=== PATIENT | female | born 1960 | race Caucasian/White ===

== ENCOUNTER 2024-12-23 13:49 | Inpatient (IN) | payer MEDICAID, SELFPAY ==
[2024-12-23] VITALS (47 sets, daily range): BP systolic 79–133; BP diastolic 56–104; PULSE 79–131; RESP 18–39; TEMP 37.8–41.1; O2SAT 87–100; BMI 22.7
--- NOTE | 2024-12-23 14:05 | EKG_ITS ---
[facility] Test Date: 2024-12-23 Pat Name: JOSÉ MIGUEL ESCAMILLA Department: Room: - Gender: Female [employer] Consultant: : [id number] Requested By: Geovani Blanco Order Number: [id number] Reading MD: Geovani Blanco Measurements Intervals [place] Rate: 127 P: 20 AK: 162 QRS: -5 QRSD: 120 T: 48 QT: 399 QTc: 581 Interpretive Statements SINUS TACHYCARDIA POSSIBLE RIGHT VENTRICULAR CONDUCTION DELAY [RSR (QR) IN V1/V2] POSSIBLE INFERIOR MYOCARDIAL INFARCTION , OF INDETERMINATE AGE [30 ms Q WAVE IN II/aVF] POSSIBLE ANTEROLATERAL MYOCARDIAL INFARCTION , PROBABLY OLD [30 ms Q WAVE IN I/aVL/V3-V6] Compared to ECG 05/11/2023 16:30:20 Myocardial infarct finding now present Sinus bradycardia no longer present Intraventricular conduction delay no longer present /store/S0/[id number]/ecg/[id number].pdf
--- NOTE | 2024-12-23 14:05 | PC.NURSE ---
PT BROUGHT IN BY EMS WITH C/O ALTERED MENTAL STATUS WITH UNKNOWN LAST KNOWN WELL. PT ALERT AND RESPONDING TO PAIN BY MOANING BUT NOT SPEAKING WORDS AT THIS TIME. PT HOT TO TOUCH. PER EMS BOYFRIEND REPORTED THAT PT IS A HEAVY DRINKER. PT WAS FOUND DOWN ON FLOOR WHEN HE WENT TO CHECK ON HER. PT NOTED TO HAVE BRUISING TO MOUTH, UPPER ARMS AND LEGS. SMALL WOUNDS NOTED TO BILATERAL UPPER ARMS. R PUPIL NOTED TO BE LARGER THAN LEFT PUPIL. MARY VU INFORMED AND AT BEDSIDE
--- NOTE | 2024-12-23 14:06 | XR_ITS ---
Exam: AP view the chest INDICATION: Chest pain. COMPARISON: 04/05/2019. FINDINGS: Heart size appears normal. Ill-defined area of opacification in the right upper zone most prominent in the suprahilar region. Lungs otherwise clear. Pulmonary vascular pattern appears normal. No pneumothorax. No acute bony abnormality. IMPRESSION: Right upper zone/suprahilar infiltrate.
--- NOTE | 2024-12-23 14:08 | PD.EDAMS ---
Altered Mental Status RME/HPI General Chief Complaint: Altered Mental Status Stated Complaint: ALTERED Time Seen by Provider: 12/23/24 14:11 Arrival date/time: 12/23/24 13:49 RME / HPI RME / HPI narrative: 64-year-old female patient with significant history of seizure disorder, depression, chronic alcoholism, was brought in by EMS for altered mental status. Patient boyfriend went to the house to do welfare check, and was found to be on the ground and was noted to be covered with urine and feces all over. When the EMS arrived patient was noted to have a GCS of 9. On my initial evaluation patient was noted to be febrile tachycardic. There is also unequal pupil noted, patient is not following commands eyes is open. Nonverbal. Unknown well-known time. Sepsis alert and stroke alert was initiated right away. Related Data Home Medications ?Medication ?Instructions ?Recorded ?Confirmed gabapentin 300 mg capsule 300 mg PO BID 09/16/19 09/16/19 levetiracetam 500 mg tablet 50 mg PO BID 09/16/19 09/16/19 lorazepam 0.5 mg tablet 0.5 mg PO BID PRN Anxiety 09/16/19 09/16/19 sertraline 50 mg tablet 50 mg PO HS 09/16/19 09/16/19 Previous Rx's ?Medication ?Instructions ?Recorded chlordiazepoxide HCl 25 mg capsule 25 mg PO Q12H PRN alcohol 01/14/23 withdrawal #20 caps Allergies Allergy/AdvReac Type Severity Reaction Status Date / Time No Known Allergies Allergy Verified 12/23/24 14:03 Review of Systems Review of Systems ROS Unobtainable: unobtainable due to mental status and unobtainable due to medical condition ED Exam Narrative Physical exam: VITAL SIGNS: Reviewed. GENERAL APPEARANCE: Awake with eyes open, nonverbal, pupils noted, miosis noted, does not follows commands no acute distress, HEAD AND FACE: Multiple bruising noted on the face ENT: PERRL, pink conjunctivitis, eyelid no trauma, Mucous membrane moist. NECK: Supple, nontender, no nuchal rigidity. CHEST: No tenderness, no crepitus, no paradoxical movement, no retractions. LUNGS: Clear, well ventilated, symmetric, no rales, no wheezing, no ronchi, no stridor, good breath sounds bilaterally. HEART: Regular rate, regular rhythm, no murmur, no gallops. ABDOMEN: Soft, positive bowel sounds, nondistended, no guarding, nontender, no rebound, no masses, RECTAL: Deferred. GENITAL: Deferred. NEUROLOGICAL: Gross motor function intact on the right upper extremity, cannot fully assess at this time MUSCULOSKELETAL: low back nontender, full range of motion. EXTREMITIES: Able to hold resistance on the right and lower extremity minimal resistance of the left upper extremity, patient tends to drop to the left arm on lifting SKIN: Multiple bruising noted on the upper and lower extremity no deformity LYMPHATICS: Deferred. Course Quality Measures none Orders Category Date Time Status 24 HR Medical Restraints Q2HR Care 12/23/24 16:51 Active Bedside COVID-19 Antigen Test NOW Care 12/23/24 14:07 Active Bedside Influenza A&B Antigen Test NOW Care 12/23/24 14:07 Completed COVID-19 Screening Questionnaire NOW Care 12/23/24 16:51 Active Asset Accountant STAT Care 12/23/24 14:05 Active Continuous Pulse Oximetry STAT Care 12/23/24 14:05 Completed Cooling Measures NEEDED Care 12/23/24 14:07 Active Decision to Admit X1 Care 12/23/24 16:51 Completed EKG (ED ONLY) *Do not use* NOW Care 12/23/24 14:05 Completed Serna [Urinary Catheter] QS Care 12/23/24 14:07 Active Serna to [place] Routine Care 12/23/24 14:07 Ordered Insert IV NOW Care 12/23/24 14:05 Active Insert NG / OG tube NOW Care 12/23/24 16:50 Active Intubation NOW Care 12/23/24 17:01 Completed NIH Stroke Scale now Care 12/23/24 14:13 Active NPO NOW Care 12/23/24 14:13 Active NPO STAT Care 12/23/24 14:05 Active Nurse Swallow Screen x1 Care 12/23/24 14:13 Active Strict Intake and Output Routine Care 12/23/24 14:05 Ordered Consult to Neurology / Tele-Neurology Routine Cons 12/23/24 14:[address] angio stroke protocol Stat Exams 12/23/24 14:[address] stroke protocol Stat Exams 12/23/24 14:13 Completed EKG (ED Only) Stat Exams 12/23/24 14:05 Draft XR chest 1V SEPSIS PROTOCOL Stat Exams 12/23/24 14:06 Completed XR chest 1V post procedure Stat Exams 12/23/24 17:20 Completed Alcohol, Blood Medical Stat Lab 12/23/24 16:01 Completed Arterial Blood Gas Stat Lab 12/23/24 17:09 Completed B-Type Natriuretic Peptide Stat Lab 12/23/24 14:15 Completed Blood Culture (Lab) Stat Lab 12/23/24 14:15 Received CBC Stat Lab 12/23/24 16:01 Completed CK [Creatine Kinase] Stat Lab 12/23/24 16:01 Completed Comprehensive Metabolic Panel Stat Lab 12/23/24 16:01 Completed Drug Screen,Urine Stat Lab 12/23/24 14:30 Ordered LDH (Lactate Dehydrogenase) Stat Lab 12/23/24 16:01 Completed Lactate (Lactic Acid) Stat Lab 12/23/24 14:20 Completed Lactic Acid, 3 HR Stat Lab 12/23/24 16:44 Completed Lipase Stat Lab 12/23/24 16:01 Completed Magnesium Stat Lab 12/23/24 16:01 Completed Partial Thromboplastin Time Stat Lab 12/23/24 16:01 Completed Path Review Blood Smear Stat Lab 12/23/24 16:01 Completed Phosphorous Stat Lab 12/23/24 16:01 Completed Procalcitonin Stat Lab 12/23/24 16:01 Completed Prothrombin Time with INR Stat Lab 12/23/24 16:01 Completed Sputum Culture and Gram Stain Routine Lab 12/23/24 17:12 Received Troponin I Stat Lab 12/23/24 16:01 Completed Urinalysis, C/S if Indicated Stat Lab 12/23/24 14:30 Completed Acetaminophen Ivpb [Ofirmev Inj] Med 12/23/24 14:06 Discontinued 1,000 mg in 100 ml IV X1 Etomidate Inj [Amidate Inj] Med 12/23/24 16:45 Discontinued 15 mg IV X1 ONE Etomidate Inj [Amidate Inj] Med 12/23/24 16:39 Discontinued 20 mg .ROUTE .STK-MED ONE Etomidate Inj [Amidate Inj] Med 12/23/24 16:40 Discontinued 20 mg IVP X1 ONE Labetalol IV [Trandate IV] Med 12/23/24 14:13 Active 10 mg IVP Q15M PRN Magnesium Sulfate 2 GM Ivpb [Magnesium Sulfate Ivpb] Med 12/23/24 17:53 Discontinued 2 gm in 50 ml IV X1 Ondansetron Inj [Zofran Inj] Med 12/23/24 14:13 Active 4 mg IVP Q4HR PRN Piper/Tazo 3.375 gm Premix [Zosyn] Med 12/23/24 14:06 Discontinued 3.375 gm in 50 ml IV X1 Propofol 1,000 mg Ivpb [Diprivan Ivpb] Med 12/23/24 17:10 Discontinued 1,000 mg in 100 ml IV 5 mcg/kg/min Propofol Inj [Diprivan Inj] Med 12/23/24 17:09 Discontinued 80 mg IV X1 ONE Ringers Lactated 1000 ml [Lactated Ringers] 1,000 ml Med 12/23/24 14:08 Discontinued IV 999 mls/hr Ringers Lactated 1000 ml [Lactated Ringers] 1,000 ml Med 12/23/24 14:08 Discontinued IV 999 mls/hr Succinylcholine Inj [Anectine Inj] Med 12/23/24 16:40 Discontinued 100 mg IV X1 ONE Succinylcholine Inj [Anectine Inj] Med 12/23/24 16:40 Discontinued 200 mg .ROUTE .STK-MED ONE levETIRAcetam INJ [Keppra Inj] Med 12/23/24 17:00 Discontinued 1,000 mg IVP X1 ONE Oxygen Delivery NOW RT 12/23/24 14:05 Active Oxygen Delivery NOW RT 12/23/24 14:13 Active Volume Ventilator Stat RT 12/23/24 17:01 Active Vital Signs Vital signs: Vital Signs Temperature 105.9 F H 12/23/24 13:58 Pulse Rate 130 H 12/23/24 13:58 Respiratory Rate 18 12/23/24 13:58 Blood Pressure 107/79 12/23/24 13:58 Pulse Oximetry (%) 94 L 12/23/24 13:58 Oxygen Delivery Method Room Air 12/23/24 13:58 Altered Mental Status MDM Narrative MDM Narrative:: 64-year-old female patient with significant history of seizure disorder, depression, chronic alcoholism, was brought in by EMS for altered mental status. Patient boyfriend went to the house to do welfare check, and was found to be on the ground and was noted to be covered with urine and feces all over. When the EMS arrived patient was noted to have a GCS of 9. On my initial evaluation patient was noted to be febrile tachycardic. There is also unequal pupil noted, patient is not following commands eyes is open. Nonverbal. Unknown well-known time. Sepsis alert and stroke alert was initiated right away. Patient was given 2 L of IV fluids, IV Zosyn, IV Tylenol Patient CBC showed no leukocytosis, ABG showed pH of 7.28, PO244 potassium 2.9 anion gap 19 BUN 32, creatinine 1.3 lactic acid 8.8 magnesium 1.2 total bili 4.6, AST 340, ALT 85 alkaline phos of 118 total creatinine kinase 8185 troponin 0.316 BNP 328 Pro-Edilberto more than 50 urinalysis significant for UTI chest x-ray showed Right upper zone/suprahilar infiltrate. Patient went into cardiac arrest at 4:35 PM today Family was informed Patient was intubated by Dr. Luke. I spoke with ICU hospitalist, who admitted the patient. Patient data External records reviewed:: None Clinical information provided by:: EMS and family Social determinants that could affect healthcare access:: none Patient has the following chronic illnesses:: Chronic alcoholism seizure disorder How is presenting disease/condition affected by chronic disease/condition?: exacerbated by Evaluation data The following diagnostics were reviewed and interpreted by me:: lab results, radiology exam(s) and EKG tracing(s) Lab and/or radiology exams considered but not ordered:: None Interpretation Summary: EKG showed sinus tachycardia, ventricular rate of 127 bpm, ST segment elevation depression noted. Medications / Prescriptions Medications or Prescriptions considered but not ordered:: None Medication administrations:: Medication Administration History Acetaminophen (Acetaminophen 325 Mg Tablet) 650 mg PO Q4HR PRN PRN Reason: PAIN SCALE 1-3 (mild Stop: 01/22/25 18:21 Acetaminophen (Acetaminophen Supp 650 Mg Supp) 650 mg MI Q4HR PRN PRN Reason: PAIN SCALE 1-3 (mild Stop: 01/22/25 18:21 Potassium Chloride (Kcl Ivpb) 10 meq in 100 mls @ 100 mls/hr IV Q1H JASMINA Stop: 12/23/24 22:45 Last Admin: 12/23/24 19:20 Dose: 100 mls/hr Documented By: BASIL Magnesium Sulfate (Magnesium Sulfate Ivpb) 4 gm in 50 mls @ 12.5 mls/hr IV X1 ONE Stop: 12/23/24 22:46 Last Admin: 12/23/24 20:04 Dose: 12.5 mls/hr Documented By: BASIL Lactated Ringer's (Lactated Ringers) 1,000 mls @ 125 mls/hr IV .Q8H [facility] Stop: 01/22/25 19:18 Last Admin: 12/23/24 19:46 Dose: 125 mls/hr Documented By: BASIL Propofol (Diprivan Ivpb) 1,000 mg in 100 mls @ 1.973 mls/hr IV .Q24H PRN; Protocol PRN Reason: PER PROTOCOL Stop: 01/22/25 19:19 Last Admin: 12/23/24 19:48 Dose: 45 mcg/kg/min, 17.758 mls/hr Documented By: BASIL Co-signed By: SHARMAINE Ceftriaxone Sodium 2 gm/ (Sodium Chloride) 50 mls @ 100 mls/hr IV QDAY [facility] Stop: 12/31/24 08:59 Labetalol HCl (Labetalol Inj 5 Mg/Ml Vial 20 Ml) 10 mg IVP Q15M PRN PRN Reason: SBP >180, DBP >105 Ondansetron HCl (Ondansetron Inj 2 Mg/Ml Inj 2 Ml) 4 mg IVP Q4HR PRN PRN Reason: NAUSEA OR VOMITING Stop: 01/22/25 14:12 Discontinued Medications Enoxaparin Sodium (Enoxaparin Sod Inj 40 Mg/0.4 Ml Syringe) 40 mg SC QDAY [facility] Stop: 01/07/25 08:59 Etomidate (Etomidate Inj 2 Mg/Ml Vial 10 Ml) 20 mg IVP X1 ONE Stop: 12/23/24 16:41 Last Admin: 12/23/24 16:48 Dose: Not Given Documented By: DO Non-Admin Reason: Cancelled by Provider Etomidate (Etomidate Inj 2 Mg/Ml Vial 10 Ml) Confirm Administered Dose 20 mg .ROUTE .STK-MED ONE Stop: 12/23/24 16:40 Last Admin: 12/23/24 16:49 Dose: Not Given Documented By: DO Non-Admin Reason: Override Medication Etomidate (Etomidate Inj 2 Mg/Ml Vial 10 Ml) 15 mg IV X1 ONE Stop: 12/23/24 16:46 Last Admin: 12/23/24 16:42 Dose: 15 mg Documented By: DO Comments: 20 GUAGE R HAND Piperacillin/Tazobactam/Dextrose (Zosyn) 3.375 gm in 50 mls @ 100 mls/hr IV X1 ONE Stop: 12/23/24 14:35 Last Infusion: 12/23/24 14:54 Dose: Infused Documented By: Admin: 12/23/24 14:24 Dose: 100 mls/hr Documented By: DO Acetaminophen (Ofirmev Inj) 1,000 mg in 100 mls @ 250 mls/hr IV X1 ONE Stop: 12/23/24 14:29 Last Infusion: 12/23/24 14:39 Dose: Infused Documented By: Admin: 12/23/24 14:15 Dose: 250 mls/hr Documented By: DO Lactated Ringer's (Lactated Ringers) 1,000 mls @ 999 mls/hr IV .Q1H1M ONE Stop: 12/23/24 15:08 Last Infusion: 12/23/24 15:30 Dose: Infused Documented By: Admin: 12/23/24 14:16 Dose: 999 mls/hr Documented By: DO Lactated Ringer's (Lactated Ringers) 1,000 mls @ 999 mls/hr IV .Q1H1M ONE Stop: 12/23/24 15:08 Last Infusion: 12/23/24 15:30 Dose: Infused Documented By: Admin: 12/23/24 14:16 Dose: 999 mls/hr Documented By: DO Propofol (Diprivan Ivpb) 1,000 mg in 100 mls @ 1.973 mls/hr IV .Q24H PRN; Protocol PRN Reason: PER PROTOCOL Stop: 01/22/25 17:09 Last Titration: 12/23/24 18:25 Dose: 40 mcg/kg/min, 15.785 mls/hr Documented By: Titration: 12/23/24 18:20 Dose: 35 mcg/kg/min, 13.812 mls/hr Documented By: Titration: 12/23/24 18:15 Dose: 30 mcg/kg/min, 11.839 mls/hr Documented By: Titration: 12/23/24 18:10 Dose: 25 mcg/kg/min, 9.866 mls/hr Documented By: Titration: 12/23/24 18:05 Dose: 20 mcg/kg/min, 7.893 mls/hr Documented By: Titration: 12/23/24 18:00 Dose: 15 mcg/kg/min, 5.919 mls/hr Documented By: Titration: 12/23/24 17:55 Dose: 10 mcg/kg/min, 3.946 mls/hr Documented By: Admin: 12/23/24 17:28 Dose: 5 mcg/kg/min, 1.973 mls/hr Documented By: Co-signed By: RICH Magnesium Sulfate (Magnesium Sulfate Ivpb) 2 gm in 50 mls @ 25 mls/hr IV X1 ONE Stop: 12/23/24 19:52 Last Admin: 12/23/24 18:13 Dose: 25 mls/hr Documented By: Lactated Ringer's (Lactated Ringers) 1,000 mls @ 999 mls/hr IV .Q1H1M ONE Stop: 12/23/24 19:24 Last Admin: 12/23/24 18:28 Dose: 999 mls/hr Documented By: Ceftriaxone Sodium/Dextrose (Rocephin/D5w 1gm Iv Premix) 1 gm in 50 mls @ 100 mls/hr IV QDAY JASMINA Stop: 12/30/24 18:47 Last Infusion: 12/23/24 19:49 Dose: Infused Documented By: Admin: 12/23/24 19:19 Dose: 100 mls/hr Documented By: BASIL Dexmedetomidine/Sodium Chloride (Precedex Ivpb) 400 mcg in 100 mls @ 3.289 mls/hr IV .Q24H PRN; Protocol PRN Reason: Per PROTOCOL Stop: 01/22/25 18:50 Levetiracetam (Levetiracetam Inj 100 Mg/Ml Vial 5ml) 1,000 mg IVP X1 ONE Stop: 12/23/24 17:01 Last Admin: 12/23/24 17:27 Dose: 1,000 mg Documented By: Propofol (Propofol Inj 10 Mg/Ml Vial 20 Ml) 80 mg IV X1 ONE Stop: 12/23/24 17:10 Last Admin: 12/23/24 17:32 Dose: 80 mg Documented By: Comments: ADMINISTERED BY MD LUKE Succinylcholine Chloride (Succinylcholine Inj 20 Mg/Ml Vial 10 Ml) 100 mg IV X1 ONE Stop: 12/23/24 16:41 Last Admin: 12/23/24 16:43 Dose: 100 mg Documented By: DO Succinylcholine Chloride (Succinylcholine Inj 20 Mg/Ml Vial 10 Ml) Confirm Administered Dose 200 mg .ROUTE .STK-MED ONE Stop: 12/23/24 16:41 Last Admin: 12/23/24 16:48 Dose: Not Given Documented By: DO Non-Admin Reason: Override Medication See above Consultations Consultation(s) initiated? (list below): No Diagnosis Differential diagnosis altered mental status: alcoholic intoxication, altered mental status and sepsis Most likely diagnosis given after review of the tests above:: Sepsis, UTI, cardiopulmonary arrest, rhabdomyolysis, hypokalemia, seizure, alcohol withdrawal symptoms Admission Indicated Admission indicated?: indicated Admission Request Was there a request for admission?: Yes Admission Attestation Admission request attestation: Discussed case with [ICU Hospitalist service regarding admission. Discussed patients ED course, exam findings, labs, and radiology results. The Hospitalist [agrees,to accept the patient for admission. Disposition Plan Disposition Plan: Admit Critical Care Time Critical Care Time Critical Care Time: Yes Total Critical Care Time (min.): 45 Attestation: Critical Care Time The very real possibility of a deterioration of this patient's condition required the highest level of my preparedness for sudden, emergent intervention for the following systems: Cardiac and Metabolic. I provided critical care services, which included medication orders, frequent re-evaluations of the patient's condition and response to treatment, ordering and reviewing test results, and discussing the case with various consultants including: nursing staff, hospitalist, and more. The critical care time associated with the care of this patient was 45 minutes. Discharge Plan Plan Patient Disposition: Admit Acute Care w/in Hospital Problem List Clinical Impression: Altered mental status, Sepsis, Acute hypokalemia, Seizure, Cardiopulmonary arrest, Rhabdomyolysis, UTI (urinary tract infection)
--- NOTE | 2024-12-23 14:13 | XR_ITS ---
Examination: CT brain head without contrast. 2-D sagittal coronal reconstructions Date and time of exam:12/23/2024, 2:35 PM CTDI: vol (mGy):48.5 DLP: (mGycm):930 INDICATION: Stroke. COMPARISON: 05/11/2023 Technique: Multiple CT axial sections of the brain have been obtained, 5 mm slice thickness. Contrast has not been administered. 2-D sagittal, coronal reconstructions have been obtained Low dose protocols were performed. One or more of the following dose reduction techniques were used; automated exposure control, adjustment of the mA and/or KV according to patient size, use of iterative reconstruction technique. Findings: No significant ventricular enlargement. Intra-axial or extra-axial hemorrhage density is not seen. No mass effect or midline shift Basal cisterns are not remarkable. Fourth ventricle is midline. Cranial vault intact. Impression: Negative for acute hemorrhage, mass effect or midline shift
--- NOTE | 2024-12-23 14:13 | XR_ITS ---
Examination: CTA carotids with intravenous contrast CTA brain, head with intravenous contrast. 2-D sagittal, coronal reconstructions. 3-D reconstructions. Exam date and time: December 23, 2024, 1437 hrs. Indications: Stroke alert, onset focal neurologic deficit including altered mental status today CTDI: vol (mGy) 11.0 DLP: (mGycm) 415. Technique: Multiple CTA axial brain, head carotid images post intravenous contrast injection 100 cc, [id number]. 2-D sagittal, coronal reconstructions. 3-D reconstructions, 3-D post processing including vascular maximum intensity projection images. Low dose protocols were performed. One or more of the following dose reduction techniques were used; automated exposure control, adjustment of the mA and/or KV according to patient size, use of iterative reconstruction technique. Findings: No significant common carotid carotid bifurcation or internal carotid artery stenoses. Dominant right vertebral artery in the neck with no critical vertebral artery stenoses. No cerebral large vessel arterial occlusions or thrombus Impression: No significant neck arterial stenoses No cerebral large vessel arterial occlusions or thrombus
[2024-12-23] MEDS: ACETAMINOPHEN IVPB 1,000 MG/100 ML VIAL 250 MG IV (14:15)
[2024-12-23] MEDS: RINGERS LACTATED 1000 ML 1,000 ML 999 ML IV ×3 (14:16→18:28)
--- NOTE | 2024-12-23 14:17 | PC.NURSE ---
UNABLE TO COMPLETE NIH DUE TO PT NOT ABLE TO ANSWER QUESTIONS OR FOLLOW COMMANDS
[2024-12-23] MEDS: PIPER/TAZO 3.375 GM PREMIX 3.375 GM/50 ML BAG IV (14:24)
--- NOTE | 2024-12-23 14:26 | PC.NURSE ---
TELE NEURO DOCTOR ROEL SALGADO TO EVALUATE PT
--- NOTE | 2024-12-23 14:30 | PC.NURSE ---
pt to ct with rn at bedside
[2024-12-23 14:37] LABS: Lactate (Lactic Acid) 2.9 mMol/L (0.4-2.0)
--- NOTE | 2024-12-23 14:58 | PD.VCONSULT1 ---
Telemedicine visit statement This visit was conducted with the use of interactive audio and video telecommunications system that permits real time communication between the patient and the provider. Patient's verbal consent for virtual visit was obtained on 12/23/24 at 1458. History of Present Illness History of Present Illness History of present illness: [facility] Patient Name:???Eulalia Brady Date of :???1960 Identification Number:??? Date of Service:???12/23/2024 14:21:56 Diagnosis:?R41.0 - Disorientation, unspecified Impression: ?The patient is a 64 year old woman with a history of diabetes, alcohol abuse, seizure disorder who presents with AMS and right side gaze preference in setting of fever. Broad differential includes encephalopathy, seizure, or CVA. CTA ordered, will follow up results. Recommend further evaluation with MRI brain without contrast and EEG. Our recommendations are outlined below. Recommendations: ? Stroke/Telemetry Floor ? Neuro Checks ? Bedside Swallow Eval ? DVT Prophylaxis ? IV Fluids, Normal Saline ? Head of Bed 30 Degrees ? Euglycemia and Avoid Hyperthermia (PRN Acetaminophen) Sign Out: ? Discussed with Emergency Department Provider Advanced Imaging: Advanced imaging has been ordered. Results pending. Metrics: Last Known Well: Unknown Dispatch Time: 12/23/2024 14:21:56 Arrival Time: 12/23/2024 13:49:00 Initial Response Time: 12/23/2024 14:26:03Symptoms: AMS. Initial patient interaction: 12/23/2024 14:27:11 NIHSS Assessment Completed: 12/23/2024 14:33:13Patient is not a candidate for Thrombolytic. Thrombolytic Medical Decision: 12/23/2024 14:33:13Patient was not deemed candidate for Thrombolytic because of following reasons: LKW outside 4.[address] Head: I personally reviewed all the CT images that were available to me and it showed: no acute abnormality Primary Provider Notified of Diagnostic Impression and Management Plan on: 12/23/2024 14:53:25 History of Present Illness:Patient is a 64 year old Female. Patient was brought by EMS for symptoms of AMS. Patient brought in by EMS following welfare check by ex-. Unclear last normal. Found on ground covered in feces and urine, poorly responsive, with multiple bruises. In ER she is nonverbal, not following commands. Noted to have gave preference to the right. Past Medical History: ?Diabetes Mellitus ?Seizures ?There is no history of Hypertension ?There is no history of Hyperlipidemia Other PMH:? alcohol abuse Medications: No Anticoagulant use? No Antiplatelet use Reviewed EMR for current medications Allergies:? Reviewed Social History: Alcohol Use: Yes Family History: There is no family history of premature cerebrovascular disease pertinent to this consultation ROS : 14 Points Review of Systems was performed and was negative except mentioned in HPI. Past Surgical History: There Is No Surgical History Contributory To Today?s Visit Examination: BP(107/79),?Pulse(130), 1A: Level of Consciousness - Arouses to minor stimulation?+ 1 1B: Ask Month and Age - Aphasic?+ 2 1C: Blink Eyes & Squeeze Hands - Performs 0 Tasks?+ 2 2: Test Horizontal Extraocular Movements - Forced Gaze Palsy: Cannot Be Overcome?+ 2 3: Test Visual Hope - No Visual Loss?+ 0 4: Test Facial Palsy (Use Grimace if Obtunded) - Normal symmetry?+ 0 5A: Test Left Arm Motor Drift - Some Effort Against Beulah?+ 2 5B: Test Right Arm Motor Drift - Some Effort Against Beulah?+ 2 6A: Test Left Leg Motor Drift - No Effort Against Beulah?+ 3 6B: Test Right Leg Motor Drift - No Effort Against Beulah?+ 3 7: Test Limb Ataxia (FNF/Heel-Sow) - No Ataxia?+ 0 8: Test Sensation - Normal; No sensory loss?+ 0 9: Test Language/Aphasia - Mute/Global Aphasia: No Usable Speech/Auditory Comprehension?+ 3 10: Test Dysarthria - Mute/Anarthric?+ 2 11: Test Extinction/Inattention - Visual/tactile/auditory/spatial/personal inattention?+ 1 NIHSS Score:?23 Pre-Morbid Modified Ludlow Scale:0 Points = No symptoms at all Spoke with :?ED MD Dr. Blanco This consult was conducted in real time using interactive audio and video technology. Patient was informed of the technology being used for this visit and agreed to proceed. Patient located in hospital and provider located at home/office setting. Patient is being evaluated for possible acute neurologic impairment and high probability of imminent or life-threatening deterioration. I spent total of 30 minutes providing care to this patient, including time for face to face visit via telemedicine, review of medical records, imaging studies and discussion of findings with providers, the patient and/or family. Dr Nilay Bailey [facility] For Inpatient follow-up with [facility] physician please call [facility] at . As we are not an outpatient service for any post hospital discharge needs please contact the hospital for assistance. If you have any questions for the [facility] physicians or need to reconsult for clinical or diagnostic changes please contact us via [facility] at . Signature :?Nilay Bailey Meds Home Medications and Allergies Home Medications ?Medication ?Instructions ?Recorded ?Confirmed ?Type gabapentin 300 mg capsule 300 mg PO BID 09/16/19 09/16/19 History levetiracetam 500 mg tablet 50 mg PO BID 09/16/19 09/16/19 History lorazepam 0.5 mg tablet 0.5 mg PO BID PRN Anxiety 09/16/19 09/16/19 History sertraline 50 mg tablet 50 mg PO HS 09/16/19 09/16/19 History Allergies Allergy/AdvReac Type Severity Reaction Status Date / Time No Known Allergies Allergy Verified 12/23/24 14:03 Virtual exam Vital Signs Temp Pulse Resp BP Pulse Ox O2 Del Method 105.9 F H 130 H 18 107/79 94 L Room Air 12/23/24 13:58 12/23/24 13:58 12/23/24 13:58 12/23/24 13:58 12/23/24 13:58 12/23/24 13:58 Results Labs 12/23/24 14:20 12/23/24 14:20
[2024-12-23 15:03] LABS: Collection Type, Urine Clean Catch
[2024-12-23 15:48] LABS: Bilirubin,Urine 2+ (Negative); Blood,Urine 3+ (Negative); Clarity,Urine Clear (Clear/Hazy); Color,Urine Brown (Lt Yel-Yel); Glucose, Urine Negative (Negative); Ketones,Urine Negative (Negative); Leukocyte Esterase,Urine 2+ (Negative); Nitrite,Urine Negative (Negative); PH,Urine 6.0 (5.0-7.0); Protein,Urine 3+ (Neg - Trace); Specific Gravity,Urine >= 1.030 (1.001-1.035); Urobilinogen,Urine 1.0 mg/dL (0.0-1.0)
--- NOTE | 2024-12-23 15:49 | PC.NURSE ---
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
[2024-12-23 15:55] LABS: Bacteria,Urine 4+; Hyaline Casts,Urine 1 /hpf (0-1); RBC,Urine 32 /hpf (0-3); Squamous Epithelial Cell,Urine 18 /hpf (0-5); WBC,Urine 406 /hpf (0-5)
[2024-12-23 15:56] LABS: Culture Indicated,Urine Contaminated
[2024-12-23 16:14] LABS: Basophils # (Auto) 0.1 Thou/mm3 (0.0-0.2); Basophils % (Auto) 1 % (0-2.5); Eosinophils # (Auto) 0.1 Thou/mm3 (0.0-0.5); Eosinophils % (Auto) 2 % (0-10); Hematocrit 39.3 % (36.0-46.0); Hemoglobin 13.7 g/dL (12.0-16.0); Immature Granulocytes Auto 0.10 Thou/mm3 (0.00-0.00); Lymphocytes # (Auto) 0.5 Thou/mm3 (1.0-4.8); Lymphocytes % (Auto) 6 % (10-50); Mean Corpuscular HGB Conc 34.9 g/dl (31.0-37.0); Mean Corpuscular Hemoglobin 34.1 pg (25.0-35.0); Mean Corpuscular Volume 98 fL (80-100); Monocytes # (Auto) 0.3 Thou/mm3 (0.0-0.8); Monocytes % (Auto) 4 % (0-12); Neutrophils # (Auto) 7.3 Thou/mm3 (1.8-7.7); Neutrophils % (Auto) 87 % (37-80); Nucleated Red Blood Cell # 0.00 Thou/mm3 (0.00-0.00); Nucleated Red Blood Cell % 0 /100 WBC (0); RDW Standard Deviation 65.1 fL (36.4-46.3); Red Blood Count 4.02 Miln/mm3 (4.00-5.20); White Blood Count 8.4 Thou/mm3 (3.6-11.0)
[2024-12-23 16:29] LABS: INR 1.5 (0.9-1.3); Partial Thromboplastin Time 34.5 Seconds (22.0-36.0); Prothrombin Time 15.7 Seconds (9.0-12.2)
[2024-12-23 16:33] LABS: Alanine Aminotransferase 85 U/L (10-49); Albumin, Serum 3.4 gm/dL (3.4-4.8); Albumin/Globulin Ratio 1.3 (1.2-2.2); Alcohol, Blood Medical < 3.0 mg/dL (0-10.0); Alkaline Phosphatase 118 U/L (46-116); Anion Gap 19 (7-16); Aspartate Amino Transferase 340 U/L (0-34); BUN/Creatinine Ratio 25 Ratio (12-20); Bilirubin,Total 4.6 mg/dL (0.3-1.2); Blood Urea Nitrogen 32 mg/dL (9-23); Calcium 9.8 mg/dL (8.3-10.6); Calcium (Corrected) 10.3 mg/dL (8.5-10.1); Carbon Dioxide 23.2 mMol/L (20.0-31.0); Chloride 100 mMol/L (98-107); Creatine Kinase 8185 U/L (34-171); Creatinine (Component) 1.3 mg/dL (0.6-1.3); Estimated Creatinine Clearance 43.1 mL/min (>60); Globulin 2.7 gm/dL (2.3-3.5); Glucose 110 mg/dL (74-106); LDH (Lactate Dehydrogenase) 534 U/L (120-246); Lipase 24 U/L (12-53); Magnesium 1.2 mg/dL (1.6-2.6); Osmolality,Calculated 291 (275-295); Phosphorous 3.0 mg/dL (2.4-5.1); Potassium 2.9 mMol/L (3.4-5.1); Procalcitonin > 50.00 ng/ml (0.0-0.49); Sodium 142 mMol/L (136-145); Total Protein 6.1 gm/dL (5.7-8.2); eGFR 46 See Note
[2024-12-23 16:37] LABS: Troponin I 0.316 ng/mL (0.0-0.045)
--- NOTE | 2024-12-23 16:41 | PC.NURSE ---
AT APPROX 1632 I WAS CALLED TO ROOM 6 FOR THIS PT THAT WAS HAVING A TONIC CLONIC SEIZURE THAT LAST APPROX 1 MIN, PT THEN STATED TO HAVE AGONAL RESPIRATIONS WITH NO PULSE FELT ON CAROTID OR FEMORAL. MINA VOGEL WAS CALLED COMPRESSION STARTED AND PT WAS MOVE TO ROOM 3.
[2024-12-23] MEDS: ETOMIDATE INJ 2 MG/ML VIAL 10 ML 15 MG IV (16:42)
[2024-12-23] MEDS: SUCCINYLCHOLINE INJ 20 MG/ML VIAL 10 ML 100 MG IV (16:43)
[2024-12-23 16:44] LABS: Platelet Count 39 Thou/mm3 (140-440)
[2024-12-23 16:58] LABS: B-Type Natriuretic Peptide 328 pg/mL (0-100)
--- NOTE | 2024-12-23 17:07 | PD.EDCPR ---
ED CPR RME/HPI General Chief Complaint: Altered Mental Status Stated Complaint: ALTERED Time Seen by Provider: 12/23/24 14:11 Arrival date/time: 12/23/24 13:49 RME / HPI RME / HPI narrative: 64-year-old female patient with significant history of seizure disorder, depression, chronic alcoholism, was brought in by EMS for altered mental status. Patient boyfriend went to the house to do welfare check, and was found to be on the ground and was noted to be covered with urine and feces all over. When the EMS arrived patient was noted to have a GCS of 9. On my initial evaluation patient was noted to be febrile tachycardic. There is also unequal pupil noted, patient is not following commands eyes is open. Nonverbal. Unknown well-known time. Sepsis alert and stroke alert was initiated right away. DR. MACHADO MAIN ED EVALUATION: 64 year old female with history of alcohol abuse and alcohol withdrawal seizures, pancreatic mass (dx 2018) presented the ED BIBA for altered mental status today as noted above. At 16:32h the patient had a tonic clonic seizure lasting ~ 1 minutes where shortly thereafter became apneic and lost pulses. CPR initiated and a code blue was called overhead at 16:33h. Related Data Home Medications ?Medication ?Instructions ?Recorded ?Confirmed gabapentin 300 mg capsule 300 mg PO BID 09/16/19 12/23/24 levetiracetam 500 mg tablet 50 mg PO BID 09/16/19 12/23/24 lorazepam 0.5 mg tablet 0.5 mg PO BID PRN Anxiety 09/16/19 12/23/24 sertraline 50 mg tablet 50 mg PO HS 09/16/19 12/23/24 Previous Rx's ?Medication ?Instructions ?Recorded chlordiazepoxide HCl 25 mg capsule 25 mg PO Q12H PRN alcohol 01/14/23 withdrawal #20 caps Allergies Allergy/AdvReac Type Severity Reaction Status Date / Time No Known Allergies Allergy Verified 12/23/24 14:03 Review of Systems Review of Systems Narrative Review of Systems: ROS unobtainable due to acuity. Past Medical History Past Medical History NEUROLOGIC: Positive Seizures PSYCHO/SOCIAL: Positive Depression and Anxiety Surgical History SURGICAL: Positive Tubal Ligation Social History SMOKING STATUS: Unknown if ever smoked SUBSTANCE USE: marijuana ED Exam Narrative Physical exam: GEN. APPEARANCE: CPR in progress, unresponsive, actively being bagged by RT HEENT: Normocephalic, atraumatic. NECK: Supple, no JVD. CHEST: No deformity and no crepitus. LUNGS: Good lung sounds while being bagged with BVM. ABDOMEN: Soft, flat. EXTREMITIES: Flaccid. No edema. SKIN: Cool and dry, no rashes noted. NEURO: GCS is 3. Unable to evaluate secondary to unresponsive. Course Quality Measures none Orders Category Date Time Status 24 HR Medical Restraints Q2HR Care 12/23/24 16:51 Active Bedside COVID-19 Antigen Test NOW Care 12/23/24 14:07 Active Bedside Influenza A&B Antigen Test NOW Care 12/23/24 14:07 Completed COVID-19 Screening Questionnaire NOW Care 12/23/24 16:51 Active Tavern Keeper STAT Care 12/23/24 14:05 Active Continuous Pulse Oximetry STAT Care 12/23/24 14:05 Completed Cooling Measures NEEDED Care 12/23/24 14:07 Active Decision to Admit X1 Care 12/23/24 16:51 Completed EKG (ED ONLY) *Do not use* NOW Care 12/23/24 14:05 Completed Serna [Urinary Catheter] QS Care 12/23/24 14:07 Active Serna to [place] Routine Care 12/23/24 14:07 Ordered Insert IV NOW Care 12/23/24 14:05 Active Insert NG / OG tube NOW Care 12/23/24 16:50 Active Intubation NOW Care 12/23/24 17:01 Completed NIH Stroke Scale now Care 12/23/24 14:13 Active NPO NOW Care 12/23/24 14:13 Active NPO STAT Care 12/23/24 14:05 Active Nurse Swallow Screen x1 Care 12/23/24 14:13 Active Strict Intake and Output Routine Care 12/23/24 14:05 Ordered Consult to Neurology / Tele-Neurology Routine Cons 12/23/24 14:[address] angio stroke protocol Stat Exams 12/23/24 14:[address] stroke protocol Stat Exams 12/23/24 14:13 Completed EKG (ED Only) Stat Exams 12/23/24 14:05 Draft XR chest 1V SEPSIS PROTOCOL Stat Exams 12/23/24 14:06 Completed XR chest 1V post procedure Stat Exams 12/23/24 17:20 Completed Alcohol, Blood Medical Stat Lab 12/23/24 16:01 Completed Arterial Blood Gas Stat Lab 12/23/24 17:09 Completed B-Type Natriuretic Peptide Stat Lab 12/23/24 14:15 Completed Blood Culture (Lab) Stat Lab 12/23/24 14:20 Results CBC Stat Lab 12/23/24 16:01 Completed CK [Creatine Kinase] Stat Lab 12/23/24 16:01 Completed Comprehensive Metabolic Panel Stat Lab 12/23/24 16:01 Completed Drug Screen,Urine Stat Lab 12/23/24 18:47 Completed LDH (Lactate Dehydrogenase) Stat Lab 12/23/24 16:01 Completed Lactate (Lactic Acid) Stat Lab 12/23/24 14:20 Completed Lactic Acid, 3 HR Stat Lab 12/23/24 16:44 Completed Lipase Stat Lab 12/23/24 16:01 Completed Magnesium Stat Lab 12/23/24 16:01 Completed Partial Thromboplastin Time Stat Lab 12/23/24 16:01 Completed Path Review Blood Smear Stat Lab 12/23/24 16:01 Completed Phosphorous Stat Lab 12/23/24 16:01 Completed Procalcitonin Stat Lab 12/23/24 16:01 Completed Prothrombin Time with INR Stat Lab 12/23/24 16:01 Completed Sputum Culture and Gram Stain Routine Lab 12/23/24 17:12 Results Troponin I Stat Lab 12/23/24 16:01 Completed Urinalysis, C/S if Indicated Stat Lab 12/23/24 14:30 Completed Acetaminophen Ivpb [Ofirmev Inj] Med 12/23/24 14:06 Discontinued 1,000 mg in 100 ml IV X1 Etomidate Inj [Amidate Inj] Med 12/23/24 16:45 Discontinued 15 mg IV X1 ONE Etomidate Inj [Amidate Inj] Med 12/23/24 16:39 Discontinued 20 mg .ROUTE .STK-MED ONE Etomidate Inj [Amidate Inj] Med 12/23/24 16:40 Discontinued 20 mg IVP X1 ONE Labetalol IV [Trandate IV] Med 12/23/24 14:13 Active 10 mg IVP Q15M PRN Magnesium Sulfate 2 GM Ivpb [Magnesium Sulfate Ivpb] Med 12/23/24 17:53 Discontinued 2 gm in 50 ml IV X1 Ondansetron Inj [Zofran Inj] Med 12/23/24 14:13 Active 4 mg IVP Q4HR PRN Piper/Tazo 3.375 gm Premix [Zosyn] Med 12/23/24 14:06 Discontinued 3.375 gm in 50 ml IV X1 Propofol 1,000 mg Ivpb [Diprivan Ivpb] Med 12/23/24 17:10 Discontinued 1,000 mg in 100 ml IV 5 mcg/kg/min Propofol Inj [Diprivan Inj] Med 12/23/24 17:09 Discontinued 80 mg IV X1 ONE Ringers Lactated 1000 ml [Lactated Ringers] 1,000 ml Med 12/23/24 14:08 Discontinued IV 999 mls/hr Ringers Lactated 1000 ml [Lactated Ringers] 1,000 ml Med 12/23/24 14:08 Discontinued IV 999 mls/hr Succinylcholine Inj [Anectine Inj] Med 12/23/24 16:40 Discontinued 100 mg IV X1 ONE Succinylcholine Inj [Anectine Inj] Med 12/23/24 16:40 Discontinued 200 mg .ROUTE .STK-MED ONE levETIRAcetam INJ [Keppra Inj] Med 12/23/24 17:00 Discontinued 1,000 mg IVP X1 ONE Oxygen Delivery NOW RT 12/23/24 14:05 Active Oxygen Delivery NOW RT 12/23/24 14:13 Active Volume Ventilator Stat RT 12/23/24 17:01 Active Vital Signs Vital signs: Vital Signs Temperature 105.9 F H 12/23/24 13:58 Pulse Rate 130 H 12/23/24 13:58 Respiratory Rate 18 12/23/24 13:58 Blood Pressure 107/79 12/23/24 13:58 Pulse Oximetry (%) 94 L 12/23/24 13:58 Oxygen Delivery Method Room Air 12/23/24 13:58 PROCEDURES: Intubation Time out performed: No (Performed emergently ) sedative: Etomidate Mg Given: 15 paralytic: Succinylcholine Mg Given: 100 Laryngoscope: fiber optic video scope Assist Device Used: fiber optic device ET Tube Size: 7.5 ET Tube Uncuffed: No Tube Secured Depth (cm): 23 Tube Secured Location: other (gum) Tube Placement Confirmation: visualized tube passing through cords, equal breath sounds bilaterally, no breath sounds over epigastrium and confirmation by capnometry Patient Tolerated Procedure: well and no complications Intubation Complications: none Cardiac Arrest / CPR MDM Narrative MDM Narrative:: Nahed Worrell am scribing for and in the presence of Dr. Machado. 64 year old female with history of alcohol abuse and alcohol withdrawal seizures, pancreatic mass (dx 2018) presented the ED BIBA for altered mental status today as noted above. At 16:32h the patient had a tonic clonic seizure lasting ~ 1 minutes where shortly thereafter became apneic and lost pulses. CPR initiated and a code blue was called overhead at 16:33h. Patient was transferred from room 6 to room 3 while CPR was in process. Good compressions were initiated at the beginning of the code. Patient had [id number] with 100% O2. Patient was placed on the monitor and CPR was continued. Patient had no spontaneous respirations at first and no pulse. After approximately 1 to 2 minutes pulse weakly returned and spontaneous respirations began but the patient was still obtunded and had no gag. Decision was made to intubate and a 7.5 ETT tube was placed after giving succinylcholine 100 mg IV push and etomidate 15 mg IV push. A Mac 4 blade was used and the ET tube was placed without difficulty. Color change on the CO2 test changed to yellow and breath sounds were auscultated bilateral chest. Chest rise also was observed. Blood pressure stabilized and pulse also stabilized. ET tube with ventilator settings was initiated as above. Propofol 80 mg IV push x 1 and propofol drip to maintain sedation restarted. Complications none. EBL was none. Patient was admitted to ICU. Patient data External records reviewed:: [facility] previous records Clinical information provided by:: other (specify) (Geovani Blanco, HORACE ) Social determinants that could affect healthcare access:: alcohol use Patient has the following chronic illnesses:: alcohol abuse and alcohol withdrawal seizures, pancreatic mass (dx 2018) How is presenting disease/condition affected by chronic disease/condition?: exacerbated by Evaluation data The following diagnostics were reviewed and interpreted by me:: lab results and radiology exam(s) Lab and/or radiology exams considered but not ordered:: None Interpretation Summary: Ordering Physician: Geovani Blanco Date of Service: 12/23/24 Procedure(s): XR chest 1V SEPSIS PROTOCOL Accession Number(s): [id number] cc: Geovani Blanco; Franklin Paulino MD~ Exam: AP view the chest INDICATION: Chest pain. COMPARISON: 04/05/2019. FINDINGS: Heart size appears normal. Ill-defined area of opacification in the right upper zone most prominent in the suprahilar region. Lungs otherwise clear. Pulmonary vascular pattern appears normal. No pneumothorax. No acute bony abnormality. IMPRESSION: Right upper zone/suprahilar infiltrate. Dictated By: Franklin Paulino MD Signed By: <Electronically signed by Franklin Paulino MD in [place]> 12/23/24 1525 Ordering Physician: Geovani Blanco Date of Service: 12/23/24 Procedure(s): CT stroke protocol Accession Number(s): [id number] cc: Geovani Blanco; Franklin Paulino MD~ Examination: CT brain head without contrast. 2-D sagittal coronal reconstructions Date and time of exam:12/23/2024, 2:35 PM CTDI: vol (mGy):48.5 DLP: (mGycm):930 INDICATION: Stroke. COMPARISON: 05/11/2023 Technique: Multiple CT axial sections of the brain have been obtained, 5 mm slice thickness. Contrast has not been administered. 2-D sagittal, coronal reconstructions have been obtained Low dose protocols were performed. One or more of the following dose reduction techniques were used; automated exposure control, adjustment of the mA and/or KV according to patient size, use of iterative reconstruction technique. Findings: No significant ventricular enlargement. Intra-axial or extra-axial hemorrhage density is not seen. No mass effect or midline shift Basal cisterns are not remarkable. Fourth ventricle is midline. Cranial vault intact. Impression: Negative for acute hemorrhage, mass effect or midline shift Dictated By: Franklin Paulino MD Signed By: <Electronically signed by Franklin Paulino MD in [place]> 12/23/24 1443 Ordering Physician: Geovani Blanco Date of Service: 12/23/24 Procedure(s): CT angio stroke protocol Accession Number(s): [id number] cc: Geovani Blanco; Clarence Aguirre MD; Justo Orozco MD~ Examination: CTA carotids with intravenous contrast CTA brain, head with intravenous contrast. 2-D sagittal, coronal reconstructions. 3-D reconstructions. Exam date and time: December 23, 2024, 1437 hrs. Indications: Stroke alert, onset focal neurologic deficit including altered mental status today CTDI: vol (mGy) 11.0 DLP: (mGycm) 415. Technique: Multiple CTA axial brain, head carotid images post intravenous contrast injection 100 cc, [id number]. 2-D sagittal, coronal reconstructions. 3-D reconstructions, 3-D post processing including vascular maximum intensity projection images. Low dose protocols were performed. One or more of the following dose reduction techniques were used; automated exposure control, adjustment of the mA and/or KV according to patient size, use of iterative reconstruction technique. Findings: No significant common carotid carotid bifurcation or internal carotid artery stenoses. Dominant right vertebral artery in the neck with no critical vertebral artery stenoses. No cerebral large vessel arterial occlusions or thrombus Impression: No significant neck arterial stenoses No cerebral large vessel arterial occlusions or thrombus Dictated By: Clarence Aguirre MD Signed By: <Electronically signed by Clarence Aguirre MD in [place]> 12/23/24 2166 Medications / Prescriptions Medications or Prescriptions considered but not ordered:: None Medication administrations:: Medication Administration History Acetaminophen (Acetaminophen 325 Mg Tablet) 650 mg PO Q4HR PRN PRN Reason: PAIN SCALE 1-3 (mild Stop: 01/22/25 18:21 Last Admin: 12/23/24 21:18 Dose: 650 mg Documented By: Acetaminophen (Acetaminophen Supp 650 Mg Supp) 650 mg LA Q4HR PRN PRN Reason: PAIN SCALE 1-3 (mild Stop: 01/22/25 18:21 Acetaminophen (Acetaminophen 500 Mg Tablet) 500 mg PO Q6HR PRN PRN Reason: temp > 100.4 Stop: 01/22/25 20:58 Albuterol/Ipratropium (Albuterol/Ipratropium (Duoneb) Rt Radha 3 Ml Nebu) 3 ml INH Q6HRRT JASMINA Stop: 01/23/25 00:59 Last Admin: 12/24/24 06:36 Dose: 3 ml Documented By: Admin: 12/24/24 01:21 Dose: 3 ml Documented By: IRVIN Chlordiazepoxide HCl (Chlordiazepoxide Hcl 25 Mg Capsule) 25 mg PO Q8HR JASMINA Stop: 12/29/24 05:59 Last Admin: 12/24/24 05:28 Dose: 25 mg Documented By: GERRY Folic Acid (Folic Acid 1 Mg Tablet) 1 mg PO QDAY [facility] Stop: 01/23/25 08:59 Lactated Ringer's (Lactated Ringers) 1,000 mls @ 125 mls/hr IV .Q8H JASMINA Stop: 01/22/25 19:18 Last Admin: 12/24/24 04:52 Dose: 125 mls/hr Documented By: Infusion: 12/24/24 03:46 Dose: Infused Documented By: Infusion: 12/23/24 23:00 Dose: 125 mls/hr Documented By: Infusion: 12/23/24 22:00 Dose: 125 mls/hr Documented By: Admin: 12/23/24 19:46 Dose: 125 mls/hr Documented By: [email or web address] Propofol (Diprivan Ivpb) 1,000 mg in 100 mls @ 1.973 mls/hr IV .Q24H PRN; Protocol PRN Reason: PER PROTOCOL Stop: 01/22/25 19:19 Last Titration: 12/24/24 06:00 Dose: 30 mcg/kg/min, 11.839 mls/hr Documented By: Admin: 12/24/24 05:28 Dose: 35 mcg/kg/min, 13.812 mls/hr Documented By: GERRY Co-signed By: JAMSHID Titration: 12/24/24 05:12 Dose: Infused Documented By: GERRY Co-signed By: JAMSHID Titration: 12/24/24 05:00 Dose: 35 mcg/kg/min, 13.812 mls/hr Documented By: GERRY Co-signed By: JAMSHID Titration: 12/24/24 04:00 Dose: 40 mcg/kg/min, 15.785 mls/hr Documented By: Titration: 12/24/24 03:00 Dose: 35 mcg/kg/min, 13.812 mls/hr Documented By: Titration: 12/24/24 02:00 Dose: 35 mcg/kg/min, 13.812 mls/hr Documented By: Titration: 12/24/24 01:00 Dose: 35 mcg/kg/min, 13.812 mls/hr Documented By: Titration: 12/24/24 00:34 Dose: 35 mcg/kg/min, 13.812 mls/hr Documented By: Titration: 12/24/24 00:00 Dose: 40 mcg/kg/min, 15.785 mls/hr Documented By: Titration: 12/23/24 23:20 Dose: 45 mcg/kg/min, 17.758 mls/hr Documented By: Titration: 12/23/24 23:15 Dose: 40 mcg/kg/min, 15.785 mls/hr Documented By: Titration: 12/23/24 23:00 Dose: 35 mcg/kg/min, 13.812 mls/hr Documented By: Admin: 12/23/24 22:24 Dose: 35 mcg/kg/min, 13.812 mls/hr Documented By: Co-signed By: JAMSHID Titration: 12/23/24 22:24 Dose: Infused Documented By: Co-signed By: JAMSHID Titration: 12/23/24 22:00 Dose: 40 mcg/kg/min, 15.785 mls/hr Documented By: Titration: 12/23/24 21:00 Dose: 45 mcg/kg/min, 17.758 mls/hr Documented By: Admin: 12/23/24 19:48 Dose: 45 mcg/kg/min, 17.758 mls/hr Documented By: [email or web address] Co-signed By: SHARMAINE Piperacillin Sod/Tazobactam (Sod 4.5 gm/ Sodium Chloride) 100 mls @ 200 mls/hr IV Q8HR JASMINA Stop: 12/31/24 00:00 Last Admin: 12/24/24 05:31 Dose: 200 mls/hr Documented By: Infusion: 12/24/24 01:04 Dose: Infused Documented By: Admin: 12/24/24 00:34 Dose: 200 mls/hr Documented By: Labetalol HCl (Labetalol Inj 5 Mg/Ml Vial 20 Ml) 10 mg IVP Q15M PRN PRN Reason: SBP >180, DBP >105 Lactulose (Lactulose Syrup 20 Gm/30 Ml Udc) 20 gm NG TID JASMINA; Protocol Stop: 01/22/25 23:44 Last Admin: 12/24/24 05:28 Dose: 20 gm Documented By: Admin: 12/24/24 01:04 Dose: 20 gm Documented By: Lorazepam (Lorazepam 2 Mg/Ml Vial (Ctc)) 2 mg IVP X1 PRN PRN Reason: seizure Stop: 12/29/24 00:10 Midazolam HCl (Midazolam Inj 1 Mg/Ml Vial 2 Ml) 2 mg IVP X1 ONE Stop: 12/24/24 07:51 Multivitamins (Multivitamins Tablet) 1 tab PO QDAY [facility] Stop: 01/23/25 08:59 Ondansetron HCl (Ondansetron Inj 2 Mg/Ml Inj 2 Ml) 4 mg IVP Q4HR PRN PRN Reason: NAUSEA OR VOMITING Stop: 01/22/25 14:12 Pantoprazole Sodium (Pantoprazole Inj 40 Mg Vial) 40 mg IVP QDAY [facility] Stop: 01/23/25 08:59 Thiamine HCl (Thiamine 100 Mg Tablet) 100 mg NG QDAY [facility] Stop: 01/23/25 08:59 Discontinued Medications Enoxaparin Sodium (Enoxaparin Sod Inj 40 Mg/0.4 Ml Syringe) 40 mg SC QDAY [facility] Stop: 01/07/25 08:59 Etomidate (Etomidate Inj 2 Mg/Ml Vial 10 Ml) 20 mg IVP X1 ONE Stop: 12/23/24 16:41 Last Admin: 12/23/24 16:48 Dose: Not Given Documented By: DO Non-Admin Reason: Cancelled by Provider Etomidate (Etomidate Inj 2 Mg/Ml Vial 10 Ml) Confirm Administered Dose 20 mg .ROUTE .STK-MED ONE Stop: 12/23/24 16:40 Last Admin: 12/23/24 16:49 Dose: Not Given Documented By: DO Non-Admin Reason: Override Medication Etomidate (Etomidate Inj 2 Mg/Ml Vial 10 Ml) 15 mg IV X1 ONE Stop: 12/23/24 16:46 Last Admin: 12/23/24 16:42 Dose: 15 mg Documented By: Comments: 20 GUAGE R HAND Piperacillin/Tazobactam/Dextrose (Zosyn) 3.375 gm in 50 mls @ 100 mls/hr IV X1 ONE Stop: 12/23/24 14:35 Last Infusion: 12/23/24 14:54 Dose: Infused Documented By: Admin: 12/23/24 14:24 Dose: 100 mls/hr Documented By: DO Acetaminophen (Ofirmev Inj) 1,000 mg in 100 mls @ 250 mls/hr IV X1 ONE Stop: 12/23/24 14:29 Last Infusion: 12/23/24 14:39 Dose: Infused Documented By: Admin: 12/23/24 14:15 Dose: 250 mls/hr Documented By: DO Lactated Ringer's (Lactated Ringers) 1,000 mls @ 999 mls/hr IV .Q1H1M ONE Stop: 12/23/24 15:08 Last Infusion: 12/23/24 15:30 Dose: Infused Documented By: Admin: 12/23/24 14:16 Dose: 999 mls/hr Documented By: DO Lactated Ringer's (Lactated Ringers) 1,000 mls @ 999 mls/hr IV .Q1H1M ONE Stop: 12/23/24 15:08 Last Infusion: 12/23/24 15:30 Dose: Infused Documented By: Admin: 12/23/24 14:16 Dose: 999 mls/hr Documented By: DO Propofol (Diprivan Ivpb) 1,000 mg in 100 mls @ 1.973 mls/hr IV .Q24H PRN; Protocol PRN Reason: PER PROTOCOL Stop: 01/22/25 17:09 Last Titration: 12/23/24 18:25 Dose: 40 mcg/kg/min, 15.785 mls/hr Documented By: Titration: 12/23/24 18:20 Dose: 35 mcg/kg/min, 13.812 mls/hr Documented By: Titration: 12/23/24 18:15 Dose: 30 mcg/kg/min, 11.839 mls/hr Documented By: Titration: 12/23/24 18:10 Dose: 25 mcg/kg/min, 9.866 mls/hr Documented By: Titration: 12/23/24 18:05 Dose: 20 mcg/kg/min, 7.893 mls/hr Documented By: Titration: 12/23/24 18:00 Dose: 15 mcg/kg/min, 5.919 mls/hr Documented By: Titration: 12/23/24 17:55 Dose: 10 mcg/kg/min, 3.946 mls/hr Documented By: Admin: 12/23/24 17:28 Dose: 5 mcg/kg/min, 1.973 mls/hr Documented By: Co-signed By: RICH Magnesium Sulfate (Magnesium Sulfate Ivpb) 2 gm in 50 mls @ 25 mls/hr IV X1 ONE Stop: 12/23/24 19:52 Last Infusion: 12/23/24 21:31 Dose: Infused Documented By: Admin: 12/23/24 18:13 Dose: 25 mls/hr Documented By: Lactated Ringer's (Lactated Ringers) 1,000 mls @ 999 mls/hr IV .Q1H1M ONE Stop: 12/23/24 19:24 Last Infusion: 12/23/24 21:31 Dose: Infused Documented By: Admin: 12/23/24 18:28 Dose: 999 mls/hr Documented By: Potassium Chloride (Kcl Ivpb) 10 meq in 100 mls @ 100 mls/hr IV Q1H JASMINA Stop: 12/23/24 22:45 Last Admin: 12/23/24 23:39 Dose: 100 mls/hr Documented By: Infusion: 12/23/24 23:21 Dose: Infused Documented By: Admin: 12/23/24 22:21 Dose: 100 mls/hr Documented By: Infusion: 12/23/24 22:17 Dose: Infused Documented By: Admin: 12/23/24 21:17 Dose: 100 mls/hr Documented By: Infusion: 12/23/24 20:20 Dose: Infused Documented By: Admin: 12/23/24 19:20 Dose: 100 mls/hr Documented By: BASIL Magnesium Sulfate (Magnesium Sulfate Ivpb) 4 gm in 50 mls @ 12.5 mls/hr IV X1 ONE Stop: 12/23/24 22:46 Last Infusion: 12/23/24 20:13 Dose: Infused Documented By: Admin: 12/23/24 20:04 Dose: 12.5 mls/hr Documented By: BASIL Ceftriaxone Sodium/Dextrose (Rocephin/D5w 1gm Iv Premix) 1 gm in 50 mls @ 100 mls/hr IV QDAY [facility] Stop: 12/30/24 18:47 Last Infusion: 12/23/24 19:49 Dose: Infused Documented By: Admin: 12/23/24 19:19 Dose: 100 mls/hr Documented By: BASIL Dexmedetomidine/Sodium Chloride (Precedex Ivpb) 400 mcg in 100 mls @ 3.289 mls/hr IV .Q24H PRN; Protocol PRN Reason: Per PROTOCOL Stop: 01/22/25 18:50 Ceftriaxone Sodium 2 gm/ (Sodium Chloride) 50 mls @ 100 mls/hr IV QDAY [facility] Stop: 12/31/24 08:59 Thiamine HCl 100 mg/ Sodium (Chloride) 101 mls @ 202 mls/hr IV X1 ONE Stop: 12/23/24 23:46 Last Admin: 12/24/24 00:00 Dose: 202 mls/hr Documented By: Levetiracetam (Levetiracetam Inj 100 Mg/Ml Vial 5ml) 1,000 mg IVP X1 ONE Stop: 12/23/24 17:01 Last Admin: 12/23/24 17:27 Dose: 1,000 mg Documented By: Levetiracetam (Levetiracetam 250 Mg Tablet) 500 mg NG BID [facility] Stop: 01/22/25 23:14 Midazolam HCl (Midazolam Inj 1 Mg/Ml Vial 2 Ml) Confirm Administered Dose 2 mg .ROUTE .STK-MED ONE Stop: 12/24/24 07:52 Pantoprazole Sodium (Pantoprazole Inj 40 Mg Vial) 40 mg IVP X1 ONE Stop: 12/24/24 00:05 Last Admin: 12/24/24 00:32 Dose: 40 mg Documented By: Potassium Chloride (Potassium Chloride 10% 20 Meq/15 Ml Udc) 40 meq NG X1 ONE Stop: 12/24/24 02:39 Last Admin: 12/24/24 03:11 Dose: 40 meq Documented By: Propofol (Propofol Inj 10 Mg/Ml Vial 20 Ml) 80 mg IV X1 ONE Stop: 12/23/24 17:10 Last Admin: 12/23/24 17:32 Dose: 80 mg Documented By: Comments: ADMINISTERED BY MD MACHADO Succinylcholine Chloride (Succinylcholine Inj 20 Mg/Ml Vial 10 Ml) 100 mg IV X1 ONE Stop: 12/23/24 16:41 Last Admin: 12/23/24 16:43 Dose: 100 mg Documented By: Succinylcholine Chloride (Succinylcholine Inj 20 Mg/Ml Vial 10 Ml) Confirm Administered Dose 200 mg .ROUTE .STK-MED ONE Stop: 12/23/24 16:41 Last Admin: 12/23/24 16:48 Dose: Not Given Documented By: DO Non-Admin Reason: Override Medication See above Consultations Consultation(s) initiated? (list below): No Diagnosis Cardiac arrest differential diagnosis: acute massive pulmonary embolism, acute respiratory failure, acute myocardial infarction, cardiac arrest and other (Seizure) Most likely diagnosis given after review of the tests above:: Please refer to HORACE Blanco note for diagnosis. Admission Indicated Admission indicated?: indicated Admission Request Was there a request for admission?: Yes Admission Attestation Admission request attestation: Discussed case with [] from Hospitalist service regarding admission. Discussed patients ED course, exam findings, labs, and radiology results. The Hospitalist [agrees,declines] to accept the patient for admission. Disposition Plan Disposition Plan: Admit (to ICU) Critical Care Time Critical Care Time Critical Care Time: Yes Total Critical Care Time (min.): 60 Attestation: The high probability of sudden, clinically significant deterioration in the patient's condition required the highest level of my preparedness to intervene urgently. The services I provided to this patient were to treat and/or prevent clinically significant deterioration. Services included the following: chart data review, reviewing nursing notes and/or old charts, documentation time, eligibility consultant collaboration regarding findings and treatment options, medication orders and management, direct patient care, vital sign assessments and ordering, interpreting and reviewing diagnostic studies and lab tests. Aggregate critical care time includes only time during which I was engaged in work directly related to the patient's care, as described above, whether at bedside or elsewhere in the Emergency Department. It did not include time spent performing other reported procedures or the services of residents, students, nurses or physician assistants. Discharge Plan Plan Patient Disposition: Admit Acute Care w/in Hospital Problem List Clinical Impression: Altered mental status, Sepsis, Acute hypokalemia, Seizure, Cardiopulmonary arrest, Rhabdomyolysis, UTI (urinary tract infection)
[2024-12-23 17:16] LABS: Base Excess -5 (-3-3); HCO3 21 mEq/L (20-26); Inspired Oxygen, FIO2 100 %; O2 Saturation 68 % (91-98); PCO2 46 mmHg (32.0-48.0); pH, Arterial 7.28 (7.35-7.45)
[2024-12-23 17:18] LABS: Allen Test Not Performed; PO2 44 mmHg (83-108); Puncture Site Left Radial
--- NOTE | 2024-12-23 17:20 | XR_ITS ---
Examination: AP chest single view. Technique: AP portable supine chest single view. Date and time: December 23, 2024, 1747 hrs., Comparison December 23, 2024. Indications: Hypoxic respiratory failure today post intubation. Findings: Diffuse left lung pneumonia with atelectasis Endotracheal tube tip is in the right mainstem bronchus Subsegmental atelectasis in the right lung. Mild enlargement cardiac contour. Orogastric tube tip in the stomach. Impression: Retract the endotracheal tube 4 cm
[2024-12-23] MEDS: levETIRAcetam INJ 100 MG/ML VIAL 5ML 1000 MG IVP (17:27)
[2024-12-23] MEDS: PROPOFOL 1,000 MG IVPB 1,000 MG/100 ML VIAL 1.973 MG IV (17:28)
[2024-12-23] MEDS: PROPOFOL INJ 10 MG/ML VIAL 20 ML 80 MG IV (17:32)
[2024-12-23 17:35] LABS: Reflex Lactate? Y
[2024-12-23 18:04] LABS: Lactic Acid, 3 HR 8.8 mMol/L (0.4-2.0)
[2024-12-23] MEDS: Magnesium Sulfate 2 GM Ivpb 2 GM/50 ML BAG IV (18:13)
[2024-12-23 18:22] LABS: Path Review Blood Smear Sent to Pathologist; Slide Review Platelets confirmed
--- NOTE | 2024-12-23 18:32 | PC.RT ---
ETT withdrawn from 23CM to 21CM to the teeth/gum. Per
--- NOTE | 2024-12-23 18:49 | XR_ITS ---
Examination: CT abdomen and pelvis without contrast. Coronal 3-D reconstructions. Sagittal 2-D reconstructions. Date and time of exam:December 23, 2024, 2023 hrs. Indications: Elevated liver function tests on laboratory examination today. CTDI: vol (mGy): 11.8. DLP: (mGycm): 769. Technique: Axial images of the abdomen have been obtained, 3 mm slice thickness Intravenous contrast material has not been administered. Low dose protocols were performed. One or more of the following dose reduction techniques were used; automated exposure control, adjustment of the mA and/or KV according to patient size, use of iterative reconstruction technique. Findings: Retrocardiac gastric hernia. Severe fatty infiltration throughout the liver. Hyperdense gallbladder Spleen is not enlarged. No pancreatic mass. Contrast in the kidneys from the patient's CTA study Perinephric stranding Aorta normal size No CT findings of appendicitis or bowel obstruction No diverticulitis. Atrophic uterus Urinary bladder contracted around a Serna catheter Impression: Hepatomegaly, 21 cm with severe diffuse fatty infiltration throughout the liver Recommend hepatobiliary sonography to assess for gallbladder sludge versus stones
[2024-12-23] MEDS: cefTRIAXone/D5w 1gm IV premix 1 GM/50 ML BAG IV (19:19)
[2024-12-23] MEDS: POTASSIUM CHL 10 mEq IVPB 10 MEQ/100 ML BAG 100 MEQ IV ×4 (19:20→23:39)
--- NOTE | 2024-12-23 19:21 | ESHP_ITS ---
Documentation for date of: 12/23/24 [facility] History of Present Illness Chief complaint: Altered sensorium History of present illness: Patient is intubated at the time of examination. Most of history is taken from the chart review. 64-year-old female with significant past medical history of alcohol use disorder, seizures likely alcohol withdrawal, previous episode of hospitalization for alcohol pancreatitis, pancreatic mass [2018] depression was brought to the hospital by EMS with chief complaints of altered sensorium. Patient's boyfriend went to her house to check on her following which she was found to be unconscious on the ground covered with urine and feces and later EMS found her with a GCS of 9 was brought to the hospital. In the ED, sepsis and stroke alert was called on the patient. Teleneurology was consulted and they recommended CTA, MRI brain without contrast EEG. NIHSS score is 23. 4:30 PM, patient found to had a tonic-clonic seizure lasting for 1 minute following which she became apneic and lost pulses for which CPR was initiated and CODE BLUE was called around 4:33 PM. Patient attained ROSC within 30 seconds and did not receive any epinephrine. Patient was intubated at that time and ICU was consulted for further management. ED course: - Vitals at the time of admission was significant for pulse rate 132 bpm, temperature 105.9 ?F, SpO2 94% with room air - Labs at the time of admission were significant for platelet count 39,000, INR 1.5, potassium 2.9, anion gap 19, BUN 32, creatinine 1.3, glucose 110, lactic 2.9, corrected calcium 10.3, magnesium 1.2, total bilirubin 4.6, AST 340, ALT 85, LDH 534, total creatinine kinase 8185, procalcitonin greater than 50 - Urinalysis showed 3+ proteinuria, 3+ blood, 2+ bilirubin, 2+ leukocyte esterase, 32 RBC, 406 WBC, 4+ bacteria. - Tested negative for urine toxicology - Chest x-ray at the time of admission showed opacification in the right upper [place] - Head CT is negative for acute hemorrhage, mass effect or midline shift. Head/neck CT showed no significant neck arterial stenosis, cerebral large vessel occlusion or thrombus. - EKG showed sinus tachycardia with heart rate 127 bpm, prolonged QTc 581, no ST and T wave changes. - Patient is given total 3 L bolus in the ED. Past medical history: Alcohol use disorder, seizures likely from alcohol withdrawal, pancreatitis, pancreatic mass, depression Past surgical history: Not known Social history: Chronic alcohol abuse Review of Systems Review of Systems ROS Unobtainable: unobtainable due to mental status, unobtainable due to medical condition and due to endotracheal tube Exam Vital Signs Temp Pulse Resp BP Pulse Ox O2 Del Method FiO2 101.8 F H 101 H 24 H 98/73 100 Mechanical Ventilation 85 12/23/24 18:35 12/23/24 18:35 12/23/24 18:35 12/23/24 18:35 12/23/24 18:35 12/23/24 18:35 12/23/24 18:28 Narrative Exam General: Sedated and mechanically ventilated HEENT: Normocephalic, atraumatic, mucous membranes moist. scleral icterus Heart: Tachycardic, Regular rhythm, no murmurs. Lungs: Clear to auscultation with no wheezing or crackles. Abdomen: Soft, nondistended, nontender, positive bowel sounds. ?No guarding or rebound tenderness. Neurologic: Sedated and mechanically ventilated, no gross neurological deficit, and patient able to move all 4 extremities. Extremities: No edema. noted multiple ecchymotic patches in the extremities Skin: No rash and noted echymoses on bilateral knees and face Results: Labs 01/02/25 05:26 01/02/25 05:26 Labs: Short CBC 12/23/24 Range/Units 16:01 WBC 8.4 (3.6-11.0) Thou/mm3 Hgb 13.7 (12.0-16.0) g/dL Hct 39.3 (36.0-46.0) % Plt Count 39 L (140-440) Thou/mm3 BMP 12/23/24 16:01 Sodium 142 Potassium 2.9 L Chloride 100 Carbon Dioxide 23.2 BUN 32 H Creatinine 1.3 Glucose 110 H Calcium 9.8 Cardiac Enzymes 12/23/24 Range/Units 16:01 Total Creatine Kinase 8185 H (34-171) U/L Troponin I 0.316 H* (0.0-0.045) ng/mL Liver Function 12/23/24 Range/Units 16:01 Total Bilirubin 4.6 H (0.3-1.2) mg/dL AST 340 H (0-34) U/L ALT 85 H (10-49) U/L Alkaline Phosphatase 118 H (46-116) U/L Albumin 3.4 (3.4-4.8) gm/dL Urine 12/23/24 Range/Units 14:30 Urine Color Brown A (Lt Yel-Yel) Urine Clarity Clear (Clear/Hazy) Urine pH 6.0 (5.0-7.0) Ur Specific Cecil >= 1.030 (1.001-1.035) Urine Protein 3+ A (Neg - Trace) Urine Glucose (UA) Negative (Negative) ABG Interpretation ABG results: 12/23/24 17:09 ABG pH 7.28 L ABG pCO2 46 ABG pO2 44 L* ABG HCO3 21 ABG O2 Saturation 68 L ABG Base Excess -5 L Quality Measures Quality Measures none Medications Home Medications and Allergies Allergies Allergy/AdvReac Type Severity Reaction Status Date / Time No Known Allergies Allergy Verified 12/23/24 14:03 Visit Medications Acetaminophen (Acetaminophen 325 Mg Tablet) 650 mg PO Q4HR PRN PRN Reason: PAIN SCALE 1-3 (mild Stop: 01/22/25 18:21 Acetaminophen (Acetaminophen Supp 650 Mg Supp) [address] Q4HR PRN PRN Reason: PAIN SCALE 1-3 (mild Stop: 01/22/25 18:21 Magnesium Sulfate (Magnesium Sulfate Ivpb) 2 gm in 50 mls @ 25 mls/hr IV X1 ONE Stop: 12/23/24 19:52 Last Admin: 12/23/24 18:13 Dose: 25 mls/hr Lactated Ringer's (Lactated Ringers) 1,000 mls @ 999 mls/hr IV .Q1H1M ONE Stop: 12/23/24 19:24 Last Admin: 12/23/24 18:28 Dose: 999 mls/hr Potassium Chloride (Kcl Ivpb) 10 meq in 100 mls @ 100 mls/hr IV Q1H JASMINA Stop: 12/23/24 22:45 Magnesium Sulfate (Magnesium Sulfate Ivpb) 4 gm in 50 mls @ 12.5 mls/hr IV X1 ONE Stop: 12/23/24 22:46 Lactated Ringer's (Lactated Ringers) 1,000 mls @ 125 mls/hr IV .Q8H JASMINA Stop: 01/22/25 19:18 Propofol (Diprivan Ivpb) 1,000 mg in 100 mls @ 1.973 mls/hr IV .Q24H PRN; Protocol PRN Reason: PER PROTOCOL Stop: 01/22/25 19:19 Ceftriaxone Sodium 2 gm/ (Sodium Chloride) 50 mls @ 100 mls/hr IV QDAY JASMINA Stop: 12/30/24 19:20 Labetalol HCl (Labetalol Inj 5 Mg/Ml Vial 20 Ml) 10 mg IVP Q15M PRN PRN Reason: SBP >180, DBP >105 Ondansetron HCl (Ondansetron Inj 2 Mg/Ml Inj 2 Ml) 4 mg IVP Q4HR PRN PRN Reason: NAUSEA OR VOMITING Stop: 01/22/25 14:12 Discontinued Medications Enoxaparin Sodium (Enoxaparin Sod Inj 40 Mg/0.4 Ml Syringe) 40 mg SC QDAY [facility] Stop: 01/07/25 08:59 Etomidate (Etomidate Inj 2 Mg/Ml Vial 10 Ml) 20 mg IVP X1 ONE Stop: 12/23/24 16:41 Last Admin: 12/23/24 16:48 Dose: Not Given Etomidate (Etomidate Inj 2 Mg/Ml Vial 10 Ml) 15 mg IV X1 ONE Stop: 12/23/24 16:46 Last Admin: 12/23/24 16:42 Dose: 15 mg Piperacillin/Tazobactam/Dextrose (Zosyn) 3.375 gm in 50 mls @ 100 mls/hr IV X1 ONE Stop: 12/23/24 14:35 Last Infusion: 12/23/24 14:54 Dose: Infused Acetaminophen (Ofirmev Inj) 1,000 mg in 100 mls @ 250 mls/hr IV X1 ONE Stop: 12/23/24 14:29 Last Infusion: 12/23/24 14:39 Dose: Infused Lactated Ringer's (Lactated Ringers) 1,000 mls @ 999 mls/hr IV .Q1H1M ONE Stop: 12/23/24 15:08 Last Infusion: 12/23/24 15:30 Dose: Infused Lactated Ringer's (Lactated Ringers) 1,000 mls @ 999 mls/hr IV .Q1H1M ONE Stop: 12/23/24 15:08 Last Infusion: 12/23/24 15:30 Dose: Infused Propofol (Diprivan Ivpb) 1,000 mg in 100 mls @ 1.973 mls/hr IV .Q24H PRN; Protocol PRN Reason: PER PROTOCOL Stop: 01/22/25 17:09 Last Titration: 12/23/24 18:25 Dose: 40 mcg/kg/min, 15.785 mls/hr Ceftriaxone Sodium/Dextrose (Rocephin/D5w 1gm Iv Premix) 1 gm in 50 mls @ 100 mls/hr IV QDAY JASMINA Stop: 12/30/24 18:47 Last Admin: 12/23/24 19:19 Dose: 100 mls/hr Dexmedetomidine/Sodium Chloride (Precedex Ivpb) 400 mcg in 100 mls @ 3.289 mls/hr IV .Q24H PRN; Protocol PRN Reason: Per PROTOCOL Stop: 01/22/25 18:50 Levetiracetam (Levetiracetam Inj 100 Mg/Ml Vial 5ml) 1,000 mg IVP X1 ONE Stop: 12/23/24 17:01 Last Admin: 12/23/24 17:27 Dose: 1,000 mg Propofol (Propofol Inj 10 Mg/Ml Vial 20 Ml) 80 mg IV X1 ONE Stop: 12/23/24 17:10 Last Admin: 12/23/24 17:32 Dose: 80 mg Succinylcholine Chloride (Succinylcholine Inj 20 Mg/Ml Vial 10 Ml) 100 mg IV X1 ONE Stop: 12/23/24 16:41 Last Admin: 12/23/24 16:43 Dose: 100 mg Assessment & Plan Plan 64-year-old female with significant past medical history of alcohol use disorder, seizures likely alcohol withdrawal, previous episode of hospitalization for alcohol pancreatitis, pancreatic mass [2018] depression was brought to the hospital by EMS with chief complaints of 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 # Acute encephalopathy DDx: Alcohol withdrawal seizures versus sepsis versus metabolic versus hepatic encephalopathy versus rhabdomyolysis versus stroke, less likely versus multifactorial - Alcohol withdrawal seizures: Patient had history of chronic alcohol disorder and noted to drink 1 bottle of vodka every day and patient had previous history of seizures, which could be likely alcohol withdrawal seizures and not sure if she is taking any medications if patient is taking any medication for seizure disorder - Sepsis: Noted to have temperature of 105.9 ?F at the time of admission, likely had aspiration pneumonia versus UTI which could be causing sepsis resulting in encephalopathy versus provoking seizures - Metabolic: Patient noted to have high anion gap metabolic acidosis at the time of admission which could be contributing to the altered sensorium - Hepatic encephalopathy: Patient was noted to have elevated liver enzymes including total bilirubin and transaminase levels at the time of admission. There is a possibility of hepatic encephalopathy secondary to liver failure or it could be just acute alcohol hepatitis - Stroke: Stroke alert was called and patient and the of altered sensorium at the time of presentation with stroke workup was done including teleneuro consult, head CT, CT angio of head and neck which came back negative. Patient is able to move all 4 extremities but not able to do complete neurological examination in view of sedation. Dx: - Lactate 2.9, anion gap 19, BUN 32, creatinine 1.3, total bilirubin 4.6, AST 340, ALT 85, CT 8185 - CT head and CTA head/neck did not show any significant abnormality Rx: - Patient was given loading dose of Keppra in the ED - Started on Librium 25 mg 3 times daily through NG tube - Will treat underlying sepsis and metabolic component - A dose of IV thiamine 100 mg is given followed by 100 mg once daily through NG tube Pulmonary # On mechanical ventilator in view of cardiac arrest - Sedated and on MV - At 4:30 PM while in ED, patient was found to have a tonic-clonic seizure lasting for 1 minute following which she became apneic and lost pulses for which CPR was initiated and CODE BLUE was called around 4:33 PM. - Patient attained ROSC within 30 seconds and did not receive any epinephrine. - Started on propofol with RAAS of -2 - Will try to wean off the ventilator tomorrow # Suspicion of possible aspiration pneumonia Patient is noted to be covered in feces and vomit when seen by the EMS and in the setting of alcohol abuse, likely to have possible aspiration CXR showed possible right sided infiltrate. Patient was additionally found down for unspecified amount of time. -Continue Zosyn 4.5 mg q8h -Sputum culture is pending -MRSA culture pending [facility] #?Cardiac arrest Patient had reported seizure activity in the ED, because apneic and lost pulses, Code Blue was activated and attained ROSC in 30 sec, did not receive epinephrine. -Continuous telemetry -Treat underlying alcohol withdrawal and sepsis GI #Hyperbilirubinemia #Transaminitis #Alcohol-related fatty liver disease Likely in the setting of alcohol hepatitis INR is 1.5, total bilirubin 4.3, AST 270, ALT 75. Mild scleral icterus on exam. -Supportive care -Continue to trend liver panel - Hepatitis panel, Ct abdomen/ pelvis is ordered #Coagulopathy Likely in the setting of alcohol hepatitis Inr is 1.5 #H/o pancreatic mass - Noted to have pancreatic mass in 2018 on MRCP Renal #MONIKA likely prerenal 2/2 sepsis vs Rhabdomyolysis Baseline creat is 0.7, at the time of admission is 1.3 Urine output has been brown tinged and dark Received 3L bolus in the ED, started on 125 ml/hr since admission -Continue on maintenance fluids 125 ml/hr -Avoid nephrotoxins -Monitor renal panel #Rhabdomyolysis 8185 at admission Started on IVF 125cc/hr -Record strict I&Os -Continue Serna for urine measurement #HAGMA #Lactic acidosis - on fluids - will follow with renal panel every 4th hrly #hypokalemia #hypomagnesemia -40meq of kcl is given and 6g of mgso4 is given ID #sepsis likely 2/2 uti vs aspiration pneumonia -Started on zosyn -Blood cultures sent -Urine culture pending -Sputum culture pending (poor quality) Hemat #Thrombocytopenia 65211 at the time of presentation, sepsis vs liver disease vs combined - Held anticoagulation for now Hospital Maintenance: Dispo: ICU DVT ppx:SCD GI ppx: protonix Diet: npo for now IV lines: peripheral Code status: Full Patient plan of care was discussed with the Edi Consultant, Dr. Nehal Magana, PGY2 Attending Provider Attestation/Addendum Patient not seen on date of service. However I was contacted by above resident, Jarad Magana MD. I agree with the findings, assessment, and plan of care as documented. Patient with cardiac arrest likely secondary to respiratory event. Patient placed on mechanical ventilation with ROSC achieved briskly. Will assess tomorrow morning for neurologic status without any plan for targeted temperature management. Will prevent hypothermia as this is associated with worsening outcomes from a neurologic standpoint post cardiac arrest. Patient placed on appropriate antibiotics for aspiration and potential precipitant UTI. Sedation with propofol will be adequate for coverage for potential alcohol withdrawal. Aggressive volume resuscitation for treatment of rhabdomyolysis and prevention of further renal dysfunction. Monitor urine output closely. I remain available overnight for any further questions. I will see patient formally tomorrow during rounds with housestaff.
[2024-12-23] MEDS: RINGERS LACTATED 1000 ML 1,000 ML 125 ML IV (19:46)
[2024-12-23] MEDS: PROPOFOL 1,000 MG IVPB 1,000 MG/100 ML VIAL 17.758 MG IV (19:48)
[2024-12-23] MEDS: Magnesium Sulfate 4 GM Ivpb 4 GM/50 ML BAG IV (20:04)
[2024-12-23 20:06] LABS: Beta Hydroxybutyrate 0.9 mmol/L (<0.6)
--- NOTE | 2024-12-23 20:40 | PC.NURSE ---
Pt transferred to ICU with RT and monitor in place, hand off to Jameson, RN
[2024-12-23 20:49] LABS: Acetaminophen 8.4 mcg/mL (10.0-20.0)
[2024-12-23 21:03] LABS: Base Excess 2 (-3-3); HCO3 25 mEq/L (20-26); Inspired Oxygen, FIO2 85 %; O2 Saturation 101 % (91-98); PCO2 32 mmHg (32.0-48.0); PO2 350 mmHg (83-108); pH, Arterial 7.51 (7.35-7.45)
[2024-12-23 21:05] LABS: Allen Test Not Performed; Puncture Site Right Radial
[2024-12-23] MEDS: ACETAMINOPHEN 325 MG TABLET 650 MG PO (21:18)
[2024-12-23 21:39] LABS: Amphetamine/Methamp Scrn,U Negative (Negative); Barbiturate Screen,Urine Negative (Negative); Benzodiazepines Screen,Urine Negative (Negative); Benzoylecgonine Screen, Ur Negative (Negative); Fentanyl Screen,Urine Negative (Negative); Opiate Screen,Urine Negative (Negative); THC Screen,Urine Negative (Negative)
[2024-12-23 22:12] LABS: Base Excess 3 (-3-3); HCO3 25 mEq/L (20-26); Inspired Oxygen, FIO2 21 %; O2 Saturation 100 % (91-98); PCO2 31 mmHg (32.0-48.0); PO2 231 mmHg (83-108); pH, Arterial 7.52 (7.35-7.45)
[2024-12-23 22:13] LABS: Allen Test Performed/OK; Puncture Site Right Radial
[2024-12-23] MEDS: PROPOFOL 1,000 MG IVPB 1,000 MG/100 ML VIAL 13.812 MG IV (22:24)
--- NOTE | 2024-12-23 23:06 | XR_ITS ---
Examination: AP chest single view Technique: AP portable semiupright chest single view Date and time: December 24, 2024, 0038 hrs., Comparison December 23, 2024 Indications: Reposition tracheal tube. Findings: Tracheal tube tip 3.5 cm above mary kay Reduced inspiratory effort. Mild enlargement cardiac contour. Moderate vascular congestion. No lobar pneumonia. Orogastric tube in the stomach, the tip is below the level of the film Impression: Endotracheal tube tip now 3.5 cm above mary kay
[2024-12-24] VITALS (76 sets, daily range): BP systolic 74–244; BP diastolic 42–208; PULSE 69–820; RESP 15–34; TEMP 36.1–38.7; O2SAT 87–100; BMI 25.4
[2024-12-24] MEDS: THIAMINE INJ 100 MG in SODIUM CHLORIDE 0.9% 100 ML 202 MG IV
[2024-12-24 00:01] LABS: Lactate (Lactic Acid) 3.8 mMol/L (0.4-2.0)
--- NOTE | 2024-12-24 00:02 | ECHO_ITS ---
Transthoracic Echo Report Ht (in): 67 Wt (lb): 145 Exam Location: Echo Lab Status: Inpatient Credit Risk Specialist: Chantale Montgomery Indications: Procedure Performed: BP: 119 / 82 HR: 85 MEASUREMENTS (Male / Female) Normal Values 2D ECHO LV Diastolic Diameter PLAX 4.1 cm 4.2 - 5.9 / 3.9 - 5.3 cm LV Systolic Diameter PLAX 2.5 cm IVS Diastolic Thickness 1.0 cm 0.6 - 1.0 / 0.6 - 0.9 cm LVPW Diastolic Thickness 1.0 cm 0.6 - 1.0 / 0.6 - 0.9 cm LV Relative Wall Thickness 0.5 LVOT Diameter 1.8 cm LA Volume Index 33.8 cm?/m? 16 - 28 cm?/m? Ascending Aorta Diameter 3.4 cm M-MODE AV Cusp Separation MM 1.9 cm DOPPLER AV Peak Velocity 163.0 cm/s AV Peak Gradient 10.6 mmHg AV Mean Gradient 6.0 mmHg AV Velocity Time Integral 28.8 cm LVOT Peak Velocity 53.0 cm/s LVOT Peak Gradient 1.1 mmHg LVOT Velocity Time Integral 22.0 cm LVOT Cardiac Index 2694.2 cm?/min?m? AV Area Cont Eq vti 1.9 cm? AV Area Cont Eq pk 0.8 cm? MV Area PHT 8.8 cm? Mitral E Point Velocity 66.0 cm/s Mitral A Point Velocity 102.0 cm/s Mitral E to A Ratio 0.6 LV E' Lateral Velocity 6.3 cm/s Mitral E to LV E' Lateral Ratio 10.5 LV E' Septal Velocity 9.7 cm/s Mitral E to LV E' Septal Ratio 6.8 TR Peak Velocity 200.7 cm/s TR Peak Gradient 16.1 mmHg PV Peak Velocity 86.0 cm/s PV Peak Gradient 3.0 mmHg FINDINGS Left Ventricle Normal left ventricular size, wall thickness, systolic function with no obvious regional wall motion abnormalities.There is grade I diastolic dysfunction of the left ventricle (impaired relaxation pattern). . The ejection fraction is visually estimated at 55-60 %. Right Ventricle The right ventricle is normal in size and systolic function. Left Atrium The left atrial cavity size is mildly increased. Right Atrium The right atrium is normal by two-dimensional imaging, color flow and Doppler imaging with no structural abnormalities, no thrombus formation present. Atrial Septum The interatrial septum appears normal with no evidence of a shunt. Aorta The aortic root, ascending aorta, aortic arch and descending thoracic aorta are normal to two-dimensional, color flow and Doppler interrogation. Mitral Valve The mitral valve is normal by two-dimensional, color flow and Doppler interrogation. Mild mitral regurgitation. Aortic Valve Mild aortic valve sclerosis without stenosis. Trace aortic valve regurgitation. Tricuspid Valve The tricuspid valve is normal by two-dimensional, color flow and Doppler interrogation. There is mild tricuspid valve regurgitation. Pulmonic Valve The pulmonic valve is not well visualized. There is no significant pulmonic valve regurgitation. Vessels The pulmonary artery appears normal. The inferior vena cava pulmonary and hepatic veins appear normal. Pericardium The pericardium is normal by two-dimensional imaging. There is no significant pericardial effusion. CONCLUSIONS Indication: Alcohol abuse Normal left ventricular size and function. Grade I diastolic dysfunction. Estimated EF 55-60% RV normal size and function Mild MR, and TR LA mildly dilated. No pericardial effusion Jw Reyesumanrozinaa (Electronically Signed) Final Date: 27 December 2024 00:20
[2024-12-24 00:22] LABS: Ammonia < 10 uMol/L (11-32)
[2024-12-24] MEDS: PIPER/TAZO INJ 4.5 GM in SODIUM CHLORIDE 0.9% (POP) 100 ML IV ×4 (00:34→21:15)
[2024-12-24 00:52] LABS: Albumin, Serum 3.0 gm/dL (3.4-4.8); Anion Gap 13 (7-16); BUN/Creatinine Ratio 26 Ratio (12-20); Blood Urea Nitrogen 26 mg/dL (9-23); Calcium 8.8 mg/dL (8.3-10.6); Calcium (Corrected) 9.6 mg/dL (8.5-10.1); Carbon Dioxide 22.8 mMol/L (20.0-31.0); Chloride 101 mMol/L (98-107); Creatinine (Component) 1.0 mg/dL (0.6-1.3); Estimated Creatinine Clearance 56.0 mL/min (>60); Glucose 118 mg/dL (74-106); Osmolality,Calculated 279 (275-295); Phosphorous 2.6 mg/dL (2.4-5.1); Potassium 5.7 mMol/L (3.4-5.1); Sodium 137 mMol/L (136-145); eGFR > 60 See Note
[2024-12-24 01:04] LABS: Creatine Kinase 7178 U/L (34-171)
[2024-12-24] MEDS: LACTULOSE SYRUP 20 GM/30 ML UDC NG ×4 (01:04→21:21)
[2024-12-24] MEDS: ALBUTEROL/IPRATROPIUM (Duoneb) RT SOL 3 ML NEBU INH ×2 (01:21→06:36)
[2024-12-24 02:28] LABS: Albumin, Serum 3.2 gm/dL (3.4-4.8); Anion Gap 12 (7-16); BUN/Creatinine Ratio 29 Ratio (12-20); Blood Urea Nitrogen 29 mg/dL (9-23); Calcium 9.0 mg/dL (8.3-10.6); Calcium (Corrected) 9.6 mg/dL (8.5-10.1); Carbon Dioxide 27.2 mMol/L (20.0-31.0); Chloride 103 mMol/L (98-107); Creatinine (Component) 1.0 mg/dL (0.6-1.3); Estimated Creatinine Clearance 56.0 mL/min (>60); Glucose 136 mg/dL (74-106); Osmolality,Calculated 290 (275-295); Phosphorous 2.5 mg/dL (2.4-5.1); Potassium 3.3 mMol/L (3.4-5.1); Sodium 142 mMol/L (136-145); eGFR > 60 See Note
[2024-12-24 02:58] LABS: Reflex Lactate? Y
[2024-12-24] MEDS: POTASSIUM CHLORIDE 10% 20 MEQ/15 ML UDC 40 MEQ NG (03:11)
[2024-12-24 04:49] LABS: Basophils # (Auto) 0.0 Thou/mm3 (0.0-0.2); Basophils % (Auto) 0 % (0-2.5); Eosinophils # (Auto) 0.0 Thou/mm3 (0.0-0.5); Eosinophils % (Auto) 0 % (0-10); Hematocrit 37.0 % (36.0-46.0); Hemoglobin 12.8 g/dL (12.0-16.0); Immature Granulocytes Auto 0.92 Thou/mm3 (0.00-0.00); Lymphocytes # (Auto) 0.8 Thou/mm3 (1.0-4.8); Lymphocytes % (Auto) 6 % (10-50); Mean Corpuscular HGB Conc 34.6 g/dl (31.0-37.0); Mean Corpuscular Hemoglobin 34.2 pg (25.0-35.0); Mean Corpuscular Volume 99 fL (80-100); Monocytes # (Auto) 1.6 Thou/mm3 (0.0-0.8); Monocytes % (Auto) 12 % (0-12); Neutrophils # (Auto) 9.8 Thou/mm3 (1.8-7.7); Neutrophils % (Auto) 75 % (37-80); Nucleated Red Blood Cell # 0.00 Thou/mm3 (0.00-0.00); Nucleated Red Blood Cell % 0 /100 WBC (0); RDW Standard Deviation 68.0 fL (36.4-46.3); Red Blood Count 3.74 Miln/mm3 (4.00-5.20); White Blood Count 13.1 Thou/mm3 (3.6-11.0)
[2024-12-24] MEDS: RINGERS LACTATED 1000 ML 1,000 ML 125 ML IV ×3 (04:52→21:15)
[2024-12-24 04:53] LABS: Lactic Acid, 3 HR 4.5 mMol/L (0.4-2.0)
[2024-12-24 04:57] LABS: Platelet Count 26 Thou/mm3 (140-440)
[2024-12-24 05:21] LABS: Base Excess 1 (-3-3); HCO3 25 mEq/L (20-26); Inspired Oxygen, FIO2 21 %; O2 Saturation 99 % (91-98); PCO2 37 mmHg (32.0-48.0); PO2 134 mmHg (83-108); pH, Arterial 7.44 (7.35-7.45)
[2024-12-24 05:22] LABS: Allen Test Performed/OK; Puncture Site Right Radial
[2024-12-24] MEDS: PROPOFOL 1,000 MG IVPB 1,000 MG/100 ML VIAL 13.812 MG IV (05:28)
[2024-12-24 05:43] LABS: Slide Review Platelets confirmed
--- NOTE | 2024-12-24 05:49 | PRELIM_ITS ---
Radiograph of the chest (single view). December 24, 2024 0034 hours Clinical History: Post intubation Technique: Single AP view of the chest is obtained Comparison: None Findings: Cardiac silhouette is top normal in size. There is no airspace consolidation, pleural effusion or pneumothorax. Endotracheal tube is in satisfactory position with distal tip approximately 3.3 cm above the mary kay. Nasogastric tube is noted entering the stomach with distal tip below the confines of the radiograph. Visualized osseous structures are intact. Impression: No acute cardiopulmonary abnormality. Report Electronically Signed By: Bryce Leahy 12/24/2024 5:48:47 AM [EST]
[2024-12-24] MEDS: MIDAZOLAM INJ 1 MG/ML VIAL 2 ML 2 MG IVP (07:56)
[2024-12-24] MEDS: FOLIC ACID 1 MG TABLET PO (08:50)
[2024-12-24] MEDS: MULTIVITAMINS TABLET 1 TAB PO (08:50)
[2024-12-24] MEDS: THIAMINE 100 MG TABLET NG (08:50)
[2024-12-24 09:07] LABS: INR 1.2 (0.9-1.3); Prothrombin Time 13.2 Seconds (9.0-12.2)
[2024-12-24 09:13] LABS: Alanine Aminotransferase 75 U/L (10-49); Albumin, Serum 2.8 gm/dL (3.4-4.8); Albumin/Globulin Ratio 1.3 (1.2-2.2); Alkaline Phosphatase 100 U/L (46-116); Anion Gap 13 (7-16); Aspartate Amino Transferase 270 U/L (0-34); BUN/Creatinine Ratio 30 Ratio (12-20); Bilirubin,Total 4.3 mg/dL (0.3-1.2); Blood Urea Nitrogen 27 mg/dL (9-23); Calcium 8.7 mg/dL (8.3-10.6); Calcium (Corrected) 9.7 mg/dL (8.5-10.1); Carbon Dioxide 23.3 mMol/L (20.0-31.0); Chloride 107 mMol/L (98-107); Creatinine (Component) 0.9 mg/dL (0.6-1.3); Estimated Creatinine Clearance 62.2 mL/min (>60); Globulin 2.2 gm/dL (2.3-3.5); Glucose 136 mg/dL (74-106); Magnesium 2.4 mg/dL (1.6-2.6); Osmolality,Calculated 292 (275-295); Phosphorous 2.1 mg/dL (2.4-5.1); Potassium 3.1 mMol/L (3.4-5.1); Sodium 143 mMol/L (136-145); Thyroid Stimulating Hormone 1.46 uIU/mL (0.55-4.78); Total Protein 5.0 gm/dL (5.7-8.2); eGFR > 60 See Note
[2024-12-24] MEDS: ACETAMINOPHEN SUPP 650 MG SUPP PR ×2 (12:47→19:38)
--- NOTE | 2024-12-24 13:40 | PC.SS ---
Ends Breakage Clerk (NATHALIE) Loren, along with MYNOR Ham, attempted to complete an assessment with the patient at the bedside; however, the patient is intubated. The patient was BIBA with c/o AMS; the Patient was found on the ground, covered with urine and feces all over. NATHALIE filed a [facility] APS for self-neglect. SOC 341 was faxed to [phone], and a verbal report was provided to DORA Corrales. The SOC 341 physical form was left on the patient's physical chart. NATHALIE contacted via phone call, next of kin, daughter, Moriah Kapoor, , and completed assessment with her. Per Moriah, the patient lives alone at home, [address] [place] [address]. The patient at baseline is independent and has no DME. The patient is receiving Social Security disability and has a rental place. Patient's PCP is from [facility]. Per Moriah, she is open to SNF vs. AOD inpatient rehab. Per Moriah, the patient is always highly intoxicated with multiple falls and bruises. youth services librarian will continue to follow up on the discharge plan needs a PT evaluation for SNF vs. AOD inpatient rehab?social insurance specialist to follow up to provide substance abuse resources. Next of Kin: Moriah Garcia, Discharge plan: inconclusive
--- NOTE | 2024-12-24 14:15 | PD.RESPRO ---
Documentation for date of: 12/24/24 Subjective Subjective Interval history: 64-year-old female with past medical history of alcohol use disorder, alcohol withdrawal seizures, pancreatitis, and depression was brought to the hospital on 12/23/2024 for altered mental status. Patient's boyfriend went to her house to check on her following which she was found to be unconscious on the ground covered with urine and feces, with bruising to mouth, upper arms, and legs and small wounds to bilateral upper arms. EMS found her with a GCS of 9 and patient was brought to the hospital. In the ED, sepsis and stroke alert was called on the patient. Teleneurology was consulted and they recommended CTA, MRI brain without contrast, and EEG. NIHSS score was 23. At 4:30 PM while in ED, patient was found to have a tonic-clonic seizure lasting for 1 minute following which she became apneic and lost pulses for which CPR was initiated and CODE BLUE was called around 4:33 PM. Patient attained ROSC within 30 seconds and did not receive any epinephrine. Patient was intubated at that time and ICU was consulted for further management of alcohol withdrawal, sepsis secondary to UTI, MONIKA, and rhabdomyolysis. 12/24/2024: Patient examined at bedside, intubated and sedated on propofol. No reported seizure events overnight. In the morning patient was noted to have trembling movements of mainly the upper extremities. Given dose of midazolam 2 mg IV x1, tremors were resolved. Discussed with 2 daughters at bedside including point of contact, [place]. Per daughters, patient is an alcoholic who drinks a fifth of vodka every day. Patient apparently has refused help in the past and has said she wants to . Per daughters they last checked in on the patient on . Patient passed SAT and SBT, and was successfully extubated 10:38 am. Patient passed a bedside swallow screen and had some water and ice, but remained sleepy rest of the day. Will plan for speech evaluation tomorrow. MAP is soft around 59-64, additional bolus of 500 ml was given alongside 125 ml/hr of the maintenance fluid. Attempted to give midodrine but patient was too sleepy and unsuccessful. Patient has about 35 ml/hr urine output. Potassium 3.1 this morning, repleting with 40 mEq IV. Will continue with CIWA protocol with chlordiazepoxide 50 mg q8h and as needed IV diazepam according to scale. Exam Vital Signs Temp Pulse Resp BP Pulse Ox O2 Del Method O2 Flow Rate 101.7 F H 92 22 H 123/54 L 99 Mechanical Ventilation 6 12/24/24 12:47 12/24/24 10:44 12/24/24 10:44 12/24/24 10:00 12/24/24 10:44 12/24/24 08:00 12/24/24 10:44 FiO2 28 12/24/24 10:44 Narrative Exam General: Lethargic but responsive to voice, able to follow commands. HEENT: Normocephalic, atraumatic, mucous membranes moist. Right lower corner of mouth with abrasion. Tongue-biting lesions. Mild scleral icterus. Heart: Tachycardic, regular rhythm, no murmurs. Lungs: Clear to auscultation with no wheezing or crackles. Abdomen: Soft, nondistended, nontender, positive bowel sounds. ?No guarding or rebound tenderness. Neurologic: Awake and oriented x2, no gross neurological deficit, and patient able to move all 4 extremities. Follows commands when awakened. Extremities: No edema. Skin: No rash and noted echymoses on bilateral knees, arms, and face. Objective Labs 01/01/25 04:33 01/01/25 04:33 Labs: Laboratory Results - last 24 hr 12/23/24 12/23/24 12/23/24 14:15 14:20 14:30 WBC RBC Hgb Hct MCV MCH MCHC RDW Std Deviation Plt Count Neut % (Auto) Lymph % (Auto) [place] % (Auto) Eos % (Auto) Baso % (Auto) Neut # (Auto) Lymph # (Auto) [place] # (Auto) Eos # (Auto) Baso # (Auto) Immature Gran # (Auto) Absolute Nucleated RBC Immature Gran % Nucleated RBC % Smear Path Review PT INR APTT Puncture Site ABG pH ABG pCO2 ABG pO2 ABG HCO3 ABG O2 Saturation ABG Base Excess FiO2 Sodium Potassium Chloride Carbon Dioxide Anion Gap BUN Creatinine Estim Creat Clear Calc eGFR BUN/Creatinine Ratio Glucose Calculated Osmolality Lactic Acid 2.9 H Calcium Corrected Calcium Phosphorus Magnesium Total Bilirubin AST ALT Alkaline Phosphatase Ammonia Lactate Dehydrogenase Total Creatine Kinase Troponin I B-Natriuretic Peptide 328 H Total Protein Albumin Globulin Albumin/Globulin Ratio Lipase Beta-Hydroxybutyrate/Acetoacetate Procalcitonin TSH Ur Collection Type Clean Catch Urine Color Brown A Urine Clarity Clear Urine pH 6.0 Ur Specific [place] >= 1.030 Urine Protein 3+ A Urine Glucose (UA) Negative Urine Ketones Negative Urine Blood 3+ A Urine Nitrite Negative Urine Bilirubin 2+ A Urine Urobilinogen (Auto) 1.0 Ur Leukocyte Esterase 2+ A Urine RBC 32 H Urine WBC 406 H Ur Squamous Epith Cells 18 H Urine Bacteria 4+ A Hyaline Casts 1 Ur Culture Indicated? Contaminated Urine Opiates Screen Urine Fentanyl Screen Acetaminophen Ur Barbiturates Screen U Amphetamin/Meth Scrn U Benzodiazepines Scrn U Cocaine Metab Screen U Marijuana (THC) Screen Ethyl Alcohol Misc Test Result 12/23/24 12/23/24 12/23/24 16:01 16:44 17:09 WBC 8.4 RBC 4.02 Hgb 13.7 Hct 39.3 MCV 98 MCH 34.1 MCHC 34.9 RDW Std Deviation 65.1 H Plt Count 39 L Neut % (Auto) 87 H Lymph % (Auto) 6 L [place] % (Auto) 4 Eos % (Auto) 2 Baso % (Auto) 1 Neut # (Auto) 7.3 Lymph # (Auto) 0.5 L [place] # (Auto) 0.3 Eos # (Auto) 0.1 Baso # (Auto) 0.1 Immature Gran # (Auto) 0.10 H Absolute Nucleated RBC 0.00 Immature Gran % 1 H Nucleated RBC % 0 Smear Path Review Sent to Pathologist PT 15.7 H INR 1.5 H APTT 34.5 Puncture Site Left Radial ABG pH 7.28 L ABG pCO2 46 ABG pO2 44 L* ABG HCO3 21 ABG O2 Saturation 68 L ABG Base Excess -5 L FiO2 100 Sodium 142 Potassium 2.9 L Chloride 100 Carbon Dioxide 23.2 Anion Gap 19 H BUN 32 H Creatinine 1.3 Estim Creat Clear Calc 43.1 L eGFR 46 L BUN/Creatinine Ratio 25 H Glucose 110 H Calculated Osmolality 291 Lactic Acid 8.8 H* Calcium 9.8 Corrected Calcium 10.3 H Phosphorus 3.0 Magnesium 1.2 L Total Bilirubin 4.6 H AST 340 H ALT 85 H Alkaline Phosphatase 118 H Ammonia Lactate Dehydrogenase 534 H Total Creatine Kinase 8185 H Troponin I 0.316 H* B-Natriuretic Peptide Total Protein 6.1 Albumin 3.4 Globulin 2.7 Albumin/Globulin Ratio 1.3 Lipase 24 Beta-Hydroxybutyrate/Acetoacetate Procalcitonin > 50.00 H TSH Ur Collection Type Urine Color Urine Clarity Urine pH Ur Specific [place] Urine Protein Urine Glucose (UA) Urine Ketones Urine Blood Urine Nitrite Urine Bilirubin Urine Urobilinogen (Auto) Ur Leukocyte Esterase Urine RBC Urine WBC Ur Squamous Epith Cells Urine Bacteria Hyaline Casts Ur Culture Indicated? Urine Opiates Screen Urine Fentanyl Screen Acetaminophen Ur Barbiturates Screen U Amphetamin/Meth Scrn U Benzodiazepines Scrn U Cocaine Metab Screen U Marijuana (THC) Screen Ethyl Alcohol < 3.0 Misc Test Result Platelets confirmed 12/23/24 12/23/24 12/23/24 18:47 19:43 20:45 WBC RBC Hgb Hct MCV MCH MCHC RDW Std Deviation Plt Count Neut % (Auto) Lymph % (Auto) [place] % (Auto) Eos % (Auto) Baso % (Auto) Neut # (Auto) Lymph # (Auto) [place] # (Auto) Eos # (Auto) Baso # (Auto) Immature Gran # (Auto) Absolute Nucleated RBC Immature Gran % Nucleated RBC % Smear Path Review PT INR APTT Puncture Site Right Radial ABG pH 7.51 H D ABG pCO2 32 D ABG pO2 350 H D ABG HCO3 25 ABG O2 Saturation 101 H ABG Base Excess 2 FiO2 85 Sodium Potassium Chloride Carbon Dioxide Anion Gap BUN Creatinine Estim Creat Clear Calc eGFR BUN/Creatinine Ratio Glucose Calculated Osmolality Lactic Acid Calcium Corrected Calcium Phosphorus Magnesium Total Bilirubin AST ALT Alkaline Phosphatase Ammonia Lactate Dehydrogenase Total Creatine Kinase Troponin I B-Natriuretic Peptide Total Protein Albumin Globulin Albumin/Globulin Ratio Lipase Beta-Hydroxybutyrate/Acetoacetate 0.9 H Procalcitonin TSH Ur Collection Type Urine Color Urine Clarity Urine pH Ur Specific [place] Urine Protein Urine Glucose (UA) Urine Ketones Urine Blood Urine Nitrite Urine Bilirubin Urine Urobilinogen (Auto) Ur Leukocyte Esterase Urine RBC Urine WBC Ur Squamous Epith Cells Urine Bacteria Hyaline Casts Ur Culture Indicated? Urine Opiates Screen Negative Urine Fentanyl Screen Negative Acetaminophen 8.4 L Ur Barbiturates Screen Negative U Amphetamin/Meth Scrn Negative U Benzodiazepines Scrn Negative U Cocaine Metab Screen Negative U Marijuana (THC) Screen Negative Ethyl Alcohol Misc Test Result 12/23/24 12/23/24 12/24/24 22:04 23:30 01:47 WBC RBC Hgb Hct MCV MCH MCHC RDW Std Deviation Plt Count Neut % (Auto) Lymph % (Auto) [place] % (Auto) Eos % (Auto) Baso % (Auto) Neut # (Auto) Lymph # (Auto) [place] # (Auto) Eos # (Auto) Baso # (Auto) Immature Gran # (Auto) Absolute Nucleated RBC Immature Gran % Nucleated RBC % Smear Path Review PT INR APTT Puncture Site Right Radial ABG pH 7.52 H ABG pCO2 31 L ABG pO2 231 H D ABG HCO3 25 ABG O2 Saturation 100 H ABG Base Excess 3 FiO2 21 Sodium 137 142 Potassium 5.7 H D 3.3 L D Chloride 101 103 Carbon Dioxide 22.8 27.2 Anion Gap 13 12 BUN 26 H 29 H Creatinine 1.0 1.0 Estim Creat Clear Calc 56.0 L 56.0 L eGFR > 60 > 60 BUN/Creatinine Ratio 26 H 29 H Glucose 118 H 136 H Calculated Osmolality 279 290 Lactic Acid 3.8 H Calcium 8.8 9.0 Corrected Calcium 9.6 9.6 Phosphorus 2.6 2.5 Magnesium Total Bilirubin AST ALT Alkaline Phosphatase Ammonia < 10 L Lactate Dehydrogenase Total Creatine Kinase 7178 H D Troponin I B-Natriuretic Peptide Total Protein Albumin 3.0 L 3.2 L Globulin Albumin/Globulin Ratio Lipase Beta-Hydroxybutyrate/Acetoacetate Procalcitonin TSH Ur Collection Type Urine Color Urine Clarity Urine pH Ur Specific [place] Urine Protein Urine Glucose (UA) Urine Ketones Urine Blood Urine Nitrite Urine Bilirubin Urine Urobilinogen (Auto) Ur Leukocyte Esterase Urine RBC Urine WBC Ur Squamous Epith Cells Urine Bacteria Hyaline Casts Ur Culture Indicated? Urine Opiates Screen Urine Fentanyl Screen Acetaminophen Ur Barbiturates Screen U Amphetamin/Meth Scrn U Benzodiazepines Scrn U Cocaine Metab Screen U Marijuana (THC) Screen Ethyl Alcohol Misc Test Result 12/24/24 12/24/24 12/24/24 02:58 04:30 05:09 WBC 13.1 H D RBC 3.74 L Hgb 12.8 Hct 37.0 MCV 99 MCH 34.2 MCHC 34.6 RDW Std Deviation 68.0 H Plt Count 26 L* D Neut % (Auto) 75 Lymph % (Auto) 6 L [place] % (Auto) 12 Eos % (Auto) 0 Baso % (Auto) 0 Neut # (Auto) 9.8 H Lymph # (Auto) 0.8 L [place] # (Auto) 1.6 H Eos # (Auto) 0.0 Baso # (Auto) 0.0 Immature Gran # (Auto) 0.92 H Absolute Nucleated RBC 0.00 Immature Gran % 7 H Nucleated RBC % 0 Smear Path Review PT INR APTT Puncture Site Right Radial ABG pH 7.44 ABG pCO2 37 ABG pO2 134 H D ABG HCO3 25 ABG O2 Saturation 99 H ABG Base Excess 1 FiO2 21 Sodium Potassium Chloride Carbon Dioxide Anion Gap BUN Creatinine Estim Creat Clear Calc eGFR BUN/Creatinine Ratio Glucose Calculated Osmolality Lactic Acid 4.5 H* Calcium Corrected Calcium Phosphorus Magnesium Total Bilirubin AST ALT Alkaline Phosphatase Ammonia Lactate Dehydrogenase Total Creatine Kinase Troponin I B-Natriuretic Peptide Total Protein Albumin Globulin Albumin/Globulin Ratio Lipase Beta-Hydroxybutyrate/Acetoacetate Procalcitonin TSH Ur Collection Type Urine Color Urine Clarity Urine pH Ur Specific [place] Urine Protein Urine Glucose (UA) Urine Ketones Urine Blood Urine Nitrite Urine Bilirubin Urine Urobilinogen (Auto) Ur Leukocyte Esterase Urine RBC Urine WBC Ur Squamous Epith Cells Urine Bacteria Hyaline Casts Ur Culture Indicated? Urine Opiates Screen Urine Fentanyl Screen Acetaminophen Ur Barbiturates Screen U Amphetamin/Meth Scrn U Benzodiazepines Scrn U Cocaine Metab Screen U Marijuana (THC) Screen Ethyl Alcohol Misc Test Result Platelets confirmed 12/24/24 12/24/24 08:35 08:45 WBC RBC Hgb Hct MCV MCH MCHC RDW Std Deviation Plt Count Neut % (Auto) Lymph % (Auto) [place] % (Auto) Eos % (Auto) Baso % (Auto) Neut # (Auto) Lymph # (Auto) [place] # (Auto) Eos # (Auto) Baso # (Auto) Immature Gran # (Auto) Absolute Nucleated RBC Immature Gran % Nucleated RBC % Smear Path Review PT 13.2 H INR 1.2 APTT Puncture Site ABG pH ABG pCO2 ABG pO2 ABG HCO3 ABG O2 Saturation ABG Base Excess FiO2 Sodium 143 Potassium 3.1 L Chloride 107 Carbon Dioxide 23.3 Anion Gap 13 BUN 27 H Creatinine 0.9 Estim Creat Clear Calc 62.2 eGFR > 60 BUN/Creatinine Ratio 30 H Glucose 136 H Calculated Osmolality 292 Lactic Acid Calcium 8.7 Corrected Calcium 9.7 Phosphorus 2.1 L Magnesium 2.4 Total Bilirubin 4.3 H AST 270 H ALT 75 H Alkaline Phosphatase 100 Ammonia Lactate Dehydrogenase Total Creatine Kinase Troponin I B-Natriuretic Peptide Total Protein 5.0 L Albumin 2.8 L Globulin 2.2 L Albumin/Globulin Ratio 1.3 Lipase Beta-Hydroxybutyrate/Acetoacetate Procalcitonin TSH 1.46 Ur Collection Type Urine Color Urine Clarity Urine pH Ur Specific [place] Urine Protein Urine Glucose (UA) Urine Ketones Urine Blood Urine Nitrite Urine Bilirubin Urine Urobilinogen (Auto) Ur Leukocyte Esterase Urine RBC Urine WBC Ur Squamous Epith Cells Urine Bacteria Hyaline Casts Ur Culture Indicated? Urine Opiates Screen Urine Fentanyl Screen Acetaminophen Ur Barbiturates Screen U Amphetamin/Meth Scrn U Benzodiazepines Scrn U Cocaine Metab Screen U Marijuana (THC) Screen Ethyl Alcohol Misc Test Result ABG Interpretation ABG results: 12/23/24 12/23/24 12/23/24 17:09 20:45 22:04 ABG pH 7.28 L 7.51 H D 7.52 H ABG pCO2 46 32 D 31 L ABG pO2 44 L* 350 H D 231 H D ABG HCO3 21 25 25 ABG O2 Saturation 68 L 101 H 100 H ABG Base Excess -5 L 2 3 12/24/24 05:09 ABG pH 7.44 ABG pCO2 37 ABG pO2 134 H D ABG HCO3 25 ABG O2 Saturation 99 H ABG Base Excess 1 Quality Measures Quality Measures none Assessment & Plan Assessment Current Active Medications: Generic Name Dose Route Start Last Admin Trade Name Freq PRN Reason Stop Dose Admin Acetaminophen 650 mg 12/23/24 18:22 12/23/24 21:18 Acetaminophen 325 Mg Tablet PO 01/22/25 18:21 650 mg Q4HR PRN Administration PAIN SCALE 1-3 (mild Acetaminophen 650 mg 12/23/24 18:22 12/24/24 12:47 Acetaminophen Supp 650 Mg Supp SD 01/22/25 18:21 650 mg Q4HR PRN Administration PAIN SCALE 1-3 (mild Acetaminophen 500 mg 12/23/24 20:59 Acetaminophen 500 Mg Tablet PO 01/22/25 20:58 Q6HR PRN temp > 100.4 Albuterol/Ipratropium 3 ml 12/24/24 01:00 12/24/24 06:36 Albuterol/Ipratropium (Duoneb) Rt Radha 3 Ml Nebu INH 01/23/25 00:59 3 ml Q6HRRT JASMINA Administration Chlordiazepoxide HCl 50 mg 12/24/24 14:00 Chlordiazepoxide Hcl 25 Mg Capsule PO 12/29/24 13:59 Q8HR JASMINA Diazepam 2.5 mg 12/24/24 09:49 Diazepam Inj 5 Mg/Ml Vial 2 Ml IVP 12/29/24 09:48 Q2HR PRN CIWA SCORE 8-13 Diazepam 5 mg 12/24/24 09:49 Diazepam Inj 5 Mg/Ml Vial 2 Ml IVP 12/29/24 09:48 Q2HR PRN CIWA SCORE 14-19 Diazepam 10 mg 12/24/24 09:49 Diazepam Inj 5 Mg/Ml Vial 2 Ml IVP 12/29/24 09:48 Q2HR PRN CIWA SCORE 20-25 Diazepam 10 mg 12/24/24 09:49 Diazepam Inj 5 Mg/Ml Vial 2 Ml IVP X1 PRN Breakthrough Agitation Folic Acid 1 mg 12/24/24 09:00 12/24/24 08:50 Folic Acid 1 Mg Tablet PO 01/23/25 08:59 1 mg QDAY JASMINA Administration Lactated Ringer's 1,000 mls @ 125 mls/hr 12/23/24 19:19 12/24/24 12:48 Lactated Ringers IV 01/22/25 19:18 125 mls/hr .Q8H JASMINA Administration Propofol 1,000 mg in 100 mls @ 1.973 mls/hr 12/23/24 19:20 12/24/24 08:05 Diprivan Ivpb IV 01/22/25 19:19 0 mcg/kg/min .Q24H PRN 0 mls/hr PER PROTOCOL Titration Protocol 5 MCG/KG/MIN Piperacillin Sod/Tazobactam 100 mls @ 200 mls/hr 12/24/24 00:00 12/24/24 05:31 Sod 4.5 gm/ Sodium Chloride IV 12/31/24 00:00 200 mls/hr Q8HR JASMINA Administration Labetalol HCl 10 mg 12/23/24 14:13 Labetalol Inj 5 Mg/Ml Vial 20 Ml IVP Q15M PRN SBP >180, DBP >105 Lactulose 20 gm 12/23/24 23:45 12/24/24 05:28 Lactulose Syrup 20 Gm/30 Ml Udc NG 01/22/25 23:44 20 gm TID JASMINA Administration Protocol Multivitamins 1 tab 12/24/24 09:00 12/24/24 08:50 Multivitamins Tablet PO 01/23/25 08:59 1 tab QDAY JASMINA Administration Ondansetron HCl 4 mg 12/23/24 14:13 Ondansetron Inj 2 Mg/Ml Inj 2 Ml IVP 01/22/25 14:12 Q4HR PRN NAUSEA OR VOMITING Pantoprazole Sodium 40 mg 12/24/24 09:00 12/24/24 08:50 Pantoprazole Inj 40 Mg Vial IVP 01/23/25 08:59 40 mg QDAY JASMINA Administration Thiamine HCl 100 mg 12/24/24 09:00 12/24/24 08:50 Thiamine 100 Mg Tablet NG 01/23/25 08:59 100 mg QDAY JASMINA Administration Plan 64-year-old female with past medical history of alcohol use disorder, alcohol withdrawal seizures, pancreatitis, and depression who was brought to the hospital by EMS on 12/23/2024 for altered mental status, found to have seizure in the ED and required CPR in the ED for 30 seconds for apnea and lost pulses, subsequently admitted to the ICU. Neuro #Acute encephalopathy DDx: Alcohol withdrawal seizures, sepsis, metabolic, hepatic encephalopathy, rhabdomyolysis, stroke less likely, multifactorial - Alcohol withdrawal seizures: Patient had history of chronic alcohol use disorder and noted to drink a fifth of vodka every day. Patient has previous history of seizures, which are alcohol withdrawal seizures. - Sepsis: Noted to have temperature of 105.9 ?F at the time of admission, likely had aspiration pneumonia versus UTI which could be causing sepsis resulting in encephalopathy versus provoking seizures. - Metabolic: Patient noted to have high anion gap metabolic acidosis at the time of admission which could be contributing to the altered sensorium - Hepatic encephalopathy: Patient was noted to have elevated liver enzymes including total bilirubin and transaminase levels at the time of admission. There is a possibility of hepatic encephalopathy secondary to liver failure or it could be just acute alcohol hepatitis - Stroke: Stroke alert was called and patient and the of altered sensorium at the time of presentation with stroke workup was done including teleneuro consult, head CT, CT angio of head and neck which came back negative. Patient is able to move all 4 extremities but not able to do complete neurological examination in view of sedation. Dx: - Lactate 2.9, anion gap 19, BUN 32, creatinine 1.3, total bilirubin 4.6, AST 340, ALT 85, CT 8185 - CT head and CTA head/neck did not show any significant abnormality Rx: -Continue on CIWA for alcohol withdrawal -Will treat underlying sepsis and metabolic component as below #Alcohol withdrawal seizures #Delirium tremens Patient is known to have history of alcohol withdrawal seizures. She presented with high fevers up to 105, tachycardia, and altered mental status. Seizure witnessed in ED and severe tremors while intubated. Patient has had waxing and waning consciousness since extubation. Down town unknown but admission time 12/23 afternoon - for last possible drink. -Considered EEG/MRI, however canceled given obvious etiology of seizure -Continue CIWA protocol -IV diazepam as needed with CIWA scale -Continue on Librium 50 mg 3 times daily -Thiamine 100 mg qday -Folic acid 1 mg qday -Multivitamin once qday Pulm #Extubated s/p intubation following seizure and ?cardiac arrest At 4:30 PM while in ED, patient was found to have a tonic-clonic seizure lasting for 1 minute following which she became apneic and lost pulses for which CPR was initiated and CODE BLUE was called around 4:33 PM. Patient attained ROSC within 30 seconds and did not receive any epinephrine. 12/24/2024: Completed SAT and SBT. -Nurse swallow screen -Speech evaluation -Aspiration precautions #?Aspiration pneumonia CXR showed possible right sided infiltrate. Patient was additionally found down for unspecified amount of time. -Continue Zosyn 4.5 mg q8h -Sputum culture is pending -MRSA culture pending Cardio #Sepsis due to GNR bacteremia Most likely source is urine, urinalysis showed 3+ proteinuria, 3+ blood, 2+ bilirubin, 2+ leukocyte esterase, 32 RBC, 406 WBC, 4+ bacteria. Procalcitonin was >50.00. Blood cultures growing GNR in 2/. Total fluids: 3L prior to admission 12/24/2024: 3L via maintenance @ 125 ml/hr plus x1 500 ml bolus -Continue IV fluids at 125 ml/hr -Continue Zosyn 4.5 gm q8h #?Cardiac arrest Patient had reported seizure activity in the ED, because apneic and lost pulses, Code Blue was activated and attained ROSC in 30 sec, did not receive epinephrine. -Continuous telemetry -Treat underlying alcohol withdrawal and sepsis GI #Hyperbilirubinemia #Elevated LFTs #Alcohol-related fatty liver disease INR is 1.5, total bilirubin 4.3, AST 270, ALT 75. Mild scleral icterus on exam. Likely in the setting of alcohol hepatitis, alcohol-related fatty liver disease Hepatitis panel - Negative CT abdomen/pelvis - Hepatomegaly, 21 cm with severe diffuse fatty infiltration throughout the liver. No pancreatic mass. -Supportive care -Continue to trend liver panel Renal #MONIKA - improved Ddx: Likely prerenal secondary to sepsis vs rhabdomyolysis Baseline creatinine is 0.7, at the time of admission is 1.3 Urine output has been brown tinged and dark Received 3L bolus in the ED, started on 125 ml/hr since admission -Continue on maintenance fluids 125 ml/hr -Avoid nephrotoxins -Monitor renal panel #Rhabdomyolysis 8185 creatine kinase on admission, downtrended to 7178 after initial resuscitation. Patient with unknown down time. -Continue the IVF at 125 cc/hr -Record strict I&Os -Continue Serna for urine measurement #Hypokalemia #Hypomagnesemia Electrolytes being repleted. -Patient given 40 mEq potassium IV today for K 3.1 #High anion gap metabolic acidosis - resolved #Lactic acidosis - downtrended Likely secondary to the underlying lactic acidosis. Lactic acid peaked at 8.8, has downtrended. Likely spiked in the setting of seizure/apneic event. -Continue treating underlying sepsis, rhabdo, alcohol withdrawal ID #Sepsis due to GNR bacteremia likely secondary to UTI vs aspiration pneumonia -Continue Zosyn 4.5 gm q8h -Blood cultures preliminary GNR, pending final ID -Urine culture pending -Sputum culture pending (poor quality) -MRSA screen pending Heme #Thrombocytopenia #Coagulopathy 39k at the time of presentation, INR was 1.5, sepsis vs liver disease vs combined. Dropped to 26k. -Chemical prophylaxis is held for now -[facility] Hospital Maintenance: Dispo: ICU DVT ppx: SCD GI ppx: Protonix Diet: NPO for now IV lines: Peripheral Code status: Full Patient plan of care was discussed with the attending farm supervisor, Dr. Calvert. Ema Hooks, PGY-3 Attending Provider Attestation/Addendum Patient seen and examined with above resident, Ema Hooks DO. I agree with the findings, assessment, and plan of care as document except for any differences below. Patient with significant improvement in mentation this morning. Able to follow commands and tolerated SBT well. Extubated. Patient with significant underlying psychiatric illness including severe alcohol abuse history. Patient being monitored closely for alcohol withdrawal with transition after ability to pass swallow evaluation to chlordiazepoxide for slow Librium taper. Diazepam remains available via IV in case she does fail or has intermittent worsening of her CIWA score. Patient's daughters did express at bedside that the patient did not want to be on prolonged mechanical ventilation and this should be discussed with the patient in the future once she stabilizes from a medical standpoint. Psychiatric input would likely be very helpful as she probably is self treating for underlying depression. On MRI she does have evidence of frontal lobe infarct which will also play into her personality which hopefully will improve with time. Anticipate initiation of patient with gram-negative bacteremia and possible pulmonary source secondary to aspiration. Her sepsis is starting to resolve with notable changes in blood work including thrombocytopenia and LFT elevation secondary to alcohol abuse. Thiamine/folate supplementation should remain on board. Patient receiving IV fluids secondary to rhabdomyolysis with preserved renal function now. Replace electrolytes as needed as she also has a significant risk for refeeding syndrome. Lactic acid has cleared and is likely more reflective of seizure activity than from hypoperfusion. Patient and daughters updated at bedside on plan of care and remained agreeable. Total critical care time: I personally spent 45 minutes for review of physiologic parameters, directing plan of care throughout the day, coordination of care with other subspecialist, and counseling patient and her family at bedside. This is exclusive of time spent teaching established performance of billable procedures. Patient remained at significant risk for further morbidity and mortality warranting close monitoring and care only available in the ICU. Critical care services required for acute encephalopathy, cerebral infarct, delirium tremens, [id number] cardiac arrest/respiratory arrest, acute hypoxic respiratory failure, gram-negative bacteremia.
[2024-12-24] MEDS: RINGERS LACTATED 500 ML 500 ML 999 ML IV ×2 (16:15→21:53)
[2024-12-24] MEDS: POTASSIUM CHL 10 mEq IVPB 10 MEQ/100 ML BAG 100 MEQ IV ×4 (16:17→20:01)
[2024-12-24] MEDS: Norepinephrine/D5W 8mg/250ml 8 MG/250 ML BAG 6.516 MG IV (16:44)
[2024-12-24 21:12] LABS: Hepatitis A Antibody IgM Non Reactive (Non React); Hepatitis B Core Antibody IgM Non Reactive (Non React); Hepatitis B Surface Antigen Non Reactive (Non React); Hepatitis C Antibody Non Reactive (Non React)
--- NOTE | 2024-12-24 21:30 | PC.NURSE ---
Unable to insert NGT, multiple nurses attempted, MD made aware, pt passed nurse swallow screen.
[2024-12-24 22:21] LABS: Lactate (Lactic Acid) 2.2 mMol/L (0.4-2.0)
[2024-12-25] VITALS (25 sets, daily range): BP systolic 89–135; BP diastolic 63–88; PULSE 80–103; RESP 18–95; TEMP 36.2–37.8; O2SAT 87–100; BMI 25.2
[2024-12-25 01:21] LABS: Reflex Lactate? Y
[2024-12-25] MEDS: RINGERS LACTATED 1000 ML 1,000 ML 125 ML IV (04:11)
[2024-12-25] MEDS: PIPER/TAZO INJ 4.5 GM in SODIUM CHLORIDE 0.9% (POP) 100 ML IV ×3 (05:04→21:11)
[2024-12-25] MEDS: LACTULOSE SYRUP 20 GM/30 ML UDC NG (05:09)
[2024-12-25 07:21] LABS: Lactic Acid, 3 HR 2.6 mMol/L (0.4-2.0)
[2024-12-25 07:57] LABS: Basophils # (Auto) 0.0 Thou/mm3 (0.0-0.2); Basophils % (Auto) 0 % (0-2.5); Eosinophils # (Auto) 0.0 Thou/mm3 (0.0-0.5); Eosinophils % (Auto) 0 % (0-10); Hematocrit 35.9 % (36.0-46.0); Hemoglobin 12.2 g/dL (12.0-16.0); Immature Granulocytes Auto 0.12 Thou/mm3 (0.00-0.00); Lymphocytes # (Auto) 0.8 Thou/mm3 (1.0-4.8); Lymphocytes % (Auto) 9 % (10-50); Mean Corpuscular HGB Conc 34.0 g/dl (31.0-37.0); Mean Corpuscular Hemoglobin 34.5 pg (25.0-35.0); Mean Corpuscular Volume 101 fL (80-100); Monocytes # (Auto) 1.4 Thou/mm3 (0.0-0.8); Monocytes % (Auto) 16 % (0-12); Neutrophils # (Auto) 6.5 Thou/mm3 (1.8-7.7); Neutrophils % (Auto) 74 % (37-80); Nucleated Red Blood Cell # 0.00 Thou/mm3 (0.00-0.00); Nucleated Red Blood Cell % 0 /100 WBC (0); RDW Standard Deviation 71.5 fL (36.4-46.3); Red Blood Count 3.54 Miln/mm3 (4.00-5.20); White Blood Count 8.9 Thou/mm3 (3.6-11.0)
[2024-12-25 08:03] LABS: Platelet Count 37 Thou/mm3 (140-440)
[2024-12-25 08:23] LABS: Alanine Aminotransferase 78 U/L (10-49); Albumin, Serum 2.8 gm/dL (3.4-4.8); Albumin/Globulin Ratio 1.2 (1.2-2.2); Alkaline Phosphatase 112 U/L (46-116); Anion Gap 14 (7-16); Aspartate Amino Transferase 250 U/L (0-34); BUN/Creatinine Ratio 24 Ratio (12-20); Bilirubin,Total 4.0 mg/dL (0.3-1.2); Blood Urea Nitrogen 19 mg/dL (9-23); Calcium 9.1 mg/dL (8.3-10.6); Calcium (Corrected) 10.1 mg/dL (8.5-10.1); Carbon Dioxide 24.5 mMol/L (20.0-31.0); Chloride 109 mMol/L (98-107); Creatinine (Component) 0.8 mg/dL (0.6-1.3); Estimated Creatinine Clearance 70.1 mL/min (>60); Globulin 2.4 gm/dL (2.3-3.5); Glucose 85 mg/dL (74-106); Osmolality,Calculated 293 (275-295); Potassium 3.1 mMol/L (3.4-5.1); Sodium 147 mMol/L (136-145); Total Protein 5.2 gm/dL (5.7-8.2); eGFR > 60 See Note
[2024-12-25] MEDS: RINGERS LACTATED 1000 ML 1,000 ML 999 ML IV (08:29)
[2024-12-25] MEDS: THIAMINE 100 MG TABLET NG (08:30)
[2024-12-25] MEDS: FOLIC ACID 1 MG TABLET PO (08:30)
[2024-12-25] MEDS: MULTIVITAMINS TABLET 1 TAB PO (08:30)
[2024-12-25 08:31] LABS: Creatine Kinase 2210 U/L (34-171)
--- NOTE | 2024-12-25 09:10 | PCS.ST ---
Swallow Evaluation completed. See report for details. Recommend Dysphagia 2 diet d/t lack of dental appliance.
[2024-12-25] MEDS: POT PHOS 15 mMol in NS 250 ML 15 MMOL/250 ML BAG 62.5 MMOL IV (09:19)
[2024-12-25 09:23] LABS: Phosphorous 1.5 mg/dL (2.4-5.1)
--- NOTE | 2024-12-25 10:18 | XR_ITS ---
Examination: CT brain head without contrast. 2-D sagittal coronal reconstructions Date and time of exam:December 9992024, 10:55 AM, comparison December 23, 2024 Indications: Left-sided body weakness post cardiopulmonary arrest today, CT stroke alert brain scan December 23, 2024 CTDI: vol (mGy):46.1 DLP: (mGycm):890 Technique: Multiple CT axial sections of the brain have been obtained, 5 mm slice thickness. Contrast has not been administered. 2-D sagittal, coronal reconstructions have been obtained Low dose protocols were performed. One or more of the following dose reduction techniques were used; automated exposure control, adjustment of the mA and/or KV according to patient size, use of iterative reconstruction technique. Findings: No significant ventricular enlargement. Intra-axial or extra-axial hemorrhage density is not seen. No mass effect or midline shift Basal cisterns are not remarkable. Fourth ventricle is midline. Cranial vault intact. Impression: Negative for acute hemorrhage, mass effect or midline shift As clinically warranted, brain MRI MRA without contrast, stroke protocol, would best assess for anoxic/ischemic change
[2024-12-25 10:59] LABS: Slide Review Platelets confirmed
[2024-12-25] MEDS: MUPIROCIN OINT 2% 15 GM TUBE TOP (11:32)
--- NOTE | 2024-12-25 13:33 | ESPR_ITS ---
<Statement entered by Buddy Greer MD - 12/25/24 17:10> ICU downgrade for 64-year-old female past medical history of alcohol use disorder, alcohol withdrawal seizures presenting after found down and having cardiac arrest without any epi and only requiring 1 round of chest compressions for ROSC to be achieved. Patient will need to go through V-fib secondary to QTc being 580 but no rhythm strip apparently was present in the ED. Patient was intubated and upgraded to ICU and treated for alcohol withdrawal seizures with Librium and diazepam. Patient's management MELD score were not significantly elevated. Patient was also found to have rhabdomyolysis and was treated with IV fluid resuscitation along with IV antibiotics for UTI aspiration pneumonia and gram-negative bacteremia, pending speciation. Patient was downgraded after being extubated and is currently alert oriented x 1 (to person). Will continue to treat with IV fluid resuscitation, antibiotics and monitor for any breakthrough seizures. I have personally seen and examined the patient. I agree with the resident's assessment and plan as documented below. Buddy Greer DO PGY-2 Internal Medicine - [facility] Documentation for date of: 12/25/24 Subjective Subjective Interval history: Overnight events: No acute events overnight. Patient was seen and examined at bedside. AM vitals and labs reviewed. Patient was not responsive to verbal or physical stimulation. Patient did wince to pain and have jerking motion, but overall appears to be very sedated. Eyes do appear icteric. Patient downgraded from ICU today. ICU course: In summary, this is a 64-year-old female with history of alcohol use disorder, alcohol withdrawal seizures, pancreatitis, and depression who was brought to [facility] ED on 12/23 for altered mental status. Patient was found unconscious on ground-level covered in urine and feces bruises throughout her body. In ED, patient was found to have tach/seizure for 1 minute, for which she became apneic and lost her pulse, resulting in CPR around 1633 with ROSC achieved within 30 seconds. Patient was intubated. In the ICU, the patient was given one-time dose of midazolam 2 mg for tremors of the upper extremities. Per family members, patient was noted that she wants to . Patient was extubated on 12/14 1038 and passed bedside swallow screen. Patient was downgraded to medical floors on 12/25 given continued stability and passing speech therapy swallow study. EKG ordered to recheck QTc interval. Continue CIWA protocol. Continue Librium 50 mg every 8 hours. Continue Zosyn 4.5 mg every 8 hours for 7 day course (12/23-12/30). Review of systems otherwise negative except for what is mentioned above. Exam Vital Signs Temp Pulse Resp BP Pulse Ox O2 Del Method O2 Flow Rate 97.2 F 95 29 H 135/81 H 87 L Nasal Cannula 2 12/25/24 12:12/25/24 12:12/25/24 12:12/25/24 12:12/25/24 12:12/25/24 04:00 12/25/24 04:00 FiO2 28 12/24/24 10:44 Narrative Exam Physical Exam: General: Lethargic, uncooperative, no acute distress. Skin: Warm, dry, intact. Small scabs noted sparsely throughout body. Dark bruise in right upper arm, medially. Wound vac on left arm. Head: Normocephalic, atraumatic. Eye: Icteric conjunctiva, PERRL. Cardiovascular: Regular rate and rhythm, no murmur, +S1/S2. Respiratory: Lungs are clear to auscultation, respirations unlabored, no crackles, no wheezing. Gastrointestinal: Soft, nontender, non-distended. No guarding or rebound tenderness. Extremities: No edema, no cyanosis, no clubbing. 2+ radial pulse bilaterally, 2+ pedal pulse bilaterally. Objective Labs 12/27/24 05:08 12/27/24 05:08 Labs: Laboratory Results - last 24 hr 12/23/24 12/24/24 12/25/24 19:43 22:13 07:04 WBC 8.9 RBC 3.54 L Hgb 12.2 Hct 35.9 L MCV 101 H MCH 34.5 MCHC 34.0 RDW Std Deviation 71.5 H Plt Count 37 L D Neut % (Auto) 74 Lymph % (Auto) 9 L [place] % (Auto) 16 H Eos % (Auto) 0 Baso % (Auto) 0 Neut # (Auto) 6.5 Lymph # (Auto) 0.8 L [place] # (Auto) 1.4 H Eos # (Auto) 0.0 Baso # (Auto) 0.0 Immature Gran # (Auto) 0.12 H Absolute Nucleated RBC 0.00 Immature Gran % 1 H Nucleated RBC % 0 Sodium 147 H Potassium 3.1 L Chloride 109 H Carbon Dioxide 24.5 Anion Gap 14 BUN 19 Creatinine 0.8 Estim Creat Clear Calc 70.1 eGFR > 60 BUN/Creatinine Ratio 24 H Glucose 85 D Calculated Osmolality 293 Lactic Acid 2.2 H 2.6 H Calcium 9.1 Corrected Calcium 10.1 Phosphorus 1.5 L Total Bilirubin 4.0 H AST 250 H ALT 78 H Alkaline Phosphatase 112 Total Creatine Kinase 2210 H D Total Protein 5.2 L Albumin 2.8 L Globulin 2.4 Albumin/Globulin Ratio 1.2 Hepatitis A IgM Ab Non Reactive Hep Bs Antigen Non Reactive Hep B Core IgM Ab Non Reactive Hepatitis C Antibody Non Reactive Misc Test Result Platelets confirmed ABG Interpretation ABG results: 12/23/24 12/23/24 12/23/24 17:09 20:45 22:04 ABG pH 7.28 L 7.51 H D 7.52 H ABG pCO2 46 32 D 31 L ABG pO2 44 L* 350 H D 231 H D ABG HCO3 21 25 25 ABG O2 Saturation 68 L 101 H 100 H ABG Base Excess -5 L 2 3 12/24/24 05:09 ABG pH 7.44 ABG pCO2 37 ABG pO2 134 H D ABG HCO3 25 ABG O2 Saturation 99 H ABG Base Excess 1 Quality Measures Quality Measures VTE prophylaxis Assessment & Plan Assessment Current Active Medications: Generic Name Dose Route Start Last Admin Trade Name Freq PRN Reason Stop Dose Admin Acetaminophen 650 mg 12/25/24 12:16 Acetaminophen Supp 650 Mg Supp RI 01/22/25 18:21 Q4HR PRN Pain 1-3 and/or Fever >100.1 Chlordiazepoxide HCl 50 mg 12/24/24 14:00 12/25/24 05:04 Chlordiazepoxide Hcl 25 Mg Capsule PO 12/29/24 13:59 50 mg Q8HR JASMINA Administration Diazepam 2.5 mg 12/24/24 09:49 Diazepam Inj 5 Mg/Ml Vial 2 Ml IVP 12/29/24 09:48 Q2HR PRN CIWA SCORE 8-13 Diazepam 5 mg 12/24/24 09:49 Diazepam Inj 5 Mg/Ml Vial 2 Ml IVP 12/29/24 09:48 Q2HR PRN CIWA SCORE 14-19 Diazepam 10 mg 12/24/24 09:49 Diazepam Inj 5 Mg/Ml Vial 2 Ml IVP 12/29/24 09:48 Q2HR PRN CIWA SCORE 20-25 Diazepam 10 mg 12/24/24 09:49 Diazepam Inj 5 Mg/Ml Vial 2 Ml IVP X1 PRN Breakthrough Agitation Folic Acid 1 mg 12/24/24 09:00 12/25/24 08:30 Folic Acid 1 Mg Tablet PO 01/23/25 08:59 1 mg QDAY JASMINA Administration Piperacillin Sod/Tazobactam 100 mls @ 200 mls/hr 12/24/24 00:00 12/25/24 05:04 Sod 4.5 gm/ Sodium Chloride IV 12/31/24 00:00 200 mls/hr Q8HR JASMINA Administration Labetalol HCl 10 mg 12/23/24 14:13 Labetalol Inj 5 Mg/Ml Vial 20 Ml IVP Q15M PRN SBP >180, DBP >105 Multivitamins 1 tab 12/24/24 09:00 12/25/24 08:30 Multivitamins Tablet PO 01/23/25 08:59 1 tab QDAY JASMINA Administration Ondansetron HCl 4 mg 12/23/24 14:13 Ondansetron Inj 2 Mg/Ml Inj 2 Ml IVP 01/22/25 14:12 Q4HR PRN NAUSEA OR VOMITING Thiamine HCl 200 mg 12/25/24 14:00 Thiamine Inj 100 Mg/Ml Vial 2 Ml IVP 01/26/25 11:28 TID JASMINA Plan Mrs. Brady is a 64 year old female with a history of alcohol use disorder, alcohol withdrawal seizures, pancreatitis, and depression who was brought to [facility] ED on 12/23 for altered mental status. Patient was admitted to ICU for alcohol withdrawal seizures, and then downgraded to medical floors on 12/25. #Alcohol withdrawal seizures #Delirium tremens #Altered mental status #Alcohol use disorder Patient has a long history of alcohol use disorder, which leads to seizures when she withdraws. The patient has been consuming alcohol since she was 15 years old and has been noted to drink about a fifth of vodka daily per the patient's daughters. In the ED, patient's blood alcohol levels were noted to be <3.0, but previous admissions have noted significantly elevated blood alcohol levels. Patient most likely quit abruptly and had an alcohol withdrawal seizure(s) starting at home, resulting in stroke-like symptoms and febrile tachycardia, with an additional seizure in the ED. Patient was admitted to ICU, where bilateral tremulous activity that improved with midazolam was noted. 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 WBC initially in the ED was 8.4, however it did increase to 13.1 while in the ICU on 12/24. The likely source is urinary tract infection given that the patient's urinalysis showed urine WBC of 406, with 4+ bacteria, however this may be due to contamination. No signs of pneumonia on chest x-ray were identified, however the patient was laying down unconscious in her urine and feces, which brings up concern for possible aspiration pneumonia. SIRS score 3 - Blood cultures collected 12/23, shows gram negative rods in from both bottles - Urine culture collected 12/23, pending - Sputum culture collected 12/23, gram stain shows 2+ gram positive cocci, pending culture - MRSA nares swabbed 12/23, positive - Zosyn 4.5 gm every 8 hours (12/23-12/30) #Alcohol-related fatty liver disease #Hyperbilirubinemia #Elevated LFTs #Thrombocytopenia Patient has a long history of alcohol consumption. CT abdomen pelvis showed hepatomegaly with severe diffuse fatty infiltration throughout the liver, likely secondary to her extensive alcohol consumption. The patient's bilirubin in the ED was noted to be 4.6 and the patient's LFTs are elevated in a 2:1 ratio of AST to ALT, further suggesting alcoholism to be the cause. The patient's platelets have been noted to be significantly decreased, reaching 39 in the ED and 26 in the ICU. The thrombocytopenia is an additional sign of alcohol-related fatty liver disease. - Continue to monitor bilirubin, LFTs, and thrombocytopenia - Transfuse platelets if less than 20 per protocol #Rhabdomyolysis, resolving #MONIKA, likely prerenal, resolving Patient noted to have creatine kinase of 8185 in the ED, likely secondary to muscle damage from alcohol withdrawal seizures. Cr was noted to be 1.3 in ED, which is increased from her baseline of 0.7, likely as a result of her rhabdomyolysis. - LR at 75 cc/h - Will continue to monitor - Avoid nephrotoxic medications - Renally dose medications #Lactic acidosis, resolving #High anion gap metabolic acidosis, resolved Patient noted to have lactic acidosis in ED. Lactic acid peaked at 8.8 and has since been downtrending. This is most likely secondary to alcohol withdrawal seizure and episode of cardiac arrest. - Will continue to monitor - Repeat lactic acid at 1700 #Electrolyte abnormalities #Hypokalemia #Hypophosphatemia Patient noted to have hypokalemia of 2.9 in ED and hypophosphatemia of 1.5 on 12/25. - Will continue to monitor with daily labs, replenish as necessary DVT Prophylaxis: SCDs GI Prophylaxis: N/A Bowel: N/A Diet: Dysphagia 2 mech altered, carbohydrate consistent Serna: Yes Lines: Peripheral IV Antibiotics: Zosyn (12/23-12/30) Code Status: FULL Reason for Hospitalization: Alcohol withdrawal induced seizures Other Barriers to Discharge: CIWA, altered mental status Patient plan of care was discussed with the senior resident Dr. Greer (PGY- 2) and attending physician Dr. Isabella Miguel, PGY1 Attending Provider Attestation/Addendum Anaid, Cheyanne Mason DO, attest that I was physically present for the del real portions of the service and evaluated the patient with the resident and I reviewed and discussed the case with the resident and agree with the resident's findings and plans of care as documented above Patient is a 64-year-old female with past medical history of alcoholic use disorder, seizures secondary to alcohol withdrawal, pancreatitis, depression who was brought to the hospital due to altered mental status. Been found unconscious on the floor covered in bodily fluids. Upon evaluation in the ED, patient had an NIHSS score of 23 and a stroke alert had initially been called. In ED, patient had a tonic-clonic seizure lasting about 1 minute and became apneic and had loss pulse. A CODE BLUE was subsequently called and ROSC was obtained after 1 round of chest compressions. Patient was intubated during that time and was subsequently admitted to the ICU for further workup and medical management of acute respiratory arrest, seizures likely secondary to alcohol withdrawal and aspiration pneumonia. Patient did have a temperature of 105.9 and tachycardia on presentation. She is noted to have thrombocytopenia likely secondary to her chronic alcohol use and elevated bilirubin of 4.6. She was also found to be in rhabdomyolysis with a CK of 8185. Patient has been treated with IV Zosyn due to concern for aspiration pneumonia. She is also noted to have gram-negative lynda bacteremia. She is currently under [facility] protocol due to alcohol withdrawal with seizures. Patient was extubated this morning and has now being downgraded to hospitalist service. We will continue with IV antibiotics at this time and continue to monitor patient under [facility] protocol. She has been started on Librium 50 mg every 8 hours. Per history provided by family, patient drinks 1/5 of vodka every day. Patient remains quite lethargic, but states that she is feeling fine. She is able to follow commands, although slow to respond and requiring frequent prompting. Patient has scattered ecchymosis all over her body due to fall at home. Will monitor for any signs of active bleeding.
--- NOTE | 2024-12-25 13:37 | EKG_ITS ---
[facility] Test Date: 2024-12-25 Pat Name: JOSÉ MIGUEL ESCAMILLA Department: Room: S256A Gender: Female Mortarman: EFRAIN : 1960 Requested By: Ranjit Miguel Order Number: [id number] Reading MD: Ranjit Miguel Measurements Intervals [place] Rate: 94 P: 19 IA: 182 QRS: 4 QRSD: 112 T: 29 QT: 349 QTc: 436 Interpretive Statements SINUS RHYTHM WITH SINUS ARRHYTHMIA MODERATE INTRAVENTRICULAR CONDUCTION DELAY Compared to ECG 12/23/2024 14:20:08 Intraventricular conduction delay now present Sinus tachycardia no longer present Myocardial infarct finding no longer present /store/S0/[id number]
--- NOTE | 2024-12-25 13:44 | ESPR_ITS ---
<Statement entered by Mike Briseno MD - 12/26/24 07:04> I personally supervised the PGY1 resident, Dr Singh, and examined the patient separately as well. I agree with the documentation with the exceptions listed below. Patient is a 64-year-old female with a history of chronic alcohol dependence, alcohol withdrawal seizures and? Pancreatic mass who was brought in by her boyfriend after being found obtunded in a pool of her own feces and urine. In the ED patient had a witnessed tonic-clonic seizure, went into V-fib and subsequently cardiac arrest. After 20 seconds of CPR she obtained ROSC. Her initial EKG showed a QTc of 581. Subsequently she was intubated, mechanically ventilated and admitted to the ICU for further management. Yesterday around 10 AM, patient was extubated and propofol infusion was discontinued. She passed evaluation by [facility] and a mechanically altered diet was recommended. With regards to her alcohol withdrawal, patient is currently on chlordiazepoxide 50 mg p.o. every 8 hourly along with diazepam 5 mg IV as needed for breakthrough agitation. There is also concern for possible Wernicke encephalopathy, unable to fully assess due to patient being found obtunded. Prophylactically we will treat with thiamine 500 mg IV 3 times daily for 2 days followed by thiamine 200 mg IV daily for a further 5 days. Patient also was found to have rhabdomyolysis with CK >8000 on admission. She was treated with lactated Ringer's maintenance IVF at 125 cc/h and also received an additional 1L IVF bolus of lactated Ringer's this a.m. Her CK is now down trended to 2210. IVF were discontinued and the patient is now tolerating p.o. Currently patient is alert and oriented x 2 [person and place], tolerating orally and no further episodes of seizures since admission. Patient will be downgraded to the floor today. Plan of care discussed with Attending Dr. Nehal Briseno MD PGY 2 Disclaimer: This note was dictated by speech recognition. Minor errors in manager environmental affairs may be present due to voice recognition software. Documentation for date of: 12/25/24 Subjective Subjective Interval history: 64-year-old female with past medical history of alcohol use disorder, alcohol withdrawal seizures, pancreatitis, and depression was brought to the hospital on 12/23/2024 for altered mental status. Patient's boyfriend went to her house to check on her following which she was found to be unconscious on the ground covered with urine and feces, with bruising to mouth, upper arms, and legs and small wounds to bilateral upper arms. EMS found her with a GCS of 9 and patient was brought to the hospital. In the ED, sepsis and stroke alert was called on the patient. Teleneurology was consulted and they recommended CTA, MRI brain without contrast, and EEG. NIHSS score was 23. At 4:30 PM while in ED, patient was found to have a tonic-clonic seizure lasting for 1 minute following which she became apneic and lost pulses for which CPR was initiated and CODE BLUE was called around 4:33 PM. Patient attained ROSC within 30 seconds and did not receive any epinephrine. Patient was intubated at that time and ICU was consulted for further management of alcohol withdrawal, sepsis secondary to UTI, MONIKA, and rhabdomyolysis. Interval History 12/24/2024: Patient examined at bedside, intubated and sedated on propofol. No reported seizure events overnight. In the morning patient was noted to have trembling movements of mainly the upper extremities. Given dose of midazolam 2 mg IV x1, tremors were resolved. Discussed with 2 daughters at bedside including point of contact, [place]. Per daughters, patient is an alcoholic who drinks a fifth of vodka every day. Patient apparently has refused help in the past and has said she wants to . Per daughters they last checked in on the patient on . Patient passed SAT and SBT, and was successfully extubated 10:38 am. Patient passed a bedside swallow screen and had some water and ice, but remained sleepy rest of the day. Will plan for speech evaluation tomorrow. MAP is soft around 59-64, additional bolus of 500 ml was given alongside 125 ml/hr of the maintenance fluid. Attempted to give midodrine but patient was too sleepy and unsuccessful. Patient has about 35 ml/hr urine output. Potassium 3.1 this morning, repleting with 40 mEq IV. Will continue with CIWA protocol with chlordiazepoxide 50 mg q8h and as needed IV diazepam according to scale. 12/25/2024: No overnight events. Patient seen and examined at bedside; they are no longer intubated, alert and oriented x 2 [person and place], tolerating oral intake, and not exhibiting further episodes of seizures since admission. Patient will be downgraded to the floor today. Exam Vital Signs Temp Pulse Resp BP Pulse Ox O2 Del Method O2 Flow Rate 97.2 F 95 29 H 135/81 H 87 L Nasal Cannula 2 12/25/24 12:01 12/25/24 12:01 12/25/24 12:01 12/25/24 12:01 12/25/24 12:01 12/25/24 04:00 12/25/24 04:00 FiO2 28 12/24/24 10:44 Narrative Exam General: Lethargic but responsive to voice, able to follow commands. HEENT: Normocephalic, atraumatic, mucous membranes moist. Right lower corner of mouth with abrasion. Tongue-biting lesions. Mild scleral icterus. Heart: Tachycardic, regular rhythm, no murmurs. Lungs: Clear to auscultation with no wheezing or crackles. Abdomen: Soft, nondistended, nontender, positive bowel sounds. ?No guarding or rebound tenderness. Neurologic: Awake and oriented x2, no gross neurological deficit, and patient able to move all 4 extremities. Follows commands when awakened. Extremities: No edema. Skin: No rash and noted echymoses on bilateral knees, arms, and face. Objective Labs 01/01/25 04:33 01/01/25 04:33 Labs: Laboratory Results - last 24 hr 12/23/24 12/24/24 12/25/24 19:43 22:13 07:04 WBC 8.9 RBC 3.54 L Hgb 12.2 Hct 35.9 L MCV 101 H MCH 34.5 MCHC 34.0 RDW Std Deviation 71.5 H Plt Count 37 L D Neut % (Auto) 74 Lymph % (Auto) 9 L [place] % (Auto) 16 H Eos % (Auto) 0 Baso % (Auto) 0 Neut # (Auto) 6.5 Lymph # (Auto) 0.8 L [place] # (Auto) 1.4 H Eos # (Auto) 0.0 Baso # (Auto) 0.0 Immature Gran # (Auto) 0.12 H Absolute Nucleated RBC 0.00 Immature Gran % 1 H Nucleated RBC % 0 Sodium 147 H Potassium 3.1 L Chloride 109 H Carbon Dioxide 24.5 Anion Gap 14 BUN 19 Creatinine 0.8 Estim Creat Clear Calc 70.1 eGFR > 60 BUN/Creatinine Ratio 24 H Glucose 85 D Calculated Osmolality 293 Lactic Acid 2.2 H 2.6 H Calcium 9.1 Corrected Calcium 10.1 Phosphorus 1.5 L Total Bilirubin 4.0 H AST 250 H ALT 78 H Alkaline Phosphatase 112 Total Creatine Kinase 2210 H D Total Protein 5.2 L Albumin 2.8 L Globulin 2.4 Albumin/Globulin Ratio 1.2 Hepatitis A IgM Ab Non Reactive Hep Bs Antigen Non Reactive Hep B Core IgM Ab Non Reactive Hepatitis C Antibody Non Reactive Misc Test Result Platelets confirmed ABG Interpretation ABG results: 12/23/24 12/23/24 12/23/24 17:09 20:45 22:04 ABG pH 7.28 L 7.51 H D 7.52 H ABG pCO2 46 32 D 31 L ABG pO2 44 L* 350 H D 231 H D ABG HCO3 21 25 25 ABG O2 Saturation 68 L 101 H 100 H ABG Base Excess -5 L 2 3 12/24/24 05:09 ABG pH 7.44 ABG pCO2 37 ABG pO2 134 H D ABG HCO3 25 ABG O2 Saturation 99 H ABG Base Excess 1 Quality Measures Quality Measures none Assessment & Plan Assessment Current Active Medications: Generic Name Dose Route Start Last Admin Trade Name Freq PRN Reason Stop Dose Admin Acetaminophen 650 mg 12/25/24 12:16 Acetaminophen Supp 650 Mg Supp [place] 01/22/25 18:21 Q4HR PRN Pain 1-3 and/or Fever >100.1 Chlordiazepoxide HCl 50 mg 12/24/24 14:00 12/25/24 05:04 Chlordiazepoxide Hcl 25 Mg Capsule PO 12/29/24 13:59 50 mg Q8HR JASMINA Administration Diazepam 2.5 mg 12/24/24 09:49 Diazepam Inj 5 Mg/Ml Vial 2 Ml IVP 12/29/24 09:48 Q2HR PRN CIWA SCORE 8-13 Diazepam 5 mg 12/24/24 09:49 Diazepam Inj 5 Mg/Ml Vial 2 Ml IVP 12/29/24 09:48 Q2HR PRN CIWA SCORE 14-19 Diazepam 10 mg 12/24/24 09:49 Diazepam Inj 5 Mg/Ml Vial 2 Ml IVP 12/29/24 09:48 Q2HR PRN CIWA SCORE 20-25 Diazepam 10 mg 12/24/24 09:49 Diazepam Inj 5 Mg/Ml Vial 2 Ml IVP X1 PRN Breakthrough Agitation Folic Acid 1 mg 12/24/24 09:00 12/25/24 08:30 Folic Acid 1 Mg Tablet PO 01/23/25 08:59 1 mg QDAY JASMINA Administration Piperacillin Sod/Tazobactam 100 mls @ 200 mls/hr 12/24/24 00:00 12/25/24 05:04 Sod 4.5 gm/ Sodium Chloride IV 12/31/24 00:00 200 mls/hr Q8HR JASMINA Administration Labetalol HCl 10 mg 12/23/24 14:13 Labetalol Inj 5 Mg/Ml Vial 20 Ml IVP Q15M PRN SBP >180, DBP >105 Multivitamins 1 tab 12/24/24 09:00 12/25/24 08:30 Multivitamins Tablet PO 01/23/25 08:59 1 tab QDAY JASMINA Administration Ondansetron HCl 4 mg 12/23/24 14:13 Ondansetron Inj 2 Mg/Ml Inj 2 Ml IVP 01/22/25 14:12 Q4HR PRN NAUSEA OR VOMITING Thiamine HCl 200 mg 12/25/24 14:00 Thiamine Inj 100 Mg/Ml Vial 2 Ml IVP 01/26/25 11:28 TID JASMINA Plan 64-year-old female with significant past medical history of alcohol use disorder, seizures likely alcohol withdrawal, previous episode of hospitalization for alcohol pancreatitis, pancreatic mass [2018] depression was brought to the hospital by EMS with chief complaints of altered sensorium. Patient seen and examined at bedside; they are no longer intubated, alert and oriented x 2 [person and place], tolerating oral intake, and not exhibiting further episodes of seizures since admission. Patient will be downgraded to the floor today. 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 #Acute encephalopathy (resolving) DDx: Alcohol withdrawal seizures versus sepsis versus metabolic versus hepatic encephalopathy versus rhabdomyolysis versus stroke, less likely versus multifactorial - Alcohol withdrawal seizures: Patient had history of chronic alcohol disorder and noted to drink 1 bottle of vodka every day and patient had previous history of seizures, which could be likely alcohol withdrawal seizures and not sure if she is taking any medications if patient is taking any medication for seizure disorder - Sepsis: Noted to have temperature of 105.9 ?F at the time of admission, likely had aspiration pneumonia versus UTI which could be causing sepsis resulting in encephalopathy versus provoking seizures - Metabolic: Patient noted to have high anion gap metabolic acidosis at the time of admission which could be contributing to the altered sensorium - Hepatic encephalopathy: Patient was noted to have elevated liver enzymes including total bilirubin and transaminase levels at the time of admission. There is a possibility of hepatic encephalopathy secondary to liver failure or it could be just acute alcohol hepatitis - Stroke: Stroke alert was called and patient and the of altered sensorium at the time of presentation with stroke workup was done including teleneuro consult, head CT, CT angio of head and neck which came back negative. Patient is able to move all 4 extremities but not able to do complete neurological examination in view of sedation. Dx: - Lactate 2.9, anion gap 19, BUN 32, creatinine 1.3, total bilirubin 4.6, AST 340, ALT 85, CT 8185 - CT head and CTA head/neck did not show any significant abnormality Rx: - PO Librium 50 mg q8HR - PO diazepam 5 mg prn for breakthrough agitation - IV thiamine 500 mg TID for 2 days followed by IV thiamine 200 mg qD for a further 5 days (WE prophylaxis) Pulmonary # Suspicion of possible aspiration pneumonia To be followed up on by floor team CVS #s/p cardiac arrest Had a cardiac arrest after 1 minute episode of tonic-clonic seizures but Code Blue was called and ROSC was achieved in 30 sec without use of pressors Likely etiology was alcoholic withdrawal seizures leading to lactic acidosis, subsequent hypokalemia, QTc prolongation (581), [place] Point[place] (ventricular fibrillation), and then cardiac arrest GI #Hyperbilirubinemia #Transaminitis Likely in the setting of alcohol hepatitis Hepatitis panel, Ct abdomen/ pelvis is ordered #Coagulopathy Inr is 1.5 #H/o pancreatic mass - Noted to have pancreatic mass in 2018 on MRCP Renal #MONIKA (resolved) likely prerenal 2/2 sepsis vs Rhabdomyolysis Baseline creat is 0.7, at the time of admission is 1.3, now back to baseline Received 3l bolus in the ED Treated with maintenance fluids 125ml/hr, now d/c'd #Rhabdomyolysis (resolving) 8185 at admission, now down-trended to 2210 Previously receiving IV LR maintenance fluid @ 125 ml/hr and received 1 L IV LR bolus this morning, now fluids have been d/c'd as patient is tolerating PO intake ID #Sepsis likely 2/2 uti vs aspiration pneumonia - Continue Zosyn Heme #Thrombocytopenia [id number] at the time of presentation, sepsis vs liver disease vs combined - Held anticoagulation for now Hospital Maintenance: Dispo: downgraded to floors today DVT ppx: SCD GI ppx: Protonix Diet: Dysphagia 2 IV lines: peripheral Code status: Full Patient plan of care was discussed with the Women'S Activities Adviser, Dr. Calvert. Dionisio Singh DO Internal Medicine, PGY-1 Attending Provider Attestation/Addendum Patient seen and examined with above resident, Dionisio Singh DO. I agree with the findings, assessment, and plan of care as document except for any differences below. Patient doing well postextubation for the last 24 hours. Patient able to pass swallow evaluation and will try to transition over to oral regimen with determination of IV fluid. Renal function continues to improve despite rhabdomyolysis. Mentation continues to also improve back towards her baseline. Patient's family appreciative of all care though the patient does have underlying psych issues including alcohol abuse. Continue taper of chlordiazepoxide. Ongoing IV thiamine and as needed dosing of diazepam made available. Patient with good neurologic status postcardiac arrest which was very brief and likely a secondary to respiratory decompensation. Patient with liver transaminitis is improving though we will exclude other intra-abdominal pathology with CT of the abdomen/pelvis. Patient stable for transition to medicine [place] for ongoing management prior to discharge. Total critical care time: I personally spent 35 minutes for review of physiologic parameters, directing plan of care throughout today, coordination of care with other specialist, and counseling patient/family at bedside. This is exclusive of time spent teaching on staff and performing a separate billable procedures.
[2024-12-25] MEDS: THIAMINE INJ 100 MG/ML VIAL 2 ML 200 MG IVP ×2 (15:45→21:11)
[2024-12-25] MEDS: RINGERS LACTATED 1000 ML 1,000 ML 75 ML IV (17:41)
[2024-12-25 17:52] LABS: Lactate (Lactic Acid) 1.6 mMol/L (0.4-2.0)
--- NOTE | 2024-12-25 22:38 | PD.NEUROPROG ---
Documentation for date of: 12/25/24 Subjective Subjective Interval history: Patient was seen in telemetry at the bedside. No change/events noted overnight, slowly improving. Exam - Neurology Vital Signs Temp Pulse Resp BP Pulse Ox O2 Del Method O2 Flow Rate 97.1 F 82 20 122/81 97 Room Air 2 12/25/24 20:00 12/25/24 20:00 12/25/24 20:00 12/25/24 20:00 12/25/24 20:00 12/25/24 20:00 12/25/24 04:00 FiO2 28 12/24/24 10:44 Narrative Exam GENERAL APPEARANCE: Well hydrated, well-nourished in no acute distress. HEENT: Normocephalic, atraumatic, extraocular movements intact. Pupils: Equal reacting to light and accommodation NECK: Supple, no JVD or bruits. CARDIOVASULAR: Heart: S1, S2 heard, regular without S3-S4 or murmur no rubs or gallops. LUNGS/CHEST: Clear to auscultation bilaterally. No rails, rhonchi, or wheezing. Normal inspection. ABDOMEN: Soft, nontender, with normal bowel sounds. No pulsatile masses. No rebound, rigidity, or guarding. Normal inspection and palpation. EXTREMITIES: Normal inspection and palpation. No edema, clubbing or cyanosis. SKIN: Warm and dry without rashes. Normal inspection. MUSCULOSKELETAL: No cervical, thoracic, lumbar or midline bony tenderness. Normal inspection. NEURO: resting under the effect of meds, but arousable and answering questions, Cranial nerves: II through XII grossly intact. Speech and language: Normal with no dysarthria or dysphasia. Motor system: Tone and bulk: Normal: Strength: 5 out of 5 in all 4 extremities; No pronator drift noted. Deep tendon reflexes: 2+ bilaterally symmetrical. Plantar reflex: Downgoing bilaterally. Sensory system: Intact to all modalities of sensation bilaterally. Coordination: Intact to [id number] and [id number]-rgaf-[id number] test bilaterally. No ataxia, no dysmetria, or dysdiadochokinesia noted. No intention tremors noted. Gait: not tested. No signs of meningeal irritation noted. PSYCHIATRIC: limited. Objective Labs 12/25/24 07:04 12/25/24 07:04 Labs: Laboratory Results - last 24 hr 12/25/24 12/25/24 07:04 17:37 WBC 8.9 RBC 3.54 L Hgb 12.2 Hct 35.9 L MCV 101 H MCH 34.5 MCHC 34.0 RDW Std Deviation 71.5 H Plt Count 37 L D Neut % (Auto) 74 Lymph % (Auto) 9 L [place] % (Auto) 16 H Eos % (Auto) 0 Baso % (Auto) 0 Neut # (Auto) 6.5 Lymph # (Auto) 0.8 L [place] # (Auto) 1.4 H Eos # (Auto) 0.0 Baso # (Auto) 0.0 Immature Gran # (Auto) 0.12 H Absolute Nucleated RBC 0.00 Immature Gran % 1 H Nucleated RBC % 0 Sodium 147 H Potassium 3.1 L Chloride 109 H Carbon Dioxide 24.5 Anion Gap 14 BUN 19 Creatinine 0.8 Estim Creat Clear Calc 70.1 eGFR > 60 BUN/Creatinine Ratio 24 H Glucose 85 D Calculated Osmolality 293 Lactic Acid 2.6 H 1.6 Calcium 9.1 Corrected Calcium 10.1 Phosphorus 1.5 L Total Bilirubin 4.0 H AST 250 H ALT 78 H Alkaline Phosphatase 112 Total Creatine Kinase 2210 H D Total Protein 5.2 L Albumin 2.8 L Globulin 2.4 Albumin/Globulin Ratio 1.2 Misc Test Result Platelets confirmed ABG Interpretation ABG results: 12/23/24 12/23/24 12/23/24 17:09 20:45 22:04 ABG pH 7.28 L 7.51 H D 7.52 H ABG pCO2 46 32 D 31 L ABG pO2 44 L* 350 H D 231 H D ABG HCO3 21 25 25 ABG O2 Saturation 68 L 101 H 100 H ABG Base Excess -5 L 2 3 12/24/24 05:09 ABG pH 7.44 ABG pCO2 37 ABG pO2 134 H D ABG HCO3 25 ABG O2 Saturation 99 H ABG Base Excess 1 Assessment & Plan Assessment and plan (1) Altered mental status: Status: Acute Assessment and plan: Alcohol withdrawal sz Delirium tremens Plan: continue with thiamine, folate, and librium (2) Electrolyte abnormality: Status: Acute Assessment and plan: getting corrected and monitored closely (3) Seizure: Status: Acute Assessment and plan: related to alcohol withdrawal. No need for AED as there is no recurrence. (4) Rhabdomyolysis: Status: Acute Assessment and plan: trending down with fluids
[2024-12-26] VITALS (7 sets, daily range): BP systolic 104–122; BP diastolic 74–86; PULSE 73–96; RESP 16–98; TEMP 36.2–36.8; O2SAT 95–99; BMI 27.4
[2024-12-26] MEDS: THIAMINE INJ 100 MG/ML VIAL 2 ML 200 MG IVP ×3 (05:28→21:01)
[2024-12-26] MEDS: PIPER/TAZO INJ 4.5 GM in SODIUM CHLORIDE 0.9% (POP) 100 ML IV ×3 (05:28→21:01)
[2024-12-26] MEDS: RINGERS LACTATED 1000 ML 1,000 ML 75 ML IV (06:09)
[2024-12-26 06:11] LABS: Alanine Aminotransferase 73 U/L (10-49); Albumin, Serum 2.6 gm/dL (3.4-4.8); Albumin/Globulin Ratio 1.2 (1.2-2.2); Alkaline Phosphatase 117 U/L (46-116); Anion Gap 12 (7-16); Aspartate Amino Transferase 217 U/L (0-34); BUN/Creatinine Ratio 25 Ratio (12-20); Bilirubin,Total 3.6 mg/dL (0.3-1.2); Blood Urea Nitrogen 15 mg/dL (9-23); Calcium 8.5 mg/dL (8.3-10.6); Calcium (Corrected) 9.6 mg/dL (8.5-10.1); Carbon Dioxide 24.0 mMol/L (20.0-31.0); Chloride 109 mMol/L (98-107); Creatine Kinase 995 U/L (34-171); Creatinine (Component) 0.6 mg/dL (0.6-1.3); Estimated Creatinine Clearance 95.0 mL/min (>60); Globulin 2.1 gm/dL (2.3-3.5); Glucose 73 mg/dL (74-106); Magnesium 1.6 mg/dL (1.6-2.6); Osmolality,Calculated 288 (275-295); Phosphorous 1.8 mg/dL (2.4-5.1); Potassium 3.1 mMol/L (3.4-5.1); Sodium 145 mMol/L (136-145); Total Protein 4.7 gm/dL (5.7-8.2); eGFR > 60 See Note
[2024-12-26 06:50] LABS: Basophils # (Auto) 0.1 Thou/mm3 (0.0-0.2); Basophils % (Auto) 1 % (0-2.5); Eosinophils # (Auto) 0.1 Thou/mm3 (0.0-0.5); Eosinophils % (Auto) 2 % (0-10); Hematocrit 31.5 % (36.0-46.0); Hemoglobin 10.7 g/dL (12.0-16.0); Immature Granulocytes Auto 0.10 Thou/mm3 (0.00-0.00); Lymphocytes # (Auto) 0.9 Thou/mm3 (1.0-4.8); Lymphocytes % (Auto) 11 % (10-50); Mean Corpuscular HGB Conc 34.0 g/dl (31.0-37.0); Mean Corpuscular Hemoglobin 33.5 pg (25.0-35.0); Mean Corpuscular Volume 99 fL (80-100); Monocytes # (Auto) 1.0 Thou/mm3 (0.0-0.8); Monocytes % (Auto) 13 % (0-12); Neutrophils # (Auto) 5.5 Thou/mm3 (1.8-7.7); Neutrophils % (Auto) 72 % (37-80); Nucleated Red Blood Cell # 0.02 Thou/mm3 (0.00-0.00); Nucleated Red Blood Cell % 0 /100 WBC (0); RDW Standard Deviation 66.7 fL (36.4-46.3); Red Blood Count 3.19 Miln/mm3 (4.00-5.20); White Blood Count 7.7 Thou/mm3 (3.6-11.0)
[2024-12-26 06:56] LABS: Platelet Count 60 Thou/mm3 (140-440)
[2024-12-26 08:23] LABS: Slide Review Platelets confirmed
[2024-12-26] MEDS: FOLIC ACID 1 MG TABLET PO (09:22)
[2024-12-26] MEDS: Magnesium Sulfate 4 GM Ivpb 4 GM/50 ML BAG IV (09:22)
[2024-12-26] MEDS: MULTIVITAMINS TABLET 1 TAB PO (09:22)
[2024-12-26] MEDS: NAPH,KPH MBDB 1 PACKET (1.5 GM) 2 PACKET PO ×4 (09:22→23:08)
--- NOTE | 2024-12-26 09:40 | ESPR_ITS ---
<Statement entered by Jarad Magana MD - 12/26/24 16:40> No acute overnight events. Patient appears to be more awake and is able to answer all the questions appropriately. Labs done this morning showed improving platelet count, 60,000. Noted to have potassium of 3.1, phosphorus 1.8. Repleted with 40 mill equivalents of oral potassium, Neutra-Phos, magnesium. Will continue Zosyn and decrease the dose of Librium to 25 mg twice daily. Plan to discharge in a day or 2 if patient's mental status continues to improve. I have personally seen and examined the patient. I agree with the resident's assessment and plan as documented below. Patient plan of care was discussed with the attending physician, Dr. Isabella Magana, PGY2 Documentation for date of: 12/26/24 Subjective Subjective Interval history: Overnight events: No acute events overnight. Patient was seen and examined at bedside. AM vitals and labs reviewed. Patient was resting without any acute distress at that. Patient does respond to voice and is coherent, however she does mumbles. Hemoglobin 10.7, platelets 60, potassium 3.1, phosphorus 1.8, repeat lactic acid 1.6, and creatinine kinase 995. Blood cultures show E. coli x 2. Urine culture negative. Neuro does not recommend antiepileptic drugs for now. Continue Zosyn until 12/30 given concern for aspiration due to being passed out in urine and feces initially. Tapering Librium, will decrease to 25 mg 3 times daily IV fluids stopped. Echocardiogram pending. Review of systems otherwise negative except for what is mentioned above. Exam Vital Signs Temp Pulse Resp BP Pulse Ox O2 Del Method O2 Flow Rate 97.9 F 78 19 117/74 99 Room Air 2 12/26/24 08:00 12/26/24 08:00 12/26/24 08:00 12/26/24 08:00 12/26/24 08:00 12/26/24 08:00 12/25/24 04:00 FiO2 28 12/24/24 10:44 Narrative Exam Physical Exam: General: Lethargic, uncooperative, no acute distress. Skin: Warm, dry, intact. Small scabs noted sparsely throughout body. Dark bruise in right upper arm, medially. Wound vac on left arm. Head: Normocephalic, atraumatic. Eye: Icteric conjunctiva, PERRL. Cardiovascular: Regular rate and rhythm, no murmur, +S1/S2. Respiratory: Lungs are clear to auscultation, respirations unlabored, no crackles, no wheezing. Gastrointestinal: Soft, nontender, non-distended. No guarding or rebound tenderness. Extremities: No edema, no cyanosis, no clubbing. Objective Labs 12/27/24 05:08 12/27/24 05:08 Labs: Laboratory Results - last 24 hr 12/23/24 12/25/24 12/25/24 16:01 07:04 17:37 WBC 8.4 RBC 4.02 Hgb 13.7 Hct 39.3 MCV 98 MCH 34.1 MCHC 34.9 RDW Std Deviation 65.1 H Plt Count 39 L Neut % (Auto) 87 H Lymph % (Auto) 6 L [place] % (Auto) 4 Eos % (Auto) 2 Baso % (Auto) 1 Neut # (Auto) 7.3 Lymph # (Auto) 0.5 L [place] # (Auto) 0.3 Eos # (Auto) 0.1 Baso # (Auto) 0.1 Immature Gran # (Auto) 0.10 H Absolute Nucleated RBC 0.00 Immature Gran % 1 H Nucleated RBC % 0 Smear Path Review Sent to Pathologist PT 15.7 H INR 1.5 H APTT 34.5 Sodium 142 Potassium 2.9 L Chloride 100 Carbon Dioxide 23.2 Anion Gap 19 H BUN 32 H Creatinine 1.3 Estim Creat Clear Calc 43.1 L eGFR 46 L BUN/Creatinine Ratio 25 H Glucose 110 H Calculated Osmolality 291 Lactic Acid 1.6 Calcium 9.8 Corrected Calcium 10.3 H Phosphorus 3.0 Magnesium 1.2 L Total Bilirubin 4.6 H AST 340 H ALT 85 H Alkaline Phosphatase 118 H Lactate Dehydrogenase 534 H Total Creatine Kinase 8185 H Troponin I 0.316 H* Total Protein 6.1 Albumin 3.4 Globulin 2.7 Albumin/Globulin Ratio 1.3 Lipase 24 Procalcitonin > 50.00 H Ethyl Alcohol < 3.0 Misc Test Result Platelets confirmed Platelets confirmed 12/26/24 12/26/24 04:40 06:32 WBC 7.7 RBC 3.19 L Hgb 10.7 L Hct 31.5 L MCV 99 MCH 33.5 MCHC 34.0 RDW Std Deviation 66.7 H Plt Count 60 L D Neut % (Auto) 72 Lymph % (Auto) 11 [place] % (Auto) 13 H Eos % (Auto) 2 Baso % (Auto) 1 Neut # (Auto) 5.5 Lymph # (Auto) 0.9 L [place] # (Auto) 1.0 H Eos # (Auto) 0.1 Baso # (Auto) 0.1 Immature Gran # (Auto) 0.10 H Absolute Nucleated RBC 0.02 H Immature Gran % 1 H Nucleated RBC % 0 Smear Path Review PT INR APTT Sodium 145 Potassium 3.1 L Chloride 109 H Carbon Dioxide 24.0 Anion Gap 12 BUN 15 Creatinine 0.6 Estim Creat Clear Calc 95.0 eGFR > 60 BUN/Creatinine Ratio 25 H Glucose 73 L Calculated Osmolality 288 Lactic Acid Calcium 8.5 Corrected Calcium 9.6 Phosphorus 1.8 L Magnesium 1.6 Total Bilirubin 3.6 H AST 217 H ALT 73 H Alkaline Phosphatase 117 H Lactate Dehydrogenase Total Creatine Kinase 995 H D Troponin I Total Protein 4.7 L Albumin 2.6 L Globulin 2.1 L Albumin/Globulin Ratio 1.2 Lipase Procalcitonin Ethyl Alcohol Misc Test Result Platelets confirmed ABG Interpretation ABG results: 12/23/24 12/23/24 12/23/24 17:09 20:45 22:04 ABG pH 7.28 L 7.51 H D 7.52 H ABG pCO2 46 32 D 31 L ABG pO2 44 L* 350 H D 231 H D ABG HCO3 21 25 25 ABG O2 Saturation 68 L 101 H 100 H ABG Base Excess -5 L 2 3 12/24/24 05:09 ABG pH 7.44 ABG pCO2 37 ABG pO2 134 H D ABG HCO3 25 ABG O2 Saturation 99 H ABG Base Excess 1 Quality Measures Quality Measures VTE prophylaxis Assessment & Plan Assessment Current Active Medications: Generic Name Dose Route Start Last Admin Trade Name Freq PRN Reason Stop Dose Admin Acetaminophen 650 mg 12/25/24 12:16 Acetaminophen Supp 650 Mg Supp HI 01/22/25 18:21 Q4HR PRN Pain 1-3 and/or Fever >100.1 Chlordiazepoxide HCl 50 mg 12/24/24 14:00 12/26/24 05:28 Chlordiazepoxide Hcl 25 Mg Capsule PO 12/29/24 13:59 50 mg Q8HR JASMINA Administration Diazepam 2.5 mg 12/24/24 09:49 Diazepam Inj 5 Mg/Ml Vial 2 Ml IVP 12/29/24 09:48 Q2HR PRN CIWA SCORE 8-13 Diazepam 5 mg 12/24/24 09:49 Diazepam Inj 5 Mg/Ml Vial 2 Ml IVP 12/29/24 09:48 Q2HR PRN CIWA SCORE 14-19 Diazepam 10 mg 12/24/24 09:49 Diazepam Inj 5 Mg/Ml Vial 2 Ml IVP 12/29/24 09:48 Q2HR PRN CIWA SCORE 20-25 Diazepam 10 mg 12/24/24 09:49 Diazepam Inj 5 Mg/Ml Vial 2 Ml IVP X1 PRN Breakthrough Agitation Folic Acid 1 mg 12/24/24 09:00 12/26/24 09:22 Folic Acid 1 Mg Tablet PO 01/23/25 08:59 1 mg QDAY JASMINA Administration Piperacillin Sod/Tazobactam 100 mls @ 200 mls/hr 12/24/24 00:00 12/26/24 06:33 Sod 4.5 gm/ Sodium Chloride IV 12/30/24 23:59 Infused Q8HR JASMINA Infusion Lactated Ringer's 1,000 mls @ 75 mls/hr 12/25/24 17:02 12/26/24 06:09 Lactated Ringers IV 12/26/24 17:01 75 mls/hr .[id number] JASMINA Administration Magnesium Sulfate 4 gm in 50 mls @ 12.5 mls/hr 12/26/24 07:55 12/26/24 09:22 Magnesium Sulfate Ivpb IV 12/26/24 11:54 12.5 mls/hr X1 ONE Administration Labetalol HCl 10 mg 12/23/24 14:13 Labetalol Inj 5 Mg/Ml Vial 20 Ml IVP Q15M PRN SBP >180, DBP >105 Multivitamins 1 tab 12/24/24 09:00 12/26/24 09:22 Multivitamins Tablet PO 01/23/25 08:59 1 tab QDAY JASMINA Administration Mupirocin 0 gm 12/26/24 09:00 Mupirocin Oint 2% 15 Gm Tube TOP 01/02/25 08:59 BID JASMINA Ondansetron HCl 4 mg 12/23/24 14:13 Ondansetron Inj 2 Mg/Ml Inj 2 Ml IVP 01/22/25 14:12 Q4HR PRN NAUSEA OR VOMITING Potassium Phos/Sodium Phos 2 packet 12/26/24 08:00 12/26/24 09:22 Naph,[facility] Mbdb 1 Packet (1.5 Gm) PO 12/28/24 00:01 2 packet Q6HR JASMINA Administration Thiamine HCl 200 mg 12/25/24 14:00 12/26/24 05:28 Thiamine Inj 100 Mg/Ml Vial 2 Ml IVP 01/26/25 11:28 200 mg TID JASMINA Administration Plan Mrs. Brady is a 64 year old female with a history of alcohol use disorder, alcohol withdrawal seizures, pancreatitis, and depression who was brought to [facility] ED on 12/23 for altered mental status. Patient was admitted to ICU for alcohol withdrawal seizures, and then downgraded to medical floors on 12/25. #Alcohol withdrawal seizures #Delirium tremens #Altered mental status #Alcohol use disorder Patient has a long history of alcohol use disorder, which leads to seizures when she withdraws. The patient has been consuming alcohol since she was 15 years old and has been noted to drink about a fifth of vodka daily per the patient's daughters. In the ED, patient's blood alcohol levels were noted to be <3.0, but previous admissions have noted significantly elevated blood alcohol levels. Patient most likely quit abruptly and had an alcohol withdrawal seizure(s) starting at home, resulting in stroke-like symptoms and febrile tachycardia, with an additional seizure in the ED. Patient was admitted to ICU, where bilateral tremulous activity that improved with midazolam was noted. - WA protocol - Librium 25 mg every three times daily - Thiamine 200 mg 3 times daily, folic acid 1 mg daily, and multivitamins 1 tab daily - [employer] patient on SAFE alcohol cessation #GNR bacteremia 2/2 #Urinary tract infection vs #Aspiration pneumonia #MRSA nares positive Patient noted to have a fever of 105.9, HR of 130, and respiratory rate of 39 while in the ED. WBC initially in the ED was 8.4, however it did increase to 13.1 while in the ICU on 12/24. The likely source is urinary tract infection given that the patient's urinalysis showed urine WBC of 406, with 4+ bacteria, however this may be due to contamination. No signs of pneumonia on chest x-ray were identified, however the patient was laying down unconscious in her urine and feces, which brings up concern for possible aspiration pneumonia. SIRS score 3 - Blood cultures collected 12/23, shows E. coli from both bottles - Urine culture collected 12/23, negative for specific organism - Sputum culture collected 12/23, gram stain shows 2+ gram positive cocci, pending culture - MRSA nares swabbed 12/23, positive - Zosyn 4.5 gm every 8 hours (12/23-12/30) #Alcohol-related fatty liver disease #Hyperbilirubinemia #Elevated LFTs #Thrombocytopenia Patient has a long history of alcohol consumption. CT abdomen pelvis showed hepatomegaly with severe diffuse fatty infiltration throughout the liver, likely secondary to her extensive alcohol consumption. The patient's bilirubin in the ED was noted to be 4.6 and the patient's LFTs are elevated in a 2:1 ratio of AST to ALT, further suggesting alcoholism to be the cause. The patient's platelets have been noted to be significantly decreased, reaching 39 in the ED and 26 in the ICU. The thrombocytopenia is an additional sign of alcohol-related fatty liver disease. - Continue to monitor bilirubin, LFTs, and thrombocytopenia - Transfuse platelets if less than 20 per protocol #Rhabdomyolysis, resolved #MONIKA, likely prerenal, resolved Patient noted to have creatine kinase of 8185 in the ED, likely secondary to muscle damage from alcohol withdrawal seizures. Cr was noted to be 1.3 in ED, which is increased from her baseline of 0.7, likely as a result of her rhabdomyolysis. - Will continue to monitor - Avoid nephrotoxic medications - Renally dose medications #Lactic acidosis, resolved #High anion gap metabolic acidosis, resolved Patient noted to have lactic acidosis in ED. Lactic acid peaked at 8.8 and has since been downtrending. This is most likely secondary to alcohol withdrawal seizure and episode of cardiac arrest. - Will continue to monitor #Electrolyte abnormalities #Hypokalemia #Hypophosphatemia Patient noted to have hypokalemia of 2.9 in ED and hypophosphatemia of 1.5 on 12/25. - Will continue to monitor with daily labs, replenish as necessary DVT Prophylaxis: SCDs GI Prophylaxis: N/A Bowel: N/A Diet: Dysphagia 2 mech altered, carbohydrate consistent Serna: Yes Lines: Peripheral IV Antibiotics: Zosyn (12/23-12/30) Code Status: FULL Reason for Hospitalization: Alcohol withdrawal induced seizures Other Barriers to Discharge: CIWA, altered mental status Patient plan of care was discussed with the senior resident Dr. Magana (PGY-2) and attending physician Dr. Isabella Miguel, PGY1 Attending Provider Attestation/Addendum Anaid, Cheyanne Mason DO, attest that I was physically present for the del real portions of the service and evaluated the patient with the resident and I reviewed and discussed the case with the resident and agree with the resident's findings and plans of care as documented above Patient seen eval this a.m. alert today, but continues to be slow to questions. Patient is able to move all 4 extremities without any pain. Blood cultures are positive for pansensitive E. coli. However, we will maintain IV for aspiration pneumonia. Physical therapy is pending as patient is very weak. Will DC IV fluids as rhabdomyolysis has been resolving and patient is able to tolerate p.o. intake. Will taper Librium to 25 mg p.o. 3 times daily.
[2024-12-26] MEDS: MUPIROCIN OINT 2% 15 GM TUBE TOP ×2 (10:00→21:02)
--- NOTE | 2024-12-26 13:57 | PD.RESPRO ---
Documentation for date of: 12/26/24 Subjective Subjective Interval history: Patient examined at bedside today. No acute overnight events. Patient reports he is doing well. She denied headache or chest pain at this time. No other complaints at this time. Exam Vital Signs Temp Pulse Resp BP Pulse Ox O2 Del Method O2 Flow Rate 97.1 F 88 20 110/74 97 Room Air 2 12/26/24 12:00 12/26/24 12:00 12/26/24 12:00 12/26/24 12:00 12/26/24 12:00 12/26/24 12:12/25/24 04:00 FiO2 28 12/24/24 10:44 Narrative Exam General: Lethargic but responsive to voice, able to follow commands. HEENT: Normocephalic, atraumatic, mucous membranes moist. Right lower corner of mouth with abrasion. Tongue-biting lesions. Mild scleral icterus. Heart: Tachycardic, regular rhythm, no murmurs. Lungs: Clear to auscultation with no wheezing or crackles. Abdomen: Soft, nondistended, nontender, positive bowel sounds. ?No guarding or rebound tenderness. Neurologic: Awake and oriented x2, no gross neurological deficit, and patient able to move all 4 extremities. Follows commands when awakened. Extremities: No edema. Skin: No rash and noted echymoses on bilateral knees, arms, and face. Objective Labs 12/26/24 06:32 12/26/24 04:40 Labs: Laboratory Results - last 24 hr 12/23/24 12/25/24 12/26/24 16:01 17:37 04:40 WBC 8.4 RBC 4.02 Hgb 13.7 Hct 39.3 MCV 98 MCH 34.1 MCHC 34.9 RDW Std Deviation 65.1 H Plt Count 39 L Neut % (Auto) 87 H Lymph % (Auto) 6 L [place] % (Auto) 4 Eos % (Auto) 2 Baso % (Auto) 1 Neut # (Auto) 7.3 Lymph # (Auto) 0.5 L [place] # (Auto) 0.3 Eos # (Auto) 0.1 Baso # (Auto) 0.1 Immature Gran # (Auto) 0.10 H Absolute Nucleated RBC 0.00 Immature Gran % 1 H Nucleated RBC % 0 Smear Path Review Sent to Pathologist PT 15.7 H INR 1.5 H APTT 34.5 Sodium 142 145 Potassium 2.9 L 3.1 L Chloride 100 109 H Carbon Dioxide 23.2 24.0 Anion Gap 19 H 12 BUN 32 H 15 Creatinine 1.3 0.6 Estim Creat Clear Calc 43.1 L 95.0 eGFR 46 L > 60 BUN/Creatinine Ratio 25 H 25 H Glucose 110 H 73 L Calculated Osmolality 291 288 Lactic Acid 1.6 Calcium 9.8 8.5 Corrected Calcium 10.3 H 9.6 Phosphorus 3.0 1.8 L Magnesium 1.2 L 1.6 Total Bilirubin 4.6 H 3.6 H AST 340 H 217 H ALT 85 H 73 H Alkaline Phosphatase 118 H 117 H Lactate Dehydrogenase 534 H Total Creatine Kinase 8185 H 995 H D Troponin I 0.316 H* Total Protein 6.1 4.7 L Albumin 3.4 2.6 L Globulin 2.7 2.1 L Albumin/Globulin Ratio 1.3 1.2 Lipase 24 Procalcitonin > 50.00 H Ethyl Alcohol < 3.0 Misc Test Result Platelets confirmed 12/26/24 06:32 WBC 7.7 RBC 3.19 L Hgb 10.7 L Hct 31.5 L MCV 99 MCH 33.5 MCHC 34.0 RDW Std Deviation 66.7 H Plt Count 60 L D Neut % (Auto) 72 Lymph % (Auto) 11 [place] % (Auto) 13 H Eos % (Auto) 2 Baso % (Auto) 1 Neut # (Auto) 5.5 Lymph # (Auto) 0.9 L [place] # (Auto) 1.0 H Eos # (Auto) 0.1 Baso # (Auto) 0.1 Immature Gran # (Auto) 0.10 H Absolute Nucleated RBC 0.02 H Immature Gran % 1 H Nucleated RBC % 0 Smear Path Review PT INR APTT Sodium Potassium Chloride Carbon Dioxide Anion Gap BUN Creatinine Estim Creat Clear Calc eGFR BUN/Creatinine Ratio Glucose Calculated Osmolality Lactic Acid Calcium Corrected Calcium Phosphorus Magnesium Total Bilirubin AST ALT Alkaline Phosphatase Lactate Dehydrogenase Total Creatine Kinase Troponin I Total Protein Albumin Globulin Albumin/Globulin Ratio Lipase Procalcitonin Ethyl Alcohol Misc Test Result Platelets confirmed ABG Interpretation ABG results: 12/23/24 12/23/24 12/23/24 17:09 20:45 22:04 ABG pH 7.28 L 7.51 H D 7.52 H ABG pCO2 46 32 D 31 L ABG pO2 44 L* 350 H D 231 H D ABG HCO3 21 25 25 ABG O2 Saturation 68 L 101 H 100 H ABG Base Excess -5 L 2 3 12/24/24 05:09 ABG pH 7.44 ABG pCO2 37 ABG pO2 134 H D ABG HCO3 25 ABG O2 Saturation 99 H ABG Base Excess 1 Quality Measures Quality Measures VTE prophylaxis Assessment & Plan Assessment Current Active Medications: Generic Name Dose Route Start Last Admin Trade Name Freq PRN Reason Stop Dose Admin Acetaminophen 650 mg 12/25/24 12:16 Acetaminophen Supp 650 Mg Supp CO 01/22/25 18:21 Q4HR PRN Pain 1-3 and/or Fever >100.1 Chlordiazepoxide HCl 25 mg 12/26/24 14:00 12/26/24 13:50 Chlordiazepoxide Hcl 25 Mg Capsule PO 12/31/24 13:59 25 mg TID JASMINA Administration Diazepam 2.5 mg 12/24/24 09:49 Diazepam Inj 5 Mg/Ml Vial 2 Ml IVP 12/29/24 09:48 Q2HR PRN CIWA SCORE 8-13 Diazepam 5 mg 12/24/24 09:49 Diazepam Inj 5 Mg/Ml Vial 2 Ml IVP 12/29/24 09:48 Q2HR PRN CIWA SCORE 14-19 Diazepam 10 mg 12/24/24 09:49 Diazepam Inj 5 Mg/Ml Vial 2 Ml IVP 12/29/24 09:48 Q2HR PRN CIWA SCORE 20-25 Diazepam 10 mg 12/24/24 09:49 Diazepam Inj 5 Mg/Ml Vial 2 Ml IVP X1 PRN Breakthrough Agitation Folic Acid 1 mg 12/24/24 09:00 12/26/24 09:22 Folic Acid 1 Mg Tablet PO 01/23/25 08:59 1 mg QDAY JASMINA Administration Piperacillin Sod/Tazobactam 100 mls @ 200 mls/hr 12/24/24 00:00 12/26/24 13:49 Sod 4.5 gm/ Sodium Chloride IV 12/30/24 23:59 200 mls/hr Q8HR JASMINA Administration Labetalol HCl 10 mg 12/23/24 14:13 Labetalol Inj 5 Mg/Ml Vial 20 Ml IVP Q15M PRN SBP >180, DBP >105 Multivitamins 1 tab 12/24/24 09:00 12/26/24 09:22 Multivitamins Tablet PO 01/23/25 08:59 1 tab QDAY JASMINA Administration Mupirocin 0 gm 12/26/24 09:00 Mupirocin Oint 2% 15 Gm Tube TOP 01/02/25 08:59 BID JASMINA Ondansetron HCl 4 mg 12/23/24 14:13 Ondansetron Inj 2 Mg/Ml Inj 2 Ml IVP 01/22/25 14:12 Q4HR PRN NAUSEA OR VOMITING Potassium Phos/Sodium Phos 2 packet 12/26/24 08:00 12/26/24 13:49 Naph,[facility] Mbdb 1 Packet (1.5 Gm) PO 12/28/24 00:01 2 packet Q6HR JASMINA Administration Thiamine HCl 200 mg 12/25/24 14:00 12/26/24 13:50 Thiamine Inj 100 Mg/Ml Vial 2 Ml IVP 01/26/25 11:28 200 mg TID JASMINA Administration Plan Assessment Mrs. Brady is a 64 year old female with a history of alcohol use disorder, alcohol withdrawal seizures, pancreatitis, and depression who was brought to [facility] ED on 12/23 for altered mental status. Patient was admitted to ICU for alcohol withdrawal seizures, and then downgraded to medical floors on 12/25. #Alcohol withdrawal seizures #Delirium tremens #Altered mental status #Alcohol use disorder Patient has a long history of alcohol use disorder, which leads to seizures when she withdraws. The patient has been consuming alcohol since she was 15 years old and has been noted to drink about a fifth of vodka daily per the patient's daughters. In the ED, patient's blood alcohol levels were noted to be <3.0, but previous admissions have noted significantly elevated blood alcohol levels. Patient most likely quit abruptly and had an alcohol withdrawal seizure(s) starting at home, resulting in stroke-like symptoms and febrile tachycardia, with an additional seizure in the ED. Patient was admitted to ICU, where bilateral tremulous activity that improved with midazolam was noted. Plan: ? CIWA protocol ? Librium 25 mg by mouth every 8 hours ? Thiamine 200 mg 3 times daily, folic acid 1 mg daily, and multivitamins 1 tab daily ? [employer] patient on SAFE alcohol cessation #GNR bacteremia 2/2 #Urinary tract infection vs #Aspiration pneumonia #MRSA nares positive #Alcohol-related fatty liver disease #Hyperbilirubinemia #Elevated LFTs #Thrombocytopenia #Rhabdomyolysis, resolving #MONIKA, likely prerenal, resolving #Lactic acidosis, resolving #High anion gap metabolic acidosis, resolved #Electrolyte abnormalities #Hypokalemia #Hypophosphatemia Above handled by primary hospitalist team Patient seen and care discussed with my attending physician, Dr. Chelsi Welsh, PGY-2 Attending Provider Attestation/Addendum I personally seen and examined the patient at the bedside and agreed with resident's findings, assessment and plan of care. Impression: Altered mental status: Alcohol withdrawal/seizures/delirium tremens Rhabdomyolysis: Resolving Other electrolyte abnormalities: Being monitored and corrected PLAN: Continue with the Librium as per protocol, thiamine folate and multivitamin. Consider physical therapy/Occupational Therapy when stable
--- NOTE | 2024-12-26 16:18 | PC.SS ---
PASRR assessment initiated and?Level II Mental Health Evaluation referral is required.?
[2024-12-27] VITALS (9 sets, daily range): BP systolic 109–128; BP diastolic 78–91; PULSE 75–104; RESP 16–98; TEMP 36.7–37.2; O2SAT 94–98; BMI 27.4
[2024-12-27] MEDS: NAPH,KPH MBDB 1 PACKET (1.5 GM) 2 PACKET PO (05:23)
[2024-12-27] MEDS: THIAMINE INJ 100 MG/ML VIAL 2 ML 200 MG IVP (05:24)
[2024-12-27] MEDS: PIPER/TAZO INJ 4.5 GM in SODIUM CHLORIDE 0.9% (POP) 100 ML IV ×3 (05:24→21:12)
[2024-12-27 06:14] LABS: Basophils # (Auto) 0.1 Thou/mm3 (0.0-0.2); Basophils % (Auto) 1 % (0-2.5); Eosinophils # (Auto) 0.1 Thou/mm3 (0.0-0.5); Eosinophils % (Auto) 1 % (0-10); Hematocrit 33.2 % (36.0-46.0); Hemoglobin 11.6 g/dL (12.0-16.0); Immature Granulocytes Auto 0.27 Thou/mm3 (0.00-0.00); Lymphocytes # (Auto) 1.4 Thou/mm3 (1.0-4.8); Lymphocytes % (Auto) 14 % (10-50); Mean Corpuscular HGB Conc 34.9 g/dl (31.0-37.0); Mean Corpuscular Hemoglobin 34.3 pg (25.0-35.0); Mean Corpuscular Volume 98 fL (80-100); Monocytes # (Auto) 1.0 Thou/mm3 (0.0-0.8); Monocytes % (Auto) 10 % (0-12); Neutrophils # (Auto) 7.0 Thou/mm3 (1.8-7.7); Neutrophils % (Auto) 71 % (37-80); Nucleated Red Blood Cell # 0.00 Thou/mm3 (0.00-0.00); Nucleated Red Blood Cell % 0 /100 WBC (0); Platelet Count 101 Thou/mm3 (140-440); RDW Standard Deviation 67.2 fL (36.4-46.3); Red Blood Count 3.38 Miln/mm3 (4.00-5.20); White Blood Count 9.8 Thou/mm3 (3.6-11.0)
[2024-12-27 06:38] LABS: Alanine Aminotransferase 80 U/L (10-49); Albumin, Serum 2.5 gm/dL (3.4-4.8); Albumin/Globulin Ratio 1.4 (1.2-2.2); Alkaline Phosphatase 152 U/L (46-116); Anion Gap 14 (7-16); Aspartate Amino Transferase 211 U/L (0-34); BUN/Creatinine Ratio 23 Ratio (12-20); Bilirubin,Total 3.7 mg/dL (0.3-1.2); Blood Urea Nitrogen 16 mg/dL (9-23); Calcium 8.1 mg/dL (8.3-10.6); Calcium (Corrected) 9.3 mg/dL (8.5-10.1); Carbon Dioxide 22.7 mMol/L (20.0-31.0); Chloride 111 mMol/L (98-107); Creatinine (Component) 0.7 mg/dL (0.6-1.3); Estimated Creatinine Clearance 81.4 mL/min (>60); Globulin 1.8 gm/dL (2.3-3.5); Glucose 90 mg/dL (74-106); Magnesium 1.8 mg/dL (1.6-2.6); Osmolality,Calculated 295 (275-295); Phosphorous 3.1 mg/dL (2.4-5.1); Potassium 4.4 mMol/L (3.4-5.1); Sodium 148 mMol/L (136-145); Total Protein 4.3 gm/dL (5.7-8.2); eGFR > 60 See Note
--- NOTE | 2024-12-27 10:03 | PC.SS ---
SS has sent inquiry to the local SNF using [facility].
[2024-12-27] MEDS: RINGERS LACTATED 1000 ML 1,000 ML 125 ML IV (10:17)
[2024-12-27] MEDS: FOLIC ACID 1 MG TABLET PO (10:17)
[2024-12-27] MEDS: MULTIVITAMINS TABLET 1 TAB PO (10:17)
--- NOTE | 2024-12-27 11:30 | PC.SS ---
Pt was accepted to [facility], [facility], [facility], and [facility] from [facility]. SS attempted to meet with pt but she was deep asleep (would not wake up). SS spoke to both daughters and provided them with verbal choices for SNF. Both daughters (Moriah and Smith) chose [facility]. Daughters are aware patient's health insurance requires authorization for SNF.
[2024-12-27 13:23] LABS: Sodium 146 mMol/L (136-145)
--- NOTE | 2024-12-27 13:53 | PC.SS ---
Pt is still lethargic. SS has spoken to Mainor from [facility] and [facility] and she will start insurance authorization.
--- NOTE | 2024-12-27 18:09 | PD.RESPRO ---
Documentation for date of: 12/27/24 Subjective Subjective Interval history: No acute overnight events. Patient is denying complaints but still appears to be drowsy, able to follow simple commands and answer appropriately and endorsed that she is feeling very sleepy. Vitals are stable. Labs done this morning showed hemoglobin 7.6, sodium 148, chloride 111, total bilirubin 3.7, AST 211, ALT 80 which is downtrending. Patient was started on 1 L LR at 100 cc/h as patient appears to be dehydrated and noted to have poor oral intake. Decrease dose of chlordiazepoxide to 25 mg twice daily from 3 times daily. Will continue to assess her mental status and if it does not improve, will do head CT Exam Vital Signs Temp Pulse Resp BP Pulse Ox O2 Del Method O2 Flow Rate 98.0 F 90 19 111/84 96 Room Air 2 12/27/24 16:00 12/27/24 16:00 12/27/24 16:00 12/27/24 16:00 12/27/24 16:00 12/27/24 16:00 12/25/24 04:00 FiO2 28 12/24/24 10:44 Narrative Exam General: Lethargic, cooperative, no acute distress. Skin: Warm, dry, intact. Small scabs noted sparsely throughout body. Dark bruise in right upper arm, medially. Wound vac on left arm. Head: Normocephalic, atraumatic. Eye: Icteric conjunctiva, PERRL. Cardiovascular: Regular rate and rhythm, no murmur, +S1/S2. Respiratory: Lungs are clear to auscultation, respirations unlabored, no crackles, no wheezing. Gastrointestinal: Soft, nontender, non-distended. No guarding or rebound tenderness. Extremities: No edema, no cyanosis, no clubbing. Objective Labs 12/28/24 04:55 12/28/24 13:56 Labs: Laboratory Results - last 24 hr 12/27/24 12/27/24 05:08 12:33 WBC 9.8 RBC 3.38 L Hgb 11.6 L Hct 33.2 L MCV 98 MCH 34.3 MCHC 34.9 RDW Std Deviation 67.2 H Plt Count 101 L D Neut % (Auto) 71 Lymph % (Auto) 14 [place] % (Auto) 10 Eos % (Auto) 1 Baso % (Auto) 1 Neut # (Auto) 7.0 Lymph # (Auto) 1.4 [place] # (Auto) 1.0 H Eos # (Auto) 0.1 Baso # (Auto) 0.1 Immature Gran # (Auto) 0.27 H Absolute Nucleated RBC 0.00 Immature Gran % 3 H Nucleated RBC % 0 Sodium 148 H 146 H Potassium 4.4 D Chloride 111 H Carbon Dioxide 22.7 Anion Gap 14 BUN 16 Creatinine 0.7 Estim Creat Clear Calc 81.4 eGFR > 60 BUN/Creatinine Ratio 23 H Glucose 90 Calculated Osmolality 295 Calcium 8.1 L Corrected Calcium 9.3 Phosphorus 3.1 Magnesium 1.8 Total Bilirubin 3.7 H AST 211 H ALT 80 H Alkaline Phosphatase 152 H D Total Protein 4.3 L Albumin 2.5 L Globulin 1.8 L Albumin/Globulin Ratio 1.4 ABG Interpretation ABG results: 12/23/24 12/23/24 12/23/24 17:09 20:45 22:04 ABG pH 7.28 L 7.51 H D 7.52 H ABG pCO2 46 32 D 31 L ABG pO2 44 L* 350 H D 231 H D ABG HCO3 21 25 25 ABG O2 Saturation 68 L 101 H 100 H ABG Base Excess -5 L 2 3 12/24/24 05:09 ABG pH 7.44 ABG pCO2 37 ABG pO2 134 H D ABG HCO3 25 ABG O2 Saturation 99 H ABG Base Excess 1 Quality Measures Quality Measures VTE prophylaxis Assessment & Plan Assessment Current Active Medications: Generic Name Dose Route Start Last Admin Trade Name Freq PRN Reason Stop Dose Admin Acetaminophen 650 mg 12/25/24 12:16 Acetaminophen Supp 650 Mg Supp UT 01/22/25 18:21 Q4HR PRN Pain 1-3 and/or Fever >100.1 Chlordiazepoxide HCl 25 mg 12/27/24 21:00 Chlordiazepoxide Hcl 25 Mg Capsule PO 01/01/25 20:59 BID JASMINA Diazepam 2.5 mg 12/24/24 09:49 Diazepam Inj 5 Mg/Ml Vial 2 Ml IVP 12/29/24 09:48 Q2HR PRN CIWA SCORE 8-13 Diazepam 5 mg 12/24/24 09:49 Diazepam Inj 5 Mg/Ml Vial 2 Ml IVP 12/29/24 09:48 Q2HR PRN CIWA SCORE 14-19 Diazepam 10 mg 12/24/24 09:49 Diazepam Inj 5 Mg/Ml Vial 2 Ml IVP 12/29/24 09:48 Q2HR PRN CIWA SCORE 20-25 Diazepam 10 mg 12/24/24 09:49 Diazepam Inj 5 Mg/Ml Vial 2 Ml IVP X1 PRN Breakthrough Agitation Folic Acid 1 mg 12/24/24 09:00 12/27/24 10:17 Folic Acid 1 Mg Tablet PO 01/23/25 08:59 1 mg QDAY JASMINA Administration Piperacillin Sod/Tazobactam 100 mls @ 200 mls/hr 12/24/24 00:00 12/27/24 14:36 Sod 4.5 gm/ Sodium Chloride IV 12/30/24 23:59 200 mls/hr Q8HR JASMINA Administration Labetalol HCl 10 mg 12/23/24 14:13 Labetalol Inj 5 Mg/Ml Vial 20 Ml IVP Q15M PRN SBP >180, DBP >105 Multivitamins 1 tab 12/24/24 09:00 12/27/24 10:17 Multivitamins Tablet PO 01/23/25 08:59 1 tab QDAY JASMINA Administration Ondansetron HCl 4 mg 12/23/24 14:13 Ondansetron Inj 2 Mg/Ml Inj 2 Ml IVP 01/22/25 14:12 Q4HR PRN NAUSEA OR VOMITING Thiamine HCl 100 mg 12/28/24 09:00 Thiamine Inj 100 Mg/Ml Vial 2 Ml IVP 01/27/25 08:59 QDAY JASMINA Plan Mrs. Brady is a 64 year old female with a history of alcohol use disorder, alcohol withdrawal seizures, pancreatitis, and depression who was brought to [facility] ED on 12/23 for altered mental status. Patient was admitted to ICU for alcohol withdrawal seizures, and then downgraded to medical floors on 12/25. #Alcohol withdrawal seizures #Delirium tremens #Altered mental status #Alcohol use disorder Patient has a long history of alcohol use disorder, which leads to seizures when she withdraws. The patient has been consuming alcohol since she was 15 years old and has been noted to drink about a fifth of vodka daily per the patient's daughters. In the ED, patient's blood alcohol levels were noted to be <3.0, but previous admissions have noted significantly elevated blood alcohol levels. Patient most likely quit abruptly and had an alcohol withdrawal seizure(s) starting at home, resulting in stroke-like symptoms and febrile tachycardia, with an additional seizure in the ED. Patient was admitted to ICU, where bilateral tremulous activity that improved with midazolam was noted. 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 WBC initially in the ED was 8.4, however it did increase to 13.1 while in the ICU on 12/24. The likely source is urinary tract infection given that the patient's urinalysis showed urine WBC of 406, with 4+ bacteria, however this may be due to contamination. No signs of pneumonia on chest x-ray were identified, however the patient was laying down unconscious in her urine and feces, which brings up concern for possible aspiration pneumonia. SIRS score 3 - Blood cultures collected 12/23, shows E. coli from both bottles - Urine culture collected 12/23, negative for specific organism - Sputum culture collected 12/23, gram stain showed MRSA, pseudomonas, klebsiella - MRSA nares swabbed 12/23, positive - Zosyn 4.5 gm every 8 hours (12/23-12/30) #Alcohol-related fatty liver disease #Hyperbilirubinemia #Elevated LFTs #Thrombocytopenia Patient has a long history of alcohol consumption. CT abdomen pelvis showed hepatomegaly with severe diffuse fatty infiltration throughout the liver, likely secondary to her extensive alcohol consumption. The patient's bilirubin in the ED was noted to be 4.6 and the patient's LFTs are elevated in a 2:1 ratio of AST to ALT, further suggesting alcoholism to be the cause. The patient's platelets have been noted to be significantly decreased, reaching 39 in the ED and 26 in the ICU. The thrombocytopenia is an additional sign of alcohol-related fatty liver disease. - Continue to monitor bilirubin, LFTs, and thrombocytopenia - Transfuse platelets if less than 20 per protocol #Rhabdomyolysis, resolved #MONIKA, likely prerenal, resolved Patient noted to have creatine kinase of 8185 in the ED, likely secondary to muscle damage from alcohol withdrawal seizures. Cr was noted to be 1.3 in ED, which is increased from her baseline of 0.7, likely as a result of her rhabdomyolysis. - Will continue to monitor - Avoid nephrotoxic medications - Renally dose medications #Lactic acidosis, resolved #High anion gap metabolic acidosis, resolved Patient noted to have lactic acidosis in ED. Lactic acid peaked at 8.8 and has since been downtrending. This is most likely secondary to alcohol withdrawal seizure and episode of cardiac arrest. - Will continue to monitor #Electrolyte abnormalities #Hypokalemia, resolved #Hypophosphatemia, resolved Patient noted to have hypokalemia of 2.9 in ED and hypophosphatemia of 1.5 on 12/25. - Will continue to monitor with daily labs, replenish as necessary DVT Prophylaxis: SCDs GI Prophylaxis: N/A Bowel: N/A Diet: Dysphagia 2 mech altered, carbohydrate consistent Serna: Yes Lines: Peripheral IV Antibiotics: Zosyn (12/23-12/30) Code Status: FULL Reason for Hospitalization: Alcohol withdrawal induced seizures Other Barriers to Discharge: CIWA, altered mental status Patient plan of care was discussed with the attending physician Dr. Isabella Magana, PGY2 Attending Provider Attestation/Addendum I, Cheyanne Mason, DO, attest that I was physically present for the del real portions of the service and evaluated the patient with the resident and I reviewed and discussed the case with the resident and agree with the resident's findings and plans of care as documented above Patient seen and evaluated this AM. Patient remains lethargic. Patient requires frequent prompting in order to follow commands. Patient appears to be hallucinating, trying to drink something and sucking on her right hand. Will continue with librium at this time. Patient is unable to follow commands to work with PT. Patient only eating 25% of her meals. Sodium uptrending, likely due to poor PO intake. Will continue with IV fluids.
--- NOTE | 2024-12-27 23:21 | VVPN_ITS ---
Telemedicine visit statement This visit was conducted with the use of interactive audio and video telecommunications system that permits real time communication between the patient and the provider. Patient's verbal consent for virtual visit was obtained on 12/27/24 at 2321. Documentation for date of: 12/27/24 Subjective Subjective Interval history: Patient is in telemetry, sleepy under the effect of Librium, wakes up to take the medication with pudding. Virtual exam Vital Signs Temp Pulse Resp BP Pulse Ox O2 Del Method O2 Flow Rate 98.3 F 104 H 20 120/79 95 Room Air 2 12/27/24 20:00 12/27/24 20:00 12/27/24 20:00 12/27/24 20:00 12/27/24 20:00 12/27/24 20:00 12/25/24 04:00 FiO2 28 12/24/24 10:44 Objective Labs 12/27/24 05:08 12/27/24 12:33 Labs: Laboratory Results - last 24 hr 12/27/24 12/27/24 05:08 12:33 WBC 9.8 RBC 3.38 L Hgb 11.6 L Hct 33.2 L MCV 98 MCH 34.3 MCHC 34.9 RDW Std Deviation 67.2 H Plt Count 101 L D Neut % (Auto) 71 Lymph % (Auto) 14 [place] % (Auto) 10 Eos % (Auto) 1 Baso % (Auto) 1 Neut # (Auto) 7.0 Lymph # (Auto) 1.4 [place] # (Auto) 1.0 H Eos # (Auto) 0.1 Baso # (Auto) 0.1 Immature Gran # (Auto) 0.27 H Absolute Nucleated RBC 0.00 Immature Gran % 3 H Nucleated RBC % 0 Sodium 148 H 146 H Potassium 4.4 D Chloride 111 H Carbon Dioxide 22.7 Anion Gap 14 BUN 16 Creatinine 0.7 Estim Creat Clear Calc 81.4 eGFR > 60 BUN/Creatinine Ratio 23 H Glucose 90 Calculated Osmolality 295 Calcium 8.1 L Corrected Calcium 9.3 Phosphorus 3.1 Magnesium 1.8 Total Bilirubin 3.7 H AST 211 H ALT 80 H Alkaline Phosphatase 152 H D Total Protein 4.3 L Albumin 2.5 L Globulin 1.8 L Albumin/Globulin Ratio 1.4 ABG Interpretation ABG results: 12/23/24 12/23/24 12/23/24 17:09 20:45 22:04 ABG pH 7.28 L 7.51 H D 7.52 H ABG pCO2 46 32 D 31 L ABG pO2 44 L* 350 H D 231 H D ABG HCO3 21 25 25 ABG O2 Saturation 68 L 101 H 100 H ABG Base Excess -5 L 2 3 12/24/24 05:09 ABG pH 7.44 ABG pCO2 37 ABG pO2 134 H D ABG HCO3 25 ABG O2 Saturation 99 H ABG Base Excess 1 Assessment & Plan Assessment Mrs. Brady is a 64 year old female with a history of alcohol use disorder, alcohol withdrawal seizures, pancreatitis, and depression who was brought to [facility] ED on 12/23 for altered mental status. Patient was admitted to ICU for alcohol withdrawal seizures, and then downgraded to medical floors on 12/25. #Alcohol withdrawal seizures #Delirium tremens #Altered mental status #Alcohol use disorder Patient has a long history of alcohol use disorder, which leads to seizures when she withdraws. The patient has been consuming alcohol since she was 15 years old and has been noted to drink about a fifth of vodka daily per the patient's daughters. In the ED, patient's blood alcohol levels were noted to be <3.0, but previous admissions have noted significantly elevated blood alcohol levels. Patient most likely quit abruptly and had an alcohol withdrawal seizure(s) starting at home, resulting in stroke-like symptoms and febrile tachycardia, with an additional seizure in the ED. Patient was admitted to ICU, where bilateral tremulous activity that improved with midazolam was noted. Plan: ? CIWA protocol ? Librium 25 mg by mouth every 8 hours ? Thiamine 200 mg 3 times daily, folic acid 1 mg daily, and multivitamins 1 tab daily ? 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
[2024-12-28] VITALS (10 sets, daily range): BP systolic 109–147; BP diastolic 82–94; PULSE 79–88; RESP 19–27; TEMP 36.3–37.8; O2SAT 93–98; BMI 27.4
--- NOTE | 2024-12-28 04:39 | PC.WOUND ---
[facility]24 [facility] 0200 to 0435.
[2024-12-28] MEDS: PIPER/TAZO INJ 4.5 GM in SODIUM CHLORIDE 0.9% (POP) 100 ML IV (05:33)
[2024-12-28 05:49] LABS: Basophils # (Auto) 0.1 Thou/mm3 (0.0-0.2); Basophils % (Auto) 1 % (0-2.5); Eosinophils # (Auto) 0.1 Thou/mm3 (0.0-0.5); Eosinophils % (Auto) 1 % (0-10); Hematocrit 30.9 % (36.0-46.0); Hemoglobin 10.5 g/dL (12.0-16.0); Immature Granulocytes Auto 0.53 Thou/mm3 (0.00-0.00); Lymphocytes # (Auto) 1.7 Thou/mm3 (1.0-4.8); Lymphocytes % (Auto) 12 % (10-50); Mean Corpuscular HGB Conc 34.0 g/dl (31.0-37.0); Mean Corpuscular Hemoglobin 34.1 pg (25.0-35.0); Mean Corpuscular Volume 100 fL (80-100); Monocytes # (Auto) 0.9 Thou/mm3 (0.0-0.8); Monocytes % (Auto) 7 % (0-12); Neutrophils # (Auto) 10.4 Thou/mm3 (1.8-7.7); Neutrophils % (Auto) 76 % (37-80); Nucleated Red Blood Cell # 0.00 Thou/mm3 (0.00-0.00); Nucleated Red Blood Cell % 0 /100 WBC (0); Platelet Count 187 Thou/mm3 (140-440); RDW Standard Deviation 69.2 fL (36.4-46.3); Red Blood Count 3.08 Miln/mm3 (4.00-5.20); White Blood Count 13.7 Thou/mm3 (3.6-11.0)
[2024-12-28 06:10] LABS: Alanine Aminotransferase 71 U/L (10-49); Albumin, Serum 2.6 gm/dL (3.4-4.8); Albumin/Globulin Ratio 1.2 (1.2-2.2); Alkaline Phosphatase 162 U/L (46-116); Anion Gap 12 (7-16); Aspartate Amino Transferase 151 U/L (0-34); BUN/Creatinine Ratio 14 Ratio (12-20); Bilirubin,Total 3.8 mg/dL (0.3-1.2); Blood Urea Nitrogen 10 mg/dL (9-23); Calcium 8.7 mg/dL (8.3-10.6); Calcium (Corrected) 9.8 mg/dL (8.5-10.1); Carbon Dioxide 27.3 mMol/L (20.0-31.0); Chloride 109 mMol/L (98-107); Creatinine (Component) 0.7 mg/dL (0.6-1.3); Estimated Creatinine Clearance 81.4 mL/min (>60); Globulin 2.2 gm/dL (2.3-3.5); Glucose 101 mg/dL (74-106); Magnesium 1.6 mg/dL (1.6-2.6); Osmolality,Calculated 293 (275-295); Phosphorous 2.7 mg/dL (2.4-5.1); Potassium 3.5 mMol/L (3.4-5.1); Sodium 148 mMol/L (136-145); Total Protein 4.8 gm/dL (5.7-8.2); eGFR > 60 See Note
[2024-12-28 08:30] LABS: Folate 8.68 ng/mL (>5.38); Vitamin B12 1926 pg/mL (211-911)
[2024-12-28 08:31] LABS: Ferritin 496 ng/mL (7.3-270.7); Iron 46 mcg/dL (50-170); Percent Iron Saturation 29 % (20-55); Total Iron Binding Capacity 158 mcg/dL (250-425); Unsaturated Iron Binding 112 (225-295)
[2024-12-28] MEDS: Magnesium Sulfate 4 GM Ivpb 4 GM/50 ML BAG IV (09:02)
[2024-12-28] MEDS: POT PHOS 15 mMol in NS 250 ML 15 MMOL/250 ML BAG 62.5 MMOL IV ×2 (09:03→12:52)
[2024-12-28] MEDS: MULTIVITAMINS TABLET 1 TAB PO (09:03)
[2024-12-28] MEDS: FOLIC ACID 1 MG TABLET PO (09:03)
--- NOTE | 2024-12-28 09:34 | ESPR_ITS ---
<Statement entered by Jarad Magana MD - 12/28/24 16:17> No acute overnight events. Patient denies any other complaints, still not opening eyes but following commands and able to answer all the questions appropriately. Vitals are stable. Labs done this morning significant for hypernatremia, 148. Liver enzymes are downtrending and total bilirubin is 3.8, magnesium is 1.6 which is repleted with 4 g of magnesium sulfate. Patient is overall general condition appears to be improving. Still not able to get out of the bed according to the physical therapy. Will require SNF placement on discharge. Changed antibiotic from Zosyn to levofloxacin. Anticipate discharge in 24 to 48 hours. I have personally seen and examined patient, I agree with the residents assessment and plan Patient plan of care was discussed with the attending physician, Dr. Isabella Magana, PGY2 Documentation for date of: 12/28/24 Subjective Subjective Interval history: Overnight events: No acute events overnight. Patient was seen and examined at bedside. AM vitals and labs reviewed. Patient not very cooperative with examination today. Patient is able to answer incoherently spondee words, but often mumbles. She is able to follow commands if pressured to. WBC increased to 13.7, hemoglobin 10.5, platelets 187, sodium 148, bilirubin 3.8, and AST ALT downtrending. Sodium is most likely secondary to poor oral intake with sodium from Zosyn running. Sputum cultures did result as Pseudomonas, Klebsiella, and MRSA. SNF placement approved. Zosyn changed to levofloxacin 750 mg daily given sputum culture resistance and hypernatremia. Started 1 L LR 75 cc/h. Librium decreased to 25 mg total for today, stopping Librium after today. Discontinued CIWA protocol. Ammonia level ordered for continued lethargy, resulted as 22. Review of systems otherwise negative except for what is mentioned above. Exam Vital Signs Temp Pulse Resp BP Pulse Ox O2 Del Method O2 Flow Rate 97.5 F 79 21 H 141/94 H 98 Room Air 2 12/28/24 08:46 12/28/24 08:46 12/28/24 08:46 12/28/24 08:46 12/28/24 08:46 12/28/24 08:46 12/25/24 04:00 FiO2 28 12/24/24 10:44 Narrative Exam Physical Exam: General: Lethargic, uncooperative, no acute distress. Skin: Warm, dry, intact. Small scabs noted sparsely throughout body. Dark bruise in right upper arm, medially. Wound vac on left arm. Head: Normocephalic, atraumatic. Eye: Icteric conjunctiva, PERRL. Cardiovascular: Regular rate and rhythm, no murmur, +S1/S2. Respiratory: Lungs are clear to auscultation, respirations unlabored, no crackles, no wheezing. Gastrointestinal: Soft, nontender, non-distended. No guarding or rebound tenderness. Extremities: No edema, no cyanosis, no clubbing. Objective Labs 12/29/24 04:54 12/29/24 04:54 Labs: Laboratory Results - last 24 hr 12/27/24 12/28/24 12/28/24 12:33 04:55 04:55 WBC 13.7 H RBC 3.08 L Hgb 10.5 L Hct 30.9 L MCV 100 MCH 34.1 MCHC 34.0 RDW Std Deviation 69.2 H Plt Count 187 D Neut % (Auto) 76 Lymph % (Auto) 12 [place] % (Auto) 7 Eos % (Auto) 1 Baso % (Auto) 1 Neut # (Auto) 10.4 H Lymph # (Auto) 1.7 [place] # (Auto) 0.9 H Eos # (Auto) 0.1 Baso # (Auto) 0.1 Immature Gran # (Auto) 0.53 H Absolute Nucleated RBC 0.00 Immature Gran % 4 H Nucleated RBC % 0 Sodium 146 H 148 H Potassium 3.5 D Chloride 109 H Carbon Dioxide 27.3 Anion Gap 12 BUN 10 Creatinine 0.7 Estim Creat Clear Calc 81.4 eGFR > 60 BUN/Creatinine Ratio 14 Glucose 101 Calculated Osmolality 293 Calcium 8.7 Corrected Calcium 9.8 Phosphorus 2.7 Magnesium 1.6 Iron 46 L Cancelled TIBC 158 L Iron Saturation Unsat Iron Binding Ferritin Total Bilirubin AST ALT Alkaline Phosphatase Total Protein Albumin Globulin Albumin/Globulin Ratio Vitamin B12 Folate 12/28/24 12/28/24 12/28/24 04:55 04:55 04:55 WBC RBC Hgb Hct MCV MCH MCHC RDW Std Deviation Plt Count Neut % (Auto) Lymph % (Auto) [place] % (Auto) Eos % (Auto) Baso % (Auto) Neut # (Auto) Lymph # (Auto) [place] # (Auto) Eos # (Auto) Baso # (Auto) Immature Gran # (Auto) Absolute Nucleated RBC Immature Gran % Nucleated RBC % Sodium Potassium Chloride Carbon Dioxide Anion Gap BUN Creatinine Estim Creat Clear Calc eGFR BUN/Creatinine Ratio Glucose Calculated Osmolality Calcium Corrected Calcium Phosphorus Magnesium Iron TIBC Cancelled Iron Saturation 29 Cancelled Unsat Iron Binding 112 L Cancelled Ferritin 496 H Total Bilirubin AST ALT Alkaline Phosphatase Total Protein Albumin Globulin Albumin/Globulin Ratio Vitamin B12 Folate 12/28/24 04:55 WBC RBC Hgb Hct MCV MCH MCHC RDW Std Deviation Plt Count Neut % (Auto) Lymph % (Auto) [place] % (Auto) Eos % (Auto) Baso % (Auto) Neut # (Auto) Lymph # (Auto) [place] # (Auto) Eos # (Auto) Baso # (Auto) Immature Gran # (Auto) Absolute Nucleated RBC Immature Gran % Nucleated RBC % Sodium Potassium Chloride Carbon Dioxide Anion Gap BUN Creatinine Estim Creat Clear Calc eGFR BUN/Creatinine Ratio Glucose Calculated Osmolality Calcium Corrected Calcium Phosphorus Magnesium Iron TIBC Iron Saturation Unsat Iron Binding Ferritin Cancelled Total Bilirubin 3.8 H AST 151 H ALT 71 H Alkaline Phosphatase 162 H Total Protein 4.8 L Albumin 2.6 L Globulin 2.2 L Albumin/Globulin Ratio 1.2 Vitamin B12 1926 H Folate 8.68 ABG Interpretation ABG results: 12/23/24 12/23/24 12/23/24 17:09 20:45 22:04 ABG pH 7.28 L 7.51 H D 7.52 H ABG pCO2 46 32 D 31 L ABG pO2 44 L* 350 H D 231 H D ABG HCO3 21 25 25 ABG O2 Saturation 68 L 101 H 100 H ABG Base Excess -5 L 2 3 12/24/24 05:09 ABG pH 7.44 ABG pCO2 37 ABG pO2 134 H D ABG HCO3 25 ABG O2 Saturation 99 H ABG Base Excess 1 Quality Measures Quality Measures VTE prophylaxis Assessment & Plan Assessment Current Active Medications: Generic Name Dose Route Start Last Admin Trade Name Freq PRN Reason Stop Dose Admin Acetaminophen 650 mg 12/25/24 12:16 Acetaminophen Supp 650 Mg Supp [place] 01/22/25 18:21 Q4HR PRN Pain 1-3 and/or Fever >100.1 Chlordiazepoxide HCl 25 mg 12/27/24 21:00 12/28/24 09:03 Chlordiazepoxide Hcl 25 Mg Capsule PO 01/01/25 20:59 25 mg BID JASMINA Administration Diazepam 2.5 mg 12/24/24 09:49 Diazepam Inj 5 Mg/Ml Vial 2 Ml IVP 12/29/24 09:48 Q2HR PRN CIWA SCORE 8-13 Diazepam 5 mg 12/24/24 09:49 Diazepam Inj 5 Mg/Ml Vial 2 Ml IVP 12/29/24 09:48 Q2HR PRN CIWA SCORE 14-19 Diazepam 10 mg 12/24/24 09:49 Diazepam Inj 5 Mg/Ml Vial 2 Ml IVP 12/29/24 09:48 Q2HR PRN CIWA SCORE 20-25 Diazepam 10 mg 12/24/24 09:49 Diazepam Inj 5 Mg/Ml Vial 2 Ml IVP X1 PRN Breakthrough Agitation Folic Acid 1 mg 12/24/24 09:00 12/28/24 09:03 Folic Acid 1 Mg Tablet PO 01/23/25 08:59 1 mg QDAY JASMINA Administration Piperacillin Sod/Tazobactam 100 mls @ 200 mls/hr 12/24/24 00:00 12/28/24 05:33 Sod 4.5 gm/ Sodium Chloride IV 12/30/24 23:59 200 mls/hr Q8HR JASMINA Administration Potassium Phosphate 15 mmol in 250 mls @ 62.5 mls/hr 12/28/24 08:02 12/28/24 09:03 Pot Phos 15 Mmol In Ns 250 Ml IV 12/28/24 16:01 62.5 mls/hr Q4H JASMINA Administration Magnesium Sulfate 4 gm in 50 mls @ 12.5 mls/hr 12/28/24 08:03 12/28/24 09:02 Magnesium Sulfate Ivpb IV 12/28/24 12:02 12.5 mls/hr X1 ONE Administration Labetalol HCl 10 mg 12/23/24 14:13 Labetalol Inj 5 Mg/Ml Vial 20 Ml IVP Q15M PRN SBP >180, DBP >105 Multivitamins 1 tab 12/24/24 09:00 12/28/24 09:03 Multivitamins Tablet PO 01/23/25 08:59 1 tab QDAY JASMINA Administration Ondansetron HCl 4 mg 12/23/24 14:13 Ondansetron Inj 2 Mg/Ml Inj 2 Ml IVP 01/22/25 14:12 Q4HR PRN NAUSEA OR VOMITING Thiamine HCl 200 mg 12/28/24 14:00 Thiamine Inj 100 Mg/Ml Vial 2 Ml IVP 01/27/25 13:59 TID JASMINA Plan Mrs. Brady is a 64 year old female with a history of alcohol use disorder, alcohol withdrawal seizures, pancreatitis, and depression who was brought to [facility] ED on 12/23 for altered mental status. Patient was admitted to ICU for alcohol withdrawal seizures, and then downgraded to medical floors on 12/25. #GNR bacteremia, E. coli / #Urinary tract infection and #Aspiration pneumonia, MRSA, Klebsiella, Pseudomonas #MRSA nares positive Patient noted to have a fever of 105.9, HR of 130, and respiratory rate of 39 while in the ED. WBC initially in the ED was 8.4, however it did increase to 13.1 while in the ICU on 12/24. The likely source is urinary tract infection given that the patient's urinalysis showed urine WBC of 406, with 4+ bacteria, however this may be due to contamination. No signs of pneumonia on chest x-ray were identified, however the patient was laying down unconscious in her urine and feces, which brings up concern for possible aspiration pneumonia. SIRS score 3 - Blood cultures collected 12/23, shows E. coli from both bottles - Urine culture collected 12/23, negative for specific organism - Sputum culture collected 12/23, gram stain showed MRSA, pseudomonas, klebsiella - MRSA nares swabbed 12/23, positive - Zosyn 4.5 gm every 8 hours (12/23-12/28), changed to levofloxacin 750 mg daily (12/28-01/01) #Alcohol withdrawal seizures #Delirium tremens #Altered mental status #Alcohol use disorder Patient has a long history of alcohol use disorder, which leads to seizures when she withdraws. The patient has been consuming alcohol since she was 15 years old and has been noted to drink about a fifth of vodka daily per the patient's daughters. In the ED, patient's blood alcohol levels were noted to be <3.0, but previous admissions have noted significantly elevated blood alcohol levels. Patient most likely quit abruptly and had an alcohol withdrawal seizure(s) starting at home, resulting in stroke-like symptoms and febrile tachycardia, with an additional seizure in the ED. Patient was admitted to ICU, where bilateral tremulous activity that improved with midazolam was noted. 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 CT abdomen pelvis showed hepatomegaly with severe diffuse fatty infiltration throughout the liver, likely secondary to her extensive alcohol consumption. The patient's bilirubin in the ED was noted to be 4.6 and the patient's LFTs are elevated in a 2:1 ratio of AST to ALT, further suggesting alcoholism to be the cause. The patient's platelets have been noted to be significantly decreased, reaching 39 in the ED and 26 in the ICU. The thrombocytopenia is an additional sign of alcohol-related fatty liver disease. - Continue to monitor bilirubin, LFTs, and thrombocytopenia - Transfuse platelets if less than 20 per protocol #Rhabdomyolysis, resolved #MONIKA, likely prerenal, resolved Patient noted to have creatine kinase of 8185 in the ED, likely secondary to muscle damage from alcohol withdrawal seizures. Cr was noted to be 1.3 in ED, which is increased from her baseline of 0.7, likely as a result of her rhabdomyolysis. - Will continue to monitor - Avoid nephrotoxic medications - Renally dose medications #Lactic acidosis, resolved #High anion gap metabolic acidosis, resolved Patient noted to have lactic acidosis in ED. Lactic acid peaked at 8.8 and has since been downtrending. This is most likely secondary to alcohol withdrawal seizure and episode of cardiac arrest. - Will continue to monitor #Electrolyte abnormalities #Hypernatremia #Hypokalemia, resolved #Hypophosphatemia, resolved Patient noted to have hypokalemia of 2.9 in ED and hypophosphatemia of 1.5 on 12/25. Patient noted to have hypernatremia of 148 on 12/27, likely secondary to poor oral intake and sodium from Zosyn at the time. - Will continue to monitor with daily labs, replenish as necessary - 1L LR at 75 cc/h ordered on 12/28 DVT Prophylaxis: SCDs GI Prophylaxis: N/A Bowel: N/A Diet: Dysphagia 2 mech altered, carbohydrate consistent Serna: Yes Lines: Peripheral IV Antibiotics: Levofloxacin (12/28-01/01) Code Status: FULL Reason for Hospitalization: Alcohol withdrawal induced seizures Other Barriers to Discharge: CIWA, altered mental status Patient plan of care was discussed with the attending physician Dr. Mason and senior resident Dr. Magana (PGY-2) Ranjit Miguel, PGY-1 Attending Provider Attestation/Addendum ICheyanne, DO, attest that I was physically present for the del real portions of the service and evaluated the patient with the resident and I reviewed and discussed the case with the resident and agree with the resident's findings and plans of care as documented above Patient seen and eval this a.m. No acute events overnight. Patient states that he she is very tired and nobody allowed her to sleep. She refuses to open her eyes. However, patient is able to answer questions appropriately today and is much more verbal. Unable to work with physical therapy as patient complains of her fatigue. Antibiotics switched from Zosyn to Levaquin to cover for all species found in her sputum and blood culture. Tapering Librium at this time. No hallucinations noted today.
[2024-12-28 09:54] LABS: Sodium 147 mMol/L (136-145)
--- NOTE | 2024-12-28 09:54 | PC.SS ---
Addendum entered by Marce Guzman 12/28/24 11:47: SS spoke to Perlita from [facility] who is aware joe Moriah is requesting [facility]. Per Perlita, she will cancel the insurance authorization to [facility]. Inquiry is being reviewed. Addendum entered by Marce Guzman 12/28/24 10:49: SS has faxed inquiry and PASRR assessment to Perlita at [facility] and explained authorization is now for [facility]. Original Note: Yesterday 12-28-24: SS was informed by Dionne from [facility] she met with Moriah diaz at bedside and Moriah is now requesting [facility]. SS called and spoke to Moriah diaz who confirmed her SNF choice is now [facility] instead of [facility]. SS spoke to Mainor from admissions at [facility] to inform her cancel the insurance authorization late in the day. SS has called Mainor and left voicemail to cancel the insurance authorization and sent message through [facility] SS received voicemail from Axel Bhat loan servicing representative (patient's health insurance) phone# [phone] fax# [phone] but was unable to under stand the message. SS called back 2X but was unsuccessful. SS left voicemail explaining pt has switched SNF to [facility]. SS provided Isabel and Dionne from [facility] with Perlita's phone #. PerDionne at [facility] they are unable to start insurance authorization until [facility] cancels their authorization request.
--- NOTE | 2024-12-28 10:45 | ESPR_ITS ---
Documentation for date of: 12/28/24 Subjective Subjective Interval history: Patient examined at bedside today. Patient requesting to drink water at this time. Reports no headache, chest pain or shortness of breath this time. No other complaints at this time. Exam Vital Signs Temp Pulse Resp BP Pulse Ox O2 Del Method O2 Flow Rate 97.5 F 79 21 H 141/94 H 98 Room Air 2 12/28/24 08:46 12/28/24 08:46 12/28/24 08:46 12/28/24 08:46 12/28/24 08:46 12/28/24 08:46 12/25/24 04:00 FiO2 28 12/24/24 10:44 Narrative Exam General: Lethargic but responsive to voice, able to follow commands. HEENT: Normocephalic, atraumatic, mucous membranes moist. Right lower corner of mouth with abrasion. Tongue-biting lesions. Mild scleral icterus. Heart: Tachycardic, regular rhythm, no murmurs. Lungs: Clear to auscultation with no wheezing or crackles. Abdomen: Soft, nondistended, nontender, positive bowel sounds. ?No guarding or rebound tenderness. Neurologic: Awake and oriented x2, no gross neurological deficit, and patient able to move all 4 extremities. Follows commands when awakened. Extremities: No edema. Skin: No rash and noted echymoses on bilateral knees, arms, and face. Objective Labs 12/29/24 04:54 12/29/24 04:54 Labs: Laboratory Results - last 24 hr 12/27/24 12/28/24 12/28/24 12:33 04:55 04:55 WBC 13.7 H RBC 3.08 L Hgb 10.5 L Hct 30.9 L MCV 100 MCH 34.1 MCHC 34.0 RDW Std Deviation 69.2 H Plt Count 187 D Neut % (Auto) 76 Lymph % (Auto) 12 [place] % (Auto) 7 Eos % (Auto) 1 Baso % (Auto) 1 Neut # (Auto) 10.4 H Lymph # (Auto) 1.7 [place] # (Auto) 0.9 H Eos # (Auto) 0.1 Baso # (Auto) 0.1 Immature Gran # (Auto) 0.53 H Absolute Nucleated RBC 0.00 Immature Gran % 4 H Nucleated RBC % 0 Sodium 146 H 148 H Potassium 3.5 D Chloride 109 H Carbon Dioxide 27.3 Anion Gap 12 BUN 10 Creatinine 0.7 Estim Creat Clear Calc 81.4 eGFR > 60 BUN/Creatinine Ratio 14 Glucose 101 Calculated Osmolality 293 Calcium 8.7 Corrected Calcium 9.8 Phosphorus 2.7 Magnesium 1.6 Iron 46 L Cancelled TIBC 158 L Iron Saturation Unsat Iron Binding Ferritin Total Bilirubin AST ALT Alkaline Phosphatase Total Protein Albumin Globulin Albumin/Globulin Ratio Vitamin B12 Folate 12/28/24 12/28/24 12/28/24 04:55 04:55 04:55 WBC RBC Hgb Hct MCV MCH MCHC RDW Std Deviation Plt Count Neut % (Auto) Lymph % (Auto) [place] % (Auto) Eos % (Auto) Baso % (Auto) Neut # (Auto) Lymph # (Auto) [place] # (Auto) Eos # (Auto) Baso # (Auto) Immature Gran # (Auto) Absolute Nucleated RBC Immature Gran % Nucleated RBC % Sodium Potassium Chloride Carbon Dioxide Anion Gap BUN Creatinine Estim Creat Clear Calc eGFR BUN/Creatinine Ratio Glucose Calculated Osmolality Calcium Corrected Calcium Phosphorus Magnesium Iron TIBC Cancelled Iron Saturation 29 Cancelled Unsat Iron Binding 112 L Cancelled Ferritin 496 H Total Bilirubin AST ALT Alkaline Phosphatase Total Protein Albumin Globulin Albumin/Globulin Ratio Vitamin B12 Folate 12/28/24 12/28/24 04:55 08:36 WBC RBC Hgb Hct MCV MCH MCHC RDW Std Deviation Plt Count Neut % (Auto) Lymph % (Auto) [place] % (Auto) Eos % (Auto) Baso % (Auto) Neut # (Auto) Lymph # (Auto) [place] # (Auto) Eos # (Auto) Baso # (Auto) Immature Gran # (Auto) Absolute Nucleated RBC Immature Gran % Nucleated RBC % Sodium 147 H Potassium Chloride Carbon Dioxide Anion Gap BUN Creatinine Estim Creat Clear Calc eGFR BUN/Creatinine Ratio Glucose Calculated Osmolality Calcium Corrected Calcium Phosphorus Magnesium Iron TIBC Iron Saturation Unsat Iron Binding Ferritin Cancelled Total Bilirubin 3.8 H AST 151 H ALT 71 H Alkaline Phosphatase 162 H Total Protein 4.8 L Albumin 2.6 L Globulin 2.2 L Albumin/Globulin Ratio 1.2 Vitamin B12 1926 H Folate 8.68 ABG Interpretation ABG results: 12/23/24 12/23/24 12/23/24 17:09 20:45 22:04 ABG pH 7.28 L 7.51 H D 7.52 H ABG pCO2 46 32 D 31 L ABG pO2 44 L* 350 H D 231 H D ABG HCO3 21 25 25 ABG O2 Saturation 68 L 101 H 100 H ABG Base Excess -5 L 2 3 12/24/24 05:09 ABG pH 7.44 ABG pCO2 37 ABG pO2 134 H D ABG HCO3 25 ABG O2 Saturation 99 H ABG Base Excess 1 Quality Measures Quality Measures VTE prophylaxis Assessment & Plan Assessment Current Active Medications: Generic Name Dose Route Start Last Admin Trade Name Freq PRN Reason Stop Dose Admin Acetaminophen 650 mg 12/25/24 12:16 Acetaminophen Supp 650 Mg Supp [place] 01/22/25 18:21 Q4HR PRN Pain 1-3 and/or Fever >100.1 Chlordiazepoxide HCl 25 mg 12/29/24 09:00 Chlordiazepoxide Hcl 25 Mg Capsule PO 01/03/25 08:59 QDAY JASMINA Diazepam 2.5 mg 12/24/24 09:49 Diazepam Inj 5 Mg/Ml Vial 2 Ml IVP 12/29/24 09:48 Q2HR PRN CIWA SCORE 8-13 Diazepam 5 mg 12/24/24 09:49 Diazepam Inj 5 Mg/Ml Vial 2 Ml IVP 12/29/24 09:48 Q2HR PRN CIWA SCORE 14-19 Diazepam 10 mg 12/24/24 09:49 Diazepam Inj 5 Mg/Ml Vial 2 Ml IVP 12/29/24 09:48 Q2HR PRN CIWA SCORE 20-25 Diazepam 10 mg 12/24/24 09:49 Diazepam Inj 5 Mg/Ml Vial 2 Ml IVP X1 PRN Breakthrough Agitation Folic Acid 1 mg 12/24/24 09:00 12/28/24 09:03 Folic Acid 1 Mg Tablet PO 01/23/25 08:59 1 mg QDAY JASMINA Administration Potassium Phosphate 15 mmol in 250 mls @ 62.5 mls/hr 12/28/24 08:02 12/28/24 09:03 Pot Phos 15 Mmol In Ns 250 Ml IV 12/28/24 16:01 62.5 mls/hr Q4H JASMINA Administration Magnesium Sulfate 4 gm in 50 mls @ 12.5 mls/hr 12/28/24 08:03 12/28/24 09:02 Magnesium Sulfate Ivpb IV 12/28/24 12:02 12.5 mls/hr X1 ONE Administration Lactated Ringer's 1,000 mls @ 75 mls/hr 12/28/24 10:07 Lactated Ringers IV 12/28/24 23:26 .[id number] ONE Levofloxacin/Dextrose 750 mg in 150 mls @ 100 mls/hr 12/28/24 10:15 Levaquin Ivpb IV 01/04/25 10:14 QDAY JASMINA Labetalol HCl 10 mg 12/23/24 14:13 Labetalol Inj 5 Mg/Ml Vial 20 Ml IVP Q15M PRN SBP >180, DBP >105 Multivitamins 1 tab 12/24/24 09:00 12/28/24 09:03 Multivitamins Tablet PO 01/23/25 08:59 1 tab QDAY JASMINA Administration Ondansetron HCl 4 mg 12/23/24 14:13 Ondansetron Inj 2 Mg/Ml Inj 2 Ml IVP 01/22/25 14:12 Q4HR PRN NAUSEA OR VOMITING Thiamine HCl 200 mg 12/28/24 14:00 Thiamine Inj 100 Mg/Ml Vial 2 Ml IVP 01/27/25 13:59 TID JASMINA Plan Assessment Mrs. Brady is a 64 year old female with a history of alcohol use disorder, alcohol withdrawal seizures, pancreatitis, and depression who was brought to [facility] ED on 12/23 for altered mental status. Patient was admitted to ICU for alcohol withdrawal seizures, and then downgraded to medical floors on 12/25. #Alcohol withdrawal seizures #Delirium tremens #Altered mental status #Alcohol use disorder Patient has a long history of alcohol use disorder, which leads to seizures when she withdraws. The patient has been consuming alcohol since she was 15 years old and has been noted to drink about a fifth of vodka daily per the patient's daughters. In the ED, patient's blood alcohol levels were noted to be <3.0, but previous admissions have noted significantly elevated blood alcohol levels. Patient most likely quit abruptly and had an alcohol withdrawal seizure(s) starting at home, resulting in stroke-like symptoms and febrile tachycardia, with an additional seizure in the ED. Patient was admitted to ICU, where bilateral tremulous activity that improved with midazolam was noted. Plan: ? CIWA protocol ? Librium 25 mg by mouth every 8 hours ? Thiamine 200 mg 3 times daily, folic acid 1 mg daily, and multivitamins 1 tab daily ? Gr[employer] patient on SAFE alcohol cessation #GNR bacteremia / #Urinary tract infection vs #Aspiration pneumonia #MRSA nares positive #Alcohol-related fatty liver disease #Hyperbilirubinemia #Elevated LFTs #Thrombocytopenia #Rhabdomyolysis, resolving #MONIKA, likely prerenal, resolving #Lactic acidosis, resolving #High anion gap metabolic acidosis, resolved #Electrolyte abnormalities #Hypokalemia #Hypophosphatemia Above handled by primary hospitalist team Patient seen and care discussed with my attending physician, Dr. Chelsi Welsh, PGY-2 Attending Provider Attestation/Addendum I personally seen and examined the patient at the bedside and agreed with resident's findings, assessment and plan of care. Impression: Altered mental status: Alcohol withdrawal/seizures/delirium tremens Rhabdomyolysis: Resolving Other electrolyte abnormalities: Being monitored and corrected PLAN: Continue with the Librium as per protocol, thiamine folate and multivitamin. Consider physical therapy/Occupational Therapy when stable
[2024-12-28] MEDS: RINGERS LACTATED 1000 ML 1,000 ML 75 ML IV (10:48)
[2024-12-28] MEDS: LEVOFLOXACIN/D5W 750MG IVPB 750 MG/150 ML BAG 100 MG IV (10:48)
[2024-12-28 11:20] LABS: Ammonia 22 uMol/L (11-32)
[2024-12-28] MEDS: THIAMINE INJ 100 MG/ML VIAL 2 ML 200 MG IVP ×2 (13:41→21:07)
[2024-12-28 14:23] LABS: Sodium 145 mMol/L (136-145)
[2024-12-28 21:16] LABS: Sodium 141 mMol/L (136-145)
[2024-12-29] VITALS (7 sets, daily range): BP systolic 114–142; BP diastolic 80–91; PULSE 74–99; RESP 19–22; TEMP 36.1–36.8; O2SAT 94–97; BMI 27.5
--- NOTE | 2024-12-29 | XR_ITS ---
Examination: MRI brain without intravenous contrast. Date and time of exam: December 29, 2024, 1835 hrs. Indications: Altered mental status today Technique: Multiple axial and sagittal images of the brain obtained. Siemens high-resolution 1.5 Dia short bore scanners utilized. Sagittal sections, T1-weighted, TR 500, TE 14, are performed. Axial sections proton-density and T2-weighted have been obtained. Inversion recovery axial images, TR 9, 260, TE 111, TI 2500. Diffusion weighted images, axial sections, TR 4800, TE 128, B value 1000 Axial sections, ADC map, TR 4800, TE 128 Findings: Enlargement of the sella turcica is not present. The optic chiasm and infundibular are not remarkable. Prepontine and interpeduncular cisterns are not enlarged. There is no localized enlargement of the medulla or zuleika. Fourth ventricle and cerebellar tonsils appear normal in position. No subacute area of hemorrhage density is seen. Mass in the cerebellopontine angle region is not evident. Globes symmetrical. Orbital musculature including medial lateral rectus muscles do not exhibit abnormality. Diffusion-weighted images demonstrate multiple foci of restricted diffusion in the right frontal lobe with signal deficit on the ADC map. Increased white matter signal evident, extra-axial fluid accumulation peripheral to the posterior right parietal lobe, axial image 15, measuring 3 mm in thickness Mass effect upon the ventricular system is not identified. Impression: Foci of restricted diffusion right frontal lobe consistent with acute infarction, recommend neurology consultation and correlation with clinical findings Small extra-axial fluid accumulation peripheral to the posterior right parietal lobe
[2024-12-29] MEDS: THIAMINE INJ 100 MG/ML VIAL 2 ML 200 MG IVP ×2 (05:00→14:01)
[2024-12-29 06:12] LABS: Basophils # (Auto) 0.2 Thou/mm3 (0.0-0.2); Basophils % (Auto) 1 % (0-2.5); Eosinophils # (Auto) 0.1 Thou/mm3 (0.0-0.5); Eosinophils % (Auto) 0 % (0-10); Hematocrit 30.2 % (36.0-46.0); Hemoglobin 10.2 g/dL (12.0-16.0); Immature Granulocytes Auto 0.57 Thou/mm3 (0.00-0.00); Lymphocytes # (Auto) 1.8 Thou/mm3 (1.0-4.8); Lymphocytes % (Auto) 10 % (10-50); Mean Corpuscular HGB Conc 33.8 g/dl (31.0-37.0); Mean Corpuscular Hemoglobin 34.2 pg (25.0-35.0); Mean Corpuscular Volume 101 fL (80-100); Monocytes # (Auto) 0.8 Thou/mm3 (0.0-0.8); Monocytes % (Auto) 5 % (0-12); Neutrophils # (Auto) 14.9 Thou/mm3 (1.8-7.7); Neutrophils % (Auto) 82 % (37-80); Nucleated Red Blood Cell # 0.00 Thou/mm3 (0.00-0.00); Nucleated Red Blood Cell % 0 /100 WBC (0); Platelet Count 247 Thou/mm3 (140-440); RDW Standard Deviation 68.2 fL (36.4-46.3); Red Blood Count 2.98 Miln/mm3 (4.00-5.20); White Blood Count 18.3 Thou/mm3 (3.6-11.0)
[2024-12-29 06:44] LABS: Alanine Aminotransferase 57 U/L (10-49); Albumin, Serum 2.6 gm/dL (3.4-4.8); Albumin/Globulin Ratio 1.1 (1.2-2.2); Alkaline Phosphatase 153 U/L (46-116); Anion Gap 10 (7-16); Aspartate Amino Transferase 99 U/L (0-34); BUN/Creatinine Ratio 13 Ratio (12-20); Bilirubin,Total 3.5 mg/dL (0.3-1.2); Blood Urea Nitrogen 8 mg/dL (9-23); Calcium 8.5 mg/dL (8.3-10.6); Calcium (Corrected) 9.6 mg/dL (8.5-10.1); Carbon Dioxide 25.2 mMol/L (20.0-31.0); Chloride 105 mMol/L (98-107); Creatinine (Component) 0.6 mg/dL (0.6-1.3); Estimated Creatinine Clearance 95.1 mL/min (>60); Globulin 2.4 gm/dL (2.3-3.5); Glucose 86 mg/dL (74-106); Magnesium 1.6 mg/dL (1.6-2.6); Osmolality,Calculated 276 (275-295); Phosphorous 2.4 mg/dL (2.4-5.1); Potassium 3.8 mMol/L (3.4-5.1); Sodium 140 mMol/L (136-145); Total Protein 5.0 gm/dL (5.7-8.2); eGFR > 60 See Note
--- NOTE | 2024-12-29 09:14 | PC.SS ---
Follow up note: SS spoke to Isabel from [facility] who states she has been following up with Perlita, pest control service representative from patient's health insurance who states is reviewing patient's information and will provide authorization once completed. Physicians will asses patient's metal status. White count went up. On IV antibiotic.
--- NOTE | 2024-12-29 09:36 | ESPR_ITS ---
<Statement entered by Buddy Greer MD - 12/29/24 14:20> Patient seen and assessed in hospital bed with minor improvement in mental status; mother, opens eyes spontaneously sometimes and does follow commands, answering questions appropriately but is still very somnolent. 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 Neurology is on board and will follow-up with recommendations; notably, patient likely could benefit from MRI and EEG studies. There is low suspicion for hepatic encephalopathy as patient's been having daily bowel movements; however, lactulose syrup added to see if there is any benefit. Will continue to monitor the patient for any acute changes. I have personally seen and examined the patient. I agree with the resident's assessment and plan as documented below. Buddy Greer DO PGY-2 Internal Medicine - GME Documentation for date of: 12/29/24 Subjective Subjective Interval history: Overnight events: No acute events overnight. Patient was seen and examined at bedside. AM vitals and labs reviewed. Patient continues to be lethargic, but is able to respond to voice and follow commands. Did note that patient seemed to have difficulty with moving pupils to the left. Patient has no longer on any Librium and has not received any diazepam as she is off CIWA protocol. WBC noted to be 18.3. Sodium 140. Bilirubin 3.5. Vitamin B12 1926. Today's last day of levofloxacin. Ordered procalcitonin given uptrending WBC. Decreased thiamine to 250 mg daily for the next 3 days. MRI head ordered, pending. Pending SNF placement. Review of systems otherwise negative except for what is mentioned above. Exam Vital Signs Temp Pulse Resp BP Pulse Ox O2 Del Method O2 Flow Rate 97.1 F 82 22 H 128/80 95 Room Air 2 12/29/24 08:00 12/29/24 08:00 12/29/24 08:00 12/29/24 08:00 12/29/24 08:00 12/29/24 08:00 12/25/24 04:00 FiO2 28 12/24/24 10:44 Narrative Exam Physical Exam: General: Lethargic, uncooperative, no acute distress. Skin: Warm, dry, intact. Small scabs noted sparsely throughout body. Dark bruise in right upper arm, medially. Wound vac on left arm. Head: Normocephalic, atraumatic. Eye: Normal conjunctiva, PERRL. Cardiovascular: Regular rate and rhythm, no murmur, +S1/S2. Respiratory: Lungs are clear to auscultation, respirations unlabored, no crackles, no wheezing. Gastrointestinal: Soft, nontender, non-distended. No guarding or rebound tenderness. Extremities: No edema, no cyanosis, no clubbing. Objective Labs 12/29/24 04:54 12/29/24 04:54 Labs: Laboratory Results - last 24 hr 12/28/24 12/28/24 12/28/24 08:36 10:39 13:56 WBC RBC Hgb Hct MCV MCH MCHC RDW Std Deviation Plt Count Neut % (Auto) Lymph % (Auto) [place] % (Auto) Eos % (Auto) Baso % (Auto) Neut # (Auto) Lymph # (Auto) [place] # (Auto) Eos # (Auto) Baso # (Auto) Immature Gran # (Auto) Absolute Nucleated RBC Immature Gran % Nucleated RBC % Sodium 147 H 145 Potassium Chloride Carbon Dioxide Anion Gap BUN Creatinine Estim Creat Clear Calc eGFR BUN/Creatinine Ratio Glucose Calculated Osmolality Calcium Corrected Calcium Phosphorus Magnesium Total Bilirubin AST ALT Alkaline Phosphatase Ammonia 22 Total Protein Albumin Globulin Albumin/Globulin Ratio 12/28/24 12/29/24 20:43 04:54 WBC 18.3 H RBC 2.98 L Hgb 10.2 L Hct 30.2 L MCV 101 H MCH 34.2 MCHC 33.8 RDW Std Deviation 68.2 H Plt Count 247 D Neut % (Auto) 82 H Lymph % (Auto) 10 [place] % (Auto) 5 Eos % (Auto) 0 Baso % (Auto) 1 Neut # (Auto) 14.9 H Lymph # (Auto) 1.8 [place] # (Auto) 0.8 Eos # (Auto) 0.1 Baso # (Auto) 0.2 Immature Gran # (Auto) 0.57 H Absolute Nucleated RBC 0.00 Immature Gran % 3 H Nucleated RBC % 0 Sodium 141 140 Potassium 3.8 Chloride 105 Carbon Dioxide 25.2 Anion Gap 10 BUN 8 L Creatinine 0.6 Estim Creat Clear Calc 95.1 eGFR > 60 BUN/Creatinine Ratio 13 Glucose 86 Calculated Osmolality 276 Calcium 8.5 Corrected Calcium 9.6 Phosphorus 2.4 Magnesium 1.6 Total Bilirubin 3.5 H AST 99 H ALT 57 H Alkaline Phosphatase 153 H Ammonia Total Protein 5.0 L Albumin 2.6 L Globulin 2.4 Albumin/Globulin Ratio 1.1 L ABG Interpretation ABG results: 12/23/24 12/23/24 12/23/24 17:09 20:45 22:04 ABG pH 7.28 L 7.51 H D 7.52 H ABG pCO2 46 32 D 31 L ABG pO2 44 L* 350 H D 231 H D ABG HCO3 21 25 25 ABG O2 Saturation 68 L 101 H 100 H ABG Base Excess -5 L 2 3 12/24/24 05:09 ABG pH 7.44 ABG pCO2 37 ABG pO2 134 H D ABG HCO3 25 ABG O2 Saturation 99 H ABG Base Excess 1 Quality Measures Quality Measures VTE prophylaxis Assessment & Plan Assessment Current Active Medications: Generic Name Dose Route Start Last Admin Trade Name Freq PRN Reason Stop Dose Admin Acetaminophen 650 mg 12/25/24 12:16 Acetaminophen Supp 650 Mg Supp NV 01/22/25 18:21 Q4HR PRN Pain 1-3 and/or Fever >100.1 Folic Acid 1 mg 12/24/24 09:00 12/28/24 09:03 Folic Acid 1 Mg Tablet PO 01/23/25 08:59 1 mg QDAY JASMNIA Administration Levofloxacin/Dextrose 750 mg in 150 mls @ 100 mls/hr 12/28/24 10:15 12/28/24 10:48 Levaquin Ivpb IV 01/04/25 10:14 100 mls/hr QDAY JASMINA Administration Magnesium Sulfate 4 gm in 50 mls @ 12.5 mls/hr 12/29/24 08:02 Magnesium Sulfate Ivpb IV 12/29/24 12:01 X1 ONE Labetalol HCl 10 mg 12/23/24 14:13 Labetalol Inj 5 Mg/Ml Vial 20 Ml IVP Q15M PRN SBP >180, DBP >105 Multivitamins 1 tab 12/24/24 09:00 12/28/24 09:03 Multivitamins Tablet PO 01/23/25 08:59 1 tab QDAY JASMINA Administration Ondansetron HCl 4 mg 12/23/24 14:13 Ondansetron Inj 2 Mg/Ml Inj 2 Ml IVP 01/22/25 14:12 Q4HR PRN NAUSEA OR VOMITING Thiamine HCl 200 mg 12/28/24 14:00 12/29/24 05:00 Thiamine Inj 100 Mg/Ml Vial 2 Ml IVP 01/27/25 13:59 200 mg TID JASMINA Administration Plan Mrs. Brady is a 64 year old female with a history of alcohol use disorder, alcohol withdrawal seizures, pancreatitis, and depression who was brought to [facility] ED on 12/23 for altered mental status. Patient was admitted to ICU for alcohol withdrawal seizures, and then downgraded to medical floors on 12/25. #Encephalopathy, unspecified, likely multifactorial #Alcohol withdrawal seizures #Delirium tremens #Alcohol use disorder Patient has a long history of alcohol use disorder, which leads to seizures when she withdraws. The patient has been consuming alcohol since she was 15 years old and has been noted to drink about a fifth of vodka daily per the patient's daughters. In the ED, patient's blood alcohol levels were noted to be <3.0, but previous admissions have noted significantly elevated blood alcohol levels. Patient most likely quit abruptly and had an alcohol withdrawal seizure(s) starting at home, resulting in stroke-like symptoms and febrile tachycardia, with an additional seizure in the ED. Patient was admitted to ICU, where bilateral tremulous activity that improved with midazolam was noted. Patient continues to have excessive lethargy that is unexpected after stopping librium and CIWA protocol. This encephalopathy is likely multifactorial from the patient's infection and alcohol withdrawal seizures. 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 coli 2/2 #Urinary tract infection and #Aspiration pneumonia, MRSA, Klebsiella, Pseudomonas #MRSA nares positive Patient noted to have a fever of 105.9, HR of 130, and respiratory rate of 39 while in the ED. WBC initially in the ED was 8.4, however it did increase to 13.1 while in the ICU on 12/24. The likely source is urinary tract infection given that the patient's urinalysis showed urine WBC of 406, with 4+ bacteria, however this may be due to contamination. No signs of pneumonia on chest x-ray were identified, however the patient was laying down unconscious in her urine and feces, which brings up concern for possible aspiration pneumonia. SIRS score 3 - Blood cultures collected 12/23, shows E. coli from both bottles - Urine culture collected 12/23, negative for specific organism - Sputum culture collected 12/23, gram stain showed MRSA, pseudomonas, klebsiella - MRSA nares swabbed 12/23, positive - Zosyn 4.5 gm every 8 hours (12/23-12/28), changed to levofloxacin 750 mg daily (12/28-12/29) #Alcohol-related fatty liver disease #Hyperbilirubinemia #Elevated LFTs #Thrombocytopenia, resolving Patient has a long history of alcohol consumption. CT abdomen pelvis showed hepatomegaly with severe diffuse fatty infiltration throughout the liver, likely secondary to her extensive alcohol consumption. The patient's bilirubin in the ED was noted to be 4.6 and the patient's LFTs are elevated in a 2:1 ratio of AST to ALT, further suggesting alcoholism to be the cause. The patient's platelets have been noted to be significantly decreased, reaching 39 in the ED and 26 in the ICU. The thrombocytopenia is an additional sign of alcohol-related fatty liver disease. - Continue to monitor bilirubin, LFTs, and thrombocytopenia - Transfuse platelets if less than 20 per protocol #Rhabdomyolysis, resolved #MONIKA, likely prerenal, resolved Patient noted to have creatine kinase of 8185 in the ED, likely secondary to muscle damage from alcohol withdrawal seizures. Cr was noted to be 1.3 in ED, which is increased from her baseline of 0.7, likely as a result of her rhabdomyolysis. - Will continue to monitor - Avoid nephrotoxic medications - Renally dose medications #Lactic acidosis, resolved #High anion gap metabolic acidosis, resolved Patient noted to have lactic acidosis in ED. Lactic acid peaked at 8.8 and has since been downtrending. This is most likely secondary to alcohol withdrawal seizure and episode of cardiac arrest. - Will continue to monitor #Electrolyte abnormalities #Hypernatremia #Hypokalemia, resolved #Hypophosphatemia, resolved Patient noted to have hypokalemia of 2.9 in ED and hypophosphatemia of 1.5 on 12/25. Patient noted to have hypernatremia of 148 on 12/27, likely secondary to poor oral intake and sodium from Zosyn at the time. - Will continue to monitor with daily labs, replenish as necessary - 1L LR at 75 cc/h ordered on 12/28 DVT Prophylaxis: SCDs GI Prophylaxis: N/A Bowel: N/A Diet: Dysphagia 2 mech altered, carbohydrate consistent Serna: N/A Lines: Peripheral IV Antibiotics: Levofloxacin (12/28-12/29) Code Status: FULL Reason for Hospitalization: Alcohol withdrawal induced seizures Other Barriers to Discharge: Altered mental status Patient plan of care was discussed with the attending physician Dr. Eldridge and senior resident Dr. Greer (PGY-2) Ranjit Miguel, PGY-1 Attending Provider Attestation/Addendum Face to face evaluation was performed by me. I have personally seen and examined the patient. I discussed the assessment and plan with the entire medicine team. I reviewed available medical records, imaging studies, laboratory results. I agree with the above subjective data, objective findings, assessment and plan except as corrected by me or noted below S/p cardiac arrest Seizures alcohol withdrawal seizures Acute encephalopathy post ictal state - seizure precautions, weaned off librium ,continue thiamine, possible wernickes? consider lactulose for BM Neurology following, appreacite help More than > 30 minutes spent on the encounter
--- NOTE | 2024-12-29 10:30 | ESPR_ITS ---
Documentation for date of: 12/29/24 Subjective Subjective Interval history: Patient examined at bedside today. No acute overnight events. Patient believes that she it is 1984 and that she has home currently. She is unsure if she has had bowel movements. She says she does not want to open her eyes at this time because she is very tired. No other complaints at this time. Exam Vital Signs Temp Pulse Resp BP Pulse Ox O2 Del Method O2 Flow Rate 97.1 F 82 22 H 128/80 95 Room Air 2 12/29/24 08:00 12/29/24 08:00 12/29/24 08:00 12/29/24 08:00 12/29/24 08:00 12/29/24 08:00 12/25/24 04:00 FiO2 28 12/24/24 10:44 Narrative Exam General: Lethargic but responsive to voice, able to follow commands. HEENT: Normocephalic, atraumatic, mucous membranes moist. Right lower corner of mouth with abrasion. Tongue-biting lesions. Mild scleral icterus. Heart: Tachycardic, regular rhythm, no murmurs. Lungs: Clear to auscultation with no wheezing or crackles. Abdomen: Soft, nondistended, nontender, positive bowel sounds. ?No guarding or rebound tenderness. Neurologic: Awake and oriented x2, no gross neurological deficit, and patient able to move all 4 extremities. Follows commands when awakened. Extremities: No edema. Skin: No rash and noted echymoses on bilateral knees, arms, and face. Objective Labs 12/29/24 04:54 12/29/24 04:54 Labs: Laboratory Results - last 24 hr 12/28/24 12/28/24 12/28/24 10:39 13:56 20:43 WBC RBC Hgb Hct MCV MCH MCHC RDW Std Deviation Plt Count Neut % (Auto) Lymph % (Auto) [place] % (Auto) Eos % (Auto) Baso % (Auto) Neut # (Auto) Lymph # (Auto) [place] # (Auto) Eos # (Auto) Baso # (Auto) Immature Gran # (Auto) Absolute Nucleated RBC Immature Gran % Nucleated RBC % Sodium 145 141 Potassium Chloride Carbon Dioxide Anion Gap BUN Creatinine Estim Creat Clear Calc eGFR BUN/Creatinine Ratio Glucose Calculated Osmolality Calcium Corrected Calcium Phosphorus Magnesium Total Bilirubin AST ALT Alkaline Phosphatase Ammonia 22 Total Protein Albumin Globulin Albumin/Globulin Ratio 12/29/24 04:54 WBC 18.3 H RBC 2.98 L Hgb 10.2 L Hct 30.2 L MCV 101 H MCH 34.2 MCHC 33.8 RDW Std Deviation 68.2 H Plt Count 247 D Neut % (Auto) 82 H Lymph % (Auto) 10 [place] % (Auto) 5 Eos % (Auto) 0 Baso % (Auto) 1 Neut # (Auto) 14.9 H Lymph # (Auto) 1.8 [place] # (Auto) 0.8 Eos # (Auto) 0.1 Baso # (Auto) 0.2 Immature Gran # (Auto) 0.57 H Absolute Nucleated RBC 0.00 Immature Gran % 3 H Nucleated RBC % 0 Sodium 140 Potassium 3.8 Chloride 105 Carbon Dioxide 25.2 Anion Gap 10 BUN 8 L Creatinine 0.6 Estim Creat Clear Calc 95.1 eGFR > 60 BUN/Creatinine Ratio 13 Glucose 86 Calculated Osmolality 276 Calcium 8.5 Corrected Calcium 9.6 Phosphorus 2.4 Magnesium 1.6 Total Bilirubin 3.5 H AST 99 H ALT 57 H Alkaline Phosphatase 153 H Ammonia Total Protein 5.0 L Albumin 2.6 L Globulin 2.4 Albumin/Globulin Ratio 1.1 L ABG Interpretation ABG results: 12/23/24 12/23/24 12/23/24 17:09 20:45 22:04 ABG pH 7.28 L 7.51 H D 7.52 H ABG pCO2 46 32 D 31 L ABG pO2 44 L* 350 H D 231 H D ABG HCO3 21 25 25 ABG O2 Saturation 68 L 101 H 100 H ABG Base Excess -5 L 2 3 12/24/24 05:09 ABG pH 7.44 ABG pCO2 37 ABG pO2 134 H D ABG HCO3 25 ABG O2 Saturation 99 H ABG Base Excess 1 Quality Measures Quality Measures VTE prophylaxis Assessment & Plan Assessment Current Active Medications: Generic Name Dose Route Start Last Admin Trade Name Freq PRN Reason Stop Dose Admin Acetaminophen 650 mg 12/25/24 12:16 Acetaminophen Supp 650 Mg Supp NC 01/22/25 18:21 Q4HR PRN Pain 1-3 and/or Fever >100.1 Folic Acid 1 mg 12/24/24 09:00 12/28/24 09:03 Folic Acid 1 Mg Tablet PO 01/23/25 08:59 1 mg QDAY JASMINA Administration Levofloxacin/Dextrose 750 mg in 150 mls @ 100 mls/hr 12/28/24 10:15 12/28/24 10:48 Levaquin Ivpb IV 01/04/25 10:14 100 mls/hr QDAY JASMINA Administration Magnesium Sulfate 4 gm in 50 mls @ 12.5 mls/hr 12/29/24 08:02 Magnesium Sulfate Ivpb IV 12/29/24 12:01 X1 ONE Labetalol HCl 10 mg 12/23/24 14:13 Labetalol Inj 5 Mg/Ml Vial 20 Ml IVP Q15M PRN SBP >180, DBP >105 Multivitamins 1 tab 12/24/24 09:00 12/28/24 09:03 Multivitamins Tablet PO 01/23/25 08:59 1 tab QDAY JASMINA Administration Ondansetron HCl 4 mg 12/23/24 14:13 Ondansetron Inj 2 Mg/Ml Inj 2 Ml IVP 01/22/25 14:12 Q4HR PRN NAUSEA OR VOMITING Thiamine HCl 200 mg 12/28/24 14:00 12/29/24 05:00 Thiamine Inj 100 Mg/Ml Vial 2 Ml IVP 01/27/25 13:59 200 mg TID JASMINA Administration Plan Assessment Mrs. Brady is a 64 year old female with a history of alcohol use disorder, alcohol withdrawal seizures, pancreatitis, and depression who was brought to [facility] ED on 12/23 for altered mental status. Patient was admitted to ICU for alcohol withdrawal seizures, and then downgraded to medical floors on 12/25. #Hepatic encephalopathy #Alcohol withdrawal seizures #Delirium tremens #Altered mental status #Alcohol use disorder Patient has a long history of alcohol use disorder, which leads to seizures when she withdraws. The patient has been consuming alcohol since she was 15 years old and has been noted to drink about a fifth of vodka daily per the patient's daughters. In the ED, patient's blood alcohol levels were noted to be <3.0, but previous admissions have noted significantly elevated blood alcohol levels. Patient most likely quit abruptly and had an alcohol withdrawal seizure(s) starting at home, resulting in stroke-like symptoms and febrile tachycardia, with an additional seizure in the ED. Patient was admitted to ICU, where bilateral tremulous activity that improved with midazolam was noted. Patient has not had any bowel movements, recommend restarting lactulose for worsening encephalopathy There is concern for Warnicke's, however unable to track patient's eye movements as she does not open her eyes at this time. Patient's ammonia levels have been normal, however this does not always necessarily correlate with patient's symptoms Plan: ? CIWA protocol ? Librium 25 mg by mouth every 8 hours ? Thiamine 200 mg 3 times daily, folic acid 1 mg daily, and multivitamins 1 tab daily ? Recommend to continue with lactulose 10 mg 3 times daily ? 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 Chelsi Welsh, PGY-2 Attending Provider Attestation/Addendum I personally seen and examined the patient at the bedside and agreed with resident's findings, assessment and plan of care. Impression: Altered mental status: Alcohol withdrawal/seizures/delirium tremens Rhabdomyolysis: Resolving Other electrolyte abnormalities: Being monitored and corrected Possible Wernicke's encephalopathy (with predominant ocular manifestation, mental status changes and ataxia ) PLAN: agree with Thiamine administration parenterally FU with MRI brain as it becomes available. Continue with the Librium as per protocol, thiamine folate and multivitamin. Consider physical therapy/Occupational Therapy when stable
[2024-12-29] MEDS: FOLIC ACID 1 MG TABLET PO (10:32)
[2024-12-29] MEDS: MULTIVITAMINS TABLET 1 TAB PO (10:32)
[2024-12-29] MEDS: LEVOFLOXACIN/D5W 750MG IVPB 750 MG/150 ML BAG 100 MG IV (10:59)
[2024-12-29] MEDS: Magnesium Sulfate 4 GM Ivpb 4 GM/50 ML BAG IV (11:08)
[2024-12-29] MEDS: LACTULOSE SYRUP 20 GM/30 ML UDC 10 GM PO ×2 (14:00→23:12)
[2024-12-30] VITALS: BP 156/93; PULSE 83; PULSE 86; RESP 21; TEMP 37.2; O2SAT 91
[2024-12-30 04:00] VITALS: BP 137/79; PULSE 81; PULSE 84; RESP 20; TEMP 36.9; O2SAT 92
[2024-12-30 05:40] VITALS: BMI 29.3
[2024-12-30 05:50] LABS: Basophils # (Auto) 0.1 Thou/mm3 (0.0-0.2); Basophils % (Auto) 1 % (0-2.5); Eosinophils # (Auto) 0.0 Thou/mm3 (0.0-0.5); Eosinophils % (Auto) 0 % (0-10); Hematocrit 28.2 % (36.0-46.0); Hemoglobin 9.8 g/dL (12.0-16.0); Immature Granulocytes Auto 0.46 Thou/mm3 (0.00-0.00); Lymphocytes # (Auto) 1.5 Thou/mm3 (1.0-4.8); Lymphocytes % (Auto) 8 % (10-50); Mean Corpuscular HGB Conc 34.8 g/dl (31.0-37.0); Mean Corpuscular Hemoglobin 35.3 pg (25.0-35.0); Mean Corpuscular Volume 101 fL (80-100); Monocytes # (Auto) 0.8 Thou/mm3 (0.0-0.8); Monocytes % (Auto) 4 % (0-12); Neutrophils # (Auto) 15.9 Thou/mm3 (1.8-7.7); Neutrophils % (Auto) 85 % (37-80); Nucleated Red Blood Cell # 0.00 Thou/mm3 (0.00-0.00); Nucleated Red Blood Cell % 0 /100 WBC (0); Platelet Count 241 Thou/mm3 (140-440); RDW Standard Deviation 67.7 fL (36.4-46.3); Red Blood Count 2.78 Miln/mm3 (4.00-5.20); White Blood Count 18.7 Thou/mm3 (3.6-11.0)
[2024-12-30 06:15] LABS: Alanine Aminotransferase 48 U/L (10-49); Albumin, Serum 2.5 gm/dL (3.4-4.8); Albumin/Globulin Ratio 1.0 (1.2-2.2); Alkaline Phosphatase 153 U/L (46-116); Anion Gap 10 (7-16); Aspartate Amino Transferase 95 U/L (0-34); BUN/Creatinine Ratio 16 Ratio (12-20); Bilirubin,Total 3.0 mg/dL (0.3-1.2); Blood Urea Nitrogen 8 mg/dL (9-23); Calcium 8.4 mg/dL (8.3-10.6); Calcium (Corrected) 9.6 mg/dL (8.5-10.1); Carbon Dioxide 25.3 mMol/L (20.0-31.0); Chloride 103 mMol/L (98-107); Creatinine (Component) 0.5 mg/dL (0.6-1.3); Estimated Creatinine Clearance 117.7 mL/min (>60); Globulin 2.4 gm/dL (2.3-3.5); Glucose 96 mg/dL (74-106); Magnesium 1.9 mg/dL (1.6-2.6); Osmolality,Calculated 273 (275-295); Phosphorous 2.5 mg/dL (2.4-5.1); Potassium 4.2 mMol/L (3.4-5.1); Procalcitonin 2.33 ng/ml (0.0-0.49); Sodium 138 mMol/L (136-145); Total Protein 4.9 gm/dL (5.7-8.2); eGFR > 60 See Note
[2024-12-30 08:00] VITALS: BP 98/69; PULSE 81; PULSE 84; RESP 23; TEMP 36.8; O2SAT 94
[2024-12-30 08:33] LABS: Cardiac Risk Estimate 20.0 RATIO (3.7-5.6); Cholesterol 103 mg/dL (132-200); HDL Cholesterol < 5 mg/dL (40-60); LDL Cholesterol,Calculated 69 mg/dL (0-130); Triglycerides 144 mg/dL (30-150)
--- NOTE | 2024-12-30 10:00 | ESPR_ITS ---
Documentation for date of: 12/30/24 Subjective Subjective Interval history: Overnight events: No acute events overnight. Patient was seen and examined at bedside. AM vitals and labs reviewed. Patient appears more alert today. Patient is able to open eyes easily on command and has no difficulty with eye movement. Patient does still seem a bit confused. Patient believed that she is at home and that it was still October. WBC 18.7, bilirubin 3.0, and procalcitonin 2.33. AST and ALT downtrending. MRI brain done in 12/29 showed foci of restricted diffusion in right frontal lobe consistent with acute infarction, and small extra axial fluid accumulation peripheral to posterior right parietal lobe. Started aspirin 81 mg given MRI findings suggestive of acute infarction. Lipid panel ordered. Give one-time dose of levofloxacin 750 mg given elevated WBC. Pending recommendations from neurology regarding MRI findings. Review of systems otherwise negative except for what is mentioned above. Exam Vital Signs Temp Pulse Resp BP Pulse Ox O2 Del Method O2 Flow Rate 98.2 F 84 23 H 98/69 94 L Room Air 2 12/30/24 08:00 12/30/24 08:00 12/30/24 08:00 12/30/24 08:00 12/30/24 08:00 12/30/24 08:00 12/25/24 04:00 FiO2 28 12/24/24 10:44 Narrative Exam Physical Exam: General: Lethargic, uncooperative, no acute distress. Skin: Warm, dry, intact. Small scabs noted sparsely throughout body. Dark bruise in right upper arm, medially. Wound vac on left arm. Head: Normocephalic, atraumatic. Eye: Normal conjunctiva, PERRL. Cardiovascular: Regular rate and rhythm, no murmur, +S1/S2. Respiratory: Lungs are clear to auscultation, respirations unlabored, no crackles, no wheezing. Gastrointestinal: Soft, nontender, non-distended. No guarding or rebound tenderness. Extremities: No edema, no cyanosis, no clubbing. Objective Labs 01/01/25 04:33 01/01/25 04:33 Labs: Laboratory Results - last 24 hr 12/30/24 05:06 WBC 18.7 H RBC 2.78 L Hgb 9.8 L Hct 28.2 L MCV 101 H MCH 35.3 H MCHC 34.8 RDW Std Deviation 67.7 H Plt Count 241 Neut % (Auto) 85 H Lymph % (Auto) 8 L [place] % (Auto) 4 Eos % (Auto) 0 Baso % (Auto) 1 Neut # (Auto) 15.9 H Lymph # (Auto) 1.5 [place] # (Auto) 0.8 Eos # (Auto) 0.0 Baso # (Auto) 0.1 Immature Gran # (Auto) 0.46 H Absolute Nucleated RBC 0.00 Immature Gran % 3 H Nucleated RBC % 0 Sodium 138 Potassium 4.2 Chloride 103 Carbon Dioxide 25.3 Anion Gap 10 BUN 8 L Creatinine 0.5 L Estim Creat Clear Calc 117.7 eGFR > 60 BUN/Creatinine Ratio 16 Glucose 96 Calculated Osmolality 273 L Calcium 8.4 Corrected Calcium 9.6 Phosphorus 2.5 Magnesium 1.9 Total Bilirubin 3.0 H D AST 95 H ALT 48 Alkaline Phosphatase 153 H Total Protein 4.9 L Albumin 2.5 L Globulin 2.4 Albumin/Globulin Ratio 1.0 L Triglycerides 144 Cholesterol 103 L LDL Cholesterol, Calc 69 HDL Cholesterol < 5 L Cholesterol/HDL Ratio 20.0 H Procalcitonin 2.33 H ABG Interpretation ABG results: 12/23/24 12/23/24 12/23/24 17:09 20:45 22:04 ABG pH 7.28 L 7.51 H D 7.52 H ABG pCO2 46 32 D 31 L ABG pO2 44 L* 350 H D 231 H D ABG HCO3 21 25 25 ABG O2 Saturation 68 L 101 H 100 H ABG Base Excess -5 L 2 3 12/24/24 05:09 ABG pH 7.44 ABG pCO2 37 ABG pO2 134 H D ABG HCO3 25 ABG O2 Saturation 99 H ABG Base Excess 1 Quality Measures Quality Measures VTE prophylaxis Assessment & Plan Assessment Current Active Medications: Generic Name Dose Route Start Last Admin Trade Name Freq PRN Reason Stop Dose Admin Acetaminophen 650 mg 12/25/24 12:16 Acetaminophen Supp 650 Mg Supp NH 01/22/25 18:21 Q4HR PRN Pain 1-3 and/or Fever >100.1 Aspirin 81 mg 12/30/24 09:00 Aspirin Ec 81 Mg Tabec PO 01/29/25 08:59 QDAY JASMINA Atorvastatin Calcium 40 mg 12/30/24 21:00 Atorvastatin Calcium 20 Mg Tablet PO 01/29/25 20:59 HS JASMINA Folic Acid 1 mg 12/24/24 09:00 12/29/24 10:32 Folic Acid 1 Mg Tablet PO 01/23/25 08:59 1 mg QDAY JASMINA Administration Labetalol HCl 10 mg 12/23/24 14:13 Labetalol Inj 5 Mg/Ml Vial 20 Ml IVP Q15M PRN SBP >180, DBP >105 Lactulose 10 gm 12/29/24 14:00 12/29/24 23:12 Lactulose Syrup 20 Gm/30 Ml Udc PO 01/28/25 13:59 10 gm TID JASMINA Administration Protocol Multivitamins 1 tab 12/24/24 09:00 12/29/24 10:32 Multivitamins Tablet PO 01/23/25 08:59 1 tab QDAY JASMINA Administration Ondansetron HCl 4 mg 12/23/24 14:13 Ondansetron Inj 2 Mg/Ml Inj 2 Ml IVP 01/22/25 14:12 Q4HR PRN NAUSEA OR VOMITING Thiamine HCl 250 mg 12/30/24 09:00 Thiamine Inj 100 Mg/Ml Vial 2 Ml IVP 01/29/25 08:59 QDAY JASMINA Plan Mrs. Brady is a 64 year old female with a history of alcohol use disorder, alcohol withdrawal seizures, pancreatitis, and depression who was brought to [facility] ED on 12/23 for altered mental status. Patient was admitted to ICU for alcohol withdrawal seizures, and then downgraded to medical floors on 12/25. #Encephalopathy, unspecified, likely multifactorial #Alcohol withdrawal seizures #Delirium tremens #CVA, right frontal lobe #Alcohol use disorder Patient has a long history of alcohol use disorder, which leads to seizures when she withdraws. The patient has been consuming alcohol since she was 15 years old and has been noted to drink about a fifth of vodka daily per the patient's daughters. In the ED, patient's blood alcohol levels were noted to be <3.0, but previous admissions have noted significantly elevated blood alcohol levels. Patient most likely quit abruptly and had an alcohol withdrawal seizure(s) starting at home, resulting in stroke-like symptoms and febrile tachycardia, with an additional seizure in the ED. Patient was admitted to ICU, where bilateral tremulous activity that improved with midazolam was noted. Patient continues to have excessive lethargy that is unexpected after stopping librium and CIWA protocol. This encephalopathy is likely multifactorial from the patient's infection, alcohol withdrawal seizures, and possible CVA given MRI head 12/29 which showed foci of restricted diffusion in right frontal lobe consistent with acute infarction, and small extra axial fluid accumulation peripheral to posterior right parietal lobe. - Thiamine 250 mg once daily, folic acid 1 mg daily, and multivitamins 1 tab daily - [employer] patient on SAFE alcohol cessation - Neurology consulted, appreciate recommendations - Lactulose 10 gm three times daily #GNR bacteremia, E. coli 2/ #Urinary tract infection and #Aspiration pneumonia, MRSA, Klebsiella, Pseudomonas #MRSA nares positive Patient noted to have a fever of 105.9, HR of 130, and respiratory rate of 39 while in the ED. WBC initially in the ED was 8.4, however it did increase to 13.1 while in the ICU on 12/24. The likely source is urinary tract infection given that the patient's urinalysis showed urine WBC of 406, with 4+ bacteria, however this may be due to contamination. No signs of pneumonia on chest x-ray were identified, however the patient was laying down unconscious in her urine and feces, which brings up concern for possible aspiration pneumonia. Procalcitonin obtained 12/30 resulted as 2.33, which is decreased compared to >50 on 12/23. SIRS score 3 - Blood cultures collected 12/23, shows E. coli from both bottles - Urine culture collected 12/23, negative for specific organism - Sputum culture collected 12/23, gram stain showed MRSA, pseudomonas, klebsiella - MRSA nares swabbed 12/23, positive - Zosyn 4.5 gm every 8 hours (12/23-12/28), changed to levofloxacin 750 mg daily (12/28-12/30) #Alcohol-related fatty liver disease #Hyperbilirubinemia #Elevated LFTs #Thrombocytopenia, resolving Patient has a long history of alcohol consumption. CT abdomen pelvis showed hepatomegaly with severe diffuse fatty infiltration throughout the liver, likely secondary to her extensive alcohol consumption. The patient's bilirubin in the ED was noted to be 4.6 and the patient's LFTs are elevated in a 2:1 ratio of AST to ALT, further suggesting alcoholism to be the cause. The patient's platelets have been noted to be significantly decreased, reaching 39 in the ED and 26 in the ICU. The thrombocytopenia is an additional sign of alcohol-related fatty liver disease. - Continue to monitor bilirubin, LFTs, and thrombocytopenia - Transfuse platelets if less than 20 per protocol #Rhabdomyolysis, resolved #MONIKA, likely prerenal, resolved Patient noted to have creatine kinase of 8185 in the ED, likely secondary to muscle damage from alcohol withdrawal seizures. Cr was noted to be 1.3 in ED, which is increased from her baseline of 0.7, likely as a result of her rhabdomyolysis. - Will continue to monitor - Avoid nephrotoxic medications - Renally dose medications #Lactic acidosis, resolved #High anion gap metabolic acidosis, resolved Patient noted to have lactic acidosis in ED. Lactic acid peaked at 8.8 and has since been downtrending. This is most likely secondary to alcohol withdrawal seizure and episode of cardiac arrest. - Will continue to monitor #Electrolyte abnormalities #Hypernatremia #Hypokalemia, resolved #Hypophosphatemia, resolved Patient noted to have hypokalemia of 2.9 in ED and hypophosphatemia of 1.5 on 12/25. Patient noted to have hypernatremia of 148 on 12/27, likely secondary to poor oral intake and sodium from Zosyn at the time. - Will continue to monitor with daily labs, replenish as necessary - 1L LR at 75 cc/h ordered on 12/28 DVT Prophylaxis: SCDs GI Prophylaxis: N/A Bowel: N/A Diet: Dysphagia 2 mech altered, carbohydrate consistent Serna: N/A Lines: Peripheral IV Antibiotics: Levofloxacin (12/28-12/29) Code Status: FULL Reason for Hospitalization: Alcohol withdrawal induced seizures Other Barriers to Discharge: Altered mental status Patient plan of care was discussed with the attending physician Dr. Jazmyn Miguel, PGY-1 Attending Provider Attestation/Addendum Face to face evaluation was performed by me. I have personally seen and examined the patient. I discussed the assessment and plan with the entire medicine team. I reviewed available medical records, imaging studies, laboratory results. I agree with the above subjective data, objective findings, assessment and plan except as corrected by me or noted below Postcardiac arrest Seizure disorder Postictal state Left upper extremity weakness - MRI brain, neurology monitor vitals and neurostatus closely monitor for seizures -Continue folic thiamine, acid multivitamin. Daily labs More than > 30 minutes spent on the encounter
[2024-12-30] MEDS: LACTULOSE SYRUP 20 GM/30 ML UDC 10 GM PO ×3 (10:27→21:20)
[2024-12-30] MEDS: THIAMINE INJ 100 MG/ML VIAL 2 ML 250 MG IVP (10:27)
[2024-12-30] MEDS: FOLIC ACID 1 MG TABLET PO (10:28)
[2024-12-30] MEDS: ASPIRIN EC 81 MG TABEC PO (10:28)
[2024-12-30] MEDS: MULTIVITAMINS TABLET 1 TAB PO (10:28)
[2024-12-30 12:00] VITALS: BP 115/74; PULSE 89; PULSE 92; RESP 21; TEMP 36.3; O2SAT 95
[2024-12-30 16:00] VITALS: PULSE 81; O2SAT 95
[2024-12-30] MEDS: LEVOFLOXACIN/D5W 750MG IVPB 750 MG/150 ML BAG 100 MG IV (16:45)
[2024-12-30 20:00] VITALS: BP 100/75; PULSE 95; RESP 19; TEMP 36.9; O2SAT 90
[2024-12-30] MEDS: ATORVASTATIN CALCIUM 20 MG TABLET 40 MG PO (21:20)
--- NOTE | 2024-12-30 23:50 | ESPR_ITS ---
Documentation for date of: 12/30/24 Subjective Subjective Interval history: Patient was seen in telemetry at the bedside. No change/events noted overnight, slowly improving. Exam - Neurology Vital Signs Temp Pulse Resp BP Pulse Ox O2 Del Method O2 Flow Rate 97.4 F 95 21 H 115/74 95 Room Air 2 12/30/24 12:00 12/30/24 20:00 12/30/24 12:00 12/30/24 12:00 12/30/24 16:00 12/30/24 16:00 12/25/24 04:00 FiO2 28 12/24/24 10:44 Narrative Exam GENERAL APPEARANCE: Well hydrated, well-nourished in no acute distress. HEENT: Normocephalic, atraumatic, extraocular movements intact when she cooperates to open her eyes enough to examine. Pupils: Equal reacting to light NECK: Supple, no JVD or bruits. CARDIOVASULAR: Heart: S1, S2 heard, regular without S3-S4 or murmur no rubs or gallops. LUNGS/CHEST: Clear to auscultation bilaterally. No rails, rhonchi, or wheezing. Normal inspection. ABDOMEN: Soft, nontender, with normal bowel sounds. No pulsatile masses. No rebound, rigidity, or guarding. Normal inspection and palpation. EXTREMITIES: Normal inspection and palpation. No edema, clubbing or cyanosis. SKIN: Warm and dry without rashes. Normal inspection. MUSCULOSKELETAL: No cervical, thoracic, lumbar or midline bony tenderness. Normal inspection. NEURO: resting but arousable and answering questions, Cranial nerves: II through XII grossly intact. Speech and language: Normal with no dysarthria or dysphasia. Motor system: Tone and bulk: Normal: Strength: moves all 4 extremities; No pronator drift noted. Deep tendon reflexes: 1+ bilaterally symmetrical. Plantar reflex: Downgoing bilaterally. Sensory system: Intact to pinprick sensation bilaterally. Gait: not tested. No signs of meningeal irritation noted. PSYCHIATRIC: limited. Objective Labs 12/31/24 05:19 12/31/24 05:19 Labs: Laboratory Results - last 24 hr 12/30/24 05:06 WBC 18.7 H RBC 2.78 L Hgb 9.8 L Hct 28.2 L MCV 101 H MCH 35.3 H MCHC 34.8 RDW Std Deviation 67.7 H Plt Count 241 Neut % (Auto) 85 H Lymph % (Auto) 8 L [place] % (Auto) 4 Eos % (Auto) 0 Baso % (Auto) 1 Neut # (Auto) 15.9 H Lymph # (Auto) 1.5 [place] # (Auto) 0.8 Eos # (Auto) 0.0 Baso # (Auto) 0.1 Immature Gran # (Auto) 0.46 H Absolute Nucleated RBC 0.00 Immature Gran % 3 H Nucleated RBC % 0 Sodium 138 Potassium 4.2 Chloride 103 Carbon Dioxide 25.3 Anion Gap 10 BUN 8 L Creatinine 0.5 L Estim Creat Clear Calc 117.7 eGFR > 60 BUN/Creatinine Ratio 16 Glucose 96 Calculated Osmolality 273 L Calcium 8.4 Corrected Calcium 9.6 Phosphorus 2.5 Magnesium 1.9 Total Bilirubin 3.0 H D AST 95 H ALT 48 Alkaline Phosphatase 153 H Total Protein 4.9 L Albumin 2.5 L Globulin 2.4 Albumin/Globulin Ratio 1.0 L Triglycerides 144 Cholesterol 103 L LDL Cholesterol, Calc 69 HDL Cholesterol < 5 L Cholesterol/HDL Ratio 20.0 H Procalcitonin 2.33 H ABG Interpretation ABG results: 12/23/24 12/23/24 12/23/24 17:09 20:45 22:04 ABG pH 7.28 L 7.51 H D 7.52 H ABG pCO2 46 32 D 31 L ABG pO2 44 L* 350 H D 231 H D ABG HCO3 21 25 25 ABG O2 Saturation 68 L 101 H 100 H ABG Base Excess -5 L 2 3 12/24/24 05:09 ABG pH 7.44 ABG pCO2 37 ABG pO2 134 H D ABG HCO3 25 ABG O2 Saturation 99 H ABG Base Excess 1 Assessment & Plan Assessment and plan (1) Altered mental status: Status: Acute Assessment and plan: Alcohol withdrawal sz Delirium tremens Do not think that she has clinical or radiological manifestation of Wernicke's at this time MRI brain showing right frontal lobe finding with restricted diffusion and extra axial fluid collection in the right parietal area. Unlikely to be acute infarction, something atypical related to trauma/chronic alcohol use. Not sure. Plan: continue with thiamine and folate Be cautious with aspirin use even though her platelets are fine now. She came in with very low platelets from alcohol Follow up with EEG to evaluate further. (2) Electrolyte abnormality: Status: Acute Assessment and plan: getting corrected and monitored closely (3) Seizure: Status: Acute Assessment and plan: related to alcohol withdrawal. No need for AED as there is no recurrence. (4) Rhabdomyolysis: Status: Resolved Assessment and plan: Treated with fluids
[2024-12-31] VITALS (7 sets, daily range): BP systolic 95–129; BP diastolic 73–87; PULSE 72–85; RESP 17–94; TEMP 36.1–36.9; O2SAT 90–98; BMI 29.3
[2024-12-31] MEDS: LACTULOSE SYRUP 20 GM/30 ML UDC 10 GM PO ×3 (05:07→21:06)
[2024-12-31 06:15] LABS: Basophils # (Auto) 0.1 Thou/mm3 (0.0-0.2); Basophils % (Auto) 1 % (0-2.5); Eosinophils # (Auto) 0.1 Thou/mm3 (0.0-0.5); Eosinophils % (Auto) 0 % (0-10); Hematocrit 27.0 % (36.0-46.0); Hemoglobin 9.2 g/dL (12.0-16.0); Immature Granulocytes Auto 0.50 Thou/mm3 (0.00-0.00); Lymphocytes # (Auto) 1.7 Thou/mm3 (1.0-4.8); Lymphocytes % (Auto) 8 % (10-50); Mean Corpuscular HGB Conc 34.1 g/dl (31.0-37.0); Mean Corpuscular Hemoglobin 35.2 pg (25.0-35.0); Mean Corpuscular Volume 103 fL (80-100); Monocytes # (Auto) 0.9 Thou/mm3 (0.0-0.8); Monocytes % (Auto) 4 % (0-12); Neutrophils # (Auto) 17.5 Thou/mm3 (1.8-7.7); Neutrophils % (Auto) 84 % (37-80); Nucleated Red Blood Cell # 0.00 Thou/mm3 (0.00-0.00); Nucleated Red Blood Cell % 0 /100 WBC (0); Platelet Count 303 Thou/mm3 (140-440); RDW Standard Deviation 69.3 fL (36.4-46.3); Red Blood Count 2.61 Miln/mm3 (4.00-5.20); White Blood Count 20.7 Thou/mm3 (3.6-11.0)
[2024-12-31 06:45] LABS: Alanine Aminotransferase 43 U/L (10-49); Albumin, Serum 2.6 gm/dL (3.4-4.8); Albumin/Globulin Ratio 1.0 (1.2-2.2); Alkaline Phosphatase 145 U/L (46-116); Anion Gap 9 (7-16); Aspartate Amino Transferase 85 U/L (0-34); BUN/Creatinine Ratio 16 Ratio (12-20); Bilirubin,Total 3.1 mg/dL (0.3-1.2); Blood Urea Nitrogen 8 mg/dL (9-23); Calcium 8.3 mg/dL (8.3-10.6); Calcium (Corrected) 9.4 mg/dL (8.5-10.1); Carbon Dioxide 25.8 mMol/L (20.0-31.0); Chloride 103 mMol/L (98-107); Creatinine (Component) 0.5 mg/dL (0.6-1.3); Estimated Creatinine Clearance 117.7 mL/min (>60); Globulin 2.6 gm/dL (2.3-3.5); Glucose 93 mg/dL (74-106); Magnesium 1.7 mg/dL (1.6-2.6); Osmolality,Calculated 273 (275-295); Phosphorous 2.9 mg/dL (2.4-5.1); Potassium 4.2 mMol/L (3.4-5.1); Sodium 138 mMol/L (136-145); Total Protein 5.2 gm/dL (5.7-8.2); eGFR > 60 See Note
[2024-12-31] MEDS: ASPIRIN EC 81 MG TABEC PO (08:44)
[2024-12-31] MEDS: MULTIVITAMINS TABLET 1 TAB PO (08:44)
[2024-12-31] MEDS: THIAMINE INJ 100 MG/ML VIAL 2 ML 250 MG IVP (08:44)
[2024-12-31] MEDS: FOLIC ACID 1 MG TABLET PO (08:44)
--- NOTE | 2024-12-31 08:50 | XR_ITS ---
Exam: Chest AP single view Technique: AP sitting portable chest single view Larry and time: 12/31/2024 0900 hrs Indications: elevated wbcs today Findings: Mild enlargement left ventricle. Pneumonia left base. Right lung clear No pulm nary edema Impression: Significant pneumonia left base
--- NOTE | 2024-12-31 09:30 | ESPR_ITS ---
<Statement entered by Jarad Magana MD - 12/31/24 15:33> No acute overnight events. Patient appears more alert, awake and appropriately responding to the questions. Vitals are stable. On examination, noted to have weakness on the left half of the body but could not do complete neurological examination as the patient is not cooperative. Labs done this morning showed elevated WBC count to 20.7 but patient does not have any febrile episodes and is saturating well on room air and the urine appears to be clear. Repeat urine analysis, chest x-ray was ordered. Neurologist, Dr Gagnon is following the patient, will appreciate her recommendations. Physical therapy is consulted and requested to reevaluate the patient today. I have personally seen and examined the patient, agree with residents assessment and plan Patient plan of care was discussed with the attending physician, Dr. Jazmyn Magana, PGY2 Documentation for date of: 12/31/24 Subjective Subjective Interval history: Overnight events: No acute events overnight. Patient was seen and examined at bedside. AM vitals and labs reviewed. Patient is more interactive today. Is able to open eyes fully. Patient has difficulty with moving eyes to left. Left upper extremity and left lower extremity minimal movement compared to the right. Patient is aware that she is in the hospital and is aware of the reason why. Patient is able to state her full name and knows today's date. WBC 20.7, AST and ALT continue to downtrend. Neurology does note that patient does not likely have acute infarct, suspect atypical cause related to trauma/chronic alcohol use. Repeat UA ordered. Chest x-ray ordered, pending read. Pending recommendations from neurology concerning left sided weakness. Neurology plans for EEG, pending. Review of systems otherwise negative except for what is mentioned above. Exam Vital Signs Temp Pulse Resp BP Pulse Ox O2 Del Method O2 Flow Rate 96.9 F 83 19 95/73 98 Room Air 2 12/31/24 04:00 12/31/24 04:00 12/31/24 04:00 12/31/24 04:00 12/31/24 04:00 12/31/24 04:00 12/25/24 04:00 FiO2 28 12/24/24 10:44 Narrative Exam Physical Exam: General: Alert, no acute distress. Skin: Warm, dry, intact. Head: Normocephalic, atraumatic. Eye: Normal conjunctiva, PERRL. Unable to move eyes to left bilaterally. Throat: Oral mucosa moist. No obvious lesions in oropharynx. Cardiovascular: Regular rate and rhythm, no murmur, +S1/S2. Respiratory: Lungs are clear to auscultation, respirations unlabored, no crackles, no wheezing. Gastrointestinal: Soft, nontender, non-distended. No guarding or rebound tenderness. Extremities: No edema, no cyanosis, no clubbing. 2+ radial pulse bilaterally, 2+ pedal pulse bilaterally. Neuro: RUE strength 3/5, LUE strength 1/5, RLE 3/5, LLE 0/5. Psychiatric: Cooperative, flat affect. Objective Labs 01/01/25 04:33 01/01/25 04:33 Labs: Laboratory Results - last 24 hr 12/31/24 05:19 WBC 20.7 H RBC 2.61 L Hgb 9.2 L Hct 27.0 L MCV 103 H MCH 35.2 H MCHC 34.1 RDW Std Deviation 69.3 H Plt Count 303 D Neut % (Auto) 84 H Lymph % (Auto) 8 L [place] % (Auto) 4 Eos % (Auto) 0 Baso % (Auto) 1 Neut # (Auto) 17.5 H Lymph # (Auto) 1.7 [place] # (Auto) 0.9 H Eos # (Auto) 0.1 Baso # (Auto) 0.1 Immature Gran # (Auto) 0.50 H Absolute Nucleated RBC 0.00 Immature Gran % 2 H Nucleated RBC % 0 Sodium 138 Potassium 4.2 Chloride 103 Carbon Dioxide 25.8 Anion Gap 9 BUN 8 L Creatinine 0.5 L Estim Creat Clear Calc 117.7 eGFR > 60 BUN/Creatinine Ratio 16 Glucose 93 Calculated Osmolality 273 L Calcium 8.3 Corrected Calcium 9.4 Phosphorus 2.9 Magnesium 1.7 Total Bilirubin 3.1 H AST 85 H ALT 43 Alkaline Phosphatase 145 H Total Protein 5.2 L Albumin 2.6 L Globulin 2.6 Albumin/Globulin Ratio 1.0 L ABG Interpretation ABG results: 12/23/24 12/23/24 12/23/24 17:09 20:45 22:04 ABG pH 7.28 L 7.51 H D 7.52 H ABG pCO2 46 32 D 31 L ABG pO2 44 L* 350 H D 231 H D ABG HCO3 21 25 25 ABG O2 Saturation 68 L 101 H 100 H ABG Base Excess -5 L 2 3 12/24/24 05:09 ABG pH 7.44 ABG pCO2 37 ABG pO2 134 H D ABG HCO3 25 ABG O2 Saturation 99 H ABG Base Excess 1 Quality Measures Quality Measures VTE prophylaxis Assessment & Plan Assessment Current Active Medications: Generic Name Dose Route Start Last Admin Trade Name Freq PRN Reason Stop Dose Admin Acetaminophen 650 mg 12/25/24 12:16 Acetaminophen Supp 650 Mg Supp NE 01/22/25 18:21 Q4HR PRN Pain 1-3 and/or Fever >100.1 Aspirin 81 mg 12/30/24 09:00 12/31/24 08:44 Aspirin Ec 81 Mg Tabec PO 01/29/25 08:59 81 mg QDAY JASMINA Administration Atorvastatin Calcium 40 mg 12/30/24 21:00 12/30/24 21:20 Atorvastatin Calcium 20 Mg Tablet PO 01/29/25 20:59 40 mg HS JASMINA Administration Folic Acid 1 mg 12/24/24 09:00 12/31/24 08:44 Folic Acid 1 Mg Tablet PO 01/23/25 08:59 1 mg QDAY JASMINA Administration Labetalol HCl 10 mg 12/23/24 14:13 Labetalol Inj 5 Mg/Ml Vial 20 Ml IVP Q15M PRN SBP >180, DBP >105 Lactulose 10 gm 12/29/24 14:00 12/31/24 05:07 Lactulose Syrup 20 Gm/30 Ml Udc PO 01/28/25 13:59 10 gm TID JASMINA Administration Protocol Multivitamins 1 tab 12/24/24 09:00 12/31/24 08:44 Multivitamins Tablet PO 01/23/25 08:59 1 tab QDAY JASMINA Administration Ondansetron HCl 4 mg 12/23/24 14:13 Ondansetron Inj 2 Mg/Ml Inj 2 Ml IVP 01/22/25 14:12 Q4HR PRN NAUSEA OR VOMITING Thiamine HCl 250 mg 12/30/24 09:00 12/31/24 08:44 Thiamine Inj 100 Mg/Ml Vial 2 Ml IVP 01/29/25 08:59 250 mg QDAY JASMINA Administration Plan Mrs. Brady is a 64 year old female with a history of alcohol use disorder, alcohol withdrawal seizures, pancreatitis, and depression who was brought to [facility] ED on 12/23 for altered mental status. Patient was admitted to ICU for alcohol withdrawal seizures, and then downgraded to medical floors on 12/25. #CVA, right frontal lobe Patient is noted to have difficulty with left sided gaze and left upper extremity and lower extremity are noticeably weaker compared to the right. Likely CVA given MRI head 12/29 which showed foci of restricted diffusion in right frontal lobe consistent with acute infarction, and small extra axial fluid accumulation peripheral to posterior right parietal lobe. Patient does have left sided weakness and is unable to move eyes to the left. Neurology does note that it may be related to trauma/chronic alcohol use. - Neurology consulted, appreciate recommendations - Aspirin 81 mg daily - Atorvastatin 40 mg nightly #Encephalopathy, unspecified, likely multifactorial #Alcohol withdrawal seizures #Delirium tremens #Alcohol use disorder Patient has a long history of alcohol use disorder, which leads to seizures when she withdraws. The patient has been consuming alcohol since she was 15 years old and has been noted to drink about a fifth of vodka daily per the patient's daughters. In the ED, patient's blood alcohol levels were noted to be <3.0, but previous admissions have noted significantly elevated blood alcohol levels. Patient most likely quit abruptly and had an alcohol withdrawal seizure(s) starting at home, resulting in stroke-like symptoms and febrile tachycardia, with an additional seizure in the ED. Patient was admitted to ICU, where bilateral tremulous activity that improved with midazolam was noted. Patient continues to be more lethargic than expected since discontinuing sedating medications. 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 coli 2/2 #Urinary tract infection and #Aspiration pneumonia, MRSA, Klebsiella, Pseudomonas #MRSA nares positive Patient noted to have a fever of 105.9, HR of 130, and respiratory rate of 39 while in the ED. WBC initially in the ED was 8.4, however it did increase to 13.1 while in the ICU on 12/24. The likely source is urinary tract infection given that the patient's urinalysis showed urine WBC of 406, with 4+ bacteria, however this may be due to contamination. No signs of pneumonia on chest x-ray were identified, however the patient was laying down unconscious in her urine and feces, which brings up concern for possible aspiration pneumonia. Procalcitonin obtained 12/30 resulted as 2.33, which is decreased compared to >50 on 12/23. SIRS score 3 - Blood cultures collected 12/23, shows E. coli from both bottles - Urine culture collected 12/23, negative for specific organism - Sputum culture collected 12/23, gram stain showed MRSA, pseudomonas, klebsiella - MRSA nares swabbed 12/23, positive - Zosyn 4.5 gm every 8 hours (12/23-12/28), changed to levofloxacin 750 mg daily (12/28-12/30) #Alcohol-related fatty liver disease #Hyperbilirubinemia #Elevated LFTs #Thrombocytopenia, resolving Patient has a long history of alcohol consumption. CT abdomen pelvis showed hepatomegaly with severe diffuse fatty infiltration throughout the liver, likely secondary to her extensive alcohol consumption. The patient's bilirubin in the ED was noted to be 4.6 and the patient's LFTs are elevated in a 2:1 ratio of AST to ALT, further suggesting alcoholism to be the cause. The patient's platelets have been noted to be significantly decreased, reaching 39 in the ED and 26 in the ICU. The thrombocytopenia is an additional sign of alcohol-related fatty liver disease. - Continue to monitor bilirubin, LFTs, and thrombocytopenia - Transfuse platelets if less than 20 per protocol #Rhabdomyolysis, resolved #MONIKA, likely prerenal, resolved Patient noted to have creatine kinase of 8185 in the ED, likely secondary to muscle damage from alcohol withdrawal seizures. Cr was noted to be 1.3 in ED, which is increased from her baseline of 0.7, likely as a result of her rhabdomyolysis. - Will continue to monitor - Avoid nephrotoxic medications - Ren[place] dose medications #Lactic acidosis, resolved #High anion gap metabolic acidosis, resolved Patient noted to have lactic acidosis in ED. Lactic acid peaked at 8.8 and has since been downtrending. This is most likely secondary to alcohol withdrawal seizure and episode of cardiac arrest. - Will continue to monitor #Electrolyte abnormalities #Hypernatremia #Hypokalemia, resolved #Hypophosphatemia, resolved Patient noted to have hypokalemia of 2.9 in ED and hypophosphatemia of 1.5 on 12/25. Patient noted to have hypernatremia of 148 on 12/27, likely secondary to poor oral intake and sodium from Zosyn at the time. - Will continue to monitor with daily labs, replenish as necessary - 1L LR at 75 cc/h ordered on 12/28 DVT Prophylaxis: SCDs GI Prophylaxis: N/A Bowel: N/A Diet: Dysphagia 2 mech altered, carbohydrate consistent Serna: N/A Lines: Peripheral IV Antibiotics: Levofloxacin (12/28-12/29) Code Status: FULL Reason for Hospitalization: Alcohol withdrawal induced seizures Other Barriers to Discharge: Altered mental status Patient plan of care was discussed with the attending physician Dr. Eldridge and Dr. Magana (PGY-2) Ranjit Miguel, PGY-1 Attending Provider Attestation/Addendum Face to face evaluation was performed by me. I have personally seen and examined the patient. I discussed the assessment and plan with the entire medicine team. I reviewed available medical records, imaging studies, laboratory results. I agree with the above subjective data, objective findings, assessment and plan except as corrected by me or noted below Postcardiac arrest Seizure disorder Postictal state Left upper extremity weakness - MRI brain-did show some frontal possible infarct?this is probably an acute stroke rather some chronic changes. Follow neurology recommendations, continue to monitor vitals and neurostatus closely monitor for seizures -Continue folic thiamine, acid multivitamin. Daily labs More than > 30 minutes spent on the encounter
--- NOTE | 2024-12-31 09:32 | PC.SS ---
SS sent updated clinicals to [facility] via [facility]. [facility] was also booked via [facility].
--- NOTE | 2024-12-31 10:00 | PRELIM_ITS ---
Radiograph of the chest (single view). December 31, 2024 0854 hours Clinical history: elevated WBC Comparison: November. Findings: The heart, mediastinum and pulmonary jocelyn are unremarkable. There are ill- defined opacities in the left lower lobe new since the prior examination. There is no pleural effusion. The bony thorax is unremarkable. Impression: Ill-defined opacities in the left lower lobe, likely of infectious etiology Recommend clinical correlation and follow-up. Report Electronically Signed By: Christi Guerra 12/31/2024 9:59:46 AM [EST]
--- NOTE | 2024-12-31 16:14 | PC.SS ---
Rounding: WBS elevated, DC plan tomorrow to [facility]
[2024-12-31 19:35] LABS: Collection Type, Urine Clean Catch
[2024-12-31 19:47] LABS: Amorphous Crystals,Urine Present (Absent); Bilirubin,Urine 1+ (Negative); Blood,Urine 1+ (Negative); Budding Yeast,Urine Present; Clarity,Urine Turbid (Clear/Hazy); Color,Urine Drk-Yellow (Lt Yel-Yel); Culture Indicated,Urine Not Indicated; Glucose, Urine Negative (Negative); Ketones,Urine Negative (Negative); Leukocyte Esterase,Urine Negative (Negative); Nitrite,Urine Negative (Negative); PH,Urine 7.5 (5.0-7.0); Protein,Urine Negative (Neg - Trace); RBC,Urine 17 /hpf (0-3); Specific Gravity,Urine 1.014 (1.001-1.035); Squamous Epithelial Cell,Urine < 1 /hpf (0-5); Urobilinogen,Urine Negative mg/dL (0.0-1.0); WBC,Urine 1 /hpf (0-5)
[2024-12-31] MEDS: ATORVASTATIN CALCIUM 20 MG TABLET 40 MG PO (21:06)
--- NOTE | 2024-12-31 23:35 | ESPR_ITS ---
Documentation for date of: 12/31/24 Subjective Subjective Interval history: Patient was seen in telemetry at the bedside. No change/events noted overnight, slowly improving. Exam - Neurology Vital Signs Temp Pulse Resp BP Pulse Ox O2 Del Method O2 Flow Rate 97.6 F 84 22 H 118/75 96 Room Air 2 12/31/24 20:00 12/31/24 22:31 12/31/24 22:31 12/31/24 20:00 12/31/24 20:00 12/31/24 20:00 12/25/24 04:00 FiO2 28 12/24/24 10:44 Narrative Exam GENERAL APPEARANCE: Well hydrated, well-nourished in no acute distress. HEENT: Normocephalic, atraumatic, extraocular movements intact when she cooperates to open her eyes enough to examine. Pupils: Equal reacting to light NECK: Supple, no JVD or bruits. CARDIOVASULAR: Heart: S1, S2 heard, regular without S3-S4 or murmur no rubs or gallops. LUNGS/CHEST: Clear to auscultation bilaterally. No rails, rhonchi, or wheezing. Normal inspection. ABDOMEN: Soft, nontender, with normal bowel sounds. No pulsatile masses. No rebound, rigidity, or guarding. Normal inspection and palpation. EXTREMITIES: Normal inspection and palpation. No edema, clubbing or cyanosis. SKIN: Warm and dry without rashes. Normal inspection. MUSCULOSKELETAL: No cervical, thoracic, lumbar or midline bony tenderness. Normal inspection. NEURO: resting but arousable and answering questions, Cranial nerves: II through XII grossly intact. Speech and language: Normal with no dysarthria or dysphasia. Motor system: Tone and bulk: Normal: Strength: moves all 4 extremities; No pronator drift noted. Deep tendon reflexes: 1+ bilaterally symmetrical. Plantar reflex: Downgoing bilaterally. Sensory system: Intact to pinprick sensation bilaterally. Gait: not tested. No signs of meningeal irritation noted. PSYCHIATRIC: limited. Objective Labs 01/01/25 04:33 01/01/25 04:33 Labs: Laboratory Results - last 24 hr 12/31/24 12/31/24 05:19 19:14 WBC 20.7 H RBC 2.61 L Hgb 9.2 L Hct 27.0 L MCV 103 H MCH 35.2 H MCHC 34.1 RDW Std Deviation 69.3 H Plt Count 303 D Neut % (Auto) 84 H Lymph % (Auto) 8 L [place] % (Auto) 4 Eos % (Auto) 0 Baso % (Auto) 1 Neut # (Auto) 17.5 H Lymph # (Auto) 1.7 [place] # (Auto) 0.9 H Eos # (Auto) 0.1 Baso # (Auto) 0.1 Immature Gran # (Auto) 0.50 H Absolute Nucleated RBC 0.00 Immature Gran % 2 H Nucleated RBC % 0 Sodium 138 Potassium 4.2 Chloride 103 Carbon Dioxide 25.8 Anion Gap 9 BUN 8 L Creatinine 0.5 L Estim Creat Clear Calc 117.7 eGFR > 60 BUN/Creatinine Ratio 16 Glucose 93 Calculated Osmolality 273 L Calcium 8.3 Corrected Calcium 9.4 Phosphorus 2.9 Magnesium 1.7 Total Bilirubin 3.1 H AST 85 H ALT 43 Alkaline Phosphatase 145 H Total Protein 5.2 L Albumin 2.6 L Globulin 2.6 Albumin/Globulin Ratio 1.0 L Ur Collection Type Clean Catch Urine Color Drk-Yellow A Urine Clarity Turbid A Urine pH 7.5 H Ur Specific [place] 1.014 Urine Protein Negative Urine Glucose (UA) Negative Urine Ketones Negative Urine Blood 1+ A Urine Nitrite Negative Urine Bilirubin 1+ A Urine Urobilinogen (Auto) Negative Ur Leukocyte Esterase Negative Urine RBC 17 H Urine WBC 1 Ur Squamous Epith Cells < 1 Amorphous Crystals Present A Urine Bacteria None Urine Yeast (Budding) Present A Ur Culture Indicated? Not Indicated ABG Interpretation ABG results: 12/23/24 12/23/24 12/23/24 17:09 20:45 22:04 ABG pH 7.28 L 7.51 H D 7.52 H ABG pCO2 46 32 D 31 L ABG pO2 44 L* 350 H D 231 H D ABG HCO3 21 25 25 ABG O2 Saturation 68 L 101 H 100 H ABG Base Excess -5 L 2 3 12/24/24 05:09 ABG pH 7.44 ABG pCO2 37 ABG pO2 134 H D ABG HCO3 25 ABG O2 Saturation 99 H ABG Base Excess 1 Assessment & Plan Assessment and plan (1) Altered mental status: Status: Acute Assessment and plan: Alcohol withdrawal sz Delirium tremens Do not think that she has clinical or radiological manifestation of Wernicke's at this time MRI brain showing right frontal lobe finding with restricted diffusion and extra axial fluid collection in the right parietal area. Unlikely to be acute infarction, something atypical related to trauma/chronic alcohol use. Not sure. Plan: continue with thiamine and folate Be cautious with aspirin use even though her platelets are fine now. She came in with very low platelets from alcohol Follow up with EEG to evaluate further. (2) Electrolyte abnormality: Status: Acute Assessment and plan: getting corrected and monitored closely (3) Seizure: Status: Acute Assessment and plan: related to alcohol withdrawal. No need for AED as there is no recurrence. (4) Rhabdomyolysis: Status: Resolved Assessment and plan: Treated with fluids
[2025-01-01] VITALS (10 sets, daily range): BP systolic 109–124; BP diastolic 67–82; PULSE 77–92; RESP 17–97; TEMP 36.1–36.9; O2SAT 92–96; BMI 29.3
[2025-01-01] MEDS: LACTULOSE SYRUP 20 GM/30 ML UDC 10 GM PO ×3 (05:17→21:04)
[2025-01-01 05:33] LABS: Basophils # (Auto) 0.1 Thou/mm3 (0.0-0.2); Basophils % (Auto) 1 % (0-2.5); Eosinophils # (Auto) 0.0 Thou/mm3 (0.0-0.5); Eosinophils % (Auto) 0 % (0-10); Hematocrit 26.1 % (36.0-46.0); Hemoglobin 8.9 g/dL (12.0-16.0); Immature Granulocytes Auto 0.32 Thou/mm3 (0.00-0.00); Lymphocytes # (Auto) 1.4 Thou/mm3 (1.0-4.8); Lymphocytes % (Auto) 7 % (10-50); Mean Corpuscular HGB Conc 34.1 g/dl (31.0-37.0); Mean Corpuscular Hemoglobin 35.5 pg (25.0-35.0); Mean Corpuscular Volume 104 fL (80-100); Monocytes # (Auto) 1.0 Thou/mm3 (0.0-0.8); Monocytes % (Auto) 5 % (0-12); Neutrophils # (Auto) 16.3 Thou/mm3 (1.8-7.7); Neutrophils % (Auto) 85 % (37-80); Nucleated Red Blood Cell # 0.00 Thou/mm3 (0.00-0.00); Nucleated Red Blood Cell % 0 /100 WBC (0); Platelet Count 345 Thou/mm3 (140-440); RDW Standard Deviation 70.4 fL (36.4-46.3); Red Blood Count 2.51 Miln/mm3 (4.00-5.20); White Blood Count 19.2 Thou/mm3 (3.6-11.0)
[2025-01-01 06:15] LABS: Alanine Aminotransferase 36 U/L (10-49); Albumin, Serum 2.5 gm/dL (3.4-4.8); Albumin/Globulin Ratio 1.0 (1.2-2.2); Alkaline Phosphatase 134 U/L (46-116); Anion Gap 9 (7-16); Aspartate Amino Transferase 67 U/L (0-34); BUN/Creatinine Ratio 18 Ratio (12-20); Bilirubin,Total 3.0 mg/dL (0.3-1.2); Blood Urea Nitrogen 9 mg/dL (9-23); Calcium 8.2 mg/dL (8.3-10.6); Calcium (Corrected) 9.4 mg/dL (8.5-10.1); Carbon Dioxide 24.1 mMol/L (20.0-31.0); Chloride 103 mMol/L (98-107); Creatinine (Component) 0.5 mg/dL (0.6-1.3); Estimated Creatinine Clearance 117.7 mL/min (>60); Globulin 2.4 gm/dL (2.3-3.5); Glucose 83 mg/dL (74-106); Magnesium 1.6 mg/dL (1.6-2.6); Osmolality,Calculated 269 (275-295); Phosphorous 3.0 mg/dL (2.4-5.1); Potassium 4.0 mMol/L (3.4-5.1); Sodium 136 mMol/L (136-145); Total Protein 4.9 gm/dL (5.7-8.2); eGFR > 60 See Note
[2025-01-01] MEDS: ASPIRIN EC 81 MG TABEC PO (08:43)
[2025-01-01] MEDS: THIAMINE INJ 100 MG/ML VIAL 2 ML 250 MG IVP (08:43)
[2025-01-01] MEDS: FOLIC ACID 1 MG TABLET PO (08:43)
[2025-01-01] MEDS: MULTIVITAMINS TABLET 1 TAB PO (08:43)
--- NOTE | 2025-01-01 13:55 | PD.RESDS ---
Planned Discharge Date 01/01/25 DS: Providers Provider Date of admission: 12/23/24 18:22 Primary care physician: Justo Orozco MD Admitting Provider: Kenn Calvert MD Attending Provider on Admission: Yusef Eldridge MD Consults: 12/23/24 14:13 Consult to Neurology / Tele-Neurology Routine Comment: Consulting Provider: [facility] 12/23/24 21:41 Referral Infection Control Stat Comment: Reason for Infection Control Referral: Temp>101 X2 Days 12/23/24 23:11 Consult to Neurology / Tele-Neurology Routine Comment: seizures Consulting Provider: Davin Gagnon 12/24/24 14:14 Referral Speech Therapy Routine Comment: s/p extubation 12/24 morning 12/24/24 17:10 Referral Wound Care Routine Comment: 12/25/24 18:34 PT [Referral Physical Therapy] Routine Comment: Eval for SNF vs AOD Physician Instructions: Attending Provider on DC: RESIDENT Nick Discharging Provider: RESIDENT Nick Hospital Course Hospital Course Hospital course: Overnight events: No acute events overnight. Patient was seen and examined at bedside. AM vitals and labs reviewed. Patient is more interactive today. Is able to open eyes fully. Patient has difficulty with moving eyes to left. Left upper extremity and left lower extremity minimal movement compared to the right. Patient is aware that she is in the hospital and is aware of the reason why. Patient is able to state her full name and knows today's date. WBC 20.7, AST and ALT continue to downtrend. Neurology does note that patient does not likely have acute infarct, suspect atypical cause related to trauma/chronic alcohol use. Repeat UA ordered. Chest x-ray ordered, pending read. Pending recommendations from neurology concerning left sided weakness. Neurology plans for EEG, pending. Review of systems otherwise negative except for what is mentioned above. Time Spent with Patient Time attestation: Total time spent providing and/or coordinating discharge services: Exam Vital Signs Temp Pulse Resp BP Pulse Ox O2 Del Method O2 Flow Rate 97.1 F 88 18 118/80 96 Room Air 2 01/01/25 12:00 01/01/25 12:00 01/01/25 12:00 01/01/25 12:00 01/01/25 12:00 01/01/25 12:00 01/01/25 08:00 FiO2 28 12/24/24 10:44 Discharge Plan Plan Patient Disposition: Xfer Skilled Nsg Fac (SNF) Care Plan Goals: Please take ciprofloxacin 500mg tablet twice a day for 3 days for urinary tract infection Please take folic acid and multivitamin daily Stop taking all other home medications Please follow-up with your PCP within 1 week after discharge Avoid alcohol and ask your PCP to refer you to a program If your symptoms worsen or if you develop new chest pain, shortness of breath, dizziness or loss of consciousness - please come back to the immediately. Prescriptions/Referrals Prescriptions/Med Rec: New ciprofloxacin HCl 500 mg tablet 500 mg PO Q12H 3 Days Qty: 6 0RF multivitamin with folic acid [Tab-A-Sang] 400 mcg Tablet 1 tab PO QDAY 30 Days Qty: 30 3RF folic acid 1 mg Tablet 1 mg PO QDAY 30 Days Qty: 30 1RF Discontinued levetiracetam 500 mg tablet 50 mg PO BID Patient Comments: TAKE 1 TABLET BY MOUTH TWICE A DAY lorazepam 0.5 mg tablet 0.5 mg PO BID PRN (Reason: Anxiety) Patient Comments: TAKE 1 TABLET BY MOUTH TWICE A DAY NEEDED gabapentin 300 mg capsule 300 mg PO BID sertraline 50 mg tablet 50 mg PO HS Patient Comments: TAKE 1 TABLET BY MOUTH EVERY DAY AT NIGHT chlordiazepoxide HCl 25 mg capsule 25 mg PO Q12H PRN (Reason: alcohol withdrawal) Qty: 20 0RF Referrals: Justo Orozco MD [Primary Care Provider, Nephrology] Patient/Caregiver Discharge Instructions Education Materials: Substance Abuse and Traumatic ..., ED Alcohol Withdrawal Seizure Print Language: Persian Stand Alone Forms: Katherine Award Info., Patient Portal Info Letter MD Attestestation Attestation Face to face evaluation was performed by me. I have personally seen and examined the patient. I discussed the assessment and plan with the entire medicine team. I reviewed available medical records, imaging studies, laboratory results. I agree with the above subjective data, objective findings, assessment and plan except as corrected by me or noted below Postcardiac arrest Seizure disorder Postictal state Left upper extremity weakness - MRI brain-did show some frontal possible infarct?this is probably an acute stroke rather some chronic changes. Follow neurology recommendations also does not think MRI findings are acute infarct?likely trauma chronic changes. - I would obtain and recommend MRI C-spine to further evaluate her left extremity weakness. Continue with physical therapy/Occupational Therapy - Continue folate, thiamine, multivitamin. Daily labs More than > 30 minutes spent on the encounter
--- NOTE | 2025-01-01 14:37 | ESPR_ITS ---
<Statement entered by Jarad Magana MD - 01/02/25 17:30> Patient is seen and examined at bedside no acute overnight events. Patient appears more awake and alert today. On examination, noted to have decreased movements on the left side and noted to have left hemiparesis. Neurologist, Dr. Gagnon is following the patient and recommended to proceed with lumbar puncture for CSF analysis. MRI cervical spine was done which did not show any significant abnormality. I have personally seen and examined the patient, agree with residents assessment and plan Patient plan of care was discussed with the attending physician, Dr. Jazmyn Magana, PGY2 Documentation for date of: 01/01/25 Subjective Subjective Interval history: Overnight events: No acute events overnight. Patient was seen and examined at bedside. AM vitals and labs reviewed. Patient appears more awake and alert today. Patient is able to follow commands again today. Patient is able to look towards the left more compared to yesterday. Patient is able to move left side of body slightly more compared to yesterday. WBC 19.2, AST/ALT downtrending. Urinalysis negative. Chest x-ray shows left lower lung pneumonia. Discussed case with neurology, who wants to pursue lumbar puncture for CSF analysis. Review of systems otherwise negative except for what is mentioned above. Exam Vital Signs Temp Pulse Resp BP Pulse Ox O2 Del Method O2 Flow Rate 97.1 F 88 18 118/80 96 Room Air 2 01/01/25 12:00 01/01/25 12:00 01/01/25 12:00 01/01/25 12:00 01/01/25 12:00 01/01/25 12:00 01/01/25 08:00 FiO2 28 12/24/24 10:44 Narrative Exam Physical Exam: General: Alert, no acute distress. Skin: Warm, dry, intact. Head: Normocephalic, atraumatic. Eye: Normal conjunctiva, PERRL. Minimal movement of eyes to left bilaterally. Throat: Oral mucosa moist. No obvious lesions in oropharynx. Cardiovascular: Regular rate and rhythm, no murmur, +S1/S2. Respiratory: Lungs are clear to auscultation, respirations unlabored, no crackles, no wheezing. Gastrointestinal: Soft, nontender, non-distended. No guarding or rebound tenderness. Extremities: No edema, no cyanosis, no clubbing. 2+ radial pulse bilaterally, 2+ pedal pulse bilaterally. Neuro: RUE strength 3/5, LUE strength 1+/5, RLE 3/5, LLE 1+/5. Objective Labs 01/03/25 09:53 01/02/25 13:57 Labs: Laboratory Results - last 24 hr 12/31/24 01/01/25 19:14 04:33 WBC 19.2 H RBC 2.51 L Hgb 8.9 L Hct 26.1 L MCV 104 H MCH 35.5 H MCHC 34.1 RDW Std Deviation 70.4 H Plt Count 345 D Neut % (Auto) 85 H Lymph % (Auto) 7 L [place] % (Auto) 5 Eos % (Auto) 0 Baso % (Auto) 1 Neut # (Auto) 16.3 H Lymph # (Auto) 1.4 [place] # (Auto) 1.0 H Eos # (Auto) 0.0 Baso # (Auto) 0.1 Immature Gran # (Auto) 0.32 H Absolute Nucleated RBC 0.00 Immature Gran % 2 H Nucleated RBC % 0 Sodium 136 Potassium 4.0 Chloride 103 Carbon Dioxide 24.1 Anion Gap 9 BUN 9 Creatinine 0.5 L Estim Creat Clear Calc 117.7 eGFR > 60 BUN/Creatinine Ratio 18 Glucose 83 Calculated Osmolality 269 L Calcium 8.2 L Corrected Calcium 9.4 Phosphorus 3.0 Magnesium 1.6 Total Bilirubin 3.0 H AST 67 H ALT 36 Alkaline Phosphatase 134 H Total Protein 4.9 L Albumin 2.5 L Globulin 2.4 Albumin/Globulin Ratio 1.0 L Ur Collection Type Clean Catch Urine Color Drk-Yellow A Urine Clarity Turbid A Urine pH 7.5 H Ur Specific [place] 1.014 Urine Protein Negative Urine Glucose (UA) Negative Urine Ketones Negative Urine Blood 1+ A Urine Nitrite Negative Urine Bilirubin 1+ A Urine Urobilinogen (Auto) Negative Ur Leukocyte Esterase Negative Urine RBC 17 H Urine WBC 1 Ur Squamous Epith Cells < 1 Amorphous Crystals Present A Urine Bacteria None Urine Yeast (Budding) Present A Ur Culture Indicated? Not Indicated ABG Interpretation ABG results: 12/23/24 12/23/24 12/23/24 17:09 20:45 22:04 ABG pH 7.28 L 7.51 H D 7.52 H ABG pCO2 46 32 D 31 L ABG pO2 44 L* 350 H D 231 H D ABG HCO3 21 25 25 ABG O2 Saturation 68 L 101 H 100 H ABG Base Excess -5 L 2 3 12/24/24 05:09 ABG pH 7.44 ABG pCO2 37 ABG pO2 134 H D ABG HCO3 25 ABG O2 Saturation 99 H ABG Base Excess 1 Quality Measures Quality Measures VTE prophylaxis Assessment & Plan Assessment Current Active Medications: Generic Name Dose Route Start Last Admin Trade Name Emeterio PRN Reason Stop Dose Admin Acetaminophen 650 mg 12/25/24 12:16 Acetaminophen Supp 650 Mg Supp MT 01/22/25 18:21 Q4HR PRN Pain 1-3 and/or Fever >100.1 Aspirin 81 mg 12/30/24 09:00 01/01/25 08:43 Aspirin Ec 81 Mg Tabec PO 01/29/25 08:59 81 mg QDAY JASMINA Administration Atorvastatin Calcium 40 mg 12/30/24 21:00 12/31/24 21:06 Atorvastatin Calcium 20 Mg Tablet PO 01/29/25 20:59 40 mg HS JASMINA Administration Folic Acid 1 mg 12/24/24 09:00 01/01/25 08:43 Folic Acid 1 Mg Tablet PO 01/23/25 08:59 1 mg QDAY JASMINA Administration Labetalol HCl 10 mg 12/23/24 14:13 Labetalol Inj 5 Mg/Ml Vial 20 Ml IVP Q15M PRN SBP >180, DBP >105 Lactulose 10 gm 12/29/24 14:00 01/01/25 13:51 Lactulose Syrup 20 Gm/30 Ml Udc PO 01/28/25 13:59 10 gm TID JASMINA Administration Protocol Multivitamins 1 tab 12/24/24 09:00 01/01/25 08:43 Multivitamins Tablet PO 01/23/25 08:59 1 tab QDAY JASMINA Administration Ondansetron HCl 4 mg 12/23/24 14:13 Ondansetron Inj 2 Mg/Ml Inj 2 Ml IVP 01/22/25 14:12 Q4HR PRN NAUSEA OR VOMITING Thiamine HCl 250 mg 12/30/24 09:00 01/01/25 08:43 Thiamine Inj 100 Mg/Ml Vial 2 Ml IVP 01/29/25 08:59 250 mg QDAY JASMINA Administration Plan Mrs. Brady is a 64 year old female with a history of alcohol use disorder, alcohol withdrawal seizures, pancreatitis, and depression who was brought to [facility] ED on 12/23 for altered mental status. Patient was admitted to ICU for alcohol withdrawal seizures, and then downgraded to medical floors on 12/25. #Encephalopathy, unspecified, likely multifactorial #Alcohol withdrawal seizures #Delirium tremens #Alcohol use disorder Patient has a long history of alcohol use disorder, which leads to seizures when she withdraws. The patient has been consuming alcohol since she was 15 years old and has been noted to drink about a fifth of vodka daily per the patient's daughters. In the ED, patient's blood alcohol levels were noted to be <3.0, but previous admissions have noted significantly elevated blood alcohol levels. Patient most likely quit abruptly and had an alcohol withdrawal seizure(s) starting at home, resulting in stroke-like symptoms and febrile tachycardia, with an additional seizure in the ED. Patient was admitted to ICU, where bilateral tremulous activity that improved with midazolam was noted. Patient continues to be more lethargic than expected since discontinuing sedating medications. - Thiamine 250 mg once daily, folic acid 1 mg daily, and multivitamins 1 tab daily - [employer] patient on SAFE alcohol cessation - Neurology consulted, appreciate recommendations - Lactulose 10 gm three times daily - LP planned for 01/02, pending #?CVA, right frontal lobe Patient is noted to have difficulty with left sided gaze and left upper extremity and lower extremity are noticeably weaker compared to the right. Likely CVA given MRI head 12/29 which showed foci of restricted diffusion in right frontal lobe consistent with acute infarction, and small extra axial fluid accumulation peripheral to posterior right parietal lobe. Patient does have left sided weakness and is unable to move eyes to the left. Neurology does note that it may be related to trauma/chronic alcohol use. - Neurology consulted, appreciate recommendations - Aspirin 81 mg daily - Atorvastatin 40 mg nightly #GNR bacteremia, E. coli 2/2 #Urinary tract infection and #Aspiration pneumonia, MRSA, Klebsiella, Pseudomonas #MRSA nares positive Patient noted to have a fever of 105.9, HR of 130, and respiratory rate of 39 while in the ED. WBC initially in the ED was 8.4, however it did increase to 13.1 while in the ICU on 12/24. The likely source is urinary tract infection given that the patient's urinalysis showed urine WBC of 406, with 4+ bacteria, however this may be due to contamination. No signs of pneumonia on chest x-ray were identified, however the patient was laying down unconscious in her urine and feces, which brings up concern for possible aspiration pneumonia. Procalcitonin obtained 12/30 resulted as 2.33, which is decreased compared to >50 on 12/23. SIRS score 3 - Blood cultures collected 12/23, shows E. coli from both bottles - Urine culture collected 12/23, negative for specific organism - Sputum culture collected 12/23, gram stain showed MRSA, pseudomonas, klebsiella - MRSA nares swabbed 12/23, positive - Zosyn 4.5 gm every 8 hours (12/23-12/28), changed to levofloxacin 750 mg daily (12/28-12/30) #Alcohol-related fatty liver disease #Hyperbilirubinemia, resolving #Elevated LFTs, resolving #Thrombocytopenia, resolved Patient has a long history of alcohol consumption. CT abdomen pelvis showed hepatomegaly with severe diffuse fatty infiltration throughout the liver, likely secondary to her extensive alcohol consumption. The patient's bilirubin in the ED was noted to be 4.6 and the patient's LFTs are elevated in a 2:1 ratio of AST to ALT, further suggesting alcoholism to be the cause. The patient's platelets have been noted to be significantly decreased, reaching 39 in the ED and 26 in the ICU. The thrombocytopenia is an additional sign of alcohol-related fatty liver disease. - Continue to monitor bilirubin, LFTs, and thrombocytopenia - Transfuse platelets if less than 20 per protocol #Rhabdomyolysis, resolved #MONIKA, likely prerenal, resolved Patient noted to have creatine kinase of 8185 in the ED, likely secondary to muscle damage from alcohol withdrawal seizures. Cr was noted to be 1.3 in ED, which is increased from her baseline of 0.7, likely as a result of her rhabdomyolysis. - Will continue to monitor - Avoid nephrotoxic medications - Renally dose medications #Lactic acidosis, resolved #High anion gap metabolic acidosis, resolved Patient noted to have lactic acidosis in ED. Lactic acid peaked at 8.8 and has since been downtrending. This is most likely secondary to alcohol withdrawal seizure and episode of cardiac arrest. - Will continue to monitor #Electrolyte abnormalities #Hypernatremia #Hypokalemia, resolved #Hypophosphatemia, resolved Patient noted to have hypokalemia of 2.9 in ED and hypophosphatemia of 1.5 on 12/25. Patient noted to have hypernatremia of 148 on 12/27, likely secondary to poor oral intake and sodium from Zosyn at the time. - Will continue to monitor with daily labs, replenish as necessary - 1L LR at 75 cc/h ordered on 12/28 DVT Prophylaxis: SCDs GI Prophylaxis: N/A Bowel: N/A Diet: Dysphagia 2 mech altered, carbohydrate consistent Serna: N/A Lines: Peripheral IV Antibiotics: N/A Code Status: FULL Reason for Hospitalization: Alcohol withdrawal induced seizures Other Barriers to Discharge: LP Patient plan of care was discussed with the attending physician Dr. Eldridge and Dr. Magana (PGY-2) Ranjit Miguel, PGY-1 Attending Provider Attestation/Addendum Face to face evaluation was performed by me. I have personally seen and examined the patient. I discussed the assessment and plan with the entire medicine team. I reviewed available medical records, imaging studies, laboratory results. I agree with the above subjective data, objective findings, assessment and plan except as corrected by me or noted below #Encephalopathy, unspecified, likely multifactorial #Alcohol withdrawal seizures #Delirium tremens #Alcohol use disorder nEURO COSNUTLTED OBTAIN MRI C SPINE lp LIKELY IS THE PLAN More than > 30 minutes spent on the encounter
--- NOTE | 2025-01-01 15:07 | XR_ITS ---
Examination: MRI cervical spine without intravenous contrast Date and time of exam: January 01, 2025 1536 hours INDICATIONS: Neck pain with left-sided body weakness Technique: Multiple axial and sagittal sections of the cervical spine to been obtained. T2 weighted sagittal sections, TR 3, 270, TE 117 T1-weighted sagittal sections, TR 500, TE 11 T1-weighted axial sections, TR 607, TE 12, axial sections TR 18, TE 27 and T2 weighted transverse sections, TR 3920, TE 122. Findings: The images are degraded by continual patient motion. No cervical fracture. Intact odontoid. Mild disc narrowing C5-C6. No focal disc protrusion impinging upon the cervical cord. No localized enlargement cervical cord IMPRESSION: Limited study, continual patient motion No focal disc protrusion impinging upon the cervical cord
--- NOTE | 2025-01-01 15:09 | PC.SS ---
MRI pending. Pt dc tomorrow.
--- NOTE | 2025-01-01 16:02 | PC.NURSE ---
PATIENT BACK FROM MRI ALERT TO SELF AND PLACE.
--- NOTE | 2025-01-01 17:12 | ESPR_ITS ---
Documentation for date of: 01/01/25 Subjective Subjective Interval history: Patient was seen and examined at the bedside. No acute overnight events reported. Patient reported that she had a big lunch and feels full. She was mostly having stared gaze with limited conversation. Per primary care team, patient was more alert than before with spontaneous eye opening. MRI cervical spine showed no impingement except mild disc narrowing C5-C6. She continues to have persistent leukocytosis with white count around 19.2. Hemoglobin at 8.9. MCV 104. Considering persistent leukocytosis, will recommend IR guided lumbar puncture with CSF analysis to evaluate other neurological causes. Recommend to continue thiamine and folic acid. Follow-up with CSF analysis. Exam Vital Signs Temp Pulse Resp BP Pulse Ox O2 Del Method O2 Flow Rate 97.1 F 88 18 118/80 96 Room Air 2 01/01/25 12:00 01/01/25 12:00 01/01/25 12:00 01/01/25 12:00 01/01/25 12:00 01/01/25 12:00 01/01/25 08:00 FiO2 28 12/24/24 10:44 Narrative Exam GENERAL APPEARANCE: Patient had a stared gaze, alert and conversational. In no acute distress. HEENT: NC, AT. MMM. EOMI, clear conjunctiva, oropharynx clear. NECK: Supple without lymphadenopathy. No stiffness or restricted ROM. HEART: Normal rate and regular rhythm, normal S1/S2, no m/r/g LUNGS: CTAB, moving air well. No crackles or wheezes are heard. ABDOMEN: Soft, nontender, nondistended with good bowel sounds heard. BACK: No CVAT, no obvious deformity. EXTREMITIES: Without cyanosis, clubbing or edema. NEURO: Alert, awake and oriented x3. Cranial nerves: II through XII grossly intact. No nystagmus noted. Speech and language: Normal with no dysarthria or dysphasia. Motor system: Tone and bulk: Normal: Strength: 5 out of 5 in all 4 extremities; No pronator drift noted. Deep tendon reflexes: 2+ bilaterally symmetrical. Plantar reflex: Downgoing bilaterally. Sensory system: Intact to all modalities of sensation bilaterally. Coordination: Intact to [id number] and [id number] test bilaterally. No ataxia, no dysmetria, or dysdiadochokinesia noted. No intention tremors noted. Gait: Normal. Toe, heel, tandem walk all are normal. Romberg: Negative. No signs of meningeal irritation noted. Skin: Warm and dry without any rash. Objective Labs 01/02/25 05:26 01/02/25 05:26 Labs: Laboratory Results - last 24 hr 12/31/24 01/01/25 19:14 04:33 WBC 19.2 H RBC 2.51 L Hgb 8.9 L Hct 26.1 L MCV 104 H MCH 35.5 H MCHC 34.1 RDW Std Deviation 70.4 H Plt Count 345 D Neut % (Auto) 85 H Lymph % (Auto) 7 L [place] % (Auto) 5 Eos % (Auto) 0 Baso % (Auto) 1 Neut # (Auto) 16.3 H Lymph # (Auto) 1.4 [place] # (Auto) 1.0 H Eos # (Auto) 0.0 Baso # (Auto) 0.1 Immature Gran # (Auto) 0.32 H Absolute Nucleated RBC 0.00 Immature Gran % 2 H Nucleated RBC % 0 Sodium 136 Potassium 4.0 Chloride 103 Carbon Dioxide 24.1 Anion Gap 9 BUN 9 Creatinine 0.5 L Estim Creat Clear Calc 117.7 eGFR > 60 BUN/Creatinine Ratio 18 Glucose 83 Calculated Osmolality 269 L Calcium 8.2 L Corrected Calcium 9.4 Phosphorus 3.0 Magnesium 1.6 Total Bilirubin 3.0 H AST 67 H ALT 36 Alkaline Phosphatase 134 H Total Protein 4.9 L Albumin 2.5 L Globulin 2.4 Albumin/Globulin Ratio 1.0 L Ur Collection Type Clean Catch Urine Color Drk-Yellow A Urine Clarity Turbid A Urine pH 7.5 H Ur Specific [place] 1.014 Urine Protein Negative Urine Glucose (UA) Negative Urine Ketones Negative Urine Blood 1+ A Urine Nitrite Negative Urine Bilirubin 1+ A Urine Urobilinogen (Auto) Negative Ur Leukocyte Esterase Negative Urine RBC 17 H Urine WBC 1 Ur Squamous Epith Cells < 1 Amorphous Crystals Present A Urine Bacteria None Urine Yeast (Budding) Present A Ur Culture Indicated? Not Indicated ABG Interpretation ABG results: 12/23/24 12/23/24 12/23/24 17:09 20:45 22:04 ABG pH 7.28 L 7.51 H D 7.52 H ABG pCO2 46 32 D 31 L ABG pO2 44 L* 350 H D 231 H D ABG HCO3 21 25 25 ABG O2 Saturation 68 L 101 H 100 H ABG Base Excess -5 L 2 3 12/24/24 05:09 ABG pH 7.44 ABG pCO2 37 ABG pO2 134 H D ABG HCO3 25 ABG O2 Saturation 99 H ABG Base Excess 1 Quality Measures Quality Measures VTE prophylaxis (scds) Assessment & Plan Assessment Current Active Medications: Generic Name Dose Route Start Last Admin Trade Name Freq PRN Reason Stop Dose Admin Acetaminophen 650 mg 12/25/24 12:16 Acetaminophen Supp 650 Mg Supp ID 01/22/25 18:21 Q4HR PRN Pain 1-3 and/or Fever >100.1 Aspirin 81 mg 12/30/24 09:00 01/01/25 08:43 Aspirin Ec 81 Mg Tabec PO 01/29/25 08:59 81 mg QDAY JASMINA Administration Atorvastatin Calcium 40 mg 12/30/24 21:00 12/31/24 21:06 Atorvastatin Calcium 20 Mg Tablet PO 01/29/25 20:59 40 mg HS JASMINA Administration Folic Acid 1 mg 12/24/24 09:00 01/01/25 08:43 Folic Acid 1 Mg Tablet PO 01/23/25 08:59 1 mg QDAY JASMINA Administration Labetalol HCl 10 mg 12/23/24 14:13 Labetalol Inj 5 Mg/Ml Vial 20 Ml IVP Q15M PRN SBP >180, DBP >105 Lactulose 10 gm 12/29/24 14:00 01/01/25 13:51 Lactulose Syrup 20 Gm/30 Ml Udc PO 01/28/25 13:59 10 gm TID JASMINA Administration Protocol Multivitamins 1 tab 12/24/24 09:00 01/01/25 08:43 Multivitamins Tablet PO 01/23/25 08:59 1 tab QDAY JASMINA Administration Ondansetron HCl 4 mg 12/23/24 14:13 Ondansetron Inj 2 Mg/Ml Inj 2 Ml IVP 01/22/25 14:12 Q4HR PRN NAUSEA OR VOMITING Thiamine HCl 250 mg 12/30/24 09:00 01/01/25 08:43 Thiamine Inj 100 Mg/Ml Vial 2 Ml IVP 01/29/25 08:59 250 mg QDAY JASMINA Administration Plan This patient is a 64-year-old female with past medical history of alcohol use disorder, alcohol withdrawal seizures, pancreatitis and depression was brought to the ED on 12/23/2024 with altered mental status. Patient was admitted to ICU for alcohol withdrawal seizures and then downgraded to floors on 12/25/2024. #CVA, right frontal lobe -Related to possible trauma/chronic alcohol use, unclear Patient was noted to have difficulty with left-sided gaze and left upper extremity and lower extremity noticeably more weaker than the right. MRI brain showed foci of restricted diffusion in the right frontal lobe consistent with acute infarction and small extra axial fluid collection peripheral to posterior right parietal lobe. Patient is unable to move either to the left. Plan: LP with CSF analysis Continue aspirin with caution due to history of severe thrombocytopenia related to alcohol use Continue statin therapy #Acute encephalopathy likely multifactorial Likely related to alcohol withdrawal versus delirium tremens MRI brain showed right frontal lobe finding consistent with restricted diffusion and extra-axial fluid collection in the right parietal area. Unlikely to be acute infarction could be related to chronic alcohol use/trauma MRI cervical spine only showed C5-C6 disc narrowing. No other acute pathology Plan: Will perform IR guided lumbar puncture and will follow-up with CSF analysis to evaluate further Continue thiamine and folic acid Advised on alcohol cessation Lactulose 10 g 3 times daily for constipation #Seizure like related to alcohol withdrawal Patient seizure are most likely attributed to alcohol use. Plan: Antiepileptic not recommended as there is no recurrence Seizure aspiration precaution #Persistent leukocytosis -Related to infection versus reactive? -White count continues to remain elevated Plan: LP with CSF analysis Ordered cocci #Rhabdomyolysis, resolved Treated with IV fluids #GNR bacteremia, E. coli 2/2 #UTI #Aspiration pneumonia, MRSA, Klebsiella and Pseudomonas #MRSA nare positive #Alcohol related fatty liver disease #Hyperbilirubinemia #Thrombocytopenia #Elevated LFTs #MONIKA, likely prerenal, resolved #Lactic acidosis, resolving #High anion gap metabolic acidosis, resolved #Electrolyte abnormalities #Hypokalemia #Hypophosphatemia Rest of the management as per primary care team. Plan of care discussed with neurologist, Dr Chelsi Russell MD, PGY 3 Attending Provider Attestation/Addendum I did the virtual review of the chart and I agreed with resident's findings, assessment and plan of care. Imp: AMS : suspect Wernicke's even though MRI brain is negative Alcohol use disorder Sz sec to alcohol WD plan and recs: With leukocytosis, consider getting LP done by IR tomorrow to evaluate further. Repeat EEG as well.
[2025-01-01] MEDS: ATORVASTATIN CALCIUM 20 MG TABLET 40 MG PO (21:02)
[2025-01-02] VITALS (11 sets, daily range): BP systolic 98–130; BP diastolic 61–75; PULSE 75–96; RESP 16–98; TEMP 36.1–37.2; O2SAT 95–98
[2025-01-02] MEDS: LACTULOSE SYRUP 20 GM/30 ML UDC 10 GM PO ×3 (05:10→21:00)
[2025-01-02 06:13] LABS: Basophils # (Auto) 0.1 Thou/mm3 (0.0-0.2); Basophils % (Auto) 1 % (0-2.5); Eosinophils # (Auto) 0.1 Thou/mm3 (0.0-0.5); Eosinophils % (Auto) 0 % (0-10); Hematocrit 30.5 % (36.0-46.0); Hemoglobin 10.4 g/dL (12.0-16.0); Immature Granulocytes Auto 0.22 Thou/mm3 (0.00-0.00); Lymphocytes # (Auto) 1.9 Thou/mm3 (1.0-4.8); Lymphocytes % (Auto) 12 % (10-50); Mean Corpuscular HGB Conc 34.1 g/dl (31.0-37.0); Mean Corpuscular Hemoglobin 35.9 pg (25.0-35.0); Mean Corpuscular Volume 105 fL (80-100); Monocytes # (Auto) 0.9 Thou/mm3 (0.0-0.8); Monocytes % (Auto) 6 % (0-12); Neutrophils # (Auto) 13.3 Thou/mm3 (1.8-7.7); Neutrophils % (Auto) 80 % (37-80); Nucleated Red Blood Cell # 0.00 Thou/mm3 (0.00-0.00); Nucleated Red Blood Cell % 0 /100 WBC (0); Platelet Count 288 Thou/mm3 (140-440); RDW Standard Deviation 71.3 fL (36.4-46.3); Red Blood Count 2.90 Miln/mm3 (4.00-5.20); White Blood Count 16.6 Thou/mm3 (3.6-11.0)
[2025-01-02 06:29] LABS: INR 1.2 (0.9-1.3); Partial Thromboplastin Time 23.1 Seconds (22.0-36.0); Prothrombin Time 13.0 Seconds (9.0-12.2)
[2025-01-02 06:51] LABS: Alanine Aminotransferase 35 U/L (10-49); Albumin, Serum 2.5 gm/dL (3.4-4.8); Albumin/Globulin Ratio 0.9 (1.2-2.2); Alkaline Phosphatase 136 U/L (46-116); Anion Gap 11 (7-16); Aspartate Amino Transferase 88 U/L (0-34); BUN/Creatinine Ratio 14 Ratio (12-20); Bilirubin,Total 2.8 mg/dL (0.3-1.2); Blood Urea Nitrogen 7 mg/dL (9-23); Calcium 8.2 mg/dL (8.3-10.6); Calcium (Corrected) 9.4 mg/dL (8.5-10.1); Carbon Dioxide 21.8 mMol/L (20.0-31.0); Chloride 102 mMol/L (98-107); Creatinine (Component) 0.5 mg/dL (0.6-1.3); Estimated Creatinine Clearance 117.7 mL/min (>60); Globulin 2.9 gm/dL (2.3-3.5); Glucose 83 mg/dL (74-106); Osmolality,Calculated 267 (275-295); Sodium 135 mMol/L (136-145); Total Protein 5.4 gm/dL (5.7-8.2); eGFR > 60 See Note
[2025-01-02 07:14] LABS: Potassium 5.3 mMol/L (3.4-5.1)
--- NOTE | 2025-01-02 08:08 | PC.SS ---
Late note 01-01-25: SS received call from TOMASA Blanton and informed her pt is possibly d/c to [facility] on Wednesday01-02-25.
[2025-01-02] MEDS: THIAMINE INJ 100 MG/ML VIAL 2 ML 250 MG IVP (08:38)
[2025-01-02] MEDS: MULTIVITAMINS TABLET 1 TAB PO (08:39)
[2025-01-02] MEDS: FOLIC ACID 1 MG TABLET PO (08:40)
[2025-01-02] MEDS: ASPIRIN EC 81 MG TABEC PO (08:40)
--- NOTE | 2025-01-02 09:47 | ESPR_ITS ---
<Statement entered by Buddy Greer MD - 01/02/25 14:20> Patient seen and assessed in hospital bed with markedly improved mental status; however, patient is opening eyes spontaneously and tracking. Patient is also answering questions appropriately and seems more awake. Initially neurology wanted to repeat LP as the patient's WBC count was elevated; however, since the patient's mental status is improving and white blood cell count is downtrending we will discontinue LP. Patient has been accepted to a fdc facility and pending approval from neurology will discharge patient under stable condition to SNF. I have personally seen and examined the patient. I agree with the resident's assessment and plan as documented below. Buddy Greer DO PGY-2 Internal Medicine - GME Documentation for date of: 01/02/25 Subjective Subjective Interval history: Overnight events: No acute events overnight. Patient was seen and examined at bedside. AM vitals and labs reviewed. Patient appears more communicative today and voice is louder. Patient is able to open her eyes much wider today. Continued improvement with left forward gaze. Generalized weakness continues to be present with left side worse than right. Slight improvement with left-sided weakness. Bruise on right arm appears to be encompassing larger area today. Remains nontender. WBC 16.6, sodium 135, potassium 5.3, cocci negative. Discussed with patient about going to rehab facility. Patient is agreeable to 1 week of rehab. Discussed further findings and plans to discharge patient to SNF to patient's daughters. Pending further recommendations from neurology. Ordered incentive spirometry for the patient. Continue aspirin and statin. Review of systems otherwise negative except for what is mentioned above. Exam Vital Signs Temp Pulse Resp BP Pulse Ox O2 Del Method O2 Flow Rate 97.0 F 75 21 H 107/69 98 Room Air 2 01/02/25 07:45 01/02/25 07:45 01/02/25 07:45 01/02/25 07:45 01/02/25 07:45 01/02/25 07:45 01/01/25 08:00 FiO2 28 12/24/24 10:44 Narrative Exam Physical Exam: General: Alert, no acute distress. Skin: Warm, dry, intact. Head: Normocephalic, atraumatic. Eye: Normal conjunctiva, PERRL. Throat: Oral mucosa moist. No obvious lesions in oropharynx. Cardiovascular: Regular rate and rhythm, no murmur, +S1/S2. Respiratory: Lungs are clear to auscultation, respirations unlabored, no crackles, no wheezing. Gastrointestinal: Soft, nontender, non-distended. No guarding or rebound tenderness. Extremities: No edema, no cyanosis, no clubbing. 2+ radial pulse bilaterally, 2+ pedal pulse bilaterally. Bruise on medial right arm. Neuro: RUE strength 2/5, LUE strength 1+/5, RLE 2/5, LLE 1+/5. Objective Labs 01/02/25 05:26 01/02/25 13:57 Labs: Laboratory Results - last 24 hr 01/02/25 05:26 WBC 16.6 H RBC 2.90 L Hgb 10.4 L Hct 30.5 L MCV 105 H MCH 35.9 H MCHC 34.1 RDW Std Deviation 71.3 H Plt Count 288 D Neut % (Auto) 80 Lymph % (Auto) 12 [place] % (Auto) 6 Eos % (Auto) 0 Baso % (Auto) 1 Neut # (Auto) 13.3 H Lymph # (Auto) 1.9 [place] # (Auto) 0.9 H Eos # (Auto) 0.1 Baso # (Auto) 0.1 Immature Gran # (Auto) 0.22 H Absolute Nucleated RBC 0.00 Immature Gran % 1 H Nucleated RBC % 0 PT 13.0 H INR 1.2 APTT 23.1 D Sodium 135 L Potassium 5.3 H D Chloride 102 Carbon Dioxide 21.8 Anion Gap 11 BUN 7 L Creatinine 0.5 L Estim Creat Clear Calc 117.7 eGFR > 60 BUN/Creatinine Ratio 14 Glucose 83 Calculated Osmolality 267 L Calcium 8.2 L Corrected Calcium 9.4 Total Bilirubin 2.8 H AST 88 H ALT 35 Alkaline Phosphatase 136 H Total Protein 5.4 L Albumin 2.5 L Globulin 2.9 Albumin/Globulin Ratio 0.9 L ABG Interpretation ABG results: 12/23/24 12/23/24 12/23/24 17:09 20:45 22:04 ABG pH 7.28 L 7.51 H D 7.52 H ABG pCO2 46 32 D 31 L ABG pO2 44 L* 350 H D 231 H D ABG HCO3 21 25 25 ABG O2 Saturation 68 L 101 H 100 H ABG Base Excess -5 L 2 3 12/24/24 05:09 ABG pH 7.44 ABG pCO2 37 ABG pO2 134 H D ABG HCO3 25 ABG O2 Saturation 99 H ABG Base Excess 1 Quality Measures Quality Measures VTE prophylaxis (scds) Assessment & Plan Assessment Current Active Medications: Generic Name Dose Route Start Last Admin Trade Name Freq PRN Reason Stop Dose Admin Acetaminophen 650 mg 12/25/24 12:16 Acetaminophen Supp 650 Mg Supp RI 01/22/25 18:21 Q4HR PRN Pain 1-3 and/or Fever >100.1 Aspirin 81 mg 12/30/24 09:00 01/02/25 08:40 Aspirin Ec 81 Mg Tabec PO 01/29/25 08:59 81 mg QDAY JASMINA Administration Atorvastatin Calcium 40 mg 12/30/24 21:00 01/01/25 21:02 Atorvastatin Calcium 20 Mg Tablet PO 01/29/25 20:59 40 mg HS JASMINA Administration Folic Acid 1 mg 12/24/24 09:00 01/02/25 08:40 Folic Acid 1 Mg Tablet PO 01/23/25 08:59 1 mg QDAY JASMINA Administration Magnesium Sulfate 4 gm in 50 mls @ 12.5 mls/hr 01/02/25 08:49 Magnesium Sulfate Ivpb IV 01/02/25 12:48 X1 ONE Labetalol HCl 10 mg 12/23/24 14:13 Labetalol Inj 5 Mg/Ml Vial 20 Ml IVP Q15M PRN SBP >180, DBP >105 Lactulose 10 gm 12/29/24 14:00 01/02/25 05:10 Lactulose Syrup 20 Gm/30 Ml Udc PO 01/28/25 13:59 10 gm TID JASMINA Administration Protocol Multivitamins 1 tab 12/24/24 09:00 01/02/25 08:39 Multivitamins Tablet PO 01/23/25 08:59 1 tab QDAY JASMINA Administration Ondansetron HCl 4 mg 12/23/24 14:13 Ondansetron Inj 2 Mg/Ml Inj 2 Ml IVP 01/22/25 14:12 Q4HR PRN NAUSEA OR VOMITING Thiamine HCl 250 mg 12/30/24 09:00 01/02/25 08:38 Thiamine Inj 100 Mg/Ml Vial 2 Ml IVP 01/29/25 08:59 250 mg QDAY JASMINA Administration Plan Mrs. Brady is a 64 year old female with a history of alcohol use disorder, alcohol withdrawal seizures, pancreatitis, and depression who was brought to [facility] ED on 12/23 for altered mental status. Patient was admitted to ICU for alcohol withdrawal seizures, and then downgraded to medical floors on 12/25. #Encephalopathy, unspecified, likely multifactorial #Alcohol withdrawal seizures #Delirium tremens #Alcohol use disorder Patient has a long history of alcohol use disorder, which leads to seizures when she withdraws. The patient has been consuming alcohol since she was 15 years old and has been noted to drink about a fifth of vodka daily per the patient's daughters. In the ED, patient's blood alcohol levels were noted to be <3.0, but previous admissions have noted significantly elevated blood alcohol levels. Patient most likely quit abruptly and had an alcohol withdrawal seizure(s) starting at home, resulting in stroke-like symptoms and febrile tachycardia, with an additional seizure in the ED. Patient was admitted to ICU, where bilateral tremulous activity that improved with midazolam was noted. Patient continues to be more lethargic than expected since discontinuing sedating medications. - Thiamine 250 mg once daily, folic acid 1 mg daily, and multivitamins 1 tab daily - Sample Maker patient on SAFE alcohol cessation - Neurology consulted, appreciate recommendations - Lactulose 10 gm three times daily - LP planned for 01/02, pending #CVA, right frontal lobe #Left sided hemiparesis Patient is noted to have difficulty with left sided gaze and left upper extremity and lower extremity are noticeably weaker compared to the right. Likely CVA given MRI head 12/29 which showed foci of restricted diffusion in right frontal lobe consistent with acute infarction, and small extra axial fluid accumulation peripheral to posterior right parietal lobe. Patient does have left sided weakness and is unable to move eyes to the left. Neurology does note that it may be related to trauma/chronic alcohol use. - Neurology consulted, appreciate recommendations - Aspirin 81 mg daily - Atorvastatin 40 mg nightly #GNR bacteremia, E. coli 2/2 #Urinary tract infection and #Aspiration pneumonia, MRSA, Klebsiella, Pseudomonas #MRSA nares positive Patient noted to have a fever of 105.9, HR of 130, and respiratory rate of 39 while in the ED. WBC initially in the ED was 8.4, however it did increase to 13.1 while in the ICU on 12/24. The likely source is urinary tract infection given that the patient's urinalysis showed urine WBC of 406, with 4+ bacteria, however this may be due to contamination. No signs of pneumonia on chest x-ray were identified, however the patient was laying down unconscious in her urine and feces, which brings up concern for possible aspiration pneumonia. Procalcitonin obtained 12/30 resulted as 2.33, which is decreased compared to >50 on 12/23. SIRS score 3 - Blood cultures collected 12/23, shows E. coli from both bottles - Urine culture collected 12/23, negative for specific organism - Sputum culture collected 12/23, gram stain showed MRSA, pseudomonas, klebsiella - MRSA nares swabbed 12/23, positive - Zosyn 4.5 gm every 8 hours (12/23-12/28), changed to levofloxacin 750 mg daily (12/28-12/30) #Alcohol-related fatty liver disease #Hyperbilirubinemia, resolving #Elevated LFTs, resolving #Thrombocytopenia, resolved Patient has a long history of alcohol consumption. CT abdomen pelvis showed hepatomegaly with severe diffuse fatty infiltration throughout the liver, likely secondary to her extensive alcohol consumption. The patient's bilirubin in the ED was noted to be 4.6 and the patient's LFTs are elevated in a 2:1 ratio of AST to ALT, further suggesting alcoholism to be the cause. The patient's platelets have been noted to be significantly decreased, reaching 39 in the ED and 26 in the ICU. The thrombocytopenia is an additional sign of alcohol-related fatty liver disease. - Continue to monitor bilirubin, LFTs, and thrombocytopenia - Transfuse platelets if less than 20 per protocol #Rhabdomyolysis, resolved #MONIKA, likely prerenal, resolved Patient noted to have creatine kinase of 8185 in the ED, likely secondary to muscle damage from alcohol withdrawal seizures. Cr was noted to be 1.3 in ED, which is increased from her baseline of 0.7, likely as a result of her rhabdomyolysis. - Will continue to monitor - Avoid nephrotoxic medications - Renally dose medications #Lactic acidosis, resolved #High anion gap metabolic acidosis, resolved Patient noted to have lactic acidosis in ED. Lactic acid peaked at 8.8 and has since been downtrending. This is most likely secondary to alcohol withdrawal seizure and episode of cardiac arrest. - Will continue to monitor #Electrolyte abnormalities #Hypernatremia #Hypokalemia, resolved #Hypophosphatemia, resolved Patient noted to have hypokalemia of 2.9 in ED and hypophosphatemia of 1.5 on 12/25. Patient noted to have hypernatremia of 148 on 12/27, likely secondary to poor oral intake and sodium from Zosyn at the time. - Will continue to monitor with daily labs, replenish as necessary - 1L LR at 75 cc/h ordered on 12/28 DVT Prophylaxis: SCDs GI Prophylaxis: N/A Bowel: N/A Diet: Dysphagia 2 mech altered, carbohydrate consistent Serna: N/A Lines: Peripheral IV Antibiotics: N/A Code Status: FULL Reason for Hospitalization: Alcohol withdrawal induced seizures Other Barriers to Discharge: Neurology recs Patient plan of care was discussed with the attending physician Dr. Sanchez and senior resident Dr. Greer (PGY-2) Ranjit Miguel, PGY-1 Attending Provider Attestation/Addendum I attest that I was physically present for the evaluation, physical examination, lab and imaging review of the patient with the residents. I discussed the case with the residents and agree with the findings and plans of care as documented above. At bedside today, patient appears alert and oriented, able to answer questions and follow commands appropriately. Patient was initially planned for lumbar puncture due to persistently elevated WBC count, persistent altered mentation. But since patient's mentation is improving and WBC count is downtrending, we will discontinue lumbar puncture. Patient noted to have potassium of 5.3, we will obtain follow-up potassium level. If lab results are stable and patient continues to be stable, we will plan for discharge in next 24 to 48 hours. Tr Sanchez MD
[2025-01-02] MEDS: DEXTROSE 50%-WATER INJ 50 ML SYRINGE IVP (10:18)
[2025-01-02] MEDS: Magnesium Sulfate 4 GM Ivpb 4 GM/50 ML BAG IV (10:19)
[2025-01-02 12:01] LABS: Cocci Serology, IgM Negative (Negative)
--- NOTE | 2025-01-02 13:48 | PC.SS ---
Addendum entered by Marce Guzman 01/02/25 13:55: SS has received call from Dejon Ji from [facility], patient's health insurance [phone] and had questions about when pt was being d/c. SS explained neurology is recommending a lumbar puncture and [facility] still has the authorization. Original Note: SS was informed by Dionne at [facility] new insurance authorization will be required on 01-10-25.
[2025-01-02 14:24] LABS: Albumin, Serum 2.8 gm/dL (3.4-4.8); Anion Gap 11 (7-16); BUN/Creatinine Ratio 14 Ratio (12-20); Blood Urea Nitrogen 7 mg/dL (9-23); Calcium 8.6 mg/dL (8.3-10.6); Calcium (Corrected) 9.6 mg/dL (8.5-10.1); Carbon Dioxide 22.4 mMol/L (20.0-31.0); Chloride 101 mMol/L (98-107); Creatinine (Component) 0.5 mg/dL (0.6-1.3); Estimated Creatinine Clearance 117.7 mL/min (>60); Glucose 122 mg/dL (74-106); Osmolality,Calculated 267 (275-295); Phosphorous 2.6 mg/dL (2.4-5.1); Potassium 4.2 mMol/L (3.4-5.1); Sodium 134 mMol/L (136-145); eGFR > 60 See Note
--- NOTE | 2025-01-02 15:27 | PC.SS ---
SS met and physician residents, Dr. Greer, Dr. Magana, and Dr. Causey met with pt and pt is agreeable to short term SNF. Pt is aware her health insurance has approved short term SNF rehab and [facility] has insurance authorization. Dtr Moriah is aware. Bedside nurse, Rad is aware. Neuro recommendations are pending for pt to dc.
--- NOTE | 2025-01-02 16:15 | PC.SS ---
SS spoke to Dr. Sanchez neuro recommendations are still pending. Pt will d/c tomorrow. Moriah Theodore is aware. Dionne white [facility] is aware.
--- NOTE | 2025-01-02 16:31 | PD.RESPRO ---
Documentation for date of: 01/02/25 Subjective Subjective Interval history: Patient was seen and examined at the bedside. No acute overnight events reported. Patient seems to be improving since admission and is interactive alert and oriented x 3. She was asking regarding her purse and was concerned about it. Vitals were stable. Labs showed downtrending white count 16.6. Hemoglobin stable at 10.4. Primary team decided to discharge the patient. LP was deferred due to improvement in neurological symptoms. Safe for discharge from neurology standpoint. Exam Vital Signs Temp Pulse Resp BP Pulse Ox O2 Del Method O2 Flow Rate 98.6 F 84 18 109/71 95 Room Air 2 01/02/25 15:25 01/02/25 15:25 01/02/25 15:25 01/02/25 15:25 01/02/25 15:25 01/02/25 15:25 01/01/25 08:00 FiO2 28 12/24/24 10:44 Narrative Exam GENERAL APPEARANCE: Patient had a stared gaze, alert and conversational. In no acute distress. HEENT: NC, AT. MMM. EOMI, clear conjunctiva, oropharynx clear. NECK: Supple without lymphadenopathy. No stiffness or restricted ROM. HEART: Normal rate and regular rhythm, normal S1/S2, no m/r/g LUNGS: CTAB, moving air well. No crackles or wheezes are heard. ABDOMEN: Soft, nontender, nondistended with good bowel sounds heard. BACK: No CVAT, no obvious deformity. EXTREMITIES: Without cyanosis, clubbing or edema. NEURO: Alert, awake and oriented x3. Cranial nerves: II through XII grossly intact. No nystagmus noted. Speech and language: Normal with no dysarthria or dysphasia. Motor system: Tone and bulk: Normal: Strength: 5 out of 5 in all 4 extremities; No pronator drift noted. Deep tendon reflexes: 2+ bilaterally symmetrical. Plantar reflex: Downgoing bilaterally. Sensory system: Intact to all modalities of sensation bilaterally. Coordination: Intact to [id number] and [id number] test bilaterally. No ataxia, no dysmetria, or dysdiadochokinesia noted. No intention tremors noted. Gait: Normal. Toe, heel, tandem walk all are normal. Romberg: Negative. No signs of meningeal irritation noted. Skin: Warm and dry without any rash. Objective Labs 01/02/25 05:26 01/02/25 13:57 Labs: Laboratory Results - last 24 hr 01/02/25 01/02/25 01/02/25 05:26 09:17 13:57 WBC 16.6 H RBC 2.90 L Hgb 10.4 L Hct 30.5 L MCV 105 H MCH 35.9 H MCHC 34.1 RDW Std Deviation 71.3 H Plt Count 288 D Neut % (Auto) 80 Lymph % (Auto) 12 [place] % (Auto) 6 Eos % (Auto) 0 Baso % (Auto) 1 Neut # (Auto) 13.3 H Lymph # (Auto) 1.9 [place] # (Auto) 0.9 H Eos # (Auto) 0.1 Baso # (Auto) 0.1 Immature Gran # (Auto) 0.22 H Absolute Nucleated RBC 0.00 Immature Gran % 1 H Nucleated RBC % 0 PT 13.0 H INR 1.2 APTT 23.1 D Sodium 135 L 134 L Potassium 5.3 H D 4.2 D Chloride 102 101 Carbon Dioxide 21.8 22.4 Anion Gap 11 11 BUN 7 L 7 L Creatinine 0.5 L 0.5 L Estim Creat Clear Calc 117.7 117.7 eGFR > 60 > 60 BUN/Creatinine Ratio 14 14 Glucose 83 122 H Calculated Osmolality 267 L 267 L Calcium 8.2 L 8.6 Corrected Calcium 9.4 9.6 Phosphorus 2.6 Total Bilirubin 2.8 H AST 88 H ALT 35 Alkaline Phosphatase 136 H Total Protein 5.4 L Albumin 2.5 L 2.8 L Globulin 2.9 Albumin/Globulin Ratio 0.9 L Coccidioides IgM Ab Negative ABG Interpretation ABG results: 12/23/24 12/23/24 12/23/24 17:09 20:45 22:04 ABG pH 7.28 L 7.51 H D 7.52 H ABG pCO2 46 32 D 31 L ABG pO2 44 L* 350 H D 231 H D ABG HCO3 21 25 25 ABG O2 Saturation 68 L 101 H 100 H ABG Base Excess -5 L 2 3 12/24/24 05:09 ABG pH 7.44 ABG pCO2 37 ABG pO2 134 H D ABG HCO3 25 ABG O2 Saturation 99 H ABG Base Excess 1 Quality Measures Quality Measures VTE prophylaxis (scds) Assessment & Plan Assessment Current Active Medications: Generic Name Dose Route Start Last Admin Trade Name Freq PRN Reason Stop Dose Admin Acetaminophen 650 mg 12/25/24 12:16 Acetaminophen Supp 650 Mg Supp NV 01/22/25 18:21 Q4HR PRN Pain 1-3 and/or Fever >100.1 Aspirin 81 mg 12/30/24 09:00 01/02/25 08:40 Aspirin Ec 81 Mg Tabec PO 01/29/25 08:59 81 mg QDAY JASMINA Administration Atorvastatin Calcium 40 mg 12/30/24 21:00 01/01/25 21:02 Atorvastatin Calcium 20 Mg Tablet PO 01/29/25 20:59 40 mg HS JASMINA Administration Folic Acid 1 mg 12/24/24 09:00 01/02/25 08:40 Folic Acid 1 Mg Tablet PO 01/23/25 08:59 1 mg QDAY JASMINA Administration Labetalol HCl 10 mg 12/23/24 14:13 Labetalol Inj 5 Mg/Ml Vial 20 Ml IVP Q15M PRN SBP >180, DBP >105 Lactulose 10 gm 12/29/24 14:00 01/02/25 13:58 Lactulose Syrup 20 Gm/30 Ml Udc PO 01/28/25 13:59 10 gm TID JASMINA Administration Protocol Multivitamins 1 tab 12/24/24 09:00 01/02/25 08:39 Multivitamins Tablet PO 01/23/25 08:59 1 tab QDAY JASMINA Administration Ondansetron HCl 4 mg 12/23/24 14:13 Ondansetron Inj 2 Mg/Ml Inj 2 Ml IVP 01/22/25 14:12 Q4HR PRN NAUSEA OR VOMITING Thiamine HCl 250 mg 12/30/24 09:00 01/02/25 08:38 Thiamine Inj 100 Mg/Ml Vial 2 Ml IVP 01/29/25 08:59 250 mg QDAY JASMINA Administration Plan This patient is a 64-year-old female with past medical history of alcohol use disorder, alcohol withdrawal seizures, pancreatitis and depression was brought to the ED on 12/23/2024 with altered mental status. Patient was admitted to ICU for alcohol withdrawal seizures and then downgraded to floors on 12/25/2024. #CVA, right frontal lobe -Related to possible trauma/chronic alcohol use, unclear Patient was noted to have difficulty with left-sided gaze and left upper extremity and lower extremity noticeably more weaker than the right. MRI brain showed foci of restricted diffusion in the right frontal lobe consistent with acute infarction and small extra axial fluid collection peripheral to posterior right parietal lobe. Patient is unable to move either to the left. Plan: LP was deferred due to improvement in neurological symptoms, can be safely discharged from neurology standpoint Continue aspirin with caution due to history of severe thrombocytopenia related to alcohol use Continue statin therapy #Acute encephalopathy likely multifactorial Likely related to alcohol withdrawal versus delirium tremens MRI brain showed right frontal lobe finding consistent with restricted diffusion and extra-axial fluid collection in the right parietal area. Unlikely to be acute infarction could be related to chronic alcohol use/trauma MRI cervical spine only showed C5-C6 disc narrowing. No other acute pathology Plan: Improvement in neurological symptoms and downtrending leukocytosis, improving Continue thiamine and folic acid Advised on alcohol cessation Lactulose 10 g 3 times daily for constipation #Seizure like related to alcohol withdrawal Patient seizure are most likely attributed to alcohol use. Plan: Antiepileptic not recommended as there is no recurrence Seizure aspiration precaution #Persistent leukocytosis, improving -Related to infection versus reactive? -White count continues to remain elevated Plan: cocci negative #Rhabdomyolysis, resolved Treated with IV fluids #GNR bacteremia, E. coli 2/2 #UTI #Aspiration pneumonia, MRSA, Klebsiella and Pseudomonas #MRSA nare positive #Alcohol related fatty liver disease #Hyperbilirubinemia #Thrombocytopenia #Elevated LFTs #MONIKA, likely prerenal, resolved #Lactic acidosis, resolving #High anion gap metabolic acidosis, resolved #Electrolyte abnormalities #Hypokalemia #Hypophosphatemia Rest of the management as per primary care team. Plan of care discussed with neurologist, Dr Chelsi Russell MD, PGY 3
[2025-01-02] MEDS: ATORVASTATIN CALCIUM 20 MG TABLET 40 MG PO (20:51)
[2025-01-03] VITALS (8 sets, daily range): BP systolic 98–118; BP diastolic 64–75; PULSE 84–96; RESP 18–22; TEMP 36–37; O2SAT 93–100; BMI 12.0
[2025-01-03] MEDS: LACTULOSE SYRUP 20 GM/30 ML UDC 10 GM PO ×2 (05:13→13:21)
[2025-01-03] MEDS: ASPIRIN EC 81 MG TABEC PO (09:22)
[2025-01-03] MEDS: MULTIVITAMINS TABLET 1 TAB PO (09:22)
[2025-01-03] MEDS: THIAMINE INJ 100 MG/ML VIAL 2 ML 250 MG IVP (09:22)
[2025-01-03] MEDS: FOLIC ACID 1 MG TABLET PO (09:22)
[2025-01-03 10:14] LABS: Basophils # (Auto) 0.1 Thou/mm3 (0.0-0.2); Basophils % (Auto) 1 % (0-2.5); Eosinophils # (Auto) 0.0 Thou/mm3 (0.0-0.5); Eosinophils % (Auto) 0 % (0-10); Hematocrit 27.7 % (36.0-46.0); Hemoglobin 9.6 g/dL (12.0-16.0); Immature Granulocytes Auto 0.15 Thou/mm3 (0.00-0.00); Lymphocytes # (Auto) 2.2 Thou/mm3 (1.0-4.8); Lymphocytes % (Auto) 12 % (10-50); Mean Corpuscular HGB Conc 34.7 g/dl (31.0-37.0); Mean Corpuscular Hemoglobin 35.8 pg (25.0-35.0); Mean Corpuscular Volume 103 fL (80-100); Monocytes # (Auto) 1.6 Thou/mm3 (0.0-0.8); Monocytes % (Auto) 9 % (0-12); Neutrophils # (Auto) 13.8 Thou/mm3 (1.8-7.7); Neutrophils % (Auto) 77 % (37-80); Nucleated Red Blood Cell # 0.00 Thou/mm3 (0.00-0.00); Nucleated Red Blood Cell % 0 /100 WBC (0); Platelet Count 350 Thou/mm3 (140-440); RDW Standard Deviation 69.0 fL (36.4-46.3); Red Blood Count 2.68 Miln/mm3 (4.00-5.20); White Blood Count 17.9 Thou/mm3 (3.6-11.0)
[2025-01-03 10:52] LABS: Cocci Serology, IgG Negative (Negative)
--- NOTE | 2025-01-03 11:29 | PC.SS ---
Addendum entered by Char Das 01/03/25 15:31: SS follow up note; SS was informed that transportation was cancelled. SS followed up with patient's nurse Ailyn and she informed SS that patient's white blood counts are elevated and patient is pending a Lumbar Puncture. SS contacted Dionne from [facility] update her. Original Note: SS set up transport through [facility] ref #[id number], ETA set with [place] for 1400. Ailyn THOMPSON made aware and Dionne from [facility]
--- NOTE | 2025-01-03 14:10 | PC.NURSE ---
Report given to Lynn at [facility].
--- NOTE | 2025-01-03 14:14 | XR_ITS ---
Examination: AP chest single view Technique one AP portable upright chest single view Date and time: January 03, 2025, 1514 hours INDICATIONS: Inpatient with O2 desaturation hypoxia today. FINDINGS: Significant bibasilar and lingular segment left upper lobe pneumonia No significant cardiac enlargement Thoracic aorta IMPRESSION: Significant bilateral pneumonia
--- NOTE | 2025-01-03 14:20 | ESPR_ITS ---
<Statement entered by Buddy Greer MD - 01/03/25 16:14> Patient seen and assessed in hospital bed with continued improved mental status and ability to sporadically move all 4 extremities. Initially plan was to discharge patient to [facility] for extended physical therapy needs; however, patient's white count continues to be elevated without any fever or concerning symptoms. Neurology would like to proceed with a lumbar puncture to assess for both neurological signs along with elevated WBC. Patient completed antibiotic course for urinary tract infection repeat imaging and urinalysis are largely negative. Will go forward with a lumbar puncture to monitor for any acute changes in mental status. I have personally seen and examined the patient. I agree with the resident's assessment and plan as documented below. Buddy Greer DO PGY-2 Internal Medicine - GME Documentation for date of: 01/03/25 Subjective Subjective Interval history: Overnight events: No acute events overnight. Patient was seen and examined at bedside. AM vitals and labs reviewed. Patient's speech continues to improve today. Patient's left-sided weakness appears to be improving. WBC 17.9 Will defer plans for discharge today given rise in WBC. Discussed case with neurology, who plans for lumbar puncture with CSF analysis. Checks x-ray ordered to investigate further source of leukocytosis. Shows bilateral pneumonia. Given that the patient completed a course of antibiotics in the hospital, will hold off on antibiotics for now. If WBC uptrends tomorrow, will start antibiotics. Review of systems otherwise negative except for what is mentioned above. Exam Vital Signs Temp Pulse Resp BP Pulse Ox O2 Del Method O2 Flow Rate 98.6 F 84 18 107/64 100 Room Air 2 01/03/25 11:57 01/03/25 11:57 01/03/25 11:57 01/03/25 11:57 01/03/25 11:57 01/03/25 11:57 01/01/25 08:00 FiO2 28 12/24/24 10:44 Narrative Exam Physical Exam: General: Alert, no acute distress. Skin: Warm, dry, intact. Head: Normocephalic, atraumatic. Eye: Normal conjunctiva, PERRL. Throat: Oral mucosa moist. No obvious lesions in oropharynx. Cardiovascular: Regular rate and rhythm, no murmur, +S1/S2. Respiratory: Lungs are clear to auscultation, respirations unlabored, no crackles, no wheezing. Gastrointestinal: Soft, nontender, non-distended. No guarding or rebound tenderness. Extremities: No edema, no cyanosis, no clubbing. 2+ radial pulse bilaterally, 2+ pedal pulse bilaterally. Bruise on medial right arm. Neuro: RUE strength 3+/5, LUE strength 3/5, RLE 3+/5, LLE 3/5. Objective Labs 01/03/25 09:53 01/02/25 13:57 Labs: Laboratory Results - last 24 hr 01/02/25 01/02/25 01/03/25 09:17 13:57 09:53 WBC 17.9 H RBC 2.68 L Hgb 9.6 L Hct 27.7 L MCV 103 H MCH 35.8 H MCHC 34.7 RDW Std Deviation 69.0 H Plt Count 350 D Neut % (Auto) 77 Lymph % (Auto) 12 [place] % (Auto) 9 Eos % (Auto) 0 Baso % (Auto) 1 Neut # (Auto) 13.8 H Lymph # (Auto) 2.2 [place] # (Auto) 1.6 H Eos # (Auto) 0.0 Baso # (Auto) 0.1 Immature Gran # (Auto) 0.15 H Absolute Nucleated RBC 0.00 Immature Gran % 1 H Nucleated RBC % 0 Sodium 134 L Potassium 4.2 D Chloride 101 Carbon Dioxide 22.4 Anion Gap 11 BUN 7 L Creatinine 0.5 L Estim Creat Clear Calc 117.7 eGFR > 60 BUN/Creatinine Ratio 14 Glucose 122 H Calculated Osmolality 267 L Calcium 8.6 Corrected Calcium 9.6 Phosphorus 2.6 Albumin 2.8 L Coccidioides IgG Ab Negative ABG Interpretation ABG results: 12/23/24 12/23/24 12/23/24 17:09 20:45 22:04 ABG pH 7.28 L 7.51 H D 7.52 H ABG pCO2 46 32 D 31 L ABG pO2 44 L* 350 H D 231 H D ABG HCO3 21 25 25 ABG O2 Saturation 68 L 101 H 100 H ABG Base Excess -5 L 2 3 12/24/24 05:09 ABG pH 7.44 ABG pCO2 37 ABG pO2 134 H D ABG HCO3 25 ABG O2 Saturation 99 H ABG Base Excess 1 Quality Measures Quality Measures VTE prophylaxis (scds) Assessment & Plan Assessment Current Active Medications: Generic Name Dose Route Start Last Admin Trade Name Freq PRN Reason Stop Dose Admin Acetaminophen 650 mg 12/25/24 12:16 Acetaminophen Supp 650 Mg Supp [place] 01/22/25 18:21 Q4HR PRN Pain 1-3 and/or Fever >100.1 Aspirin 81 mg 12/30/24 09:00 01/03/25 09:22 Aspirin Ec 81 Mg Tabec PO 01/29/25 08:59 81 mg QDAY JASMINA Administration Atorvastatin Calcium 40 mg 12/30/24 21:00 01/02/25 20:51 Atorvastatin Calcium 20 Mg Tablet PO 01/29/25 20:59 40 mg HS JASMINA Administration Folic Acid 1 mg 12/24/24 09:00 01/03/25 09:22 Folic Acid 1 Mg Tablet PO 01/23/25 08:59 1 mg QDAY JASMINA Administration Labetalol HCl 10 mg 12/23/24 14:13 Labetalol Inj 5 Mg/Ml Vial 20 Ml IVP Q15M PRN SBP >180, DBP >105 Lactulose 10 gm 12/29/24 14:00 01/03/25 13:21 Lactulose Syrup 20 Gm/30 Ml Udc PO 01/28/25 13:59 10 gm TID JASMINA Administration Protocol Multivitamins 1 tab 12/24/24 09:00 01/03/25 09:22 Multivitamins Tablet PO 01/23/25 08:59 1 tab QDAY JASMINA Administration Ondansetron HCl 4 mg 12/23/24 14:13 Ondansetron Inj 2 Mg/Ml Inj 2 Ml IVP 01/22/25 14:12 Q4HR PRN NAUSEA OR VOMITING Thiamine HCl 250 mg 12/30/24 09:00 01/03/25 09:22 Thiamine Inj 100 Mg/Ml Vial 2 Ml IVP 01/29/25 08:59 250 mg QDAY JASMINA Administration Plan Mrs. Brady is a 64 year old female with a history of alcohol use disorder, alcohol withdrawal seizures, pancreatitis, and depression who was brought to [facility] ED on 12/23 for altered mental status. Patient was admitted to ICU for alcohol withdrawal seizures, and then downgraded to medical floors on 12/25. #Encephalopathy, unspecified, likely multifactorial #Alcohol withdrawal seizures #Delirium tremens #Alcohol use disorder Patient has a long history of alcohol use disorder, which leads to seizures when she withdraws. The patient has been consuming alcohol since she was 15 years old and has been noted to drink about a fifth of vodka daily per the patient's daughters. In the ED, patient's blood alcohol levels were noted to be <3.0, but previous admissions have noted significantly elevated blood alcohol levels. Patient most likely quit abruptly and had an alcohol withdrawal seizure(s) starting at home, resulting in stroke-like symptoms and febrile tachycardia, with an additional seizure in the ED. Patient was admitted to ICU, where bilateral tremulous activity that improved with midazolam was noted. Patient continues to be more lethargic than expected since discontinuing sedating medications. - Thiamine 250 mg once daily, folic acid 1 mg daily, and multivitamins 1 tab daily - [employer] patient on SAFE alcohol cessation - Neurology consulted, appreciate recommendations - Lactulose 10 gm three times daily - LP planned for 01/04, pending #?CVA, right frontal lobe #Left sided hemiparesis, resolving Patient is noted to have difficulty with left sided gaze and left upper extremity and lower extremity are noticeably weaker compared to the right. Likely CVA given MRI head 12/29 which showed foci of restricted diffusion in right frontal lobe consistent with acute infarction, and small extra axial fluid accumulation peripheral to posterior right parietal lobe. Patient does have left sided weakness and is unable to move eyes to the left. Neurology does note that it may be related to trauma/chronic alcohol use. Left sided weakness does appear to be resolving over time. - Neurology consulted, appreciate recommendations - Aspirin 81 mg daily - Atorvastatin 40 mg nightly #GNR bacteremia, E. coli 2/2 #Urinary tract infection and #Aspiration pneumonia, MRSA, Klebsiella, Pseudomonas #MRSA nares positive Patient noted to have a fever of 105.9, HR of 130, and respiratory rate of 39 while in the ED. WBC initially in the ED was 8.4, however it did increase to 13.1 while in the ICU on 12/24. The likely source is urinary tract infection given that the patient's urinalysis showed urine WBC of 406, with 4+ bacteria, however this may be due to contamination. No signs of pneumonia on chest x-ray were identified, however the patient was laying down unconscious in her urine and feces, which brings up concern for possible aspiration pneumonia. Procalcitonin obtained 12/30 resulted as 2.33, which is decreased compared to >50 on 12/23. SIRS score 3 - Blood cultures collected 12/23, shows E. coli from both bottles - Urine culture collected 12/23, negative for specific organism - Sputum culture collected 12/23, gram stain showed MRSA, pseudomonas, klebsiella - MRSA nares swabbed 12/23, positive - Zosyn 4.5 gm every 8 hours (12/23-12/28), changed to levofloxacin 750 mg daily (12/28-12/30) - CXR 01/03 shows significant bilateral pneumonia #Alcohol-related fatty liver disease #Hyperbilirubinemia, resolving #Elevated LFTs, resolving #Thrombocytopenia, resolved Patient has a long history of alcohol consumption. CT abdomen pelvis showed hepatomegaly with severe diffuse fatty infiltration throughout the liver, likely secondary to her extensive alcohol consumption. The patient's bilirubin in the ED was noted to be 4.6 and the patient's LFTs are elevated in a 2:1 ratio of AST to ALT, further suggesting alcoholism to be the cause. The patient's platelets have been noted to be significantly decreased, reaching 39 in the ED and 26 in the ICU. The thrombocytopenia is an additional sign of alcohol-related fatty liver disease. - Continue to monitor bilirubin, LFTs, and thrombocytopenia - Transfuse platelets if less than 20 per protocol #Rhabdomyolysis, resolved #MONIKA, likely prerenal, resolved Patient noted to have creatine kinase of 8185 in the ED, likely secondary to muscle damage from alcohol withdrawal seizures. Cr was noted to be 1.3 in ED, which is increased from her baseline of 0.7, likely as a result of her rhabdomyolysis. - Will continue to monitor - Avoid nephrotoxic medications - Renally dose medications #Lactic acidosis, resolved #High anion gap metabolic acidosis, resolved Patient noted to have lactic acidosis in ED. Lactic acid peaked at 8.8 and has since been downtrending. This is most likely secondary to alcohol withdrawal seizure and episode of cardiac arrest. - Will continue to monitor #Electrolyte abnormalities #Hypernatremia #Hypokalemia, resolved #Hypophosphatemia, resolved Patient noted to have hypokalemia of 2.9 in ED and hypophosphatemia of 1.5 on 12/25. Patient noted to have hypernatremia of 148 on 12/27, likely secondary to poor oral intake and sodium from Zosyn at the time. - Will continue to monitor with daily labs, replenish as necessary - 1L LR at 75 cc/h ordered on 12/28 DVT Prophylaxis: SCDs GI Prophylaxis: N/A Bowel: N/A Diet: Dysphagia 2 mech altered, carbohydrate consistent Serna: N/A Lines: Peripheral IV Antibiotics: N/A Code Status: FULL Reason for Hospitalization: Alcohol withdrawal induced seizures Other Barriers to Discharge: LP Patient plan of care was discussed with the attending physician Dr. Sanchez and senior resident Dr. Greer (PGY-2) Ranjit Miguel, PGY-1 Attending Provider Attestation/Addendum I attest that I was physically present for the evaluation, physical examination, lab and imaging review of the patient with the residents. I discussed the case with the residents and agree with the findings and plans of care as documented above. Tr Sanchez MD
--- NOTE | 2025-01-03 15:53 | PD.RESPRO ---
Documentation for date of: 01/03/25 Subjective Subjective Interval history: Patient was seen and examined at the bedside. Patient does have issues with alertness and patient was made to sit with assistance. She was noticed to have truncal ataxia due to generalized weakness. She was also noticed to have left eye mild ptosis. Left upper extremity appears to be weak and patient was able to move left lower extremity with negative Babinski. Patient's white count has been uptrending again. Vitals were stable. Patient did minimal physical therapy today per nurse. Given patient's atypical neurological symptoms we will proceed with lumbar puncture and CSF analysis to evaluate any other neurological pathologies. Will follow-up with LP results. Exam Vital Signs Temp Pulse Resp BP Pulse Ox O2 Del Method O2 Flow Rate 98.6 F 84 18 107/64 100 Room Air 2 01/03/25 11:57 01/03/25 11:57 01/03/25 11:57 01/03/25 11:57 01/03/25 11:57 01/03/25 11:57 01/01/25 08:00 FiO2 28 12/24/24 10:44 Narrative Exam GENERAL APPEARANCE: Patient had a stared gaze, alert and conversational. In no acute distress. HEENT: NC, AT. MMM. EOMI, clear conjunctiva, oropharynx clear. Left eye ptosis NECK: Supple without lymphadenopathy. No stiffness or restricted ROM. HEART: Regular rate and regular rhythm, normal S1/S2, no m/r/g LUNGS: CTAB, moving air well. No crackles or wheezes are heard. ABDOMEN: Soft, nontender, nondistended with good bowel sounds heard. BACK: No CVAT, no obvious deformity. Mild truncal ataxia EXTREMITIES: Without cyanosis, clubbing or edema. NEURO: Limited neuroexam. Patient appears to have minimal alertness and cooperation. Left upper extremity weakness power 2/5, Power in left lower extremity 4/5. Babinski negative Skin: Warm and dry without any rash. Objective Labs 01/03/25 09:53 01/02/25 13:57 Labs: Laboratory Results - last 24 hr 01/02/25 01/03/25 09:17 09:53 WBC 17.9 H RBC 2.68 L Hgb 9.6 L Hct 27.7 L MCV 103 H MCH 35.8 H MCHC 34.7 RDW Std Deviation 69.0 H Plt Count 350 D Neut % (Auto) 77 Lymph % (Auto) 12 [place] % (Auto) 9 Eos % (Auto) 0 Baso % (Auto) 1 Neut # (Auto) 13.8 H Lymph # (Auto) 2.2 [place] # (Auto) 1.6 H Eos # (Auto) 0.0 Baso # (Auto) 0.1 Immature Gran # (Auto) 0.15 H Absolute Nucleated RBC 0.00 Immature Gran % 1 H Nucleated RBC % 0 Coccidioides IgG Ab Negative ABG Interpretation ABG results: 12/23/24 12/23/24 12/23/24 17:09 20:45 22:04 ABG pH 7.28 L 7.51 H D 7.52 H ABG pCO2 46 32 D 31 L ABG pO2 44 L* 350 H D 231 H D ABG HCO3 21 25 25 ABG O2 Saturation 68 L 101 H 100 H ABG Base Excess -5 L 2 3 12/24/24 05:09 ABG pH 7.44 ABG pCO2 37 ABG pO2 134 H D ABG HCO3 25 ABG O2 Saturation 99 H ABG Base Excess 1 Quality Measures Quality Measures VTE prophylaxis (scds) Assessment & Plan Assessment Current Active Medications: Generic Name Dose Route Start Last Admin Trade Name Freq PRN Reason Stop Dose Admin Acetaminophen 650 mg 12/25/24 12:16 Acetaminophen Supp 650 Mg Supp [place] 01/22/25 18:21 Q4HR PRN Pain 1-3 and/or Fever >100.1 Aspirin 81 mg 12/30/24 09:00 01/03/25 09:22 Aspirin Ec 81 Mg Tabec PO 01/29/25 08:59 81 mg QDAY JASMINA Administration Atorvastatin Calcium 40 mg 12/30/24 21:00 01/02/25 20:51 Atorvastatin Calcium 20 Mg Tablet PO 01/29/25 20:59 40 mg HS JASMINA Administration Folic Acid 1 mg 12/24/24 09:00 01/03/25 09:22 Folic Acid 1 Mg Tablet PO 01/23/25 08:59 1 mg QDAY JASMINA Administration Labetalol HCl 10 mg 12/23/24 14:13 Labetalol Inj 5 Mg/Ml Vial 20 Ml IVP Q15M PRN SBP >180, DBP >105 Lactulose 10 gm 12/29/24 14:00 01/03/25 13:21 Lactulose Syrup 20 Gm/30 Ml Udc PO 01/28/25 13:59 10 gm TID JASMINA Administration Protocol Multivitamins 1 tab 12/24/24 09:00 01/03/25 09:22 Multivitamins Tablet PO 01/23/25 08:59 1 tab QDAY JASMINA Administration Ondansetron HCl 4 mg 12/23/24 14:13 Ondansetron Inj 2 Mg/Ml Inj 2 Ml IVP 01/22/25 14:12 Q4HR PRN NAUSEA OR VOMITING Thiamine HCl 250 mg 12/30/24 09:00 01/03/25 09:22 Thiamine Inj 100 Mg/Ml Vial 2 Ml IVP 01/29/25 08:59 250 mg QDAY JASMINA Administration Plan This patient is a 64-year-old female with past medical history of alcohol use disorder, alcohol withdrawal seizures, pancreatitis and depression was brought to the ED on 12/23/2024 with altered mental status. Patient was admitted to ICU for alcohol withdrawal seizures and then downgraded to floors on 12/25/2024. #?CVA, right frontal lobe #Atypical neurological presentation -Related to possible trauma/chronic alcohol use, unclear 01/03/2025: Patient does have issues with alertness and patient was made to sit with assistance. She was noticed to have truncal ataxia due to generalized weakness. She was also noticed to have left eye mild ptosis. Left upper extremity appears to be weak and patient was able to move left lower extremity with negative Babinski. Patient's white count has been uptrending again. Vitals were stable. Patient did minimal physical therapy today per nurse. Plan: Given patient's atypical neurological symptoms we will proceed with lumbar puncture and CSF analysis to evaluate any other neurological pathologies. Will follow-up with LP results. Continue aspirin with caution due to history of severe thrombocytopenia related to alcohol use Continue statin therapy #Acute encephalopathy likely multifactorial Likely related to alcohol withdrawal versus delirium tremens MRI brain showed right frontal lobe finding consistent with restricted diffusion and extra-axial fluid collection in the right parietal area. Unlikely to be acute infarction could be related to chronic alcohol use/trauma MRI cervical spine only showed C5-C6 disc narrowing. No other acute pathology Plan: Improvement in neurological symptoms and downtrending leukocytosis, improving Continue thiamine and folic acid Advised on alcohol cessation Lactulose 10 g 3 times daily for constipation #Seizure like related to alcohol withdrawal Patient seizure are most likely attributed to alcohol use. Plan: Antiepileptic not recommended as there is no recurrence Seizure aspiration precaution #Persistent leukocytosisno fever recorded -Related to infection versus reactive? -White count continues to remain elevated - No fever recorded Plan: cocci negative will perform LP and follow-up CSF results #Rhabdomyolysis, resolved Treated with IV fluids #GNR bacteremia, E. coli 2/ #UTI #Aspiration pneumonia, MRSA, Klebsiella and Pseudomonas #MRSA nare positive #Alcohol related fatty liver disease #Hyperbilirubinemia #Thrombocytopenia #Elevated LFTs #MONIKA, likely prerenal, resolved #Lactic acidosis, resolving #High anion gap metabolic acidosis, resolved #Electrolyte abnormalities #Hypokalemia #Hypophosphatemia Rest of the management as per primary care team. Plan of care discussed with neurologist, Dr Chelsi Russell MD, PGY 3
[2025-01-03] MEDS: ATORVASTATIN CALCIUM 20 MG TABLET 40 MG PO (20:48)
[2025-01-04] VITALS (7 sets, daily range): BP systolic 95–121; BP diastolic 64–74; PULSE 86–106; RESP 17–25; TEMP 36.4–38.8; O2SAT 94–100; BMI 29.3; BMI 12.0
[2025-01-04] MEDS: LACTULOSE SYRUP 20 GM/30 ML UDC 10 GM PO ×3 (05:51→21:01)
[2025-01-04 08:05] LABS: Basophils # (Auto) 0.1 Thou/mm3 (0.0-0.2); Basophils % (Auto) 1 % (0-2.5); Eosinophils # (Auto) 0.1 Thou/mm3 (0.0-0.5); Eosinophils % (Auto) 0 % (0-10); Hematocrit 25.4 % (36.0-46.0); Immature Granulocytes Auto 0.09 Thou/mm3 (0.00-0.00); Lymphocytes # (Auto) 1.4 Thou/mm3 (1.0-4.8); Lymphocytes % (Auto) 10 % (10-50); Mean Corpuscular HGB Conc 33.5 g/dl (31.0-37.0); Mean Corpuscular Hemoglobin 35.3 pg (25.0-35.0); Mean Corpuscular Volume 105 fL (80-100); Monocytes # (Auto) 1.3 Thou/mm3 (0.0-0.8); Monocytes % (Auto) 9 % (0-12); Neutrophils # (Auto) 11.8 Thou/mm3 (1.8-7.7); Neutrophils % (Auto) 80 % (37-80); Nucleated Red Blood Cell # 0.00 Thou/mm3 (0.00-0.00); Nucleated Red Blood Cell % 0 /100 WBC (0); Platelet Count 417 Thou/mm3 (140-440); RDW Standard Deviation 69.0 fL (36.4-46.3); Red Blood Count 2.41 Miln/mm3 (4.00-5.20); White Blood Count 14.7 Thou/mm3 (3.6-11.0)
[2025-01-04 08:10] LABS: Hemoglobin 8.5 g/dL (12.0-16.0)
[2025-01-04] MEDS: ASPIRIN EC 81 MG TABEC PO (08:14)
[2025-01-04] MEDS: MULTIVITAMINS TABLET 1 TAB PO (08:14)
[2025-01-04] MEDS: FOLIC ACID 1 MG TABLET PO (08:14)
[2025-01-04] MEDS: THIAMINE INJ 100 MG/ML VIAL 2 ML 250 MG IVP (08:20)
--- NOTE | 2025-01-04 08:45 | XR_ITS ---
Examination: Diagnostic lumbar puncture Fluoroscopy AP lumbar spine 6 views Date and time: January 04, 2025 0944 hours INDICATIONS: Altered mental status, clinical diagnosis encephalitis this week TECHNIQUE AND FINDINGS: Informed consent provided. Timeout performed. Skin prepped over the lower back and sterile drape applied maximum sterile barrier technique hand hygiene 1% lidocaine administered for local anesthesia Utilizing fluoroscopic guidance successful lumbar puncture L5-S1, estimated normal opening pressure 10 10 cc clear fluid withdrawn Estimated blood loss 0 cc Fluoroscopy 0.2 minute radiation dose 27.86 milligray 6 spot fluoroscopic films of the lumbar spine IMPRESSION: Successful fluoroscopically guided diagnostic lumbar puncture
[2025-01-04 08:53] LABS: Alanine Aminotransferase 30 U/L (10-49); Albumin, Serum 2.5 gm/dL (3.4-4.8); Albumin/Globulin Ratio 1.0 (1.2-2.2); Alkaline Phosphatase 120 U/L (46-116); Anion Gap 9 (7-16); Aspartate Amino Transferase 76 U/L (0-34); BUN/Creatinine Ratio 20 Ratio (12-20); Bilirubin,Total 2.1 mg/dL (0.3-1.2); Blood Urea Nitrogen 10 mg/dL (9-23); Calcium 8.4 mg/dL (8.3-10.6); Calcium (Corrected) 9.6 mg/dL (8.5-10.1); Carbon Dioxide 26.4 mMol/L (20.0-31.0); Chloride 102 mMol/L (98-107); Creatinine (Component) 0.5 mg/dL (0.6-1.3); Estimated Creatinine Clearance 117.7 mL/min (>60); Globulin 2.4 gm/dL (2.3-3.5); Glucose 111 mg/dL (74-106); Magnesium 1.6 mg/dL (1.6-2.6); Osmolality,Calculated 273 (275-295); Phosphorous 3.1 mg/dL (2.4-5.1); Potassium 4.3 mMol/L (3.4-5.1); Sodium 137 mMol/L (136-145); Total Protein 4.9 gm/dL (5.7-8.2); eGFR > 60 See Note
--- NOTE | 2025-01-04 11:43 | PC.NURSE ---
PATIENT GETTING LUMBAR PUNCTURE.
[2025-01-04 12:41] LABS: CSF Mononuclear 84.6 %; CSF Red Blood Cell 0 /cmm; CSF White Blood Cell 26 /cmm
[2025-01-04 12:42] LABS: CSF Cell Count Tube # Tube # 4
[2025-01-04 12:43] LABS: CSF Color Colorless (Colorless); CSF, Appearance Clear (Clear)
[2025-01-04 12:44] LABS: CSF Polynuclear WBC 15.4 %
[2025-01-04 12:45] LABS: Glucose,CSF 58 mg/dL (40-70); Protein Total,CSF 133 mg/dL (8-32)
[2025-01-04 12:55] LABS: CSF Gram Stain Alert Gram Stain Completed
--- NOTE | 2025-01-04 14:40 | ESPR_ITS ---
<Statement entered by Buddy Greer MD - 01/04/25 16:18> Patient seen and assessed in hospital bed with improved mental status. Neurology was concerned regarding the patient's elevated WBC and has resolved requested repeat lumbar puncture for thorough workup. Consent obtained from patient and lumbar puncture completed. CSF analysis shows elevated protein of 133 otherwise unremarkable. Pending neurology recommendations regarding CSF findings. Expect discharge to SNF within next 24 hours. Will continue to monitor the patient for any acute changes. I have personally seen and examined the patient. I agree with the resident's assessment and plan as documented below. Buddy Greer DO PGY-2 Internal Medicine - GME Documentation for date of: 01/04/25 Subjective Subjective Interval history: Overnight events: No acute events overnight. Patient was seen and examined at bedside. AM vitals and labs reviewed. Patient continues to improve in both mentation and left-sided strength. No acute complaints at this time. WBC 14.7, downtrending. LP performed, CSF shows WBC 26, RBC 0, CSF glucose 58, and total CSF protein 133. Pending CSF viral panel, VDRL, and oligoclonal bands. Pending recommendations from neurology, expect discharge within 24 hours to SNF. Review of systems otherwise negative except for what is mentioned above. Exam Vital Signs Temp Pulse Resp BP Pulse Ox O2 Del Method O2 Flow Rate 97.6 F 87 25 H 95/64 99 Room Air 2 01/04/25 12:00 01/04/25 12:00 01/04/25 12:00 01/04/25 12:00 01/04/25 12:00 01/04/25 12:00 01/01/25 08:00 FiO2 28 12/24/24 10:44 Narrative Exam Physical Exam: General: Alert, no acute distress. Skin: Warm, dry, intact. Head: Normocephalic, atraumatic. Eye: Normal conjunctiva, PERRL. Throat: Oral mucosa moist. No obvious lesions in oropharynx. Cardiovascular: Regular rate and rhythm, no murmur, +S1/S2. Respiratory: Lungs are clear to auscultation, respirations unlabored, no crackles, no wheezing. Gastrointestinal: Soft, nontender, non-distended. No guarding or rebound tenderness. Extremities: No edema, no cyanosis, no clubbing. 2+ radial pulse bilaterally, 2+ pedal pulse bilaterally. Bruise on medial right arm. Neuro: RUE strength 3+/5, LUE strength 3/5, RLE 3+/5, LLE 3/5. Objective Labs 01/04/25 07:45 01/04/25 07:45 Labs: Laboratory Results - last 24 hr 01/04/25 01/04/25 07:45 11:54 WBC 14.7 H RBC 2.41 L Hgb 8.5 L Hct 25.4 L MCV 105 H MCH 35.3 H MCHC 33.5 RDW Std Deviation 69.0 H Plt Count 417 D Neut % (Auto) 80 Lymph % (Auto) 10 [place] % (Auto) 9 Eos % (Auto) 0 Baso % (Auto) 1 Neut # (Auto) 11.8 H Lymph # (Auto) 1.4 [place] # (Auto) 1.3 H Eos # (Auto) 0.1 Baso # (Auto) 0.1 Immature Gran # (Auto) 0.09 H Absolute Nucleated RBC 0.00 Immature Gran % 1 H Nucleated RBC % 0 Sodium 137 Potassium 4.3 Chloride 102 Carbon Dioxide 26.4 Anion Gap 9 BUN 10 Creatinine 0.5 L Estim Creat Clear Calc 117.7 eGFR > 60 BUN/Creatinine Ratio 20 Glucose 111 H Calculated Osmolality 273 L Calcium 8.4 Corrected Calcium 9.6 Phosphorus 3.1 Magnesium 1.6 Total Bilirubin 2.1 H D AST 76 H ALT 30 Alkaline Phosphatase 120 H Total Protein 4.9 L Albumin 2.5 L Globulin 2.4 Albumin/Globulin Ratio 1.0 L CSF Appearance Clear CSF Color Colorless CSF WBC 26 CSF RBC 0 CSF Cell Count Tube # Tube # 4 CSF Mononuclear WBCs 84.6 CSF Polynuclear WBCs 15.4 CSF Glucose 58 CSF Total Protein 133 H ABG Interpretation ABG results: 12/23/24 12/23/24 12/23/24 17:09 20:45 22:04 ABG pH 7.28 L 7.51 H D 7.52 H ABG pCO2 46 32 D 31 L ABG pO2 44 L* 350 H D 231 H D ABG HCO3 21 25 25 ABG O2 Saturation 68 L 101 H 100 H ABG Base Excess -5 L 2 3 12/24/24 05:09 ABG pH 7.44 ABG pCO2 37 ABG pO2 134 H D ABG HCO3 25 ABG O2 Saturation 99 H ABG Base Excess 1 Quality Measures Quality Measures VTE prophylaxis (scds) Assessment & Plan Assessment Current Active Medications: Generic Name Dose Route Start Last Admin Trade Name Freq PRN Reason Stop Dose Admin Acetaminophen 650 mg 12/25/24 12:16 Acetaminophen Supp 650 Mg Supp [place] 01/22/25 18:21 Q4HR PRN Pain 1-3 and/or Fever >100.1 Aspirin 81 mg 12/30/24 09:00 01/04/25 08:14 Aspirin Ec 81 Mg Tabec PO 01/29/25 08:59 81 mg QDAY JASMINA Administration Atorvastatin Calcium 40 mg 12/30/24 21:00 01/03/25 20:48 Atorvastatin Calcium 20 Mg Tablet PO 01/29/25 20:59 40 mg HS JASMINA Administration Folic Acid 1 mg 12/24/24 09:00 01/04/25 08:14 Folic Acid 1 Mg Tablet PO 01/23/25 08:59 1 mg QDAY JASMINA Administration Labetalol HCl 10 mg 12/23/24 14:13 Labetalol Inj 5 Mg/Ml Vial 20 Ml IVP Q15M PRN SBP >180, DBP >105 Lactulose 10 gm 12/29/24 14:00 01/04/25 13:11 Lactulose Syrup 20 Gm/30 Ml Udc PO 01/28/25 13:59 10 gm TID JASMINA Administration Protocol Multivitamins 1 tab 12/24/24 09:00 01/04/25 08:14 Multivitamins Tablet PO 01/23/25 08:59 1 tab QDAY JASMINA Administration Ondansetron HCl 4 mg 12/23/24 14:13 Ondansetron Inj 2 Mg/Ml Inj 2 Ml IVP 01/22/25 14:12 Q4HR PRN NAUSEA OR VOMITING Thiamine HCl 250 mg 12/30/24 09:00 01/04/25 08:20 Thiamine Inj 100 Mg/Ml Vial 2 Ml IVP 01/29/25 08:59 250 mg QDAY JASMINA Administration Plan Mrs. Brady is a 64 year old female with a history of alcohol use disorder, alcohol withdrawal seizures, pancreatitis, and depression who was brought to [facility] ED on 12/23 for altered mental status. Patient was admitted to ICU for alcohol withdrawal seizures, and then downgraded to medical floors on 12/25. #Encephalopathy, unspecified, likely multifactorial #Alcohol withdrawal seizures #Delirium tremens #Alcohol use disorder Patient has a long history of alcohol use disorder, which leads to seizures when she withdraws. The patient has been consuming alcohol since she was 15 years old and has been noted to drink about a fifth of vodka daily per the patient's daughters. In the ED, patient's blood alcohol levels were noted to be <3.0, but previous admissions have noted significantly elevated blood alcohol levels. Patient most likely quit abruptly and had an alcohol withdrawal seizure(s) starting at home, resulting in stroke-like symptoms and febrile tachycardia, with an additional seizure in the ED. Patient was admitted to ICU, where bilateral tremulous activity that improved with midazolam was noted. Patient continues to be more lethargic than expected since discontinuing sedating medications. - Thiamine 250 mg once daily, folic acid 1 mg daily, and multivitamins 1 tab daily - [employer] patient on SAFE alcohol cessation - Neurology consulted, appreciate recommendations - Lactulose 10 gm three times daily - LP performed 01/04, CSF shows WBC 26, RBC 0, CSF glucose 58, and total CSF protein 133 - Pending CSF viral panel, VDRL, and oligoclonal bands #?CVA, right frontal lobe #Left sided hemiparesis, resolving Patient is noted to have difficulty with left sided gaze and left upper extremity and lower extremity are noticeably weaker compared to the right. Likely CVA given MRI head 12/29 which showed foci of restricted diffusion in right frontal lobe consistent with acute infarction, and small extra axial fluid accumulation peripheral to posterior right parietal lobe. Patient does have left sided weakness and is unable to move eyes to the left. Neurology does note that it may be related to trauma/chronic alcohol use. Left sided weakness does appear to be resolving over time. - Neurology consulted, appreciate recommendations - Aspirin 81 mg daily - Atorvastatin 40 mg nightly #GNR bacteremia, E. coli 2/2 #Urinary tract infection and #Aspiration pneumonia, MRSA, Klebsiella, Pseudomonas #MRSA nares positive Patient noted to have a fever of 105.9, HR of 130, and respiratory rate of 39 while in the ED. WBC initially in the ED was 8.4, however it did increase to 13.1 while in the ICU on 12/24. The likely source is urinary tract infection given that the patient's urinalysis showed urine WBC of 406, with 4+ bacteria, however this may be due to contamination. No signs of pneumonia on chest x-ray were identified, however the patient was laying down unconscious in her urine and feces, which brings up concern for possible aspiration pneumonia. Procalcitonin obtained 12/30 resulted as 2.33, which is decreased compared to >50 on 12/23. SIRS score 3 - Blood cultures collected 12/23, shows E. coli from both bottles - Urine culture collected 12/23, negative for specific organism - Sputum culture collected 12/23, gram stain showed MRSA, pseudomonas, klebsiella - MRSA nares swabbed 12/23, positive - Zosyn 4.5 gm every 8 hours (12/23-12/28), changed to levofloxacin 750 mg daily (12/28-12/30) - CXR 01/03 shows significant bilateral pneumonia #Alcohol-related fatty liver disease #Hyperbilirubinemia, resolving #Elevated LFTs, resolving #Thrombocytopenia, resolved Patient has a long history of alcohol consumption. CT abdomen pelvis showed hepatomegaly with severe diffuse fatty infiltration throughout the liver, likely secondary to her extensive alcohol consumption. The patient's bilirubin in the ED was noted to be 4.6 and the patient's LFTs are elevated in a 2:1 ratio of AST to ALT, further suggesting alcoholism to be the cause. The patient's platelets have been noted to be significantly decreased, reaching 39 in the ED and 26 in the ICU. The thrombocytopenia is an additional sign of alcohol-related fatty liver disease. - Continue to monitor bilirubin, LFTs, and thrombocytopenia - Transfuse platelets if less than 20 per protocol #Rhabdomyolysis, resolved #MONIKA, likely prerenal, resolved Patient noted to have creatine kinase of 8185 in the ED, likely secondary to muscle damage from alcohol withdrawal seizures. Cr was noted to be 1.3 in ED, which is increased from her baseline of 0.7, likely as a result of her rhabdomyolysis. - Will continue to monitor - Avoid nephrotoxic medications - Renally dose medications #Lactic acidosis, resolved #High anion gap metabolic acidosis, resolved Patient noted to have lactic acidosis in ED. Lactic acid peaked at 8.8 and has since been downtrending. This is most likely secondary to alcohol withdrawal seizure and episode of cardiac arrest. - Will continue to monitor #Electrolyte abnormalities #Hypernatremia #Hypokalemia, resolved #Hypophosphatemia, resolved Patient noted to have hypokalemia of 2.9 in ED and hypophosphatemia of 1.5 on 12/25. Patient noted to have hypernatremia of 148 on 12/27, likely secondary to poor oral intake and sodium from Zosyn at the time. - Will continue to monitor with daily labs, replenish as necessary - 1L LR at 75 cc/h ordered on 12/28 DVT Prophylaxis: SCDs GI Prophylaxis: N/A Bowel: N/A Diet: Dysphagia 2 mech altered, carbohydrate consistent Serna: N/A Lines: Peripheral IV Antibiotics: N/A Code Status: FULL Reason for Hospitalization: Alcohol withdrawal induced seizures Other Barriers to Discharge: Neuro recs Patient plan of care was discussed with the attending physician Dr. Sanchez and senior resident Dr. Greer (PGY-2) Ranjit Miguel, PGY-1 Attending Provider Attestation/Addendum I attest that I was physically present for the evaluation, physical examination, lab and imaging review of the patient with the residents. I discussed the case with the residents and agree with the findings and plans of care as documented above. At bedside today, patient appears comfortable and denies any new complaints. Vital signs have been stable. Lab results show improvement in WBC count rest of the labs were also stable. LFTs are improving compared to yesterday. Underwent lumbar puncture, awaiting results. Tr Sanchez MD
--- NOTE | 2025-01-04 14:50 | PD.RESPRO ---
Documentation for date of: 01/04/25 Subjective Subjective Interval history: Patient was seen and examined at the bedside. Patient appears similar as yesterday.CSF analysis showed WBC 26, RBC 0, mononuclear WBC 84.6, polynuclear WBC 15.4, glucose 58 and total proteins 133. White count improved to 14.7. Patient's neurological symptoms could be related to possible Wernicke's encephalopathy related to alcohol. Daily physical therapy recommended. Recommended to continue aspirin 81 mg and atorvastatin 40 mg. Continue thiamine and folic acid. Exam Vital Signs Temp Pulse Resp BP Pulse Ox O2 Del Method O2 Flow Rate 97.6 F 87 25 H 95/64 99 Room Air 2 01/04/25 12:00 01/04/25 12:00 01/04/25 12:00 01/04/25 12:00 01/04/25 12:00 01/04/25 12:00 01/01/25 08:00 FiO2 28 12/24/24 10:44 Narrative Exam GENERAL APPEARANCE: Patient had a stared gaze, alert and conversational. In no acute distress. HEENT: NC, AT. MMM. EOMI, clear conjunctiva, oropharynx clear. Left eye ptosis NECK: Supple without lymphadenopathy. No stiffness or restricted ROM. HEART: Regular rate and regular rhythm, normal S1/S2, no m/r/g LUNGS: CTAB, moving air well. No crackles or wheezes are heard. ABDOMEN: Soft, nontender, nondistended with good bowel sounds heard. BACK: No CVAT, no obvious deformity. Mild truncal ataxia EXTREMITIES: Without cyanosis, clubbing or edema. NEURO: Limited neuroexam. Patient appears to have minimal alertness and cooperation. Left upper extremity weakness power 2/5, Power in left lower extremity 4/5. Babinski negative Skin: Warm and dry without any rash. Objective Labs 01/04/25 07:45 01/04/25 07:45 Labs: Laboratory Results - last 24 hr 01/04/25 01/04/25 07:45 11:54 WBC 14.7 H RBC 2.41 L Hgb 8.5 L Hct 25.4 L MCV 105 H MCH 35.3 H MCHC 33.5 RDW Std Deviation 69.0 H Plt Count 417 D Neut % (Auto) 80 Lymph % (Auto) 10 [place] % (Auto) 9 Eos % (Auto) 0 Baso % (Auto) 1 Neut # (Auto) 11.8 H Lymph # (Auto) 1.4 [place] # (Auto) 1.3 H Eos # (Auto) 0.1 Baso # (Auto) 0.1 Immature Gran # (Auto) 0.09 H Absolute Nucleated RBC 0.00 Immature Gran % 1 H Nucleated RBC % 0 Sodium 137 Potassium 4.3 Chloride 102 Carbon Dioxide 26.4 Anion Gap 9 BUN 10 Creatinine 0.5 L Estim Creat Clear Calc 117.7 eGFR > 60 BUN/Creatinine Ratio 20 Glucose 111 H Calculated Osmolality 273 L Calcium 8.4 Corrected Calcium 9.6 Phosphorus 3.1 Magnesium 1.6 Total Bilirubin 2.1 H D AST 76 H ALT 30 Alkaline Phosphatase 120 H Total Protein 4.9 L Albumin 2.5 L Globulin 2.4 Albumin/Globulin Ratio 1.0 L CSF Appearance Clear CSF Color Colorless CSF WBC 26 CSF RBC 0 CSF Cell Count Tube # Tube # 4 CSF Mononuclear WBCs 84.6 CSF Polynuclear WBCs 15.4 CSF Glucose 58 CSF Total Protein 133 H ABG Interpretation ABG results: 12/23/24 12/23/24 12/23/24 17:09 20:45 22:04 ABG pH 7.28 L 7.51 H D 7.52 H ABG pCO2 46 32 D 31 L ABG pO2 44 L* 350 H D 231 H D ABG HCO3 21 25 25 ABG O2 Saturation 68 L 101 H 100 H ABG Base Excess -5 L 2 3 12/24/24 05:09 ABG pH 7.44 ABG pCO2 37 ABG pO2 134 H D ABG HCO3 25 ABG O2 Saturation 99 H ABG Base Excess 1 Quality Measures Quality Measures VTE prophylaxis (scds) Assessment & Plan Assessment Current Active Medications: Generic Name Dose Route Start Last Admin Trade Name Freq PRN Reason Stop Dose Admin Acetaminophen 650 mg 12/25/24 12:16 Acetaminophen Supp 650 Mg Supp [place] 01/22/25 18:21 Q4HR PRN Pain 1-3 and/or Fever >100.1 Aspirin 81 mg 12/30/24 09:00 01/04/25 08:14 Aspirin Ec 81 Mg Tabec PO 01/29/25 08:59 81 mg QDAY JASMINA Administration Atorvastatin Calcium 40 mg 12/30/24 21:00 01/03/25 20:48 Atorvastatin Calcium 20 Mg Tablet PO 01/29/25 20:59 40 mg HS JASMINA Administration Folic Acid 1 mg 12/24/24 09:00 01/04/25 08:14 Folic Acid 1 Mg Tablet PO 01/23/25 08:59 1 mg QDAY JASMINA Administration Labetalol HCl 10 mg 12/23/24 14:13 Labetalol Inj 5 Mg/Ml Vial 20 Ml IVP Q15M PRN SBP >180, DBP >105 Lactulose 10 gm 12/29/24 14:00 01/04/25 13:11 Lactulose Syrup 20 Gm/30 Ml Udc PO 01/28/25 13:59 10 gm TID JASMINA Administration Protocol Multivitamins 1 tab 12/24/24 09:00 01/04/25 08:14 Multivitamins Tablet PO 01/23/25 08:59 1 tab QDAY JASMINA Administration Ondansetron HCl 4 mg 12/23/24 14:13 Ondansetron Inj 2 Mg/Ml Inj 2 Ml IVP 01/22/25 14:12 Q4HR PRN NAUSEA OR VOMITING Thiamine HCl 250 mg 12/30/24 09:00 01/04/25 08:20 Thiamine Inj 100 Mg/Ml Vial 2 Ml IVP 01/29/25 08:59 250 mg QDAY JASMINA Administration Plan This patient is a 64-year-old female with past medical history of alcohol use disorder, alcohol withdrawal seizures, pancreatitis and depression was brought to the ED on 12/23/2024 with altered mental status. Patient was admitted to ICU for alcohol withdrawal seizures and then downgraded to floors on 12/25/2024. #?CVA, right frontal lobe #Atypical neurological presentation -Related to possible trauma/chronic alcohol use, unclear 01/03/2025: Patient does have issues with alertness and patient was made to sit with assistance. She was noticed to have truncal ataxia due to generalized weakness. She was also noticed to have left eye mild ptosis. Left upper extremity appears to be weak and patient was able to move left lower extremity with negative Babinski. Patient's white count has been uptrending again. Vitals were stable. Patient did minimal physical therapy today per nurse. CSF analysis showed WBC 26, RBC 0, mononuclear WBC 84.6, polynuclear WBC 15.4, glucose 58 and total proteins 133. Plan: Patient's neurological symptoms could be related to possible Wernicke's encephalopathy related to alcohol. Continue aspirin with caution due to history of severe thrombocytopenia related to alcohol use Continue statin therapy #Acute encephalopathy likely multifactorial Likely related to alcohol withdrawal versus delirium tremens MRI brain showed right frontal lobe finding consistent with restricted diffusion and extra-axial fluid collection in the right parietal area. Unlikely to be acute infarction could be related to chronic alcohol use/trauma MRI cervical spine only showed C5-C6 disc narrowing. No other acute pathology Plan: Improvement in neurological symptoms and downtrending leukocytosis, improving Continue thiamine and folic acid Advised on alcohol cessation Lactulose 10 g 3 times daily for constipation #Seizure like related to alcohol withdrawal Patient seizure are most likely attributed to alcohol use. Plan: Antiepileptic not recommended as there is no recurrence Seizure aspiration precaution #Persistent leukocytosisno fever recorded -Related to infection versus reactive? -White count continues to remain elevated - No fever recorded Plan: cocci negative will perform LP and follow-up CSF results #Rhabdomyolysis, resolved Treated with IV fluids #GNR bacteremia, E. coli 2/2 #UTI #Aspiration pneumonia, MRSA, Klebsiella and Pseudomonas #MRSA nare positive #Alcohol related fatty liver disease #Hyperbilirubinemia #Thrombocytopenia #Elevated LFTs #MONIKA, likely prerenal, resolved #Lactic acidosis, resolving #High anion gap metabolic acidosis, resolved #Electrolyte abnormalities #Hypokalemia #Hypophosphatemia Rest of the management as per primary care team. Plan of care discussed with neurologist, Dr Chelsi Russell MD, PGY 3
[2025-01-04 18:02] LABS: Coccid Serology, CF CSF (UCD)* See Sep Rpt
[2025-01-04] MEDS: ATORVASTATIN CALCIUM 20 MG TABLET 40 MG PO (21:01)
[2025-01-05] VITALS: BP 114/74; PULSE 87; RESP 19; TEMP 37; O2SAT 95
[2025-01-05 04:00] VITALS: BP 108/74; PULSE 80; PULSE 82; RESP 22; TEMP 36.6; O2SAT 96
[2025-01-05] MEDS: LACTULOSE SYRUP 20 GM/30 ML UDC 10 GM PO ×2 (05:55→13:27)
[2025-01-05 06:00] VITALS: BMI 29.3
[2025-01-05 06:19] LABS: Basophils # (Auto) 0.1 Thou/mm3 (0.0-0.2); Basophils % (Auto) 1 % (0-2.5); Eosinophils # (Auto) 0.1 Thou/mm3 (0.0-0.5); Eosinophils % (Auto) 1 % (0-10); Hematocrit 26.9 % (36.0-46.0); Hemoglobin 9.0 g/dL (12.0-16.0); Immature Granulocytes Auto 0.06 Thou/mm3 (0.00-0.00); Lymphocytes # (Auto) 2.3 Thou/mm3 (1.0-4.8); Lymphocytes % (Auto) 16 % (10-50); Mean Corpuscular HGB Conc 33.5 g/dl (31.0-37.0); Mean Corpuscular Hemoglobin 35.9 pg (25.0-35.0); Mean Corpuscular Volume 107 fL (80-100); Monocytes # (Auto) 1.3 Thou/mm3 (0.0-0.8); Monocytes % (Auto) 9 % (0-12); Neutrophils # (Auto) 10.3 Thou/mm3 (1.8-7.7); Neutrophils % (Auto) 73 % (37-80); Nucleated Red Blood Cell # 0.00 Thou/mm3 (0.00-0.00); Nucleated Red Blood Cell % 0 /100 WBC (0); Platelet Count 278 Thou/mm3 (140-440); RDW Standard Deviation 68.2 fL (36.4-46.3); Red Blood Count 2.51 Miln/mm3 (4.00-5.20); White Blood Count 14.1 Thou/mm3 (3.6-11.0)
[2025-01-05 06:45] LABS: Anion Gap 10 (7-16); BUN/Creatinine Ratio 10 Ratio (12-20); Blood Urea Nitrogen < 5 mg/dL (9-23); Calcium 8.7 mg/dL (8.3-10.6); Carbon Dioxide 24.4 mMol/L (20.0-31.0); Chloride 101 mMol/L (98-107); Creatinine (Component) 0.5 mg/dL (0.6-1.3); Estimated Creatinine Clearance 117.7 mL/min (>60); Glucose 85 mg/dL (74-106); Osmolality,Calculated 266 (275-295); Potassium 5.1 mMol/L (3.4-5.1); Sodium 135 mMol/L (136-145); eGFR > 60 See Note
[2025-01-05 07:33] VITALS: BP 115/76; PULSE 86; RESP 20; TEMP 36.6; O2SAT 96
[2025-01-05] MEDS: FOLIC ACID 1 MG TABLET PO (08:04)
[2025-01-05] MEDS: ASPIRIN EC 81 MG TABEC PO (08:04)
[2025-01-05] MEDS: MULTIVITAMINS TABLET 1 TAB PO (08:04)
[2025-01-05] MEDS: THIAMINE INJ 100 MG/ML VIAL 2 ML 250 MG IVP (08:04)
--- NOTE | 2025-01-05 09:13 | PC.SS ---
Follow up note: Waiting for lumbar puncture results. Pt is possible d/c to [facility].
[2025-01-05 09:59] LABS: Alanine Aminotransferase 27 U/L (10-49); Albumin, Serum 2.8 gm/dL (3.4-4.8); Alkaline Phosphatase 114 U/L (46-116); Aspartate Amino Transferase 84 U/L (0-34); Bilirubin,Direct 1.6 mg/dL (0.0-0.3); Bilirubin,Total 2.4 mg/dL (0.3-1.2); Total Protein 5.8 gm/dL (5.7-8.2)
--- NOTE | 2025-01-05 11:13 | PD.RESDS ---
Planned Discharge Date 01/05/25 DS: Providers Provider Date of admission: 12/23/24 18:22 Primary care physician: Justo Orozco MD Admitting Provider: Kenn Calvert MD Attending Provider on Admission: Tr Sanchez MD Consults: 12/23/24 14:13 Consult to Neurology / Tele-Neurology Routine Comment: Consulting Provider: [facility] 12/23/24 21:41 Referral Infection Control Stat Comment: Reason for Infection Control Referral: Temp>101 X2 Days 12/23/24 23:11 Consult to Neurology / Tele-Neurology Routine Comment: seizures Consulting Provider: Davin Gagnon 12/24/24 14:14 Referral Speech Therapy Routine Comment: s/p extubation 12/24 morning 12/24/24 17:10 Referral Wound Care Routine Comment: 12/25/24 18:34 PT [Referral Physical Therapy] Routine Comment: Eval for SNF vs AOD Physician Instructions: Attending Provider on DC: Buddy Greer MD Discharging Provider: Buddy Greer MD DS: Diagnosis Problem List Completed Was Problem List Reviewed/Reconciled?: Yes Hospital Course Hospital Course Hospital course: 64-year-old female with past medical history of alcohol use disorder, seizures secondary to alcohol withdrawal, alcoholic pancreatitis presented to the ED on 12/23 with altered mental status. In the ED, patient was febrile 105.9 ?F, tachycardic with urinalysis showing bacteria and signs of infection. Chest x-ray showed opacification of the right upper lung, head CT was negative for any acute findings and head and neck CT did not show any arterial stenosis or LVO. EKG showed sinus tachycardia with prolonged QTc of 581. During ED workup, patient had a cardiac arrest which only lasted 30 seconds without any epinephrine being given, patient regained spontaneous circulation and was intubated. Patient was started on IV antibiotics for aspiration pneumonia along with urinary tract infection. And a loading dose of Keppra was given for seizure episode which was documented prior to patient's presentation along with Librium. Patient made steady improvement and was extubated and downgraded to floors on 12/25/2024. Patient gradually made improvement in mental status and was started on IV thiamine and folate for possible Wernicke's encephalopathy. Patient's Librium was gradually discontinued and she started having improvement in mental status. Neurology recommended repeat obtaining MRI and EEG studies which were not conclusive for any diagnosis. Additionally a lumbar puncture was ordered as the patient's white count did go up. CSF findings were unremarkable with a few additional CSF labs still pending (West Nile, VDRL?) Patient will be discharged in stable condition [place] a [place] [facility] for additional physical therapy and with the following strict instructions. Please take aspirin 81 mg daily and atorvastatin 40mg daily for TIA/CVA Please take folic acid, thiamine and multivitamin daily Stop taking all other home medications Follow-up with Dr. Gagnon (neurology) in two weeks. Please follow-up with your PCP within 1 week after discharge Avoid alcohol and ask your PCP to refer you to a program If your symptoms worsen or if you develop new chest pain, shortness of breath, dizziness or loss of consciousness - please come back to the immediately. Hospital Diagnosis: #Encephalopathy, unspecified, likely multifactorial #Alcohol withdrawal seizures #Delirium tremens #Alcohol use disorder #E.coli bacteremia #Urinary tract infection #Aspiration pneumonia, MRSA, Klebsiella, Pseudomonas #Alcohol-related fatty liver disease #Hyperbilirubinemia, resolving #Elevated LFTs, resolving #Thrombocytopenia, resolved #Rhabdomyolysis, resolved #MONIKA, likely prerenal, resolved #Lactic acidosis, resolved #High anion gap metabolic acidosis, resolved #Electrolyte abnormalities Buddy Greer, DO PGY-2 Internal Medicine - [facility] Status at Discharge Overall status at discharge: patient is progressing back to baseline Time Spent with Patient Time attestation: Total time spent providing and/or coordinating discharge services: 45 min Time spent: Greater than 30 minutes Exam Vital Signs Temp Pulse Resp BP Pulse Ox O2 Del Method O2 Flow Rate 97.8 F 86 20 115/76 96 Room Air 2 01/05/25 07:33 01/05/25 07:33 01/05/25 07:33 01/05/25 07:33 01/05/25 07:33 01/05/25 07:33 01/01/25 08:00 FiO2 28 12/24/24 10:44 Narrative Exam GENERAL APPEARANCE: Patient had a stared gaze, alert and conversational. In no acute distress. HEENT: NC, AT. MMM. EOMI, clear conjunctiva, oropharynx clear. NECK: Supple without lymphadenopathy. No stiffness or restricted ROM. HEART: Regular rate and regular rhythm, normal S1/S2, no m/r/g LUNGS: CTAB, moving air well. No crackles or wheezes are heard. ABDOMEN: Soft, nontender, nondistended with good bowel sounds heard. BACK: No CVAT, no obvious deformity. EXTREMITIES: Without cyanosis, clubbing or edema. NEURO: Limited neuro exam. Patient appears to have minimal alertness and cooperation. Left upper extremity weakness power 2/5, Power in left lower extremity 4/5. Babinski negative Skin: Warm and dry without any rash. Discharge Plan Plan Patient Disposition: Xfer Skilled Nsg Fac (SNF) Patient condition on transfer: Stable Care Plan Goals: Please take aspirin 81 mg daily and atorvastatin 40mg daily for TIA/CVA Please take folic acid, thiamine and multivitamin daily Stop taking all other home medications Follow-up with Dr. Gagnon (neurology) in two weeks. Please follow-up with your PCP within 1 week after discharge Avoid alcohol and ask your PCP to refer you to a program If your symptoms worsen or if you develop new chest pain, shortness of breath, dizziness or loss of consciousness - please come back to the immediately. Prescriptions/Referrals Prescriptions/Med Rec: New multivitamin with folic acid [Tab-A-Sang] 400 mcg Tablet 1 tab PO QDAY 30 Days Qty: 30 3RF folic acid 1 mg Tablet 1 mg PO QDAY 30 Days Qty: 30 1RF aspirin 81 mg tablet 81 mg PO QDAY 30 Days Qty: 30 0RF atorvastatin 40 mg tablet 40 mg PO QDAY 30 Days Qty: 30 0RF thiamine HCl (vitamin B1) 100 mg tablet 100 mg PO QDAY Qty: 20 0RF Discontinued levetiracetam 500 mg tablet 50 mg PO BID Patient Comments: TAKE 1 TABLET BY MOUTH TWICE A DAY lorazepam 0.5 mg tablet 0.5 mg PO BID PRN (Reason: Anxiety) Patient Comments: TAKE 1 TABLET BY MOUTH TWICE A DAY NEEDED gabapentin 300 mg capsule 300 mg PO BID sertraline 50 mg tablet 50 mg PO HS Patient Comments: TAKE 1 TABLET BY MOUTH EVERY DAY AT NIGHT chlordiazepoxide HCl 25 mg capsule 25 mg PO Q12H PRN (Reason: alcohol withdrawal) Qty: 20 0RF Referrals: Davin Gagnon MD [Physician, Neurology] Justo Orozco MD [Primary Care Provider, Nephrology] Patient/Caregiver Discharge Instructions Education Materials: Substance Abuse and Traumatic ..., ED Alcohol Withdrawal Seizure Print Language: Malay Stand Alone Forms: Katherine Award Info., Patient Portal Info Letter Discharge Order Discharge Orders: Discharge (Routine); Ordered 01/05/25 Ordered By: Buddy Greer Quality Discharge Quality Measures VTE prophylaxis Attestestation MD Attestation I attest that I was physically present for the evaluation, physical examination, lab and imaging review of the patient with the residents. I discussed the case with the residents and agree with the findings and plans of care as documented above. At bedside today, denies new complaints. WBC count continues to downtrend. Lumbar puncture results are nonconcerning. Discussed with neurology, agreed patient being stable for discharge to SNF. We will discharge her on aspirin and statin for possible TIA. We will also continue with folic acid and multivitamins. Recommended to follow-up with PCP and neurology in 1 to 2 weeks of discharge. Tr Sanchez MD
[2025-01-05 12:00] VITALS: BP 106/65; PULSE 90; RESP 19; TEMP 36.2; O2SAT 96
--- NOTE | 2025-01-05 14:55 | PC.SS ---
SS has [facility] .? Ref# [id number].? SS has requested [facility].? Per [facility] access representative [facility] is not a guaranteed transport company.? Estimated time is 3-4 hours.? SS has sent patient?s facesheet and ambulance form to [facility] using [facility].? SS has spoken to Nadege at [facility] who has placed pt on will call list until she has been contacted by [facility]. has spoken to both daughters, Moriah and Smith are aware. has sent updated inform to [facility] using [facility]. Dionne from [facility] is aware of transport time. Bedside nurse, Dali is aware. Chantale MEJIA is aware.
[2025-01-05 15:31] VITALS: BP 119/73; PULSE 86; RESP 19; TEMP 36.2; O2SAT 96
--- NOTE | 2025-01-05 15:34 | PC.NURSE ---
gave report to Santino Cuba at [facility]
[2025-01-10 06:29] LABS: Oligoclonal Bands, CSF* ABSENT (ABSENT)
[2025-01-11 17:47] LABS: Enterovirus Source CSF; HSV-1 DNA, CSF NOT DETECTED copies/mL; HSV-1 DNA, CSF Source CEREBROSPINAL FLUID; West Nile Virus (IgG), CSF <1.30
[2025-01-12 06:32] LABS: Enterovirus RNA, PCR CSF NOT DETECTED; HSV-2 DNA, CSF NOT DETECTED copies/mL; VDRL, CSF Qual* NON-REACTIVE; West Nile Virus (IgM), CSF <0.90
== END 2025-01-05 17:26 | disposition skilled nursing facility (03) | DRG 720 ==
LOC: SERX 16:52 → SERHOLD 18:59 → S2SX 20:33 → S2NX 12-26 07:42 → S2SX 12-26 08:45 → S2NX 12-29 08:36 → S3SX 12-30 18:19
PROVIDERS: Internal Medicine; Nurse Practitioner Family; Student in an Organized Health Care Education/Training Program; Admitting Provider Internal Medicine Critical Care Medicine; Emergency Provider Family Medicine; PCP Internal Medicine; Visit Provider Student in an Organized Health Care Education/Training Program
DX: A41.51 Sepsis due to Escherichia coli [E. coli] (principal); F32.A Depression, unspecified; K86.9 Disease of pancreas, unspecified; D68.9 Coagulation defect, unspecified; M62.82 Rhabdomyolysis; N17.9 Acute kidney failure, unspecified; E87.6 Hypokalemia; E83.42 Hypomagnesemia; D69.6 Thrombocytopenia, unspecified; F10.231 Alcohol dependence with withdrawal delirium; K76.0 Fatty (change of) liver, not elsewhere classified; Z22.322 Carrier or suspected carrier of Methicillin resistant Staphylococcus aureus; G93.41 Metabolic encephalopathy; N39.0 Urinary tract infection, site not specified; J69.0 Pneumonitis due to inhalation of food and vomit; B96.89 Other specified bacterial agents as the cause of diseases classified elsewhere; D69.59 Other secondary thrombocytopenia; E83.39 Other disorders of phosphorus metabolism; E87.0 Hyperosmolality and hypernatremia; E87.20 Acidosis, unspecified; G40.509 Epileptic seizures related to external causes, not intractable, without status epilepticus; J15.212 Pneumonia due to Methicillin resistant Staphylococcus aureus; G81.94 Hemiplegia, unspecified affecting left nondominant side; I49.01 Ventricular fibrillation; I46.8 Cardiac arrest due to other underlying condition; K76.82 Hepatic encephalopathy; K70.10 Alcoholic hepatitis without ascites; K59.00 Constipation, unspecified; Z79.82 Long term (current) use of aspirin; Z79.899 Other long term (current) drug therapy; W19.XXXA Unspecified fall, initial encounter; S40.021A Contusion of right upper arm, initial encounter; Y92.009 Unspecified place in unspecified non-institutional (private) residence as the place of occurrence of the external cause; S00.532A Contusion of oral cavity, initial encounter
CPT/HCPCS: 36415; 36600; 70450; 70496; 70498; 70551; 71045; 72141; 74176; 77002; 80048; 80053; 80061; 80069; 80074; 80076; 80307; 80320; 80329; 81001; 82010; 82040; 82042; 82140; 82164; 82550; 82607; 82728; 82746; 82784; 82803; 82945; 83540; 83550; 83605; 83615; 83690; 83735; 83873; 83880; 83916; 84100; 84132; 84145; 84157; 84295; 84443; 84484; 85025; 85610; 85730; 86171; 86331; 86403; 86592; 86635; 86788; 86789; 87040; 87070; 87077; 87081; 87086; 87186; 87205; 87400; 87498; 87530; 87811; 89051; 92526; 92610; 93005; 93225; 93306; 94002; 94003; 94640; 94664; 96361; 96365; 96366; 96375; 97162; 99285; A4314; A4649; A9270; J0131; J0330; J0696; J1953; J1956; J2250; J2470; J2543; J2704; J3411; J3475; J3480; J3490; J7050; J7120; J7999; Q9967; G0480